=== PATIENT | female | born 1960 | race Caucasian/White ===

== ENCOUNTER 2023-09-29 17:10 | Inpatient (IN) | payer MEDICARE, MEDICAID, SELFPAY ==
--- NOTE | ~2023-09-29 | CT_ITS ---
EXAMINATION: CT HEAD WITHOUT CONTRAST CLINICAL INFORMATION: Unwitnessed fall COMPARISON: None available. TECHNIQUE: Contiguous axial imaging was performed from the skull base to vertex without intravenous administration of contrast. This CT examination was performed using dose optimization techniques as appropriate, variously including the following: *Automated exposure control *Adjustment of mA and/or kV according to patient size (this includes techniques or standardized protocols for targeted exams where dose is matched to indication/reason for exam; i.e. extremities or head) *Use of iterative reconstruction technique DLP: 615.31 mGy-cm FINDINGS: Sequelae of right frontoparietal craniotomy. Right temporal approach ventriculostomy catheter with tip terminating in the right lateral ventricle body, abutting the septum pellucidum. No hydrocephalus. Sequelae of prior embolization repair in the region of the right ICA MCA junction with associated streak artifact slightly limiting evaluation. Atherosclerotic calcifications of the visualized bilateral carotid siphons. No acute intracranial hemorrhage or infarct. Encephalomalacic changes involving right MCA territory. Ill-defined hypodensity involving the right frontal lobe, likely sequela of prior left frontal approach ventriculostomy catheter. Otherwise, the martinez-white matter differentiation is preserved. No midline shift. No acute extra-axial fluid collections. The osseous structures are unremarkable. No orbital pathology. The paranasal sinuses and mastoid air cells are clear. CT/CT head/brain wo IV con IMPRESSION: 1. No acute intracranial hemorrhage or edematous infarct. 2. 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 3. Right temporal approach ventriculostomy catheter with tip terminating in the right lateral ventricle body. No hydrocephalus.
[2023-09-29 17:58] VITALS: BMI 21.0
[2023-09-29 18:00] VITALS: BP 99/53; PULSE 47; RESP 16; TEMP 35.8; O2SAT 92
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
[2023-09-29] MEDS: Docusate Sodium 100 MG CAPSULE PO (21:44)
[2023-09-29] MEDS: clonazePAM 0.5 MG TABLET PO (21:44)
[2023-09-29] MEDS: Famotidine 20 MG TABLET PO (21:44)
[2023-09-29] MEDS: traZODone HCL 25 MG HALFTAB PO (21:45)
[2023-09-29] MEDS: Gabapentin 600 MG TABLET PO (21:45)
[2023-09-29] MEDS: lamoTRIgine 100 MG TABLET 200 MG PO (21:45)
[2023-09-30 08:00] VITALS: BP 92/53; PULSE 53; RESP 18; TEMP 36.2; O2SAT 97
[2023-09-30 08:09] LABS: Alanine Aminotransferase 18 U/L (0-31); Alkaline Phosphatase 108 U/L (39-117); Anion Gap 12 (12-20); Aspartate Amino Transferase 21 U/L (5-31); Bilirubin Total 0.3 mg/dL (0.0-1.0); Blood Urea Nitrogen 14 mg/dL (9-16); Calcium 9.7 mg/dL (8.4-10.2); Carbon Dioxide 28 mmol/L (22-29); Chloride 106 mmol/L (96-108); Cholesterol 125 mg/dL (<200); Creatinine Clr Calc Pharmacy 83.6; Estimated Glomerular Filt Rate > 60; Glucose Fasting 124 mg/dL (60-99); HDL Cholesterol 42 mg/dL (>40); LDL Cholesterol Calculated 69 mg/dL (<100); Potassium 4.4 mmol/L (3.3-5.1); Sodium 142 mmol/L (135-145); Total Protein 7.1 g/dL (6.5-8.0); Triglycerides 74 mg/dL (<150)
[2023-09-30] MEDS: Escitalopram Oxalate 10 MG TABLET PO (09:12)
[2023-09-30] MEDS: metFORMIN HCl 500 MG TABLET PO (09:12)
[2023-09-30] MEDS: oxyBUTYnin chloride ER 5 MG TAB.ER.24 10 MG PO (09:12)
[2023-09-30] MEDS: traZODone HCL 50 MG TABLET PO (09:12)
[2023-09-30] MEDS: Docusate Sodium 100 MG CAPSULE PO (09:12)
[2023-09-30] MEDS: clonazePAM 0.5 MG TABLET PO ×2 (09:13→20:22)
[2023-09-30] MEDS: Gabapentin 600 MG TABLET PO ×2 (09:13→20:24)
[2023-09-30] MEDS: lamoTRIgine 100 MG TABLET 200 MG PO ×2 (09:13→20:21)
[2023-09-30] MEDS: Atorvastatin Calcium 80 MG TABLET PO (09:13)
[2023-09-30] MEDS: Famotidine 20 MG TABLET PO ×2 (09:14→22:42)
[2023-09-30] MEDS: Aspirin 81 MG TAB.CHEW PO (10:45)
[2023-09-30] MEDS: Nicotine 21 MG PATCH.TD24 TRANSDERMA (10:46)
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
[2023-09-30 18:00] VITALS: BP 110/52; PULSE 60; RESP 16; TEMP 36.6; O2SAT 97
[2023-09-30] MEDS: traZODone HCL 25 MG HALFTAB PO (20:22)
[2023-10-01 08:05] VITALS: BP 134/61; PULSE 67; RESP 18; TEMP 36.5; O2SAT 96
[2023-10-01] MEDS: oxyBUTYnin chloride ER 5 MG TAB.ER.24 10 MG PO (08:53)
[2023-10-01] MEDS: Aspirin 81 MG TAB.CHEW PO (08:54)
[2023-10-01] MEDS: lamoTRIgine 100 MG TABLET 200 MG PO ×2 (08:54→20:47)
[2023-10-01] MEDS: Gabapentin 600 MG TABLET PO ×3 (08:55→20:47)
[2023-10-01] MEDS: Escitalopram Oxalate 10 MG TABLET PO (08:55)
[2023-10-01] MEDS: clonazePAM 0.5 MG TABLET PO ×3 (08:55→20:47)
[2023-10-01] MEDS: traZODone HCL 50 MG TABLET PO (08:56)
[2023-10-01] MEDS: metFORMIN HCl 500 MG TABLET PO (08:56)
[2023-10-01] MEDS: Docusate Sodium 100 MG CAPSULE PO ×2 (08:56→20:47)
[2023-10-01] MEDS: Atorvastatin Calcium 80 MG TABLET PO (08:57)
[2023-10-01] MEDS: Famotidine 20 MG TABLET PO ×2 (08:57→20:47)
--- NOTE | 2023-10-01 12:23 | HO.PSYCHPN ---
Subjective Subjective Date of Service: 10/01/23 Reason For Visit: F03 Subjective Notes: Conditional Voluntary Interim History: The nursing staff reported the patient had been with short-term memory, she wants to go back to her residential a she stated that she had been doing well. She had been confused that able to be redirected. The occupational therapy reported that the patient has PTS her residential and she was requesting her wheelchair. On interview the patient stated that she had been doing fine and she wants to go back to her residential. Today we received some collateral information. Mental Status Exam Mental Status Exam Patient Appearance: Well Grooomed and Appropriate Patient Orientation: Person and Situation Level of Consciousness: Awake and Appropriate Patient Behavior: Guarded and Passive Mood Description: Withdrawn Affect Description: Constricted Patient Cognition Impaired: Yes Ability to Follow Directions: Good Speech Pattern: Clear Hallucinations: None Delusions: Paranoid Ideation Thought Process: Illogical and Distracted Thought Content: positive for [place] and positive for Poverty of Content Judgement: Poor Diagnostics Vital Signs (24Hr): Vital Signs - 24 hr 09/30/23 18:00 10/01/23 08:05 Temperature 97.9 F 97.7 F Pulse Rate 60 67 Respiratory Rate 16 18 Blood Pressure 110/52 L 134/61 Pulse Oximetry 97 96 Oxygen Delivery Method Room Air Room Air BMI result Body Mass Index 21.0 Labs 09/30/23 07:43 Labs: Laboratory Results - last 48 hr 09/30/23 07:43 Hold Purple Top SEE NOTE Sodium 142 Potassium 4.4 Chloride 106 Carbon Dioxide 28 Anion Gap 12 BUN 14 Creatinine 0.65 Estim Creat Clear Calc 83.6 Estimated GFR > 60 Fasting Glucose 124 H Calcium 9.7 Total Bilirubin 0.3 AST 21 ALT 18 Alkaline Phosphatase 108 Total Protein 7.1 Albumin 4.0 Triglycerides 74 Cholesterol 125 LDL Cholesterol, Calc 69 HDL Cholesterol 42 Medications Medications Current Medications Acetaminophen (Acetaminophen 325 Mg Tablet) 650 mg PO Q6H PRN PRN Reason: Headache/Pain Mild Scale (1-3) Al Hydroxide/Mg Hydroxide (Magnesium Hydrox/Alum Hydrox 30 Ml Oral.Susp) 30 ml PO Q6H PRN PRN Reason: Heartburn/Nausea Aspirin (Aspirin 81 Mg Tab.Chew) 81 mg PO DAILY [facility] Last Admin: 10/01/23 08:54 Dose: 81 mg Atorvastatin Calcium (Atorvastatin Calcium 80 Mg Tablet) 80 mg PO DAILY [facility] Last Admin: 10/01/23 08:57 Dose: 80 mg Clonazepam (Clonazepam 0.5 Mg Tablet) 0.5 mg PO TID [facility] Last Admin: 10/01/23 08:55 Dose: 0.5 mg Docusate Sodium (Docusate Sodium 100 Mg Capsule) 100 mg PO BID [facility] Last Admin: 10/01/23 08:56 Dose: 100 mg Escitalopram Oxalate (Escitalopram Oxalate 10 Mg Tablet) 10 mg PO DAILY [facility] Last Admin: 10/01/23 08:55 Dose: 10 mg Famotidine (Famotidine 20 Mg Tablet) 20 mg PO BID [facility] Last Admin: 10/01/23 08:57 Dose: 20 mg Gabapentin (Gabapentin 600 Mg Tablet) 600 mg PO TID [facility] Last Admin: 10/01/23 08:55 Dose: 600 mg Hydroxyzine HCl (Hydroxyzine Hcl 25 Mg Tablet) 25 mg PO Q6H PRN PRN Reason: Anxiety Ibuprofen (Ibuprofen 400 Mg Tablet) 400 mg PO Q6H PRN PRN Reason: Mild Pain (Scale Score 1-4) Lamotrigine (Lamotrigine 100 Mg Tablet) 200 mg PO BID [facility] Last Admin: 10/01/23 08:54 Dose: 200 mg Latanoprost (Latanoprost 0.005 % Ophth Pati 2.5 Ml Drops) 1 drop EYE-BOTH DAILY [facility] Last Admin: 10/01/23 09:47 Dose: Not Given Magnesium Hydroxide (Milk Of Magnesia 30 Ml Oral.Susp) 30 ml PO DAILY PRN PRN Reason: Constipation Metformin HCl (Metformin Hcl 500 Mg Tablet) 500 mg PO DAILY [facility] Last Admin: 10/01/23 08:56 Dose: 500 mg Nicotine (Nicotine 21 Mg Patch.Td24) 21 mg TRANSDERMA DAILY [facility] Last Admin: 09/30/23 10:46 Dose: 21 mg Non-Formulary Medication (Varenicline) 0.5 mg PO BID [facility] Olanzapine (Olanzapine Odt 10 Mg Tab.Rapdis) 10 mg TRANSLINGU BID PRN PRN Reason: Psychosis Oxybutynin Chloride (Oxybutynin Chloride Er 5 Mg Tab.Er.24) 10 mg PO DAILY [facility] Last Admin: 10/01/23 08:53 Dose: 10 mg Trazodone HCl (Trazodone Hcl 50 Mg Tablet) 50 mg PO BEDTIME MRX1 PRN PRN Reason: Insomnia Trazodone HCl (Trazodone Hcl 25 Mg Halftab) 25 mg PO BEDTIME [facility] Last Admin: 09/30/23 20:22 Dose: 25 mg Trazodone HCl (Trazodone Hcl 50 Mg Tablet) 50 mg PO DAILY [facility] Last Admin: 10/01/23 08:56 Dose: 50 mg Allergies Allergies Allergy/AdvReac Type Severity Reaction Status Date / Time amantadine AdvReac Unknown Verified 09/29/23 17:57 Assessment & Plan Assessment & Plan (1) Dementia: Status: Acute Code(s): F03.90 - Unspecified dementia, unspecified severity, without behavioral disturbance, psychotic disturbance, mood disturbance, and anxiety (2) Traumatic brain injury: Status: Acute Code(s): S06.9XAA - Unspecified intracranial injury with loss of consciousness status unknown, initial encounter Plan The patient is adult female who looks older than her stated age with a prior history of dementia and traumatic brain injury who resides in a residential who was brought into the facility due to increased agitation, paranoia and disorganized behavior, confused unable to take care of herself, violent against the staff of his residential. The patient had been a very poor historian able to provide any information regarding her mental state she looks internally preoccupied and paranoid. Plan 1. Gather collateral information. 2. Continue with regular medications. 3. We do not have a role years order a guardianship within not have at this moment any legal paperwork regarding the patient. We cannot start standing 90 psychotic until we have cleared if she has a treatment over objection on court. We will start only as p.r.n. Zyprexa 10 p.o. b.i.d. p.r.n. psychosis. Later on we found out according to the med rec the patient has a guardian and she is taking Zyprexa 5 mg p.o. q.h.s. restarted on October 01. 4. Continue medical workout. 5. Reassessment with results. 6. 15 minute checks. Reason for continued inpatient stay Substantial Risk for: inability to function, rapid decompensation and med/psych decompensation Time Spent With Patient Time: Total time managing care of this patient today __20__ minutes.
[2023-10-01 18:00] VITALS: BP 90/55; PULSE 60; RESP 16; TEMP 36; O2SAT 92
[2023-10-01] MEDS: Latanoprost 0.005 % Ophth Sol 2.5 ML DROPS 1 DROP EYE-BOTH (20:46)
[2023-10-01] MEDS: OLANZapine 5 MG TABLET PO (20:47)
[2023-10-01] MEDS: traZODone HCL 25 MG HALFTAB PO (20:47)
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
[2023-10-02 10:15] VITALS: BP 101/54; PULSE 50; RESP 16; TEMP 36.1; O2SAT 98
[2023-10-02] MEDS: oxyBUTYnin chloride ER 5 MG TAB.ER.24 10 MG PO (10:18)
[2023-10-02] MEDS: metFORMIN HCl 500 MG TABLET PO (10:18)
[2023-10-02] MEDS: lamoTRIgine 100 MG TABLET 200 MG PO ×2 (10:18→20:45)
[2023-10-02] MEDS: traZODone HCL 50 MG TABLET PO (10:18)
[2023-10-02] MEDS: Escitalopram Oxalate 10 MG TABLET PO (10:18)
[2023-10-02] MEDS: Atorvastatin Calcium 80 MG TABLET PO (10:18)
[2023-10-02] MEDS: Gabapentin 600 MG TABLET PO ×3 (10:19→20:45)
[2023-10-02] MEDS: Famotidine 20 MG TABLET PO ×2 (10:19→20:45)
[2023-10-02] MEDS: clonazePAM 0.5 MG TABLET PO ×3 (10:19→20:45)
[2023-10-02] MEDS: Docusate Sodium 100 MG CAPSULE PO ×2 (10:19→20:45)
[2023-10-02] MEDS: Aspirin 81 MG TAB.CHEW PO (10:19)
[2023-10-02] MEDS: Nicotine 21 MG PATCH.TD24 TRANSDERMA (10:34)
--- NOTE | 2023-10-02 17:44 | HO.PSYCHPN ---
Subjective Subjective Date of Service: 10/02/23 Reason For Visit: F03 Interim History: Met with patient; discussed with team Patient reports she is feeling tired; denies any other problems. Thanks commercial loan underwriter for checking in on her. Otherwise difficult with which to engage Mental Status Exam Mental Status Exam Patient Appearance: Fatigued Patient Orientation: Person and Situation Level of Consciousness: Awake and Appropriate Patient Behavior: Guarded and Passive Mood Description: Withdrawn Affect Description: Constricted Patient Cognition Impaired: Yes Ability to Follow Directions: Fair Speech Pattern: Clear Hallucinations: None Delusions: Paranoid Ideation Thought Process: Illogical and Distracted Thought Content: positive for [place] and positive for Poverty of Content Judgement: Poor Diagnostics Vital Signs (24Hr): Vital Signs - 24 hr 10/01/23 18:00 10/02/23 10:15 Temperature 96.8 F 96.9 F Pulse Rate 60 50 Respiratory Rate 16 16 Blood Pressure 90/55 L 101/54 L Pulse Oximetry 92 98 Oxygen Delivery Method Room Air Room Air BMI result Body Mass Index 21.0 Labs 09/30/23 07:43 Medications Medications Current Medications Acetaminophen (Acetaminophen 325 Mg Tablet) 650 mg PO Q6H PRN PRN Reason: Headache/Pain Mild Scale (1-3) Al Hydroxide/Mg Hydroxide (Magnesium Hydrox/Alum Hydrox 30 Ml Oral.Susp) 30 ml PO Q6H PRN PRN Reason: Heartburn/Nausea Aspirin (Aspirin 81 Mg Tab.Chew) 81 mg PO DAILY [facility] Last Admin: 10/02/23 10:19 Dose: 81 mg Atorvastatin Calcium (Atorvastatin Calcium 80 Mg Tablet) 80 mg PO DAILY [facility] Last Admin: 10/02/23 10:18 Dose: 80 mg Clonazepam (Clonazepam 0.5 Mg Tablet) 0.5 mg PO TID [facility] Last Admin: 10/02/23 16:51 Dose: 0.5 mg Docusate Sodium (Docusate Sodium 100 Mg Capsule) 100 mg PO BID [facility] Last Admin: 10/02/23 10:19 Dose: 100 mg Escitalopram Oxalate (Escitalopram Oxalate 10 Mg Tablet) 10 mg PO DAILY [facility] Last Admin: 10/02/23 10:18 Dose: 10 mg Famotidine (Famotidine 20 Mg Tablet) 20 mg PO BID [facility] Last Admin: 10/02/23 10:19 Dose: 20 mg Gabapentin (Gabapentin 600 Mg Tablet) 600 mg PO TID [facility] Last Admin: 10/02/23 16:52 Dose: 600 mg Hydroxyzine HCl (Hydroxyzine Hcl 25 Mg Tablet) 25 mg PO Q6H PRN PRN Reason: Anxiety Ibuprofen (Ibuprofen 400 Mg Tablet) 400 mg PO Q6H PRN PRN Reason: Mild Pain (Scale Score 1-4) Lamotrigine (Lamotrigine 100 Mg Tablet) 200 mg PO BID [facility] Last Admin: 10/02/23 10:18 Dose: 200 mg Latanoprost (Latanoprost 0.005 % Ophth Pati 2.5 Ml Drops) 1 drop EYE-BOTH BEDTIME [facility] Last Admin: 10/01/23 20:46 Dose: 1 drop Magnesium Hydroxide (Milk Of Magnesia 30 Ml Oral.Susp) 30 ml PO DAILY PRN PRN Reason: Constipation Metformin HCl (Metformin Hcl 500 Mg Tablet) 500 mg PO DAILY [facility] Last Admin: 10/02/23 10:18 Dose: 500 mg Nicotine (Nicotine 21 Mg Patch.Td24) 21 mg TRANSDERMA DAILY [facility] Last Admin: 10/02/23 10:34 Dose: 21 mg Non-Formulary Medication (Varenicline) 0.5 mg PO BID [facility] Olanzapine (Olanzapine Odt 10 Mg Tab.Rapdis) 10 mg TRANSLINGU BID PRN PRN Reason: Psychosis Olanzapine (Olanzapine 5 Mg Tablet) 5 mg PO BEDTIME [facility] Last Admin: 10/01/23 20:47 Dose: 5 mg Oxybutynin Chloride (Oxybutynin Chloride Er 5 Mg Tab.Er.24) 10 mg PO DAILY [facility] Last Admin: 10/02/23 10:18 Dose: 10 mg Trazodone HCl (Trazodone Hcl 50 Mg Tablet) 50 mg PO BEDTIME MRX1 PRN PRN Reason: Insomnia Trazodone HCl (Trazodone Hcl 25 Mg Halftab) 25 mg PO BEDTIME [facility] Last Admin: 10/01/23 20:47 Dose: 25 mg Trazodone HCl (Trazodone Hcl 50 Mg Tablet) 50 mg PO DAILY [facility] Last Admin: 10/02/23 10:18 Dose: 50 mg Allergies Allergies Allergy/AdvReac Type Severity Reaction Status Date / Time amantadine AdvReac Unknown Verified 09/29/23 17:57 Assessment & Plan Assessment & Plan (1) Diabetes: Qualifiers: Diabetes mellitus complication status: without complication Status: Acute Code(s): E11.9 - Type 2 diabetes mellitus without complications (2) HLD (hyperlipidemia): Qualifiers: Hyperlipidemia type: unspecified Qualified Code(s): E78.5 - Hyperlipidemia, unspecified Status: Acute Code(s): E78.5 - Hyperlipidemia, unspecified (3) Traumatic brain injury: Qualifiers: Loss of consciousness presence/duration: unknown LOC status Status: Acute Code(s): S06.9XAA - Unspecified intracranial injury with loss of consciousness status unknown, initial encounter Plan 63 year old female with history of TBI, HLD, dmentia, diabetes from senior living admitted to [facility] for managment of increased agitation, paranoia and disorganized behavior, confused unable to take care of herself, violent against the staff of his senior living. Plan: Overall seems to be doing better at this point, there is no obvious acute medical issues. Continue Metformin for diabetes, Lipitor for HLD. Her las recorded BP was on low side nearly 18 hours ago and would suggest rechecking. Labs were reviewed and unremarkable. Given no acute medical issues, will follow on PRN basis Reason for continued inpatient stay Substantial Risk for: inability to function Time Spent With Patient Time: Total time managing care of this patient today ____ minutes.
[2023-10-02 18:00] VITALS: BP 97/53; PULSE 60; RESP 16; TEMP 36.8; O2SAT 94
[2023-10-02] MEDS: traZODone HCL 25 MG HALFTAB PO (20:45)
[2023-10-02] MEDS: OLANZapine 5 MG TABLET PO (20:45)
[2023-10-02] MEDS: Latanoprost 0.005 % Ophth Sol 2.5 ML DROPS 1 DROP EYE-BOTH (20:51)
[2023-10-03 06:00] VITALS: BP 95/54; PULSE 68; RESP 18; TEMP 36.7; O2SAT 96
[2023-10-03 07:00] VITALS: BMI 23.1
[2023-10-03] MEDS: Aspirin 81 MG TAB.CHEW PO (08:57)
[2023-10-03] MEDS: lamoTRIgine 100 MG TABLET 200 MG PO ×2 (08:57→20:28)
[2023-10-03] MEDS: oxyBUTYnin chloride ER 5 MG TAB.ER.24 10 MG PO (08:57)
[2023-10-03] MEDS: Escitalopram Oxalate 10 MG TABLET PO (08:57)
[2023-10-03] MEDS: Famotidine 20 MG TABLET PO ×2 (08:58→20:29)
[2023-10-03] MEDS: traZODone HCL 50 MG TABLET PO (08:58)
[2023-10-03] MEDS: Atorvastatin Calcium 80 MG TABLET PO (08:58)
[2023-10-03] MEDS: metFORMIN HCl 500 MG TABLET PO (08:58)
[2023-10-03] MEDS: Gabapentin 600 MG TABLET PO ×3 (08:58→20:28)
[2023-10-03] MEDS: clonazePAM 0.5 MG TABLET PO ×3 (08:58→20:28)
[2023-10-03] MEDS: Docusate Sodium 100 MG CAPSULE PO ×2 (08:58→20:29)
[2023-10-03] MEDS: Nicotine 21 MG PATCH.TD24 TRANSDERMA (09:01)
--- NOTE | 2023-10-03 15:02 | HO.PSYCHPN ---
Subjective Subjective Date of Service: 10/03/23 Reason For Visit: F03 Subjective Notes: Conditional Voluntary Interim History: The nursing staff reported the patient has been confused and irritable, she had been using her wheelchair. She looks disheveled and she slept well last night. Neck the nurse in charge called the program and gather more collateral information. The social worker clinical reported that she can go back to his fpc once her aggressiveness is resolved. We are going to check the role years order. On interview the patient stated that she wants to go back home and she is okay. We are going to increase Zyprexa to 10 mg p.o. q.h.s.. Mental Status Exam Mental Status Exam Patient Appearance: Unkempt Patient Orientation: Person Level of Consciousness: Awake and Appropriate Patient Behavior: Guarded and Passive Mood Description: Withdrawn Affect Description: Constricted Patient Cognition Impaired: Yes Ability to Follow Directions: Good Speech Pattern: Clear Hallucinations: None Delusions: Not Present Thought Process: Distracted and Slowed Thinking Thought Content: positive for [place], positive for [place] and positive for Poverty of Content Judgement: Poor Diagnostics Vital Signs (24Hr): Vital Signs - 24 hr 10/02/23 18:00 10/03/23 06:00 Temperature 98.2 F 98.1 F Pulse Rate 60 68 Respiratory Rate 16 18 Blood Pressure 97/53 L 95/54 L Pulse Oximetry 94 96 Oxygen Delivery Method Room Air Room Air BMI result Body Mass Index 23.1 Labs 09/30/23 07:43 Medications Medications Current Medications Acetaminophen (Acetaminophen 325 Mg Tablet) 650 mg PO Q6H PRN PRN Reason: Headache/Pain Mild Scale (1-3) Al Hydroxide/Mg Hydroxide (Magnesium Hydrox/Alum Hydrox 30 Ml Oral.Susp) 30 ml PO Q6H PRN PRN Reason: Heartburn/Nausea Aspirin (Aspirin 81 Mg Tab.Chew) 81 mg PO DAILY [facility] Last Admin: 10/03/23 08:57 Dose: 81 mg Atorvastatin Calcium (Atorvastatin Calcium 80 Mg Tablet) 80 mg PO DAILY [facility] Last Admin: 10/03/23 08:58 Dose: 80 mg Clonazepam (Clonazepam 0.5 Mg Tablet) 0.5 mg PO TID [facility] Last Admin: 10/03/23 08:58 Dose: 0.5 mg Docusate Sodium (Docusate Sodium 100 Mg Capsule) 100 mg PO BID [facility] Last Admin: 10/03/23 08:58 Dose: 100 mg Escitalopram Oxalate (Escitalopram Oxalate 10 Mg Tablet) 10 mg PO DAILY [facility] Last Admin: 10/03/23 08:57 Dose: 10 mg Famotidine (Famotidine 20 Mg Tablet) 20 mg PO BID [facility] Last Admin: 10/03/23 08:58 Dose: 20 mg Gabapentin (Gabapentin 600 Mg Tablet) 600 mg PO TID [facility] Last Admin: 10/03/23 08:58 Dose: 600 mg Hydroxyzine HCl (Hydroxyzine Hcl 25 Mg Tablet) 25 mg PO Q6H PRN PRN Reason: Anxiety Ibuprofen (Ibuprofen 400 Mg Tablet) 400 mg PO Q6H PRN PRN Reason: Mild Pain (Scale Score 1-4) Lamotrigine (Lamotrigine 100 Mg Tablet) 200 mg PO BID [facility] Last Admin: 10/03/23 08:57 Dose: 200 mg Latanoprost (Latanoprost 0.005 % Ophth Pati 2.5 Ml Drops) 1 drop EYE-BOTH BEDTIME [facility] Last Admin: 10/02/23 20:51 Dose: 1 drop Magnesium Hydroxide (Milk Of Magnesia 30 Ml Oral.Susp) 30 ml PO DAILY PRN PRN Reason: Constipation Metformin HCl (Metformin Hcl 500 Mg Tablet) 500 mg PO DAILY [facility] Last Admin: 10/03/23 08:58 Dose: 500 mg Nicotine (Nicotine 21 Mg Patch.Td24) 21 mg TRANSDERMA DAILY [facility] Last Admin: 10/03/23 09:01 Dose: 21 mg Olanzapine (Olanzapine Odt 10 Mg Tab.Rapdis) 10 mg TRANSLINGU BID PRN PRN Reason: Psychosis Olanzapine (Olanzapine 10 Mg Tablet) 10 mg PO BEDTIME [facility] Oxybutynin Chloride (Oxybutynin Chloride Er 5 Mg Tab.Er.24) 10 mg PO DAILY [facility] Last Admin: 10/03/23 08:57 Dose: 10 mg Trazodone HCl (Trazodone Hcl 50 Mg Tablet) 50 mg PO BEDTIME MRX1 PRN PRN Reason: Insomnia Trazodone HCl (Trazodone Hcl 25 Mg Halftab) 25 mg PO BEDTIME [facility] Last Admin: 10/02/23 20:45 Dose: 25 mg Trazodone HCl (Trazodone Hcl 50 Mg Tablet) 50 mg PO DAILY [facility] Last Admin: 10/03/23 08:58 Dose: 50 mg Allergies Allergies Allergy/AdvReac Type Severity Reaction Status Date / Time amantadine AdvReac Unknown Verified 09/29/23 17:57 Assessment & Plan Assessment & Plan (1) Diabetes: Qualifiers: Diabetes mellitus complication status: without complication Status: Acute Code(s): E11.9 - Type 2 diabetes mellitus without complications (2) HLD (hyperlipidemia): Qualifiers: Hyperlipidemia type: unspecified Qualified Code(s): E78.5 - Hyperlipidemia, unspecified Status: Acute Code(s): E78.5 - Hyperlipidemia, unspecified (3) Traumatic brain injury: Qualifiers: Loss of consciousness presence/duration: unknown LOC status Status: Acute Code(s): S06.9XAA - Unspecified intracranial injury with loss of consciousness status unknown, initial encounter Plan 63 year old female with history of TBI, HLD, dmentia, diabetes from fpc admitted to [facility] for managment of increased agitation, paranoia and disorganized behavior, confused unable to take care of herself, violent against the staff of his fpc. Plan: Overall seems to be doing better at this point, there is no obvious acute medical issues. Continue Metformin for diabetes, Lipitor for HLD. Her las recorded BP was on low side nearly 18 hours ago and would suggest rechecking. Labs were reviewed and unremarkable. Given no acute medical issues, will follow on PRN basis 1. Gather collateral information. 2. Increase Zyprexa from 5-10 mg on October 03. 3. Continue with medical workout. Reason for continued inpatient stay Substantial Risk for: inability to function, rapid decompensation and med/psych decompensation Time Spent With Patient Time: Total time managing care of this patient today ____ minutes.
[2023-10-03 20:05] VITALS: BP 105/58; PULSE 59; RESP 18; TEMP 36.9; O2SAT 94
[2023-10-03] MEDS: traZODone HCL 25 MG HALFTAB PO (20:28)
[2023-10-03] MEDS: OLANZapine 10 MG TABLET PO (20:29)
[2023-10-03] MEDS: Latanoprost 0.005 % Ophth Sol 2.5 ML DROPS 1 DROP EYE-BOTH (20:39)
[2023-10-04] MEDS: OLANZapine ODT 10 MG TAB.RAPDIS TRANSLINGU ×3 (04:55→16:40)
[2023-10-04 06:00] VITALS: BP 99/58; PULSE 69; RESP 16; TEMP 36.6; O2SAT 96
[2023-10-04] MEDS: metFORMIN HCl 500 MG TABLET PO (08:14)
[2023-10-04] MEDS: lamoTRIgine 100 MG TABLET 200 MG PO ×2 (08:14→21:20)
[2023-10-04] MEDS: Atorvastatin Calcium 80 MG TABLET PO (08:14)
[2023-10-04] MEDS: Aspirin 81 MG TAB.CHEW PO (08:15)
[2023-10-04] MEDS: Gabapentin 600 MG TABLET PO ×3 (08:15→21:20)
[2023-10-04] MEDS: Escitalopram Oxalate 10 MG TABLET PO (08:15)
[2023-10-04] MEDS: Famotidine 20 MG TABLET PO ×2 (08:15→21:20)
[2023-10-04] MEDS: oxyBUTYnin chloride ER 5 MG TAB.ER.24 10 MG PO (08:15)
[2023-10-04] MEDS: Docusate Sodium 100 MG CAPSULE PO ×2 (08:15→21:19)
[2023-10-04] MEDS: traZODone HCL 50 MG TABLET PO (08:15)
[2023-10-04] MEDS: clonazePAM 0.5 MG TABLET PO ×4 (08:15→21:19)
[2023-10-04] MEDS: Nicotine 21 MG PATCH.TD24 TRANSDERMA (08:36)
--- NOTE | 2023-10-04 15:04 | HO.PSYCHPN ---
Subjective Subjective Date of Service: 10/04/23 Reason For Visit: F03 Subjective Notes: Conditional Voluntary Interim History: The nursing staff reported the patient had been confused, disoriented stating that she wants to go back home. She slept poorly last night we recently increased her Zyprexa. She took side is at 04:00 o'clock in the morning. Today in the morning she was sleepy and stated that she was doing fine. No changes in mental status Mental Status Exam Mental Status Exam Patient Appearance: Well Grooomed and Appropriate Patient Orientation: Person and Situation Level of Consciousness: Awake and Appropriate Patient Behavior: Guarded and Passive Mood Description: Calm Affect Description: Withdrawn and Cheerful Patient Cognition Impaired: Yes Ability to Follow Directions: Good Speech Pattern: Clear Hallucinations: None Delusions: Not Present Thought Process: Distracted and Slowed Thinking Thought Content: positive for [place], positive for [place] and positive for Poverty of Content Judgement: Poor Diagnostics Vital Signs (24Hr): Vital Signs - 24 hr 10/03/23 20:05 10/04/23 06:00 Temperature 98.4 F 97.8 F Pulse Rate 59 69 Respiratory Rate 18 16 Blood Pressure 105/58 L 99/58 L Pulse Oximetry 94 96 Oxygen Delivery Method Room Air Room Air BMI result Body Mass Index 23.1 Labs 09/30/23 07:43 Medications Medications Current Medications Acetaminophen (Acetaminophen 325 Mg Tablet) 650 mg PO Q6H PRN PRN Reason: Headache/Pain Mild Scale (1-3) Al Hydroxide/Mg Hydroxide (Magnesium Hydrox/Alum Hydrox 30 Ml Oral.Susp) 30 ml PO Q6H PRN PRN Reason: Heartburn/Nausea Aspirin (Aspirin 81 Mg Tab.Chew) 81 mg PO DAILY COUNT [facility]CLUD[facility] Last Admin: 10/04/23 08:15 Dose: 81 mg Atorvastatin Calcium (Atorvastatin Calcium 80 Mg Tablet) 80 mg PO DAILY COUNT [facility]CLUD[facility] Last Admin: 10/04/23 08:14 Dose: 80 mg Clonazepam (Clonazepam 0.5 Mg Tablet) 0.5 mg PO TID COUNT [facility]CLUDES [facility] Last Admin: 10/04/23 08:15 Dose: 0.5 mg Docusate Sodium (Docusate Sodium 100 Mg Capsule) 100 mg PO BID COUNT [facility]CLUD[facility] Last Admin: 10/04/23 08:15 Dose: 100 mg Escitalopram Oxalate (Escitalopram Oxalate 10 Mg Tablet) 10 mg PO DAILY COUNT [facility] Last Admin: 10/04/23 08:15 Dose: 10 mg Famotidine (Famotidine 20 Mg Tablet) 20 mg PO BID COUNT [facility]CLUD[facility] Last Admin: 10/04/23 08:15 Dose: 20 mg Gabapentin (Gabapentin 600 Mg Tablet) 600 mg PO TID COUNT [facility] Last Admin: 10/04/23 08:15 Dose: 600 mg Hydroxyzine HCl (Hydroxyzine Hcl 25 Mg Tablet) 25 mg PO Q6H PRN PRN Reason: Anxiety Ibuprofen (Ibuprofen 400 Mg Tablet) 400 mg PO Q6H PRN PRN Reason: Mild Pain (Scale Score 1-4) Lamotrigine (Lamotrigine 100 Mg Tablet) 200 mg PO BID COUNT [facility]CLUD[facility] Last Admin: 10/04/23 08:14 Dose: 200 mg Latanoprost (Latanoprost 0.005 % Ophth Pati 2.5 Ml Drops) 1 drop EYE-BOTH BEDTIME COUNT INCLUDES [facility] Last Admin: 10/03/23 20:39 Dose: 1 drop Magnesium Hydroxide (Milk Of Magnesia 30 Ml Oral.Susp) 30 ml PO DAILY PRN PRN Reason: Constipation Metformin HCl (Metformin Hcl 500 Mg Tablet) 500 mg PO DAILY COUNT [facility] Last Admin: 10/04/23 08:14 Dose: 500 mg Nicotine (Nicotine 21 Mg Patch.Td24) 21 mg TRANSDERMA DAILY COUNT [facility]CLUDES [facility] Last Admin: 10/04/23 08:36 Dose: 21 mg Olanzapine (Olanzapine Odt 10 Mg Tab.Rapdis) 10 mg TRANSLINGU BID PRN PRN Reason: Psychosis Last Admin: 10/04/23 04:55 Dose: 10 mg Olanzapine (Olanzapine 10 Mg Tablet) 10 mg PO BEDTIME COUNT [facility]CLUD[facility] Last Admin: 10/03/23 20:29 Dose: 10 mg Oxybutynin Chloride (Oxybutynin Chloride Er 5 Mg Tab.Er.24) 10 mg PO DAILY COUNT [facility]CLUD[facility] Last Admin: 10/04/23 08:15 Dose: 10 mg Trazodone HCl (Trazodone Hcl 50 Mg Tablet) 50 mg PO BEDTIME MRX1 PRN PRN Reason: Insomnia Trazodone HCl (Trazodone Hcl 25 Mg Halftab) 25 mg PO BEDTIME COUNT [facility]CLUD[facility] Last Admin: 10/03/23 20:28 Dose: 25 mg Trazodone HCl (Trazodone Hcl 50 Mg Tablet) 50 mg PO DAILY COUNT [facility]CLUD[facility] Last Admin: 10/04/23 08:15 Dose: 50 mg Allergies Allergies Allergy/AdvReac Type Severity Reaction Status Date / Time amantadine AdvReac Unknown Verified 09/29/23 17:57 Assessment & Plan Assessment & Plan (1) Diabetes: Qualifiers: Diabetes mellitus complication status: without complication Status: Acute Code(s): E11.9 - Type 2 diabetes mellitus without complications (2) HLD (hyperlipidemia): Qualifiers: Hyperlipidemia type: unspecified Qualified Code(s): E78.5 - Hyperlipidemia, unspecified Status: Acute Code(s): E78.5 - Hyperlipidemia, unspecified (3) Traumatic brain injury: Qualifiers: Loss of consciousness presence/duration: unknown LOC status Status: Acute Code(s): S06.9XAA - Unspecified intracranial injury with loss of consciousness status unknown, initial encounter Plan 63 year old female with history of TBI, HLD, dmentia, diabetes from [facility] admitted to [facility] for managment of increased agitation, paranoia and disorganized behavior, confused unable to take care of herself, violent against the staff of his [facility]. Plan: Overall seems to be doing better at this point, there is no obvious acute medical issues. Continue Metformin for diabetes, Lipitor for HLD. Her las recorded BP was on low side nearly 18 hours ago and would suggest rechecking. Labs were reviewed and unremarkable. Given no acute medical issues, will follow on PRN basis 1. Gather collateral information. 2. Increase Zyprexa from 5-10 mg on October 03. 3. Continue with medical workout. Reason for continued inpatient stay Substantial Risk for: inability to function, rapid decompensation and med/psych decompensation Time Spent With Patient Time: Total time managing care of this patient today __20__ minutes.
--- NOTE | 2023-10-04 17:38 | PC.NURSE ---
Patient became extremely agitated at approximately 1530 insisting her ipad was under the bed and that she was at her detention not at [facility]. Patient also was angry that she couldn't have her cigarettes. Olanzapine 10 mg AND Clonazepam 0.5 x2. Patient is calmer however still believes she is at the detention. notified.
[2023-10-04 18:00] VITALS: BP 117/64; PULSE 67; RESP 16; TEMP 36.1; O2SAT 95
[2023-10-04] MEDS: traZODone HCL 25 MG HALFTAB PO (21:20)
[2023-10-04] MEDS: OLANZapine 10 MG TABLET PO (21:20)
[2023-10-05 08:15] VITALS: BP 114/69; PULSE 64; RESP 18; TEMP 35.9; O2SAT 100
[2023-10-05] MEDS: Nicotine 21 MG PATCH.TD24 TRANSDERMA (08:53)
[2023-10-05] MEDS: oxyBUTYnin chloride ER 5 MG TAB.ER.24 10 MG PO (08:54)
[2023-10-05] MEDS: traZODone HCL 50 MG TABLET PO (08:55)
[2023-10-05] MEDS: lamoTRIgine 100 MG TABLET 200 MG PO (08:55)
[2023-10-05] MEDS: Aspirin 81 MG TAB.CHEW PO (08:55)
[2023-10-05] MEDS: Docusate Sodium 100 MG CAPSULE PO (08:56)
[2023-10-05] MEDS: Escitalopram Oxalate 10 MG TABLET PO (08:56)
[2023-10-05] MEDS: Atorvastatin Calcium 80 MG TABLET PO (08:56)
[2023-10-05] MEDS: Gabapentin 600 MG TABLET PO ×2 (08:56→14:46)
[2023-10-05] MEDS: clonazePAM 0.5 MG TABLET PO ×2 (08:57→14:46)
[2023-10-05] MEDS: metFORMIN HCl 500 MG TABLET PO (08:57)
[2023-10-05] MEDS: Famotidine 20 MG TABLET PO (08:57)
[2023-10-05] MEDS: OLANZapine ODT 10 MG TAB.RAPDIS TRANSLINGU (12:06)
--- NOTE | 2023-10-05 12:08 | HO.PSYCHPN ---
Subjective Subjective Date of Service: 10/05/23 Reason For Visit: F03 Interim History: calm, cooperative, lying in bed. no requests or complaints. pleasant. per staff, got zydis at 1609 and 1640 yesterday. talkative, intrusive. Mental Status Exam Mental Status Exam Patient Appearance: Well Grooomed and Appropriate Patient Orientation: Person and Situation Level of Consciousness: Awake and Appropriate Patient Behavior: Guarded and Passive Mood Description: Calm Affect Description: Withdrawn and Cheerful Patient Cognition Impaired: Yes Ability to Follow Directions: Good Speech Pattern: Clear Hallucinations: None Delusions: Not Present Thought Process: Distracted and Slowed Thinking Thought Content: positive for [place], positive for [place] and positive for Poverty of Content Judgement: Poor Diagnostics Vital Signs (24Hr): Vital Signs - 24 hr 10/04/23 18:00 10/05/23 08:15 Temperature 97 F 96.7 F L Pulse Rate 67 64 Respiratory Rate 16 18 Blood Pressure 117/64 114/69 Pulse Oximetry 95 100 Oxygen Delivery Method Room Air Room Air BMI result Body Mass Index 23.1 Labs 09/30/23 07:43 Medications Medications Current Medications Acetaminophen (Acetaminophen 325 Mg Tablet) 650 mg PO Q6H PRN PRN Reason: Headache/Pain Mild Scale (1-3) Al Hydroxide/Mg Hydroxide (Magnesium Hydrox/Alum Hydrox 30 Ml Oral.Susp) 30 ml PO Q6H PRN PRN Reason: Heartburn/Nausea Aspirin (Aspirin 81 Mg Tab.Chew) 81 mg PO DAILY [facility] Last Admin: 10/05/23 08:55 Dose: 81 mg Atorvastatin Calcium (Atorvastatin Calcium 80 Mg Tablet) 80 mg PO DAILY [facility] Last Admin: 10/05/23 08:56 Dose: 80 mg Clonazepam (Clonazepam 0.5 Mg Tablet) 0.5 mg PO TID [facility] Last Admin: 10/05/23 08:57 Dose: 0.5 mg Docusate Sodium (Docusate Sodium 100 Mg Capsule) 100 mg PO BID [facility] Last Admin: 10/05/23 08:56 Dose: 100 mg Escitalopram Oxalate (Escitalopram Oxalate 10 Mg Tablet) 10 mg PO DAILY [facility] Last Admin: 10/05/23 08:56 Dose: 10 mg Famotidine (Famotidine 20 Mg Tablet) 20 mg PO BID [facility] Last Admin: 10/05/23 08:57 Dose: 20 mg Gabapentin (Gabapentin 600 Mg Tablet) 600 mg PO TID [facility] Last Admin: 10/05/23 08:56 Dose: 600 mg Hydroxyzine HCl (Hydroxyzine Hcl 25 Mg Tablet) 25 mg PO Q6H PRN PRN Reason: Anxiety Ibuprofen (Ibuprofen 400 Mg Tablet) 400 mg PO Q6H PRN PRN Reason: Mild Pain (Scale Score 1-4) Lamotrigine (Lamotrigine 100 Mg Tablet) 200 mg PO BID [facility] Last Admin: 10/05/23 08:55 Dose: 200 mg Latanoprost (Latanoprost 0.005 % Ophth Pati 2.5 Ml Drops) 1 drop EYE-BOTH BEDTIME [facility] Last Admin: 10/04/23 21:26 Dose: Not Given Magnesium Hydroxide (Milk Of Magnesia 30 Ml Oral.Susp) 30 ml PO DAILY PRN PRN Reason: Constipation Metformin HCl (Metformin Hcl 500 Mg Tablet) 500 mg PO DAILY [facility] Last Admin: 10/05/23 08:57 Dose: 500 mg Nicotine (Nicotine 21 Mg Patch.Td24) 21 mg TRANSDERMA DAILY [facility] Last Admin: 10/05/23 08:53 Dose: 21 mg Olanzapine (Olanzapine Odt 10 Mg Tab.Rapdis) 10 mg TRANSLINGU BID PRN PRN Reason: Psychosis Last Admin: 10/05/23 12:06 Dose: 10 mg Olanzapine (Olanzapine 10 Mg Tablet) 10 mg PO BEDTIME [facility] Last Admin: 10/04/23 21:20 Dose: 10 mg Oxybutynin Chloride (Oxybutynin Chloride Er 5 Mg Tab.Er.24) 10 mg PO DAILY [facility] Last Admin: 10/05/23 08:54 Dose: 10 mg Trazodone HCl (Trazodone Hcl 50 Mg Tablet) 50 mg PO BEDTIME MRX1 PRN PRN Reason: Insomnia Trazodone HCl (Trazodone Hcl 25 Mg Halftab) 25 mg PO BEDTIME [facility] Last Admin: 10/04/23 21:20 Dose: 25 mg Trazodone HCl (Trazodone Hcl 50 Mg Tablet) 50 mg PO DAILY [facility] Last Admin: 10/05/23 08:55 Dose: 50 mg Allergies Allergies Allergy/AdvReac Type Severity Reaction Status Date / Time amantadine AdvReac Unknown Verified 09/29/23 17:57 Assessment & Plan Assessment & Plan (1) Diabetes: Qualifiers: Diabetes mellitus complication status: without complication Status: Acute Code(s): E11.9 - Type 2 diabetes mellitus without complications (2) HLD (hyperlipidemia): Qualifiers: Hyperlipidemia type: unspecified Qualified Code(s): E78.5 - Hyperlipidemia, unspecified Status: Acute Code(s): E78.5 - Hyperlipidemia, unspecified (3) Traumatic brain injury: Qualifiers: Loss of consciousness presence/duration: unknown LOC status Status: Acute Code(s): S06.9XAA - Unspecified intracranial injury with loss of consciousness status unknown, initial encounter Plan 63 year old female with history of TBI, HLD, dmentia, diabetes from retirement admitted to [facility] for managment of increased agitation, paranoia and disorganized behavior, confused unable to take care of herself, violent against the staff of his retirement. Plan: Overall seems to be doing better at this point, there is no obvious acute medical issues. Continue Metformin for diabetes, Lipitor for HLD. Her las recorded BP was on low side nearly 18 hours ago and would suggest rechecking. Labs were reviewed and unremarkable. Given no acute medical issues, will follow on PRN basis 10/05: calm, cooperative. continue current mgmt. Reason for continued inpatient stay Substantial Risk for: inability to function Time Spent With Patient Time: Total time managing care of this patient today ____ minutes.
[2023-10-05] MEDS: hydrOXYzine HCL 25 MG TABLET PO (15:08)
--- NOTE | 2023-10-05 15:32 | PC.NURSE ---
Patient woke up demanding cigarettes from this advertising copywriter. This advertising copywriter offered her another Nicotine patch as she pulled hers off but she refused. She took her 1500 medications and was swearing and agitated. She then threw her cup of water at her wheelchair. After she calmed down she wheeled herself into the common room where she became belligerent, demanding cigarettes and recklessly moving her wheelchair. She was given prn Atarax at 1508. She was asked to quiet down but became louder and more aggressive so she was redirected with the help of 2 staff to her room. She was asked to remain quiet while out in the common area because she is scaring people and agreed to stay calm and quiet. She went out to the common area soon after.
[2023-10-05 18:00] VITALS: BP 97/59; PULSE 66; RESP 17; TEMP 36.4; O2SAT 97
[2023-10-06] MEDS: OLANZapine ODT 10 MG TAB.RAPDIS TRANSLINGU (04:59)
[2023-10-06 07:55] VITALS: BP 117/56; PULSE 64; RESP 18; TEMP 36.4; O2SAT 97
[2023-10-06] MEDS: Nicotine 21 MG PATCH.TD24 TRANSDERMA (08:56)
[2023-10-06] MEDS: oxyBUTYnin chloride ER 5 MG TAB.ER.24 10 MG PO (08:57)
[2023-10-06] MEDS: Gabapentin 600 MG TABLET PO ×3 (08:58→20:39)
[2023-10-06] MEDS: clonazePAM 0.5 MG TABLET PO ×3 (08:58→20:39)
[2023-10-06] MEDS: Aspirin 81 MG TAB.CHEW PO (08:58)
[2023-10-06] MEDS: Escitalopram Oxalate 10 MG TABLET PO (08:58)
[2023-10-06] MEDS: metFORMIN HCl 500 MG TABLET PO (08:59)
[2023-10-06] MEDS: Atorvastatin Calcium 80 MG TABLET PO (08:59)
[2023-10-06] MEDS: Docusate Sodium 100 MG CAPSULE PO ×2 (09:00→20:39)
[2023-10-06] MEDS: traZODone HCL 50 MG TABLET PO (09:00)
[2023-10-06] MEDS: Famotidine 20 MG TABLET PO ×2 (09:00→20:39)
[2023-10-06] MEDS: lamoTRIgine 100 MG TABLET 200 MG PO ×2 (09:03→20:38)
--- NOTE | 2023-10-06 12:14 | HO.PSYCHPN ---
Subjective Subjective Date of Service: 10/06/23 Reason For Visit: F03 Interim History: sleepy, doesn't really rouse herself for interview. mumbling about someone bending and bending something until it broke, does not elaborate upon inquiry. per staff, difficult day yesterday. labile, agitated. got zyprexa PRN. Mental Status Exam Mental Status Exam Patient Appearance: Well Grooomed and Appropriate Level of Consciousness: Drowsy Patient Behavior: Guarded and Passive Mood Description: Calm Affect Description: Withdrawn Patient Cognition Impaired: Yes Speech Pattern: Mumbled Hallucinations: None Delusions: Not Present Thought Process: Distracted and Slowed Thinking Thought Content: positive for [place] and positive for Poverty of Content Judgement: Poor Diagnostics Vital Signs (24Hr): Vital Signs - 24 hr 10/05/23 18:00 10/06/23 07:55 Temperature 97.5 F 97.5 F Pulse Rate 66 64 Respiratory Rate 17 18 Blood Pressure 97/59 L 117/56 L Pulse Oximetry 97 97 Oxygen Delivery Method Room Air Room Air BMI result Body Mass Index 23.1 Labs 09/30/23 07:43 Medications Medications Current Medications Acetaminophen (Acetaminophen 325 Mg Tablet) 650 mg PO Q6H PRN PRN Reason: Headache/Pain Mild Scale (1-3) Al Hydroxide/Mg Hydroxide (Magnesium Hydrox/Alum Hydrox 30 Ml Oral.Susp) 30 ml PO Q6H PRN PRN Reason: Heartburn/Nausea Aspirin (Aspirin 81 Mg Tab.Chew) 81 mg PO DAILY [facility] Last Admin: 10/06/23 08:58 Dose: 81 mg Atorvastatin Calcium (Atorvastatin Calcium 80 Mg Tablet) 80 mg PO DAILY [facility] Last Admin: 10/06/23 08:59 Dose: 80 mg Clonazepam (Clonazepam 0.5 Mg Tablet) 0.5 mg PO TID [facility] Last Admin: 10/06/23 08:58 Dose: 0.5 mg Docusate Sodium (Docusate Sodium 100 Mg Capsule) 100 mg PO BID [facility] Last Admin: 10/06/23 09:00 Dose: 100 mg Escitalopram Oxalate (Escitalopram Oxalate 10 Mg Tablet) 10 mg PO DAILY [facility] Last Admin: 10/06/23 08:58 Dose: 10 mg Famotidine (Famotidine 20 Mg Tablet) 20 mg PO BID [facility] Last Admin: 10/06/23 09:00 Dose: 20 mg Gabapentin (Gabapentin 600 Mg Tablet) 600 mg PO TID [facility] Last Admin: 10/06/23 08:58 Dose: 600 mg Hydroxyzine HCl (Hydroxyzine Hcl 25 Mg Tablet) 25 mg PO Q6H PRN PRN Reason: Anxiety Last Admin: 10/05/23 15:08 Dose: 25 mg Ibuprofen (Ibuprofen 400 Mg Tablet) 400 mg PO Q6H PRN PRN Reason: Mild Pain (Scale Score 1-4) Lamotrigine (Lamotrigine 100 Mg Tablet) 200 mg PO BID [facility] Last Admin: 10/06/23 09:03 Dose: 200 mg Latanoprost (Latanoprost 0.005 % Ophth Pati 2.5 Ml Drops) 1 drop EYE-BOTH BEDTIME [facility] Last Admin: 10/05/23 21:32 Dose: Not Given Magnesium Hydroxide (Milk Of Magnesia 30 Ml Oral.Susp) 30 ml PO DAILY PRN PRN Reason: Constipation Metformin HCl (Metformin Hcl 500 Mg Tablet) 500 mg PO DAILY [facility] Last Admin: 10/06/23 08:59 Dose: 500 mg Nicotine (Nicotine 21 Mg Patch.Td24) 21 mg TRANSDERMA DAILY [facility] Last Admin: 10/06/23 08:56 Dose: 21 mg Olanzapine (Olanzapine Odt 10 Mg Tab.Rapdis) 10 mg TRANSLINGU BID PRN PRN Reason: Psychosis Last Admin: 10/06/23 04:59 Dose: 10 mg Olanzapine (Olanzapine 10 Mg Tablet) 10 mg PO BEDTIME [facility] Last Admin: 10/05/23 21:32 Dose: Not Given Oxybutynin Chloride (Oxybutynin Chloride Er 5 Mg Tab.Er.24) 10 mg PO DAILY [facility] Last Admin: 10/06/23 08:57 Dose: 10 mg Trazodone HCl (Trazodone Hcl 50 Mg Tablet) 50 mg PO BEDTIME MRX1 PRN PRN Reason: Insomnia Trazodone HCl (Trazodone Hcl 25 Mg Halftab) 25 mg PO BEDTIME [facility] Last Admin: 10/05/23 21:32 Dose: Not Given Trazodone HCl (Trazodone Hcl 50 Mg Tablet) 50 mg PO DAILY [facility] Last Admin: 10/06/23 09:00 Dose: 50 mg Allergies Allergies Allergy/AdvReac Type Severity Reaction Status Date / Time amantadine AdvReac Unknown Verified 09/29/23 17:57 Assessment & Plan Assessment & Plan (1) Diabetes: Qualifiers: Diabetes mellitus complication status: without complication Status: Acute Code(s): E11.9 - Type 2 diabetes mellitus without complications (2) HLD (hyperlipidemia): Qualifiers: Hyperlipidemia type: unspecified Qualified Code(s): E78.5 - Hyperlipidemia, unspecified Status: Acute Code(s): E78.5 - Hyperlipidemia, unspecified (3) Traumatic brain injury: Qualifiers: Loss of consciousness presence/duration: unknown LOC status Status: Acute Code(s): S06.9XAA - Unspecified intracranial injury with loss of consciousness status unknown, initial encounter Plan 63 year old female with history of TBI, HLD, dmentia, diabetes from [facility] admitted to [facility] for managment of increased agitation, paranoia and disorganized behavior, confused unable to take care of herself, violent against the staff of his [facility]. Plan: Overall seems to be doing better at this point, there is no obvious acute medical issues. Continue Metformin for diabetes, Lipitor for HLD. Her las recorded BP was on low side nearly 18 hours ago and would suggest rechecking. Labs were reviewed and unremarkable. Given no acute medical issues, will follow on PRN basis 10/05: calm, cooperative. continue current mgmt. 10/06: calm, sleepy. per staff difficult afternoon yesterday, very agitated and labile, required zyprexa PRN. continue current mgmt. Reason for continued inpatient stay Substantial Risk for: harm to others, inability to function and rapid decompensation Time Spent With Patient Time: Total time managing care of this patient today ____ minutes.
[2023-10-06 18:00] VITALS: BP 108/61; PULSE 55; RESP 16; TEMP 36.1; O2SAT 98
[2023-10-06] MEDS: OLANZapine 10 MG TABLET PO (20:38)
[2023-10-06] MEDS: Latanoprost 0.005 % Ophth Sol 2.5 ML DROPS 1 DROP EYE-BOTH (20:38)
[2023-10-06] MEDS: traZODone HCL 25 MG HALFTAB PO (20:40)
[2023-10-07] MEDS: OLANZapine ODT 10 MG TAB.RAPDIS TRANSLINGU ×2 (01:00→08:23)
[2023-10-07] MEDS: traZODone HCL 50 MG TABLET PO ×2 (01:37→08:22)
[2023-10-07] MEDS: hydrOXYzine HCL 25 MG TABLET PO ×2 (01:37→08:22)
[2023-10-07 08:01] VITALS: BP 116/85; PULSE 70; RESP 18; TEMP 36.3; O2SAT 98
[2023-10-07] MEDS: Aspirin 81 MG TAB.CHEW PO (08:21)
[2023-10-07] MEDS: Docusate Sodium 100 MG CAPSULE PO ×2 (08:22→21:39)
[2023-10-07] MEDS: metFORMIN HCl 500 MG TABLET PO (08:22)
[2023-10-07] MEDS: Gabapentin 600 MG TABLET PO ×3 (08:22→21:37)
[2023-10-07] MEDS: Famotidine 20 MG TABLET PO ×2 (08:22→21:38)
[2023-10-07] MEDS: lamoTRIgine 100 MG TABLET 200 MG PO ×2 (08:22→21:38)
[2023-10-07] MEDS: oxyBUTYnin chloride ER 5 MG TAB.ER.24 10 MG PO (08:22)
[2023-10-07] MEDS: Atorvastatin Calcium 80 MG TABLET PO (08:22)
[2023-10-07] MEDS: Escitalopram Oxalate 10 MG TABLET PO (08:22)
[2023-10-07] MEDS: clonazePAM 0.5 MG TABLET PO ×3 (08:22→21:38)
[2023-10-07] MEDS: Nicotine 21 MG PATCH.TD24 TRANSDERMA (08:23)
[2023-10-07 08:51] LABS: Creatinine Clr Calc Pharmacy 82.7; Estimated Glomerular Filt Rate > 60
--- NOTE | 2023-10-07 13:43 | P.PNPSI_ITS ---
Subjective Subjective Date of Service: 10/07/23 Reason For Visit: F03 Subjective Notes: Conditional Voluntary Interim History: The nursing staff reported that the patient refused to believe that she is at [facility] and she wanted to go to a day program. She is alert and only oriented to self. She needed p.r.n. Zydis yesterday. She was confused disorganized and today on me pinning we decided to decrease her Zyprexa. The healthcare social worker reported that she has a TBI program she is not into [facility] but they have [facility]. On interview the patient remains confused at times. She needed to be medicated PO with Zydis 20 and Ativan 2 after exhausting all her PRNs. Mental Status Exam Mental Status Exam Patient Appearance: Well Grooomed and Appropriate Patient Orientation: Person and Situation Level of Consciousness: Awake and Appropriate Patient Behavior: Guarded and Passive Mood Description: Withdrawn and Constricted Affect Description: Calm and Constricted Patient Cognition Impaired: Yes Ability to Follow Directions: Good Speech Pattern: Clear Hallucinations: None Delusions: Paranoid Ideation and Ideas of Reference Thought Process: Distracted and Slowed Thinking Thought Content: positive for [facility] and positive for Circumstantial Judgement: Poor Diagnostics Vital Signs (24Hr): Vital Signs - 24 hr 10/06/23 18:00 10/07/23 08:01 Temperature 97 F 97.3 F Pulse Rate 55 70 Respiratory Rate 16 18 Blood Pressure 108/61 116/85 Pulse Oximetry 98 98 Oxygen Delivery Method Room Air Room Air BMI result Body Mass Index 23.1 Labs 10/07/23 08:34 Labs: Laboratory Results - last 48 hr 10/07/23 08:34 Creatinine 0.66 Estim Creat Clear Calc 82.7 Estimated GFR > 60 Medications Medications Current Medications Acetaminophen (Acetaminophen 325 Mg Tablet) 650 mg PO Q6H PRN PRN Reason: Headache/Pain Mild Scale (1-3) Al Hydroxide/Mg Hydroxide (Magnesium Hydrox/Alum Hydrox 30 Ml Oral.Susp) 30 ml PO Q6H PRN PRN Reason: Heartburn/Nausea Aspirin (Aspirin 81 Mg Tab.Chew) 81 mg PO DAILY [facility] Last Admin: 10/07/23 08:21 Dose: 81 mg Atorvastatin Calcium (Atorvastatin Calcium 80 Mg Tablet) 80 mg PO DAILY [facility] Last Admin: 10/07/23 08:22 Dose: 80 mg Clonazepam (Clonazepam 0.5 Mg Tablet) 0.5 mg PO TID [facility] Last Admin: 10/07/23 08:22 Dose: 0.5 mg Docusate Sodium (Docusate Sodium 100 Mg Capsule) 100 mg PO BID [facility] Last Admin: 10/07/23 08:22 Dose: 100 mg Escitalopram Oxalate (Escitalopram Oxalate 10 Mg Tablet) 10 mg PO DAILY [facility] Last Admin: 10/07/23 08:22 Dose: 10 mg Famotidine (Famotidine 20 Mg Tablet) 20 mg PO BID [facility] Last Admin: 10/07/23 08:22 Dose: 20 mg Gabapentin (Gabapentin 600 Mg Tablet) 600 mg PO TID [facility] Last Admin: 10/07/23 08:22 Dose: 600 mg Hydroxyzine HCl (Hydroxyzine Hcl 25 Mg Tablet) 25 mg PO Q6H PRN PRN Reason: Anxiety Last Admin: 10/07/23 08:22 Dose: 25 mg Ibuprofen (Ibuprofen 400 Mg Tablet) 400 mg PO Q6H PRN PRN Reason: Mild Pain (Scale Score 1-4) Lamotrigine (Lamotrigine 100 Mg Tablet) 200 mg PO BID [facility] Last Admin: 10/07/23 08:22 Dose: 200 mg Latanoprost (Latanoprost 0.005 % Ophth Pati 2.5 Ml Drops) 1 drop EYE-BOTH BEDTIME [facility] Last Admin: 10/06/23 20:38 Dose: 1 drop Magnesium Hydroxide (Milk Of Magnesia 30 Ml Oral.Susp) 30 ml PO DAILY PRN PRN Reason: Constipation Metformin HCl (Metformin Hcl 500 Mg Tablet) 500 mg PO DAILY [facility] Last Admin: 10/07/23 08:22 Dose: 500 mg Nicotine (Nicotine 21 Mg Patch.Td24) 21 mg TRANSDERMA DAILY [facility] Last Admin: 10/07/23 08:23 Dose: 21 mg Olanzapine (Olanzapine Odt 10 Mg Tab.Rapdis) 10 mg TRANSLINGU BID PRN PRN Reason: Psychosis Last Admin: 10/07/23 08:23 Dose: 10 mg Olanzapine (Olanzapine 7.5 Mg Tablet) 15 mg PO BEDTIME [facility] Oxybutynin Chloride (Oxybutynin Chloride Er 5 Mg Tab.Er.24) 10 mg PO DAILY [facility] Last Admin: 10/07/23 08:22 Dose: 10 mg Trazodone HCl (Trazodone Hcl 50 Mg Tablet) 50 mg PO BEDTIME MRX1 PRN PRN Reason: Insomnia Last Admin: 10/07/23 01:37 Dose: 50 mg Trazodone HCl (Trazodone Hcl 25 Mg Halftab) 25 mg PO BEDTIME [facility] Last Admin: 10/06/23 20:40 Dose: 25 mg Trazodone HCl (Trazodone Hcl 50 Mg Tablet) 50 mg PO DAILY [facility] Last Admin: 10/07/23 08:22 Dose: 50 mg Allergies Allergies Allergy/AdvReac Type Severity Reaction Status Date / Time amantadine AdvReac Unknown Verified 09/29/23 17:57 Assessment & Plan Assessment & Plan (1) Diabetes: Qualifiers: Diabetes mellitus complication status: without complication Status: Acute Code(s): E11.9 - Type 2 diabetes mellitus without complications (2) HLD (hyperlipidemia): Qualifiers: Hyperlipidemia type: unspecified Qualified Code(s): E78.5 - Hyperlipidemia, unspecified Status: Acute Code(s): E78.5 - Hyperlipidemia, unspecified (3) Traumatic brain injury: Qualifiers: Loss of consciousness presence/duration: unknown LOC status Status: Acute Code(s): S06.9XAA - Unspecified intracranial injury with loss of consciousness status unknown, initial encounter Plan 63 year old female with history of TBI, HLD, [facility]ia, [facility] for managment of increased agitation, paranoia and disorganized behavior, confused unable to take care of herself, violent against the staff [facility]. Plan: Overall seems to be doing better at this point, there is no obvious acute medical issues. Continue Metformin for diabetes, Lipitor for HLD. Her las recorded BP was on low side nearly 18 hours ago and would suggest rechecking. Labs were reviewed and unremarkable. Given no acute medical issues, will follow on PRN basis Plan 1. Continue with same treatment. 2. October 07 increase Zyprexa to 15 mg p.o. q.h.s. Reason for continued inpatient stay Substantial Risk for: inability to function, rapid decompensation and med/psych decompensation Time Spent With Patient Time: Total time managing care of this patient today __20__ minutes.
[2023-10-07] MEDS: OLANZapine ODT 10 MG TAB.RAPDIS 20 MG TRANSLINGU (15:30)
[2023-10-07] MEDS: LORazepam 1 MG TABLET 2 MG PO (15:30)
[2023-10-07 18:00] VITALS: BP 98/63; PULSE 65; RESP 16; TEMP 36.3; O2SAT 98
[2023-10-07] MEDS: Latanoprost 0.005 % Ophth Sol 2.5 ML DROPS 1 DROP EYE-BOTH (21:37)
[2023-10-07] MEDS: OLANZapine 7.5 MG TABLET 15 MG PO (21:39)
[2023-10-07] MEDS: traZODone HCL 25 MG HALFTAB PO (21:40)
[2023-10-08 08:02] VITALS: BP 113/66; PULSE 62; RESP 18; TEMP 36.3; O2SAT 96
[2023-10-08] MEDS: Aspirin 81 MG TAB.CHEW PO (08:16)
[2023-10-08] MEDS: clonazePAM 0.5 MG TABLET PO ×3 (08:16→20:50)
[2023-10-08] MEDS: traZODone HCL 50 MG TABLET PO (08:16)
[2023-10-08] MEDS: Gabapentin 600 MG TABLET PO ×3 (08:16→20:51)
[2023-10-08] MEDS: Docusate Sodium 100 MG CAPSULE PO ×2 (08:16→20:50)
[2023-10-08] MEDS: lamoTRIgine 100 MG TABLET 200 MG PO ×2 (08:16→20:51)
[2023-10-08] MEDS: metFORMIN HCl 500 MG TABLET PO (08:17)
[2023-10-08] MEDS: Nicotine 21 MG PATCH.TD24 TRANSDERMA (08:17)
[2023-10-08] MEDS: oxyBUTYnin chloride ER 5 MG TAB.ER.24 10 MG PO (08:17)
[2023-10-08] MEDS: OLANZapine ODT 10 MG TAB.RAPDIS TRANSLINGU ×2 (08:17→13:23)
[2023-10-08] MEDS: Atorvastatin Calcium 80 MG TABLET PO (08:17)
[2023-10-08] MEDS: Escitalopram Oxalate 10 MG TABLET PO (08:17)
[2023-10-08] MEDS: Famotidine 20 MG TABLET PO ×2 (08:17→20:51)
[2023-10-08] MEDS: hydrOXYzine HCL 25 MG TABLET PO (08:17)
[2023-10-08] MEDS: cloNIDine HCL 0.1 MG TABLET PO ×3 (09:29→20:50)
[2023-10-08 13:15] VITALS: BP 111/69
--- NOTE | 2023-10-08 13:54 | P.PNPSI_ITS ---
Subjective Subjective Date of Service: 10/08/23 Reason For Visit: F03 Subjective Notes: Conditional Voluntary Interim History: The nursing staff reported the patient had been more agitated in the evening. Today in the morning she had being loud, stating that she [facility] her [facility]. Disoriented unable be redirected we needed p.o. PRNs. On interview the patient is confused but redirectable. Mental Status Exam Mental Status Exam Patient Appearance: Appropriate Patient Orientation: Person Level of Consciousness: Awake and Appropriate Patient Behavior: Guarded and Passive Mood Description: Withdrawn Affect Description: Labile Patient Cognition Impaired: Yes Ability to Follow Directions: Good Speech Pattern: Clear Hallucinations: None Delusions: Paranoid Ideation Thought Process: Illogical and Distracted Judgement: Poor Diagnostics Vital Signs (24Hr): Vital Signs - 24 hr 10/07/23 18:00 10/08/23 08:02 10/08/23 13:15 Temperature 97.3 F 97.3 F Pulse Rate 65 62 Respiratory Rate 16 18 Blood Pressure 98/63 113/66 111/69 Pulse Oximetry 98 96 Oxygen Delivery Method Room Air Room Air BMI result Body Mass Index 23.1 Labs 10/07/23 08:34 Labs: Laboratory Results - last 48 hr 10/07/23 08:34 Creatinine 0.66 Estim Creat Clear Calc 82.7 Estimated GFR > 60 Medications Medications Current Medications Acetaminophen (Acetaminophen 325 Mg Tablet) 650 mg PO Q6H PRN PRN Reason: Headache/Pain Mild Scale (1-3) Al Hydroxide/Mg Hydroxide (Magnesium Hydrox/Alum Hydrox 30 Ml Oral.Susp) 30 ml PO Q6H PRN PRN Reason: Heartburn/Nausea Aspirin (Aspirin 81 Mg Tab.Chew) 81 mg PO DAILY [facility] Last Admin: 10/08/23 08:16 Dose: 81 mg Atorvastatin Calcium (Atorvastatin Calcium 80 Mg Tablet) 80 mg PO DAILY [facility] Last Admin: 10/08/23 08:17 Dose: 80 mg Clonazepam (Clonazepam 0.5 Mg Tablet) 0.5 mg PO TID [facility] Last Admin: 10/08/23 13:23 Dose: 0.5 mg Clonidine HCl (Clonidine Hcl 0.1 Mg Tablet) 0.1 mg PO TID [facility]; Protocol Last Admin: 10/08/23 13:23 Dose: 0.1 mg Docusate Sodium (Docusate Sodium 100 Mg Capsule) 100 mg PO BID [facility] Last Admin: 10/08/23 08:16 Dose: 100 mg Escitalopram Oxalate (Escitalopram Oxalate 10 Mg Tablet) 10 mg PO DAILY [facility] Last Admin: 10/08/23 08:17 Dose: 10 mg Famotidine (Famotidine 20 Mg Tablet) 20 mg PO BID [facility] Last Admin: 10/08/23 08:17 Dose: 20 mg Gabapentin (Gabapentin 600 Mg Tablet) 600 mg PO TID [facility] Last Admin: 10/08/23 13:23 Dose: 600 mg Hydroxyzine HCl (Hydroxyzine Hcl 25 Mg Tablet) 25 mg PO Q6H PRN PRN Reason: Anxiety Last Admin: 10/08/23 08:17 Dose: 25 mg Ibuprofen (Ibuprofen 400 Mg Tablet) 400 mg PO Q6H PRN PRN Reason: Mild Pain (Scale Score 1-4) Lamotrigine (Lamotrigine 100 Mg Tablet) 200 mg PO BID [facility] Last Admin: 10/08/23 08:16 Dose: 200 mg Latanoprost (Latanoprost 0.005 % Ophth Pati 2.5 Ml Drops) 1 drop EYE-BOTH BEDTIME [facility] Last Admin: 10/07/23 21:37 Dose: 1 drop Magnesium Hydroxide (Milk Of Magnesia 30 Ml Oral.Susp) 30 ml PO DAILY PRN PRN Reason: Constipation Metformin HCl (Metformin Hcl 500 Mg Tablet) 500 mg PO DAILY [facility] Last Admin: 10/08/23 08:17 Dose: 500 mg Nicotine (Nicotine 21 Mg Patch.Td24) 21 mg TRANSDERMA DAILY [facility] Last Admin: 10/08/23 08:17 Dose: 21 mg Olanzapine (Olanzapine 7.5 Mg Tablet) 15 mg PO BEDTIME [facility] Last Admin: 10/07/23 21:39 Dose: 15 mg Olanzapine (Olanzapine Odt 10 Mg Tab.Rapdis) 10 mg TRANSLINGU Q4H PRN PRN Reason: Psychosis Last Admin: 10/08/23 13:23 Dose: 10 mg Oxybutynin Chloride (Oxybutynin Chloride Er 5 Mg Tab.Er.24) 10 mg PO DAILY [facility] Last Admin: 10/08/23 08:17 Dose: 10 mg Trazodone HCl (Trazodone Hcl 50 Mg Tablet) 50 mg PO BEDTIME MRX1 PRN PRN Reason: Insomnia Last Admin: 10/07/23 01:37 Dose: 50 mg Trazodone HCl (Trazodone Hcl 25 Mg Halftab) 25 mg PO BEDTIME [facility] Last Admin: 10/07/23 21:40 Dose: 25 mg Trazodone HCl (Trazodone Hcl 50 Mg Tablet) 50 mg PO DAILY [facility] Last Admin: 10/08/23 08:16 Dose: 50 mg Allergies Allergies Allergy/AdvReac Type Severity Reaction Status Date / Time amantadine AdvReac Unknown Verified 09/29/23 17:57 Assessment & Plan Assessment & Plan (1) Diabetes: Qualifiers: Diabetes mellitus complication status: without complication Status: Acute Code(s): E11.9 - Type 2 diabetes mellitus without complications (2) HLD (hyperlipidemia): Qualifiers: Hyperlipidemia type: unspecified Qualified Code(s): E78.5 - Hyperlipidemia, unspecified Status: Acute Code(s): E78.5 - Hyperlipidemia, unspecified (3) Traumatic brain injury: Qualifiers: Loss of consciousness presence/duration: unknown LOC status Status: Acute Code(s): S06.9XAA - Unspecified intracranial injury with loss of consciousness status unknown, initial encounter Plan 63 year old female with history of TBI, HLD, dmentia, diabetes from [facility] admitted to [facility] for managment of increased agitation, paranoia and disorganized behavior, confused unable to take care of herself, violent against the staff of his [facility]. Plan: Overall seems to be doing better at this point, there is no obvious acute medical issues. Continue Metformin for diabetes, Lipitor for HLD. Her las recorded BP was on low side nearly 18 hours ago and would suggest rechecking. Labs were reviewed and unremarkable. Given no acute medical issues, will follow on PRN basis Plan 1. Continue with same treatment. 2. October 07 increase Zyprexa to 15 mg p.o. q.h.s. 3. On October 08 we started clonidine 0.1 p.o. t.i.d. and also we increased the p.r.n. it to q.6 hours Reason for continued inpatient stay Substantial Risk for: inability to function, rapid decompensation and med/psych decompensation Time Spent With Patient Time: Total time managing care of this patient today __20__ minutes.
[2023-10-08 18:00] VITALS: BP 115/56; PULSE 60; RESP 18; TEMP 36.3; O2SAT 99
[2023-10-08] MEDS: Latanoprost 0.005 % Ophth Sol 2.5 ML DROPS 1 DROP EYE-BOTH (20:51)
[2023-10-08] MEDS: OLANZapine 7.5 MG TABLET 15 MG PO (20:51)
[2023-10-08] MEDS: traZODone HCL 25 MG HALFTAB PO (20:51)
[2023-10-09] MEDS: hydrOXYzine HCL 25 MG TABLET PO ×2 (04:03→11:40)
[2023-10-09] MEDS: OLANZapine ODT 10 MG TAB.RAPDIS TRANSLINGU ×2 (04:09→11:40)
[2023-10-09 08:00] VITALS: BP 126/54; PULSE 52; RESP 18; TEMP 35.8; O2SAT 98
[2023-10-09] MEDS: Nicotine 21 MG PATCH.TD24 TRANSDERMA (09:24)
[2023-10-09] MEDS: Aspirin 81 MG TAB.CHEW PO (09:25)
[2023-10-09] MEDS: oxyBUTYnin chloride ER 5 MG TAB.ER.24 10 MG PO (09:25)
[2023-10-09] MEDS: cloNIDine HCL 0.1 MG TABLET PO ×2 (09:26→21:04)
[2023-10-09] MEDS: Docusate Sodium 100 MG CAPSULE PO ×2 (09:26→21:04)
[2023-10-09] MEDS: traZODone HCL 50 MG TABLET PO (09:27)
[2023-10-09] MEDS: lamoTRIgine 100 MG TABLET 200 MG PO ×2 (09:27→21:04)
[2023-10-09] MEDS: Gabapentin 600 MG TABLET PO ×2 (09:27→21:04)
[2023-10-09] MEDS: Atorvastatin Calcium 80 MG TABLET PO (09:28)
[2023-10-09] MEDS: clonazePAM 0.5 MG TABLET PO (09:28)
[2023-10-09] MEDS: Escitalopram Oxalate 10 MG TABLET PO (09:29)
[2023-10-09] MEDS: metFORMIN HCl 500 MG TABLET PO (09:29)
[2023-10-09] MEDS: Famotidine 20 MG TABLET PO ×2 (09:29→21:04)
--- NOTE | 2023-10-09 14:22 | P.PNPSI_ITS ---
Subjective Subjective Date of Service: 10/09/23 Reason For Visit: F03 Interim History: The nursing staff reported the patient had been yelling having verbal outburst, confusing stated that she is not in the hospital suspicious. She has been compliant on medication. On interview the patient is confused but redirectable. Mental Status Exam Mental Status Exam Patient Appearance: Appropriate Patient Orientation: Person Level of Consciousness: Awake Patient Behavior: Guarded Mood Description: Withdrawn Affect Description: Labile Patient Cognition Impaired: Yes Ability to Follow Directions: Good Speech Pattern: Clear Hallucinations: None Delusions: Paranoid Ideation and Ideas of Reference Thought Process: Distracted and Slowed Thinking Thought Content: positive for [place] and positive for Poverty of Content Judgement: Poor Diagnostics Vital Signs (24Hr): Vital Signs - 24 hr 10/08/23 18:00 10/09/23 08:00 Temperature 97.4 F 96.5 F L Pulse Rate 60 52 Respiratory Rate 18 18 Blood Pressure 115/56 L 126/54 L Pulse Oximetry 99 98 Oxygen Delivery Method Room Air Room Air BMI result Body Mass Index 23.1 Labs 10/07/23 08:34 Medications Medications Current Medications Acetaminophen (Acetaminophen 325 Mg Tablet) 650 mg PO Q6H PRN PRN Reason: Headache/Pain Mild Scale (1-3) Al Hydroxide/Mg Hydroxide (Magnesium Hydrox/Alum Hydrox 30 Ml Oral.Susp) 30 ml PO Q6H PRN PRN Reason: Heartburn/Nausea Aspirin (Aspirin 81 Mg Tab.Chew) 81 mg PO DAILY [facility] Last Admin: 10/09/23 09:25 Dose: 81 mg Atorvastatin Calcium (Atorvastatin Calcium 80 Mg Tablet) 80 mg PO DAILY [facility] Last Admin: 10/09/23 09:28 Dose: 80 mg Clonidine HCl (Clonidine Hcl 0.1 Mg Tablet) 0.1 mg PO TID [facility]; Protocol Last Admin: 10/09/23 09:26 Dose: 0.1 mg Docusate Sodium (Docusate Sodium 100 Mg Capsule) 100 mg PO BID [facility] Last Admin: 10/09/23 09:26 Dose: 100 mg Escitalopram Oxalate (Escitalopram Oxalate 10 Mg Tablet) 10 mg PO DAILY [facility] Last Admin: 10/09/23 09:29 Dose: 10 mg Famotidine (Famotidine 20 Mg Tablet) 20 mg PO BID [facility] Last Admin: 10/09/23 09:29 Dose: 20 mg Gabapentin (Gabapentin 600 Mg Tablet) 600 mg PO TID [facility] Last Admin: 10/09/23 09:27 Dose: 600 mg Hydroxyzine HCl (Hydroxyzine Hcl 25 Mg Tablet) 25 mg PO Q6H PRN PRN Reason: Anxiety Last Admin: 10/09/23 11:40 Dose: 25 mg Ibuprofen (Ibuprofen 400 Mg Tablet) 400 mg PO Q6H PRN PRN Reason: Mild Pain (Scale Score 1-4) Lamotrigine (Lamotrigine 100 Mg Tablet) 200 mg PO BID [facility] Last Admin: 10/09/23 09:27 Dose: 200 mg Latanoprost (Latanoprost 0.005 % Ophth Pati 2.5 Ml Drops) 1 drop EYE-BOTH BEDTIME [facility] Last Admin: 10/08/23 20:51 Dose: 1 drop Magnesium Hydroxide (Milk Of Magnesia 30 Ml Oral.Susp) 30 ml PO DAILY PRN PRN Reason: Constipation Metformin HCl (Metformin Hcl 500 Mg Tablet) 500 mg PO DAILY [facility] Last Admin: 10/09/23 09:29 Dose: 500 mg Nicotine (Nicotine 21 Mg Patch.Td24) 21 mg TRANSDERMA DAILY [facility] Last Admin: 10/09/23 09:24 Dose: 21 mg Olanzapine (Olanzapine 7.5 Mg Tablet) 15 mg PO BEDTIME [facility] Last Admin: 10/08/23 20:51 Dose: 15 mg Olanzapine (Olanzapine Odt 10 Mg Tab.Rapdis) 10 mg TRANSLINGU Q4H PRN PRN Reason: Psychosis Last Admin: 10/09/23 11:40 Dose: 10 mg Oxybutynin Chloride (Oxybutynin Chloride Er 5 Mg Tab.Er.24) 10 mg PO DAILY [facility] Last Admin: 10/09/23 09:25 Dose: 10 mg Trazodone HCl (Trazodone Hcl 50 Mg Tablet) 50 mg PO BEDTIME MRX1 PRN PRN Reason: Insomnia Last Admin: 10/07/23 01:37 Dose: 50 mg Trazodone HCl (Trazodone Hcl 25 Mg Halftab) 25 mg PO BEDTIME [facility] Last Admin: 10/08/23 20:51 Dose: 25 mg Trazodone HCl (Trazodone Hcl 50 Mg Tablet) 50 mg PO DAILY [facility] Last Admin: 10/09/23 09:27 Dose: 50 mg Allergies Allergies Allergy/AdvReac Type Severity Reaction Status Date / Time amantadine AdvReac Unknown Verified 09/29/23 17:57 Assessment & Plan Assessment & Plan (1) Diabetes: Qualifiers: Diabetes mellitus complication status: without complication Status: Acute Code(s): E11.9 - Type 2 diabetes mellitus without complications (2) HLD (hyperlipidemia): Qualifiers: Hyperlipidemia type: unspecified Qualified Code(s): E78.5 - Hyperlipidemia, unspecified Status: Acute Code(s): E78.5 - Hyperlipidemia, unspecified (3) Traumatic brain injury: Qualifiers: Loss of consciousness presence/duration: unknown LOC status Status: Acute Code(s): S06.9XAA - Unspecified intracranial injury with loss of consciousness status unknown, initial encounter Plan 63 year old female with history of TBI, HLD, dmentia, diabetes from nursing home admitted to [facility] for managment of increased agitation, paranoia and disorganized behavior, confused unable to take care of herself, violent against the staff of his nursing home. Plan: Overall seems to be doing better at this point, there is no obvious acute medical issues. Continue Metformin for diabetes, Lipitor for HLD. Her las recorded BP was on low side nearly 18 hours ago and would suggest rechecking. Labs were reviewed and unremarkable. Given no acute medical issues, will follow on PRN basis Plan 1. Continue with same treatment. 2. October 07 increase Zyprexa to 15 mg p.o. q.h.s. on October 09 we are increasing up to 20 mg p.o. q.h.s. 3. On October 08 we started clonidine 0.1 p.o. t.i.d. and also we increased the p.r.n. it to q.6 hours Reason for continued inpatient stay Substantial Risk for: inability to function, rapid decompensation and med/psych decompensation Time Spent With Patient Time: Total time managing care of this patient today __20__ minutes.
[2023-10-09 15:46] VITALS: BP 129/61; PULSE 54
--- NOTE | 2023-10-09 15:57 | PC.NURSE ---
Patient in bed, refused 1500 medications, saying, I don't want anymore pills! Dr. Camille Aguilera updated. Bed time Zyprexa increased to 20mg today.
[2023-10-09 18:00] VITALS: BP 90/52; PULSE 51; TEMP 36.1; O2SAT 95
[2023-10-09] MEDS: OLANZapine 10 MG TABLET 20 MG PO (21:04)
[2023-10-09] MEDS: traZODone HCL 25 MG HALFTAB PO (21:04)
[2023-10-09] MEDS: Latanoprost 0.005 % Ophth Sol 2.5 ML DROPS 1 DROP EYE-BOTH (21:09)
[2023-10-10 08:00] VITALS: BP 91/51; PULSE 60; RESP 18; TEMP 36.1; O2SAT 96
[2023-10-10] MEDS: Nicotine 21 MG PATCH.TD24 TRANSDERMA (08:40)
[2023-10-10] MEDS: clonazePAM 0.5 MG TABLET PO ×3 (08:41→21:09)
[2023-10-10] MEDS: oxyBUTYnin chloride ER 5 MG TAB.ER.24 10 MG PO (08:41)
[2023-10-10] MEDS: Docusate Sodium 100 MG CAPSULE PO ×2 (08:41→21:08)
[2023-10-10] MEDS: Aspirin 81 MG TAB.CHEW PO (08:41)
[2023-10-10] MEDS: lamoTRIgine 100 MG TABLET 200 MG PO ×2 (08:41→21:08)
[2023-10-10] MEDS: traZODone HCL 50 MG TABLET PO (08:43)
[2023-10-10] MEDS: Atorvastatin Calcium 80 MG TABLET PO (08:43)
[2023-10-10] MEDS: Gabapentin 600 MG TABLET PO ×3 (08:43→21:08)
[2023-10-10] MEDS: Famotidine 20 MG TABLET PO ×2 (08:44→21:08)
[2023-10-10] MEDS: Escitalopram Oxalate 10 MG TABLET PO (08:44)
[2023-10-10] MEDS: metFORMIN HCl 500 MG TABLET PO (08:44)
[2023-10-10 14:02] VITALS: BP 102/50; PULSE 60
[2023-10-10] MEDS: cloNIDine HCL 0.1 MG TABLET PO ×2 (14:05→21:08)
--- NOTE | 2023-10-10 16:44 | HO.PSYCHPN ---
Subjective Subjective Date of Service: 10/10/23 Reason For Visit: F03 Subjective Notes: Conditional Voluntary Interim History: The nursing staff reported the patient has been more agitated in the afternoon and confused. She received p.r.n. medication. On interview the patient is pleasantly confused easily redirectable. Mental Status Exam Mental Status Exam Patient Appearance: Appropriate Patient Orientation: Person Level of Consciousness: Awake Patient Behavior: Guarded and Passive Mood Description: Withdrawn Affect Description: Constricted Patient Cognition Impaired: Yes Ability to Follow Directions: Good Speech Pattern: Appropriate Hallucinations: None Delusions: Paranoid Ideation Thought Process: Illogical and Slowed Thinking Thought Content: positive for [place] and positive for Poverty of Content Judgement: Poor Diagnostics Vital Signs (24Hr): Vital Signs - 24 hr 10/09/23 18:00 10/10/23 08:00 10/10/23 14:02 Temperature 96.9 F 96.9 F Pulse Rate 51 60 60 Respiratory Rate 18 Blood Pressure 90/52 L 91/51 L 102/50 L Pulse Oximetry 95 96 Oxygen Delivery Method Room Air Room Air BMI result Body Mass Index 23.1 Labs 10/07/23 08:34 Medications Medications Current Medications Acetaminophen (Acetaminophen 325 Mg Tablet) 650 mg PO Q6H PRN PRN Reason: Headache/Pain Mild Scale (1-3) Al Hydroxide/Mg Hydroxide (Magnesium Hydrox/Alum Hydrox 30 Ml Oral.Susp) 30 ml PO Q6H PRN PRN Reason: Heartburn/Nausea Aspirin (Aspirin 81 Mg Tab.Chew) 81 mg PO DAILY [facility] Last Admin: 10/10/23 08:41 Dose: 81 mg Atorvastatin Calcium (Atorvastatin Calcium 80 Mg Tablet) 80 mg PO DAILY [facility] Last Admin: 10/10/23 08:43 Dose: 80 mg Clonazepam (Clonazepam 0.5 Mg Tablet) 0.5 mg PO TID [facility] Last Admin: 10/10/23 14:06 Dose: 0.5 mg Clonidine HCl (Clonidine Hcl 0.1 Mg Tablet) 0.1 mg PO TID [facility]; Protocol Last Admin: 10/10/23 14:05 Dose: 0.1 mg Docusate Sodium (Docusate Sodium 100 Mg Capsule) 100 mg PO BID [facility] Last Admin: 10/10/23 08:41 Dose: 100 mg Escitalopram Oxalate (Escitalopram Oxalate 10 Mg Tablet) 10 mg PO DAILY [facility] Last Admin: 10/10/23 08:44 Dose: 10 mg Famotidine (Famotidine 20 Mg Tablet) 20 mg PO BID [facility] Last Admin: 10/10/23 08:44 Dose: 20 mg Gabapentin (Gabapentin 600 Mg Tablet) 600 mg PO TID [facility] Last Admin: 10/10/23 14:06 Dose: 600 mg Hydroxyzine HCl (Hydroxyzine Hcl 25 Mg Tablet) 25 mg PO Q6H PRN PRN Reason: Anxiety Last Admin: 10/09/23 11:40 Dose: 25 mg Ibuprofen (Ibuprofen 400 Mg Tablet) 400 mg PO Q6H PRN PRN Reason: Mild Pain (Scale Score 1-4) Lamotrigine (Lamotrigine 100 Mg Tablet) 200 mg PO BID [facility] Last Admin: 10/10/23 08:41 Dose: 200 mg Latanoprost (Latanoprost 0.005 % Ophth Pati 2.5 Ml Drops) 1 drop EYE-BOTH BEDTIME [facility] Last Admin: 10/09/23 21:09 Dose: 1 drop Magnesium Hydroxide (Milk Of Magnesia 30 Ml Oral.Susp) 30 ml PO DAILY PRN PRN Reason: Constipation Metformin HCl (Metformin Hcl 500 Mg Tablet) 500 mg PO DAILY [facility] Last Admin: 10/10/23 08:44 Dose: 500 mg Nicotine (Nicotine 21 Mg Patch.Td24) 21 mg TRANSDERMA DAILY [facility] Last Admin: 10/10/23 08:40 Dose: 21 mg Olanzapine (Olanzapine Odt 10 Mg Tab.Rapdis) 10 mg TRANSLINGU Q4H PRN PRN Reason: Psychosis Last Admin: 10/09/23 11:40 Dose: 10 mg Olanzapine (Olanzapine 10 Mg Tablet) 20 mg PO BEDTIME [facility] Last Admin: 10/09/23 21:04 Dose: 20 mg Oxybutynin Chloride (Oxybutynin Chloride Er 5 Mg Tab.Er.24) 10 mg PO DAILY [facility] Last Admin: 10/10/23 08:41 Dose: 10 mg Trazodone HCl (Trazodone Hcl 50 Mg Tablet) 50 mg PO BEDTIME MRX1 PRN PRN Reason: Insomnia Last Admin: 10/07/23 01:37 Dose: 50 mg Trazodone HCl (Trazodone Hcl 25 Mg Halftab) 25 mg PO BEDTIME [facility] Last Admin: 10/09/23 21:04 Dose: 25 mg Trazodone HCl (Trazodone Hcl 50 Mg Tablet) 50 mg PO DAILY [facility] Last Admin: 10/10/23 08:43 Dose: 50 mg Allergies Allergies Allergy/AdvReac Type Severity Reaction Status Date / Time amantadine AdvReac Unknown Verified 09/29/23 17:57 Assessment & Plan Assessment & Plan (1) Diabetes: Qualifiers: Diabetes mellitus complication status: without complication Status: Acute Code(s): E11.9 - Type 2 diabetes mellitus without complications (2) HLD (hyperlipidemia): Qualifiers: Hyperlipidemia type: unspecified Qualified Code(s): E78.5 - Hyperlipidemia, unspecified Status: Acute Code(s): E78.5 - Hyperlipidemia, unspecified (3) Traumatic brain injury: Qualifiers: Loss of consciousness presence/duration: unknown LOC status Status: Acute Code(s): S06.9XAA - Unspecified intracranial injury with loss of consciousness status unknown, initial encounter Plan 63 year old female with history of TBI, HLD, dmentia, diabetes from [facility] admitted [facility] for managment of increased agitation, paranoia and disorganized behavior, confused unable to take care of herself, violent against the staff of his halfway. Plan: Overall seems to be doing better at this point, there is no obvious acute medical issues. Continue Metformin for diabetes, Lipitor for HLD. Her las recorded BP was on low side nearly 18 hours ago and would suggest rechecking. Labs were reviewed and unremarkable. Given no acute medical issues, will follow on PRN basis Plan 1. Continue with same treatment. 2. October 07 increase Zyprexa to 15 mg p.o. q.h.s. on October 09 we are increasing up to 20 mg p.o. q.h.s. 3. On October 08 we started clonidine 0.1 p.o. t.i.d. and also we increased the p.r.n. it to q.6 hours Reason for continued inpatient stay Substantial Risk for: inability to function, rapid decompensation and med/psych decompensation Time Spent With Patient Time: Total time managing care of this patient today __20__ minutes.
[2023-10-10] MEDS: OLANZapine ODT 10 MG TAB.RAPDIS TRANSLINGU (17:26)
--- NOTE | 2023-10-10 17:28 | PC.NURSE ---
Patient in the common area insisting that it's her bedroom and everything has been moved around. She is in her wheel chair searching for her belongings under the tables and chairs. Trying to redirect patient leads to patient yelling and cursing at staff. Patient is calling the staff, Liars! [place] Sandsydis 10mg given PO at 1728.
[2023-10-10 18:00] VITALS: BP 105/52; PULSE 60; RESP 18; TEMP 36.5; O2SAT 96
[2023-10-10] MEDS: hydrOXYzine HCL 25 MG TABLET PO (18:20)
--- NOTE | 2023-10-10 18:43 | PC.NURSE ---
Patient continues to wander in the milieu screaming for her cigarettes and pocket book. 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 Ativan PO ordered.
[2023-10-10] MEDS: LORazepam 1 MG TABLET PO (19:01)
[2023-10-10] MEDS: traZODone HCL 25 MG HALFTAB PO (21:08)
[2023-10-10] MEDS: OLANZapine 10 MG TABLET 20 MG PO (21:08)
[2023-10-11 09:30] VITALS: BP 112/56; PULSE 51; RESP 18; TEMP 36; O2SAT 96
[2023-10-11] MEDS: Gabapentin 600 MG TABLET PO ×3 (10:12→20:46)
[2023-10-11] MEDS: Aspirin 81 MG TAB.CHEW PO (10:12)
[2023-10-11] MEDS: clonazePAM 0.5 MG TABLET PO ×3 (10:12→20:46)
[2023-10-11] MEDS: oxyBUTYnin chloride ER 5 MG TAB.ER.24 10 MG PO (10:12)
[2023-10-11] MEDS: lamoTRIgine 100 MG TABLET 200 MG PO ×2 (10:13→20:46)
[2023-10-11] MEDS: Escitalopram Oxalate 10 MG TABLET PO (10:13)
[2023-10-11] MEDS: Docusate Sodium 100 MG CAPSULE PO ×2 (10:13→20:46)
[2023-10-11] MEDS: Atorvastatin Calcium 80 MG TABLET PO (10:13)
[2023-10-11] MEDS: metFORMIN HCl 500 MG TABLET PO (10:13)
[2023-10-11] MEDS: traZODone HCL 50 MG TABLET PO (10:13)
[2023-10-11] MEDS: Famotidine 20 MG TABLET PO ×2 (10:13→20:46)
[2023-10-11] MEDS: OLANZapine ODT 10 MG TAB.RAPDIS TRANSLINGU (12:20)
--- NOTE | 2023-10-11 13:56 | P.PNPSI_ITS ---
Subjective Subjective Date of Service: 10/11/23 Reason For Visit: F03 Subjective Notes: Conditional Voluntary Interim History: The nursing staff reported the patient has an outburst of anger and needed p.r.n.. The social work msw reported that we will have a provider meeting at 11:00 o'clock next Saturday. On interview the patient denies new symptoms, redirectable. Mental Status Exam Mental Status Exam Patient Appearance: Appropriate Patient Orientation: Person and Situation Level of Consciousness: Awake Patient Behavior: Guarded and Passive Mood Description: Withdrawn Affect Description: Calm Patient Cognition Impaired: Yes Ability to Follow Directions: Good Speech Pattern: Clear Hallucinations: None Delusions: Paranoid Ideation and Ideas of Reference Thought Process: Distracted Thought Content: positive for [place] and positive for Poverty of Content Judgement: Fair Diagnostics Vital Signs (24Hr): Vital Signs - 24 hr 10/10/23 14:02 10/10/23 18:00 10/11/23 09:30 Temperature 97.7 F 96.8 F Pulse Rate 60 60 51 Respiratory Rate 18 18 Blood Pressure 102/50 L 105/52 L 112/56 L Pulse Oximetry 96 96 Oxygen Delivery Method Room Air Room Air BMI result Body Mass Index 23.1 Labs 10/07/23 08:34 Medications Medications Current Medications Acetaminophen (Acetaminophen 325 Mg Tablet) 650 mg PO Q6H PRN PRN Reason: Headache/Pain Mild Scale (1-3) Al Hydroxide/Mg Hydroxide (Magnesium Hydrox/Alum Hydrox 30 Ml Oral.Susp) 30 ml PO Q6H PRN PRN Reason: Heartburn/Nausea Aspirin (Aspirin 81 Mg Tab.Chew) 81 mg PO DAILY [facility] Last Admin: 10/11/23 10:12 Dose: 81 mg Atorvastatin Calcium (Atorvastatin Calcium 80 Mg Tablet) 80 mg PO DAILY [facility] Last Admin: 10/11/23 10:13 Dose: 80 mg Clonazepam (Clonazepam 0.5 Mg Tablet) 0.5 mg PO TID [facility] Last Admin: 10/11/23 10:12 Dose: 0.5 mg Clonidine HCl (Clonidine Hcl 0.1 Mg Tablet) 0.1 mg PO TID [facility]; Protocol Last Admin: 10/11/23 10:23 Dose: Not Given Docusate Sodium (Docusate Sodium 100 Mg Capsule) 100 mg PO BID [facility] Last Admin: 10/11/23 10:13 Dose: 100 mg Escitalopram Oxalate (Escitalopram Oxalate 10 Mg Tablet) 10 mg PO DAILY [facility] Last Admin: 10/11/23 10:13 Dose: 10 mg Famotidine (Famotidine 20 Mg Tablet) 20 mg PO BID [facility] Last Admin: 10/11/23 10:13 Dose: 20 mg Gabapentin (Gabapentin 600 Mg Tablet) 600 mg PO TID [facility] Last Admin: 10/11/23 10:12 Dose: 600 mg Hydroxyzine HCl (Hydroxyzine Hcl 25 Mg Tablet) 25 mg PO Q6H PRN PRN Reason: Anxiety Last Admin: 10/10/23 18:20 Dose: 25 mg Ibuprofen (Ibuprofen 400 Mg Tablet) 400 mg PO Q6H PRN PRN Reason: Mild Pain (Scale Score 1-4) Lamotrigine (Lamotrigine 100 Mg Tablet) 200 mg PO BID [facility] Last Admin: 10/11/23 10:13 Dose: 200 mg Latanoprost (Latanoprost 0.005 % Ophth Pati 2.5 Ml Drops) 1 drop EYE-BOTH BEDTIME [facility] Last Admin: 10/10/23 21:16 Dose: Not Given Magnesium Hydroxide (Milk Of Magnesia 30 Ml Oral.Susp) 30 ml PO DAILY PRN PRN Reason: Constipation Metformin HCl (Metformin Hcl 500 Mg Tablet) 500 mg PO DAILY [facility] Last Admin: 10/11/23 10:13 Dose: 500 mg Nicotine (Nicotine 21 Mg Patch.Td24) 21 mg TRANSDERMA DAILY [facility] Last Admin: 10/11/23 10:25 Dose: Not Given Olanzapine (Olanzapine Odt 10 Mg Tab.Rapdis) 10 mg TRANSLINGU Q4H PRN PRN Reason: Psychosis Last Admin: 10/11/23 12:20 Dose: 10 mg Olanzapine (Olanzapine 10 Mg Tablet) 20 mg PO BEDTIME [facility] Last Admin: 10/10/23 21:08 Dose: 20 mg Oxybutynin Chloride (Oxybutynin Chloride Er 5 Mg Tab.Er.24) 10 mg PO DAILY [facility] Last Admin: 10/11/23 10:12 Dose: 10 mg Trazodone HCl (Trazodone Hcl 50 Mg Tablet) 50 mg PO BEDTIME MRX1 PRN PRN Reason: Insomnia Last Admin: 10/07/23 01:37 Dose: 50 mg Trazodone HCl (Trazodone Hcl 25 Mg Halftab) 25 mg PO BEDTIME [facility] Last Admin: 10/10/23 21:08 Dose: 25 mg Trazodone HCl (Trazodone Hcl 50 Mg Tablet) 50 mg PO DAILY [facility] Last Admin: 10/11/23 10:13 Dose: 50 mg Allergies Allergies Allergy/AdvReac Type Severity Reaction Status Date / Time amantadine AdvReac Unknown Verified 09/29/23 17:57 Assessment & Plan Assessment & Plan (1) Diabetes: Qualifiers: Diabetes mellitus complication status: without complication Status: Acute Code(s): E11.9 - Type 2 diabetes mellitus without complications (2) HLD (hyperlipidemia): Qualifiers: Hyperlipidemia type: unspecified Qualified Code(s): E78.5 - Hyperlipidemia, unspecified Status: Acute Code(s): E78.5 - Hyperlipidemia, unspecified (3) Traumatic brain injury: Qualifiers: Loss of consciousness presence/duration: unknown LOC status Status: Acute Code(s): S06.9XAA - Unspecified intracranial injury with loss of consciousness status unknown, initial encounter Plan 63 year old female with history of TBI, HLD, dmentia, diabetes from [facility] admitted to [facility] for managment of increased agitation, paranoia and disorganized behavior, confused unable to take care of herself, violent against the staff of his [facility]. Plan: Overall seems to be doing better at this point, there is no obvious acute medical issues. Continue Metformin for diabetes, Lipitor for HLD. Her las recorded BP was on low side nearly 18 hours ago and would suggest rechecking. Labs were reviewed and unremarkable. Given no acute medical issues, will follow on PRN basis Plan 1. Continue with same treatment. 2. October 07 increase Zyprexa to 15 mg p.o. q.h.s. on October 09 we are increasing up to 20 mg p.o. q.h.s. 3. On October 08 we started clonidine 0.1 p.o. t.i.d. and also we increased the p.r.n. it to q.6 hours Reason for continued inpatient stay Substantial Risk for: inability to function, rapid decompensation and med/psych decompensation Time Spent With Patient Time: Total time managing care of this patient today __20__ minutes.
[2023-10-11 15:00] VITALS: BP 93/55; PULSE 55
[2023-10-11 18:00] VITALS: BP 110/56; PULSE 55; RESP 18; TEMP 36.4; O2SAT 97
[2023-10-11] MEDS: OLANZapine 10 MG TABLET 20 MG PO (20:45)
[2023-10-11] MEDS: traZODone HCL 25 MG HALFTAB PO (20:46)
[2023-10-11] MEDS: cloNIDine HCL 0.1 MG TABLET PO (20:46)
[2023-10-11] MEDS: hydrOXYzine HCL 25 MG TABLET PO (20:46)
[2023-10-11] MEDS: Latanoprost 0.005 % Ophth Sol 2.5 ML DROPS 1 DROP EYE-BOTH (21:43)
[2023-10-12 08:00] VITALS: BP 135/96; PULSE 48; RESP 18; TEMP 36.2; O2SAT 98
[2023-10-12 08:30] VITALS: PULSE 55
[2023-10-12] MEDS: metFORMIN HCl 500 MG TABLET PO (08:58)
[2023-10-12] MEDS: Atorvastatin Calcium 80 MG TABLET PO (08:58)
[2023-10-12] MEDS: traZODone HCL 50 MG TABLET PO (08:58)
[2023-10-12] MEDS: clonazePAM 0.5 MG TABLET PO ×3 (08:59→20:37)
[2023-10-12] MEDS: lamoTRIgine 100 MG TABLET 200 MG PO ×2 (08:59→20:36)
[2023-10-12] MEDS: oxyBUTYnin chloride ER 5 MG TAB.ER.24 10 MG PO (08:59)
[2023-10-12] MEDS: Famotidine 20 MG TABLET PO ×2 (08:59→20:37)
[2023-10-12] MEDS: Gabapentin 600 MG TABLET PO ×3 (08:59→20:37)
[2023-10-12] MEDS: Docusate Sodium 100 MG CAPSULE PO ×2 (08:59→20:36)
[2023-10-12] MEDS: Escitalopram Oxalate 10 MG TABLET PO (09:00)
[2023-10-12] MEDS: Aspirin 81 MG TAB.CHEW PO (09:00)
[2023-10-12] MEDS: Acetaminophen 325 MG TABLET 650 MG PO (11:59)
[2023-10-12] MEDS: OLANZapine ODT 10 MG TAB.RAPDIS TRANSLINGU ×2 (12:01→16:45)
[2023-10-12] MEDS: cloNIDine HCL 0.1 MG TABLET PO ×2 (14:57→20:36)
[2023-10-12] MEDS: hydrOXYzine HCL 25 MG TABLET PO (15:37)
--- NOTE | 2023-10-12 17:05 | HO.PSYCHPN ---
Subjective Subjective Date of Service: 10/12/23 Reason For Visit: F03 Interim History: The nursing staff reported the patient has an outburst of anger and needed p.r.n.. The social sciences department chair reported that we will have a provider meeting at 11:00 o'clock next Saturday. On interview the patient denies new symptoms, redirectable. Review of Systems Review of Systems Gen: no fever Resp: no sob, no cough CV: no chest, no LORENZ, no leg edema GI: No n/v, no abd pain Neuro: No confusion Mental Status Exam Mental Status Exam Patient Appearance: Appropriate Patient Orientation: Person and Situation Level of Consciousness: Awake Patient Behavior: Guarded and Passive Mood Description: Withdrawn Affect Description: Calm Patient Cognition Impaired: Yes Ability to Follow Directions: Good Speech Pattern: Clear Diagnostics Vital Signs (24Hr): Vital Signs - 24 hr 10/11/23 18:00 10/12/23 08:00 10/12/23 08:30 Temperature 97.5 F 97.1 F Pulse Rate 55 48 L 55 Respiratory Rate 18 18 Blood Pressure 110/56 L 135/96 H Pulse Oximetry 97 98 Oxygen Delivery Method Room Air Room Air BMI result Body Mass Index 23.1 Labs 10/07/23 08:34 Medications Medications Current Medications Acetaminophen (Acetaminophen 325 Mg Tablet) 650 mg PO Q6H PRN PRN Reason: Headache/Pain Mild Scale (1-3) Last Admin: 10/12/23 11:59 Dose: 650 mg Al Hydroxide/Mg Hydroxide (Magnesium Hydrox/Alum Hydrox 30 Ml Oral.Susp) 30 ml PO Q6H PRN PRN Reason: Heartburn/Nausea Aspirin (Aspirin 81 Mg Tab.Chew) 81 mg PO DAILY [facility] Last Admin: 10/12/23 09:00 Dose: 81 mg Atorvastatin Calcium (Atorvastatin Calcium 80 Mg Tablet) 80 mg PO DAILY [facility] Last Admin: 10/12/23 08:58 Dose: 80 mg Clonazepam (Clonazepam 0.5 Mg Tablet) 0.5 mg PO TID [facility] Last Admin: 10/12/23 15:00 Dose: 0.5 mg Clonidine HCl (Clonidine Hcl 0.1 Mg Tablet) 0.1 mg PO TID [facility]; Protocol Last Admin: 10/12/23 14:57 Dose: 0.1 mg Docusate Sodium (Docusate Sodium 100 Mg Capsule) 100 mg PO BID [facility] Last Admin: 10/12/23 08:59 Dose: 100 mg Escitalopram Oxalate (Escitalopram Oxalate 10 Mg Tablet) 10 mg PO DAILY [facility] Last Admin: 10/12/23 09:00 Dose: 10 mg Famotidine (Famotidine 20 Mg Tablet) 20 mg PO BID [facility] Last Admin: 10/12/23 08:59 Dose: 20 mg Gabapentin (Gabapentin 600 Mg Tablet) 600 mg PO TID [facility] Last Admin: 10/12/23 14:57 Dose: 600 mg Hydroxyzine HCl (Hydroxyzine Hcl 25 Mg Tablet) 25 mg PO Q6H PRN PRN Reason: Anxiety Last Admin: 10/12/23 15:37 Dose: 25 mg Ibuprofen (Ibuprofen 400 Mg Tablet) 400 mg PO Q6H PRN PRN Reason: Mild Pain (Scale Score 1-4) Lamotrigine (Lamotrigine 100 Mg Tablet) 200 mg PO BID [facility] Last Admin: 10/12/23 08:59 Dose: 200 mg Latanoprost (Latanoprost 0.005 % Ophth Pati 2.5 Ml Drops) 1 drop EYE-BOTH BEDTIME [facility] Last Admin: 10/11/23 21:43 Dose: 1 drop Magnesium Hydroxide (Milk Of Magnesia 30 Ml Oral.Susp) 30 ml PO DAILY PRN PRN Reason: Constipation Metformin HCl (Metformin Hcl 500 Mg Tablet) 500 mg PO DAILY [facility] Last Admin: 10/12/23 08:58 Dose: 500 mg Nicotine (Nicotine 21 Mg Patch.Td24) 21 mg TRANSDERMA DAILY [facility] Last Admin: 10/12/23 09:18 Dose: Not Given Olanzapine (Olanzapine Odt 10 Mg Tab.Rapdis) 10 mg TRANSLINGU Q4H PRN PRN Reason: Psychosis Last Admin: 10/12/23 16:45 Dose: 10 mg Olanzapine (Olanzapine 10 Mg Tablet) 20 mg PO BEDTIME [facility] Last Admin: 10/11/23 20:45 Dose: 20 mg Oxybutynin Chloride (Oxybutynin Chloride Er 5 Mg Tab.Er.24) 10 mg PO DAILY [facility] Last Admin: 10/12/23 08:59 Dose: 10 mg Trazodone HCl (Trazodone Hcl 50 Mg Tablet) 50 mg PO BEDTIME MRX1 PRN PRN Reason: Insomnia Last Admin: 10/07/23 01:37 Dose: 50 mg Trazodone HCl (Trazodone Hcl 25 Mg Halftab) 25 mg PO BEDTIME [facility] Last Admin: 10/11/23 20:46 Dose: 25 mg Trazodone HCl (Trazodone Hcl 50 Mg Tablet) 50 mg PO DAILY [facility] Last Admin: 10/12/23 08:58 Dose: 50 mg Allergies Allergies Allergy/AdvReac Type Severity Reaction Status Date / Time amantadine AdvReac Unknown Verified 09/29/23 17:57 Assessment & Plan Assessment & Plan (1) Diabetes: Qualifiers: Diabetes mellitus complication status: without complication Status: Acute Code(s): E11.9 - Type 2 diabetes mellitus without complications (2) HLD (hyperlipidemia): Qualifiers: Hyperlipidemia type: unspecified Qualified Code(s): E78.5 - Hyperlipidemia, unspecified Status: Acute Code(s): E78.5 - Hyperlipidemia, unspecified (3) Traumatic brain injury: Qualifiers: Loss of consciousness presence/duration: unknown LOC status Status: Acute Code(s): S06.9XAA - Unspecified intracranial injury with loss of consciousness status unknown, initial encounter Plan 63 year old female with history of TBI, HLD, dmentia, diabetes from [facility] admitted to [facility] for managment of increased agitation, paranoia and disorganized behavior, confused unable to take care of herself, violent against the staff of his [facility]. Plan: Overall seems to be doing better at this point, there is no obvious acute medical issues. Continue Metformin for diabetes, Lipitor for HLD. Her las recorded BP was on low side nearly 18 hours ago and would suggest rechecking. Labs were reviewed and unremarkable. Given no acute medical issues, will follow on PRN basis Plan 1. Continue with same treatment. 2. October 07 increase Zyprexa to 15 mg p.o. q.h.s. on October 09 we are increasing up to 20 mg p.o. q.h.s. 3. On October 08 we started clonidine 0.1 p.o. t.i.d. and also we increased the p.r.n. it to q.6 hours Time Spent With Patient Time: Total time managing care of this patient today ____ minutes.
[2023-10-12] MEDS: LORazepam 1 MG TABLET PO (17:50)
--- NOTE | 2023-10-12 17:54 | PC.NURSE ---
Patient continues requesting cigarettes and her pocketbook. Agitated, anxious, suspicious, confused. She thinks she is home and wants to smoke. Yelling at staff, not able to be redirected. Medicated with PRN Zyprexa at 12:00, good effect. Increased behaviors after 15:00. Medicated with Atarax, Zyprexa without effect. José Miguel Peñaloza notified, new order for Ativan 1mg obtained. Medication administered, awaiting effectiveness. Will continue to monitor.
[2023-10-12 18:00] VITALS: BP 127/57; PULSE 57; RESP 18; TEMP 36.1; O2SAT 99
[2023-10-12] MEDS: traZODone HCL 25 MG HALFTAB PO (20:36)
[2023-10-12] MEDS: OLANZapine 10 MG TABLET 20 MG PO (20:37)
[2023-10-12] MEDS: Latanoprost 0.005 % Ophth Sol 2.5 ML DROPS 1 DROP EYE-BOTH (21:04)
[2023-10-13 08:00] VITALS: BP 102/55; PULSE 53; RESP 18; TEMP 36.7; O2SAT 96
[2023-10-13] MEDS: Atorvastatin Calcium 80 MG TABLET PO (09:27)
[2023-10-13] MEDS: metFORMIN HCl 500 MG TABLET PO (09:27)
[2023-10-13] MEDS: Escitalopram Oxalate 10 MG TABLET PO (09:27)
[2023-10-13] MEDS: Famotidine 20 MG TABLET PO ×2 (09:27→20:16)
[2023-10-13] MEDS: lamoTRIgine 100 MG TABLET 200 MG PO ×2 (09:27→20:16)
[2023-10-13] MEDS: traZODone HCL 50 MG TABLET PO (09:27)
[2023-10-13] MEDS: oxyBUTYnin chloride ER 5 MG TAB.ER.24 10 MG PO (09:28)
[2023-10-13] MEDS: clonazePAM 0.5 MG TABLET PO ×3 (09:28→20:17)
[2023-10-13] MEDS: Docusate Sodium 100 MG CAPSULE PO ×2 (09:28→20:17)
[2023-10-13] MEDS: Aspirin 81 MG TAB.CHEW PO (09:28)
[2023-10-13] MEDS: Gabapentin 600 MG TABLET PO ×3 (09:29→20:17)
[2023-10-13] MEDS: OLANZapine ODT 10 MG TAB.RAPDIS TRANSLINGU (09:51)
--- NOTE | 2023-10-13 10:34 | P.PNPSI_ITS ---
Subjective Subjective Date of Service: 10/12/23 Reason For Visit: F03 Interim History: Late entry for patient seen 10/12 Patient disruptive last night, again today, disorganized and thinks she is back at her assisted, asking for her cigarettes over and over, talking to herself. Patient yelling in the [place], ran into staff with wheelchair though maybe not on purpose; patient lowered herself to the floor. Zyprexa p.r.n. not that helpful. Straight Line Edger ordered Ativan 1 mg which did calm her down. On approach she remained disorganized, wanting her cigarettes but was overall calm. Staff reports patient eating and sleeping well. Mental Status Exam Mental Status Exam Patient Appearance: Appropriate Patient Orientation: Person and Situation Level of Consciousness: Awake Patient Behavior: Guarded and Passive Mood Description: Withdrawn Affect Description: Calm Patient Cognition Impaired: Yes Ability to Follow Directions: Good Speech Pattern: Clear Hallucinations: None Delusions: Paranoid Ideation and Ideas of Reference Thought Process: Distracted Thought Content: positive for [place] and positive for Poverty of Content Judgement: Fair Diagnostics Vital Signs (24Hr): Vital Signs - 24 hr 10/12/23 18:00 10/13/23 08:00 Temperature 96.9 F 98.0 F Pulse Rate 57 53 Respiratory Rate 18 18 Blood Pressure 127/57 L 102/55 L Pulse Oximetry 99 96 Oxygen Delivery Method Room Air Room Air BMI result Body Mass Index 23.1 Labs 10/07/23 08:34 Medications Medications Current Medications Acetaminophen (Acetaminophen 325 Mg Tablet) 650 mg PO Q6H PRN PRN Reason: Headache/Pain Mild Scale (1-3) Last Admin: 10/12/23 11:59 Dose: 650 mg Al Hydroxide/Mg Hydroxide (Magnesium Hydrox/Alum Hydrox 30 Ml Oral.Susp) 30 ml PO Q6H PRN PRN Reason: Heartburn/Nausea Aspirin (Aspirin 81 Mg Tab.Chew) 81 mg PO DAILY [facility] Last Admin: 10/13/23 09:28 Dose: 81 mg Atorvastatin Calcium (Atorvastatin Calcium 80 Mg Tablet) 80 mg PO DAILY [facility] Last Admin: 10/13/23 09:27 Dose: 80 mg Clonazepam (Clonazepam 0.5 Mg Tablet) 0.5 mg PO TID [facility] Last Admin: 10/13/23 09:28 Dose: 0.5 mg Clonidine HCl (Clonidine Hcl 0.1 Mg Tablet) 0.1 mg PO TID [facility]; Protocol Last Admin: 10/13/23 09:32 Dose: Not Given Docusate Sodium (Docusate Sodium 100 Mg Capsule) 100 mg PO BID [facility] Last Admin: 10/13/23 09:28 Dose: 100 mg Escitalopram Oxalate (Escitalopram Oxalate 10 Mg Tablet) 10 mg PO DAILY [facility] Last Admin: 10/13/23 09:27 Dose: 10 mg Famotidine (Famotidine 20 Mg Tablet) 20 mg PO BID [facility] Last Admin: 10/13/23 09:27 Dose: 20 mg Gabapentin (Gabapentin 600 Mg Tablet) 600 mg PO TID [facility] Last Admin: 10/13/23 09:29 Dose: 600 mg Hydroxyzine HCl (Hydroxyzine Hcl 25 Mg Tablet) 25 mg PO Q6H PRN PRN Reason: Anxiety Last Admin: 10/12/23 15:37 Dose: 25 mg Ibuprofen (Ibuprofen 400 Mg Tablet) 400 mg PO Q6H PRN PRN Reason: Mild Pain (Scale Score 1-4) Lamotrigine (Lamotrigine 100 Mg Tablet) 200 mg PO BID [facility] Last Admin: 10/13/23 09:27 Dose: 200 mg Latanoprost (Latanoprost 0.005 % Ophth Pati 2.5 Ml Drops) 1 drop EYE-BOTH BEDTIME [facility] Last Admin: 10/12/23 21:04 Dose: 1 drop Magnesium Hydroxide (Milk Of Magnesia 30 Ml Oral.Susp) 30 ml PO DAILY PRN PRN Reason: Constipation Metformin HCl (Metformin Hcl 500 Mg Tablet) 500 mg PO DAILY [facility] Last Admin: 10/13/23 09:27 Dose: 500 mg Nicotine (Nicotine 21 Mg Patch.Td24) 21 mg TRANSDERMA DAILY [facility] Last Admin: 10/13/23 09:32 Dose: Not Given Olanzapine (Olanzapine Odt 10 Mg Tab.Rapdis) 10 mg TRANSLINGU Q4H PRN PRN Reason: Psychosis Last Admin: 10/13/23 09:51 Dose: 10 mg Olanzapine (Olanzapine 10 Mg Tablet) 20 mg PO BEDTIME [facility] Last Admin: 10/12/23 20:37 Dose: 20 mg Oxybutynin Chloride (Oxybutynin Chloride Er 5 Mg Tab.Er.24) 10 mg PO DAILY [facility] Last Admin: 10/13/23 09:28 Dose: 10 mg Trazodone HCl (Trazodone Hcl 50 Mg Tablet) 50 mg PO BEDTIME MRX1 PRN PRN Reason: Insomnia Last Admin: 10/07/23 01:37 Dose: 50 mg Trazodone HCl (Trazodone Hcl 25 Mg Halftab) 25 mg PO BEDTIME [facility] Last Admin: 10/12/23 20:36 Dose: 25 mg Trazodone HCl (Trazodone Hcl 50 Mg Tablet) 50 mg PO DAILY [facility] Last Admin: 10/13/23 09:27 Dose: 50 mg Allergies Allergies Allergy/AdvReac Type Severity Reaction Status Date / Time amantadine AdvReac Unknown Verified 09/29/23 17:57 Assessment & Plan Assessment & Plan (1) Diabetes: Qualifiers: Diabetes mellitus complication status: without complication Status: Acute Code(s): E11.9 - Type 2 diabetes mellitus without complications (2) HLD (hyperlipidemia): Qualifiers: Hyperlipidemia type: unspecified Qualified Code(s): E78.5 - Hyperlipidemia, unspecified Status: Acute Code(s): E78.5 - Hyperlipidemia, unspecified (3) Traumatic brain injury: Qualifiers: Loss of consciousness presence/duration: unknown LOC status Status: Acute Code(s): S06.9XAA - Unspecified intracranial injury with loss of consciousness status unknown, initial encounter Plan 63-year-old female with TBI, dementia, disorganized who presents for aggressive behavior. Hospital course: 10/12 Patient disruptive last night, again today, disorganized and thinks she is back at her assisted, asking for her cigarettes over and over, talking to herself. Patient yelling in the [place], ran into staff with wheelchair though maybe not on purpose; patient lowered herself to the floor. Zyprexa p.r.n. not that helpful. Straight Line Edger ordered Ativan 1 mg which did calm her down. On approach she remained disorganized, wanting her cigarettes but was overall calm. Staff reports patient eating and sleeping well. -continue current regimen for now Patient educated on: diagnosis Informed Consent: does not understand Reason for continued inpatient stay Substantial Risk for: inability to function Time Spent With Patient Time: Total time managing care of this patient today ____ minutes.
[2023-10-13] MEDS: LORazepam 1 MG TABLET PO ×2 (10:50→16:14)
--- NOTE | 2023-10-13 12:15 | P.PNPSI_ITS ---
Subjective Subjective Date of Service: 10/13/23 Reason For Visit: F03 Interim History: Met with patient; discussed with team Patient remains disorganized, disruptive, sometimes yelling; p.r.n. Zyprexa still not helpful. Scheduled Clonazepam not helpful. Give another dose of Ativan which again was calming. Discussed with nursing staff who does not think this is necessarily agitation but more just general disruptiveness from confusion perhaps. On approach patient currently napping in wheelchair following getting Ativan; promotion writer considered it of no benefit to patient to disrupt her sleep. Mental Status Exam Mental Status Exam Narrative: Pt is alert and oriented; behavior is disorganized, disruptive; patient is not in distress; dressed in casual attire, unkempt; mood and affect is described as constricted; eye contact appropriate; Speech is loud, normal rate and prosody and not pressured; intermittent psychomotor agitation present; thought process is disorganized but can be goal directed; Thought content is on wanting her cigarettes, various things; denies any SI/HI. Seems perhaps internally preoccupied Patients insight and judgment impaired Diagnostics Vital Signs (24Hr): Vital Signs - 24 hr 10/12/23 18:00 10/13/23 08:00 Temperature 96.9 F 98.0 F Pulse Rate 57 53 Respiratory Rate 18 18 Blood Pressure 127/57 L 102/55 L Pulse Oximetry 99 96 Oxygen Delivery Method Room Air Room Air BMI result Body Mass Index 23.1 Labs 10/07/23 08:34 Medications Medications Current Medications Acetaminophen (Acetaminophen 325 Mg Tablet) 650 mg PO Q6H PRN PRN Reason: Headache/Pain Mild Scale (1-3) Last Admin: 10/12/23 11:59 Dose: 650 mg Al Hydroxide/Mg Hydroxide (Magnesium Hydrox/Alum Hydrox 30 Ml Oral.Susp) 30 ml PO Q6H PRN PRN Reason: Heartburn/Nausea Aspirin (Aspirin 81 Mg Tab.Chew) 81 mg PO DAILY [facility] Last Admin: 10/13/23 09:28 Dose: 81 mg Atorvastatin Calcium (Atorvastatin Calcium 80 Mg Tablet) 80 mg PO DAILY [facility] Last Admin: 10/13/23 09:27 Dose: 80 mg Clonazepam (Clonazepam 0.5 Mg Tablet) 0.5 mg PO TID [facility] Last Admin: 10/13/23 09:28 Dose: 0.5 mg Clonidine HCl (Clonidine Hcl 0.1 Mg Tablet) 0.1 mg PO TID [facility]; Protocol Last Admin: 10/13/23 09:32 Dose: Not Given Docusate Sodium (Docusate Sodium 100 Mg Capsule) 100 mg PO BID [facility] Last Admin: 10/13/23 09:28 Dose: 100 mg Escitalopram Oxalate (Escitalopram Oxalate 10 Mg Tablet) 10 mg PO DAILY [facility] Last Admin: 10/13/23 09:27 Dose: 10 mg Famotidine (Famotidine 20 Mg Tablet) 20 mg PO BID [facility] Last Admin: 10/13/23 09:27 Dose: 20 mg Gabapentin (Gabapentin 600 Mg Tablet) 600 mg PO TID [facility] Last Admin: 10/13/23 09:29 Dose: 600 mg Hydroxyzine HCl (Hydroxyzine Hcl 25 Mg Tablet) 25 mg PO Q6H PRN PRN Reason: Anxiety Last Admin: 10/12/23 15:37 Dose: 25 mg Ibuprofen (Ibuprofen 400 Mg Tablet) 400 mg PO Q6H PRN PRN Reason: Mild Pain (Scale Score 1-4) Lamotrigine (Lamotrigine 100 Mg Tablet) 200 mg PO BID [facility] Last Admin: 10/13/23 09:27 Dose: 200 mg Latanoprost (Latanoprost 0.005 % Ophth Pati 2.5 Ml Drops) 1 drop EYE-BOTH BEDTIME [facility] Last Admin: 10/12/23 21:04 Dose: 1 drop Lorazepam (Lorazepam 1 Mg Tablet) 1 mg PO TID PRN PRN Reason: agitation Magnesium Hydroxide (Milk Of Magnesia 30 Ml Oral.Susp) 30 ml PO DAILY PRN PRN Reason: Constipation Metformin HCl (Metformin Hcl 500 Mg Tablet) 500 mg PO DAILY [facility] Last Admin: 10/13/23 09:27 Dose: 500 mg Nicotine (Nicotine 21 Mg Patch.Td24) 21 mg TRANSDERMA DAILY [facility] Last Admin: 10/13/23 09:32 Dose: Not Given Olanzapine (Olanzapine Odt 10 Mg Tab.Rapdis) 10 mg TRANSLINGU Q4H PRN PRN Reason: Psychosis Last Admin: 10/13/23 09:51 Dose: 10 mg Olanzapine (Olanzapine 10 Mg Tablet) 20 mg PO BEDTIME [facility] Last Admin: 10/12/23 20:37 Dose: 20 mg Oxybutynin Chloride (Oxybutynin Chloride Er 5 Mg Tab.Er.24) 10 mg PO DAILY [facility] Last Admin: 10/13/23 09:28 Dose: 10 mg Trazodone HCl (Trazodone Hcl 50 Mg Tablet) 50 mg PO BEDTIME MRX1 PRN PRN Reason: Insomnia Last Admin: 10/07/23 01:37 Dose: 50 mg Trazodone HCl (Trazodone Hcl 25 Mg Halftab) 25 mg PO BEDTIME [facility] Last Admin: 10/12/23 20:36 Dose: 25 mg Trazodone HCl (Trazodone Hcl 50 Mg Tablet) 50 mg PO DAILY [facility] Last Admin: 10/13/23 09:27 Dose: 50 mg Allergies Allergies Allergy/AdvReac Type Severity Reaction Status Date / Time amantadine AdvReac Unknown Verified 09/29/23 17:57 Assessment & Plan Assessment & Plan (1) Diabetes: Qualifiers: Diabetes mellitus complication status: without complication Status: Acute Code(s): E11.9 - Type 2 diabetes mellitus without complications (2) HLD (hyperlipidemia): Qualifiers: Hyperlipidemia type: unspecified Qualified Code(s): E78.5 - Hyperlipidemia, unspecified Status: Acute Code(s): E78.5 - Hyperlipidemia, unspecified (3) Traumatic brain injury: Qualifiers: Loss of consciousness presence/duration: unknown LOC status Status: Acute Code(s): S06.9XAA - Unspecified intracranial injury with loss of consciousness status unknown, initial encounter Plan 63-year-old female with TBI, dementia, disorganized who presents for aggressive behavior. Hospital course: 10/12 Patient disruptive last night, again today, disorganized and thinks she is back at her care home, asking for her cigarettes over and over, talking to herself. Patient yelling in the [place], ran into staff with wheelchair though maybe not on purpose; patient lowered herself to the floor. Zyprexa p.r.n. not that helpful. Transcribing Operator Head ordered Ativan 1 mg which did calm her down. On approach she remained disorganized, wanting her cigarettes but was overall calm. Staff reports patient eating and sleeping well. -continue current regimen for now 10/13 Patient remains disorganized, disruptive, sometimes yelling; p.r.n. Zyprexa still not helpful. Scheduled Clonazepam not helpful. Give another dose of Ativan which again was calming. Discussed with nursing staff who does not think this is necessarily agitation but more just general disruptiveness from confusion perhaps. -medication management a little difficult at this time since it is not clear exactly what behaviors being addressed. Patient disoriented, thinking she is in a care home and is yelling; when asked why, she said if you are given I cigarettes I would stop yelling for them. PLAN: -Will hold Zyprexa p.r.n. since has not proved helpful for calming agitation, despite getting up to 40 mg yesterday. -Will instead make Ativan 1 mg t.i.d. p.r.n. available for agitation -If Ativan proves helpful, will consider doing away with Zyprexa p.r.n. (and may be scheduled bedtime dose) and see if Tegretol or Depakote would work for aggression. Will likely defer this to primary team however Reason for continued inpatient stay Substantial Risk for: inability to function Time Spent With Patient Time: Total time managing care of this patient today ____ minutes.
[2023-10-13 15:00] VITALS: BP 115/56; PULSE 104
[2023-10-13] MEDS: cloNIDine HCL 0.1 MG TABLET PO (15:20)
[2023-10-13] MEDS: Acetaminophen 325 MG TABLET 650 MG PO (16:11)
[2023-10-13 17:30] VITALS: BP 109/53; PULSE 48; RESP 18; TEMP 36.1; O2SAT 98
[2023-10-13 18:00] VITALS: BP 102/53; PULSE 53; RESP 16; TEMP 36; O2SAT 98
--- NOTE | 2023-10-13 19:53 | PC.NURSE ---
At 17:30 patient was noted on the floor in front of the nursing station. No injury noted. Moving all extremities without pain. Nurse guest service supervisor Gris Barrera notified. José Miguel Peñaloza here to visit and notified. Voice mail for call back to patient's guardian Shital Hines. Incident report completed.
[2023-10-13] MEDS: traZODone HCL 25 MG HALFTAB PO (20:16)
[2023-10-13] MEDS: OLANZapine 10 MG TABLET 20 MG PO (20:16)
[2023-10-13] MEDS: Latanoprost 0.005 % Ophth Sol 2.5 ML DROPS 1 DROP EYE-BOTH (20:23)
[2023-10-14 06:00] VITALS: BP 100/56; PULSE 58; RESP 18; TEMP 36.6; O2SAT 98
--- NOTE | 2023-10-14 06:59 | PC.NURSE ---
Patient s/p fall 10/13, was found sitting on the floor by nurses' station. Vitals stable, no c/o pain, neuro status at baseline. Will continue to monitor for safety.
[2023-10-14] MEDS: Aspirin 81 MG TAB.CHEW PO (08:16)
[2023-10-14] MEDS: Escitalopram Oxalate 10 MG TABLET PO (08:16)
[2023-10-14] MEDS: LORazepam 1 MG TABLET PO ×3 (08:16→20:01)
[2023-10-14] MEDS: Gabapentin 600 MG TABLET PO ×3 (08:16→20:00)
[2023-10-14] MEDS: metFORMIN HCl 500 MG TABLET PO (08:16)
[2023-10-14] MEDS: Docusate Sodium 100 MG CAPSULE PO ×2 (08:16→20:00)
[2023-10-14] MEDS: lamoTRIgine 100 MG TABLET 200 MG PO ×2 (08:16→20:00)
[2023-10-14] MEDS: oxyBUTYnin chloride ER 5 MG TAB.ER.24 10 MG PO (08:16)
[2023-10-14] MEDS: Atorvastatin Calcium 80 MG TABLET PO (08:16)
[2023-10-14] MEDS: traZODone HCL 50 MG TABLET PO (08:17)
[2023-10-14] MEDS: Famotidine 20 MG TABLET PO ×2 (08:17→20:00)
[2023-10-14] MEDS: clonazePAM 0.5 MG TABLET PO ×3 (08:17→20:00)
--- NOTE | 2023-10-14 10:34 | HO.PSYCHPN ---
Subjective Subjective Date of Service: 10/14/23 Reason For Visit: F03 Subjective Notes: Conditional Voluntary Interim History: Nursing staff reported the patient showed some behaviors in the morning yesterday. She was putting herself of on the floor very attention seeking. She slept 7 hours. Today we will have a family meeting with the other providers at 11:00 o'clock. Mental Status Exam Mental Status Exam Patient Appearance: Appropriate Patient Orientation: Person and Situation Level of Consciousness: Awake and Appropriate Patient Behavior: Guarded and Passive Mood Description: Withdrawn Affect Description: Constricted Patient Cognition Impaired: Yes Ability to Follow Directions: Good Speech Pattern: Clear Hallucinations: None Delusions: Ideas of Reference Thought Process: Distracted Thought Content: positive for [place] and positive for [place] Judgement: Poor Diagnostics Vital Signs (24Hr): Vital Signs - 24 hr 10/13/23 15:00 10/13/23 17:30 10/13/23 18:00 Temperature 97.0 F 96.8 F Pulse Rate 104 H 48 L 53 Respiratory Rate 18 16 Blood Pressure 115/56 L 109/53 L 102/53 L Pulse Oximetry 98 98 Oxygen Delivery Method Room Air Room Air 10/14/23 06:00 Temperature 97.8 F Pulse Rate 58 Respiratory Rate 18 Blood Pressure 100/56 L Pulse Oximetry 98 Oxygen Delivery Method Room Air BMI result Body Mass Index 23.1 Labs 10/07/23 08:34 Medications Medications Current Medications Acetaminophen (Acetaminophen 325 Mg Tablet) 650 mg PO Q6H PRN PRN Reason: Headache/Pain Mild Scale (1-3) Last Admin: 10/13/23 16:11 Dose: 650 mg Al Hydroxide/Mg Hydroxide (Magnesium Hydrox/Alum Hydrox 30 Ml Oral.Susp) 30 ml PO Q6H PRN PRN Reason: Heartburn/Nausea Aspirin (Aspirin 81 Mg Tab.Chew) 81 mg PO DAILY [facility] Last Admin: 10/14/23 08:16 Dose: 81 mg Atorvastatin Calcium (Atorvastatin Calcium 80 Mg Tablet) 80 mg PO DAILY [facility] Last Admin: 10/14/23 08:16 Dose: 80 mg Clonazepam (Clonazepam 0.5 Mg Tablet) 0.5 mg PO TID [facility] Last Admin: 10/14/23 08:17 Dose: 0.5 mg Docusate Sodium (Docusate Sodium 100 Mg Capsule) 100 mg PO BID [facility] Last Admin: 10/14/23 08:16 Dose: 100 mg Escitalopram Oxalate (Escitalopram Oxalate 10 Mg Tablet) 10 mg PO DAILY [facility] Last Admin: 10/14/23 08:16 Dose: 10 mg Famotidine (Famotidine 20 Mg Tablet) 20 mg PO BID [facility] Last Admin: 10/14/23 08:17 Dose: 20 mg Gabapentin (Gabapentin 600 Mg Tablet) 600 mg PO TID [facility] Last Admin: 10/14/23 08:16 Dose: 600 mg Hydroxyzine HCl (Hydroxyzine Hcl 25 Mg Tablet) 25 mg PO Q6H PRN PRN Reason: Anxiety Last Admin: 10/12/23 15:37 Dose: 25 mg Ibuprofen (Ibuprofen 400 Mg Tablet) 400 mg PO Q6H PRN PRN Reason: Mild Pain (Scale Score 1-4) Lamotrigine (Lamotrigine 100 Mg Tablet) 200 mg PO BID [facility] Last Admin: 10/14/23 08:16 Dose: 200 mg Latanoprost (Latanoprost 0.005 % Ophth Pati 2.5 Ml Drops) 1 drop EYE-BOTH BEDTIME [facility] Last Admin: 10/13/23 20:23 Dose: 1 drop Lorazepam (Lorazepam 1 Mg Tablet) 1 mg PO TID PRN PRN Reason: agitation Last Admin: 10/14/23 08:16 Dose: 1 mg Magnesium Hydroxide (Milk Of Magnesia 30 Ml Oral.Susp) 30 ml PO DAILY PRN PRN Reason: Constipation Metformin HCl (Metformin Hcl 500 Mg Tablet) 500 mg PO DAILY [facility] Last Admin: 10/14/23 08:16 Dose: 500 mg Nicotine (Nicotine 21 Mg Patch.Td24) 21 mg TRANSDERMA DAILY [facility] Last Admin: 10/14/23 08:21 Dose: Not Given Olanzapine (Olanzapine Odt 10 Mg Tab.Rapdis) 10 mg TRANSLINGU Q4H PRN PRN Reason: Psychosis Last Admin: 10/13/23 09:51 Dose: 10 mg Olanzapine (Olanzapine 10 Mg Tablet) 20 mg PO BEDTIME [facility] Last Admin: 10/13/23 20:16 Dose: 20 mg Oxybutynin Chloride (Oxybutynin Chloride Er 5 Mg Tab.Er.24) 10 mg PO DAILY [facility] Last Admin: 10/14/23 08:16 Dose: 10 mg Trazodone HCl (Trazodone Hcl 50 Mg Tablet) 50 mg PO BEDTIME MRX1 PRN PRN Reason: Insomnia Last Admin: 10/07/23 01:37 Dose: 50 mg Trazodone HCl (Trazodone Hcl 25 Mg Halftab) 25 mg PO BEDTIME [facility] Last Admin: 10/13/23 20:16 Dose: 25 mg Trazodone HCl (Trazodone Hcl 50 Mg Tablet) 50 mg PO DAILY [facility] Last Admin: 10/14/23 08:17 Dose: 50 mg Allergies Allergies Allergy/AdvReac Type Severity Reaction Status Date / Time amantadine AdvReac Unknown Verified 09/29/23 17:57 Assessment & Plan Assessment & Plan (1) Diabetes: Qualifiers: Diabetes mellitus complication status: without complication Status: Acute Code(s): E11.9 - Type 2 diabetes mellitus without complications (2) HLD (hyperlipidemia): Qualifiers: Hyperlipidemia type: unspecified Qualified Code(s): E78.5 - Hyperlipidemia, unspecified Status: Acute Code(s): E78.5 - Hyperlipidemia, unspecified (3) Traumatic brain injury: Qualifiers: Loss of consciousness presence/duration: unknown LOC status Status: Acute Code(s): S06.9XAA - Unspecified intracranial injury with loss of consciousness status unknown, initial encounter Plan 63-year-old female with TBI, dementia, disorganized who presents for aggressive behavior. Hospital course: 10/12 Patient disruptive last night, again today, disorganized and thinks she is back at her nursing home, asking for her cigarettes over and over, talking to herself. Patient yelling [place] the [place], ran into staff with wheelchair though maybe not on purpose; patient lowered herself to the floor. Zyprexa p.r.n. not that helpful. Renal Technician ordered Ativan 1 mg which did calm her down. On approach she remained disorganized, wanting her cigarettes but was overall calm. Staff reports patient eating and sleeping well. -continue current regimen for now 10/13 Patient remains disorganized, aggressive, yelling; p.r.n. Zyprexa still not helpful. Scheduled Clonazepam not helpful. Give another dose of Ativan which again was calming. PLAN: Will hold Zyprexa p.r.n. since has not proved helpful for calming agitation, despite getting up to 40 mg yesterday. Will instead make Ativan 1 mg t.i.d. p.r.n. available for agitation If Ativan proves helpful, will consider doing away with Zyprexa p.r.n. (and may be scheduled bedtime dose) and see if Tegretol or Depakote would work for aggression. Will likely defer this to primary team however Reason for continued inpatient stay Substantial Risk for: inability to function, rapid decompensation and med/psych decompensation Time Spent With Patient Time: Total time managing care of this patient today __20__ minutes.
[2023-10-14] MEDS: hydrOXYzine HCL 25 MG TABLET PO (12:29)
[2023-10-14] MEDS: OLANZapine ODT 10 MG TAB.RAPDIS TRANSLINGU ×2 (12:29→16:22)
[2023-10-14 18:00] VITALS: BP 141/63; PULSE 60; RESP 18; TEMP 36.3; O2SAT 97
[2023-10-14] MEDS: OLANZapine 10 MG TABLET 20 MG PO (20:00)
[2023-10-14] MEDS: traZODone HCL 25 MG HALFTAB PO (20:00)
[2023-10-14] MEDS: Latanoprost 0.005 % Ophth Sol 2.5 ML DROPS 1 DROP EYE-BOTH (20:55)
[2023-10-15] MEDS: Acetaminophen 325 MG TABLET 650 MG PO (06:14)
[2023-10-15] MEDS: hydrOXYzine HCL 25 MG TABLET PO ×2 (06:15→13:45)
[2023-10-15] MEDS: OLANZapine ODT 10 MG TAB.RAPDIS TRANSLINGU ×3 (06:17→21:30)
[2023-10-15 07:55] VITALS: BP 106/68; PULSE 63; RESP 18; TEMP 36.8; O2SAT 98
[2023-10-15] MEDS: traZODone HCL 50 MG TABLET PO ×2 (08:04→21:31)
[2023-10-15] MEDS: Gabapentin 600 MG TABLET PO ×3 (08:04→19:50)
[2023-10-15] MEDS: Aspirin 81 MG TAB.CHEW PO (08:04)
[2023-10-15] MEDS: Famotidine 20 MG TABLET PO (08:04)
[2023-10-15] MEDS: Escitalopram Oxalate 10 MG TABLET PO (08:04)
[2023-10-15] MEDS: oxyBUTYnin chloride ER 5 MG TAB.ER.24 10 MG PO (08:04)
[2023-10-15] MEDS: metFORMIN HCl 500 MG TABLET PO (08:04)
[2023-10-15] MEDS: lamoTRIgine 100 MG TABLET 200 MG PO ×2 (08:04→19:49)
[2023-10-15] MEDS: Atorvastatin Calcium 80 MG TABLET PO (08:04)
[2023-10-15] MEDS: Docusate Sodium 100 MG CAPSULE PO ×2 (08:04→19:49)
[2023-10-15] MEDS: clonazePAM 0.5 MG TABLET PO ×3 (08:05→19:50)
--- NOTE | 2023-10-15 09:58 | P.PNPSI_ITS ---
Subjective Subjective Date of Service: 10/15/23 Reason For Visit: F03 Subjective Notes: Conditional Voluntary Interim History: The nursing staff reported the patient had been agitated at times, she was seen responding to internal stimuli. She slept 8 hours. Apparently the patient needs a community role years to get antipsychotics in the community. We will work with the legal team. On interview the patient was responding to internal stimuli, very attention seeking. Mental Status Exam Mental Status Exam Patient Appearance: Appropriate Patient Orientation: Person Level of Consciousness: Awake Patient Behavior: Guarded and Passive Mood Description: Withdrawn Affect Description: Constricted Patient Cognition Impaired: Yes Ability to Follow Directions: Good Speech Pattern: Clear Hallucinations: Auditory and Visual Delusions: Paranoid Ideation Perceptual Disturbances: Hallucinations Thought Process: Illogical, Distracted and Slowed Thinking Thought Content: positive for [place] and positive for Poverty of Content Judgement: Poor Diagnostics Vital Signs (24Hr): Vital Signs - 24 hr 10/14/23 18:00 10/15/23 07:55 Temperature 97.4 F 98.2 F Pulse Rate 60 63 Respiratory Rate 18 18 Blood Pressure 141/63 H 106/68 Pulse Oximetry 97 98 Oxygen Delivery Method Room Air Room Air BMI result Body Mass Index 23.1 Labs 10/15/23 09:42 Medications Medications Current Medications Acetaminophen (Acetaminophen 325 Mg Tablet) 650 mg PO Q6H PRN PRN Reason: Headache/Pain Mild Scale (1-3) Last Admin: 10/15/23 06:14 Dose: 650 mg Al Hydroxide/Mg Hydroxide (Magnesium Hydrox/Alum Hydrox 30 Ml Oral.Susp) 30 ml PO Q6H PRN PRN Reason: Heartburn/Nausea Aspirin (Aspirin 81 Mg Tab.Chew) 81 mg PO DAILY [facility] Last Admin: 10/15/23 08:04 Dose: 81 mg Atorvastatin Calcium (Atorvastatin Calcium 80 Mg Tablet) 80 mg PO DAILY [facility] Last Admin: 10/15/23 08:04 Dose: 80 mg Clonazepam (Clonazepam 0.5 Mg Tablet) 0.5 mg PO TID [facility] Last Admin: 10/15/23 08:05 Dose: 0.5 mg Docusate Sodium (Docusate Sodium 100 Mg Capsule) 100 mg PO BID [facility] Last Admin: 10/15/23 08:04 Dose: 100 mg Escitalopram Oxalate (Escitalopram Oxalate 10 Mg Tablet) 10 mg PO DAILY [facility] Last Admin: 10/15/23 08:04 Dose: 10 mg Famotidine (Famotidine 20 Mg Tablet) 20 mg PO BID [facility] Last Admin: 10/15/23 08:04 Dose: 20 mg Gabapentin (Gabapentin 600 Mg Tablet) 600 mg PO TID [facility] Last Admin: 10/15/23 08:04 Dose: 600 mg Hydroxyzine HCl (Hydroxyzine Hcl 25 Mg Tablet) 25 mg PO Q6H PRN PRN Reason: Anxiety Last Admin: 10/15/23 06:15 Dose: 25 mg Ibuprofen (Ibuprofen 400 Mg Tablet) 400 mg PO Q6H PRN PRN Reason: Mild Pain (Scale Score 1-4) Lamotrigine (Lamotrigine 100 Mg Tablet) 200 mg PO BID [facility] Last Admin: 10/15/23 08:04 Dose: 200 mg Latanoprost (Latanoprost 0.005 % Ophth Pati 2.5 Ml Drops) 1 drop EYE-BOTH BEDTIME [facility] Last Admin: 10/14/23 20:55 Dose: 1 drop Lorazepam (Lorazepam 1 Mg Tablet) 1 mg PO TID PRN PRN Reason: agitation Last Admin: 10/14/23 20:01 Dose: 1 mg Magnesium Hydroxide (Milk Of Magnesia 30 Ml Oral.Susp) 30 ml PO DAILY PRN PRN Reason: Constipation Metformin HCl (Metformin Hcl 500 Mg Tablet) 500 mg PO DAILY [facility] Last Admin: 10/15/23 08:04 Dose: 500 mg Nicotine (Nicotine 21 Mg Patch.Td24) 21 mg TRANSDERMA DAILY [facility] Last Admin: 10/15/23 08:13 Dose: Not Given Olanzapine (Olanzapine Odt 10 Mg Tab.Rapdis) 10 mg TRANSLINGU Q4H PRN PRN Reason: Psychosis Last Admin: 10/15/23 06:17 Dose: 10 mg Olanzapine (Olanzapine 10 Mg Tablet) 20 mg PO BEDTIME [facility] Last Admin: 10/14/23 20:00 Dose: 20 mg Oxybutynin Chloride (Oxybutynin Chloride Er 5 Mg Tab.Er.24) 10 mg PO DAILY [facility] Last Admin: 10/15/23 08:04 Dose: 10 mg Trazodone HCl (Trazodone Hcl 50 Mg Tablet) 50 mg PO BEDTIME MRX1 PRN PRN Reason: Insomnia Last Admin: 10/07/23 01:37 Dose: 50 mg Trazodone HCl (Trazodone Hcl 25 Mg Halftab) 25 mg PO BEDTIME [facility] Last Admin: 10/14/23 20:00 Dose: 25 mg Trazodone HCl (Trazodone Hcl 50 Mg Tablet) 50 mg PO DAILY [facility] Last Admin: 10/15/23 08:04 Dose: 50 mg Allergies Allergies Allergy/AdvReac Type Severity Reaction Status Date / Time amantadine AdvReac Unknown Verified 09/29/23 17:57 Assessment & Plan Assessment & Plan (1) Diabetes: Qualifiers: Diabetes mellitus complication status: without complication Status: Acute Code(s): E11.9 - Type 2 diabetes mellitus without complications (2) HLD (hyperlipidemia): Qualifiers: Hyperlipidemia type: unspecified Qualified Code(s): E78.5 - Hyperlipidemia, unspecified Status: Acute Code(s): E78.5 - Hyperlipidemia, unspecified (3) Traumatic brain injury: Qualifiers: Loss of consciousness presence/duration: unknown LOC status Status: Acute Code(s): S06.9XAA - Unspecified intracranial injury with loss of consciousness status unknown, initial encounter Plan 63-year-old female with TBI, dementia, disorganized who presents for aggressive behavior. Hospital course: 10/12 Patient disruptive last night, again today, disorganized and thinks she is back at her [facility], asking for her cigarettes over and over, talking to herself. Patient yelling in the [place], ran into staff with wheelchair though maybe not on purpose; patient lowered herself to the floor. Zyprexa p.r.n. not that helpful. Director Of Dementia Operations ordered Ativan 1 mg which did calm her down. On approach she remained disorganized, wanting her cigarettes but was overall calm. Staff reports patient eating and sleeping well. -continue current regimen for now 10/13 Patient remains disorganized, aggressive, yelling; p.r.n. Zyprexa still not helpful. Scheduled Clonazepam not helpful. Give another dose of Ativan which again was calming. PLAN: Will hold Zyprexa p.r.n. since has not proved helpful for calming agitation, despite getting up to 40 mg yesterday. Will instead make Ativan 1 mg t.i.d. p.r.n. available for agitation If Ativan proves helpful, will consider doing away with Zyprexa p.r.n. (and may be scheduled bedtime dose) and see if Tegretol or Depakote would work for aggression. Will likely defer this to primary team however Plan 1. Will keep Zyprexa to 10 mg p.o. q.h.s. at night to target psychosis. 2. Keep Klonopin scheduled and Ativan p.r.n. anxiety. 3. We will work on amendment or starting the Sherif order. Reason for continued inpatient stay Substantial Risk for: inability to function, rapid decompensation and med/psych decompensation Time Spent With Patient Time: Total time managing care of this patient today __20__ minutes.
[2023-10-15 09:59] LABS: Creatinine Clr Calc Pharmacy 88.1; Estimated Glomerular Filt Rate > 60
--- NOTE | 2023-10-15 11:36 | PC.NURSE ---
Pt reaching in front of her for items on floor that do not exist. she slid down to floor. VSS, provider, construction supervisor and notified Sandra Munroe,
--- NOTE | 2023-10-15 11:58 | P.EN_ITS ---
Event Note Date of Service: 10/15/23 Event Note: While on unit, patient observed to slide forward from wheelchair reaching for something. Lowered self to ground on hands and knees. No true fall. No head injury or LOC. This was witnessed with staff in close proximity. Per nursing staff, the patient does this somewhat regularly. At least twice yesterday and once so far today. Patient denies any pain or lightheadness. Vitals stable though blood pressure soft at 96/60 which is near baseline. Not on any antihype rtensives. [facility] jail, patient used seat belt on wheelchair. I am in agreement with nursing that this is likely behavioral. I do think she would benefit from reducing doses of medications that can cause orthostatic hypotesion/dizziness (gabapentin, antipsychotics etc) though again this does not seem contributory currenlty but could prevent falls in future. On exam, there is no focal tenderness on her joints and she moves extremities freely. Head is atraumatic, normocephalic, neck supple. Right pupil noted to be dilated compared to left, but per nursing this is baseline 2/2 history of TBI. She is oriented to self only which is her baseline. She follows commands overall. Unable to assess EOMI 2/2 patient mental status, but no face symmetric without slurred speech or droop, gag reflex in tact. At this time, no acute injury suspected. No indication for head CT or further imaging. Will discuss possible seat belt with Dr. Zarco and Dr. Walker to prevent falls/injury in the future. Time Spent With Patient Time: Total time managing care of this patient today ____ minutes.
--- NOTE | 2023-10-15 12:51 | PC.NURSE ---
Pt wears a seat belt at her residential. This keeps her safely in her w/c, and she requests this item at this time. She is able to control the usage of this DME and agrees to it's use as it keeps her safe. It will be a Velcro release and patient can apply on and off as needed/wanted.
[2023-10-15] MEDS: LORazepam 1 MG TABLET PO ×2 (13:14→21:30)
[2023-10-15 19:30] VITALS: BP 125/66; PULSE 53; TEMP 36.2; O2SAT 95
[2023-10-15] MEDS: Latanoprost 0.005 % Ophth Sol 2.5 ML DROPS 1 DROP EYE-BOTH (19:49)
[2023-10-15] MEDS: OLANZapine 10 MG TABLET 20 MG PO (19:50)
[2023-10-15] MEDS: traZODone HCL 25 MG HALFTAB PO (19:50)
[2023-10-16 06:00] VITALS: BP 95/52; PULSE 61; RESP 18; TEMP 36.4; O2SAT 99
[2023-10-16] MEDS: Gabapentin 600 MG TABLET PO ×3 (09:40→20:16)
[2023-10-16] MEDS: clonazePAM 1 MG TABLET PO ×3 (09:40→20:16)
[2023-10-16] MEDS: lamoTRIgine 100 MG TABLET 200 MG PO ×2 (09:41→20:16)
[2023-10-16] MEDS: Escitalopram Oxalate 10 MG TABLET PO (09:41)
[2023-10-16] MEDS: traZODone HCL 50 MG TABLET PO ×2 (09:41→20:16)
[2023-10-16] MEDS: metFORMIN HCl 500 MG TABLET PO (09:41)
[2023-10-16] MEDS: Aspirin 81 MG TAB.CHEW PO (09:41)
[2023-10-16] MEDS: LORazepam 1 MG TABLET PO ×2 (09:41→14:19)
[2023-10-16] MEDS: Docusate Sodium 100 MG CAPSULE PO ×2 (09:41→20:16)
[2023-10-16] MEDS: oxyBUTYnin chloride ER 5 MG TAB.ER.24 10 MG PO (09:41)
[2023-10-16] MEDS: Atorvastatin Calcium 80 MG TABLET PO (09:41)
[2023-10-16] MEDS: Famotidine 20 MG TABLET PO ×2 (09:42→20:16)
[2023-10-16] MEDS: OLANZapine ODT 10 MG TAB.RAPDIS TRANSLINGU ×3 (09:42→18:43)
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
[2023-10-16 19:42] VITALS: BP 141/63; PULSE 69; RESP 16; TEMP 37; O2SAT 96
[2023-10-16] MEDS: OLANZapine 10 MG TABLET 20 MG PO (20:16)
[2023-10-16] MEDS: hydrOXYzine HCL 25 MG TABLET PO (20:17)
[2023-10-16] MEDS: traZODone HCL 25 MG HALFTAB PO (20:17)
[2023-10-16] MEDS: Latanoprost 0.005 % Ophth Sol 2.5 ML DROPS 1 DROP EYE-BOTH (20:22)
[2023-10-17 07:55] VITALS: BP 132/68; PULSE 66; RESP 18; TEMP 36.9; O2SAT 96
[2023-10-17] MEDS: metFORMIN HCl 500 MG TABLET PO (08:06)
[2023-10-17] MEDS: Famotidine 20 MG TABLET PO ×2 (08:06→21:02)
[2023-10-17] MEDS: lamoTRIgine 100 MG TABLET 200 MG PO ×2 (08:06→21:02)
[2023-10-17] MEDS: Escitalopram Oxalate 10 MG TABLET PO (08:07)
[2023-10-17] MEDS: Docusate Sodium 100 MG CAPSULE PO ×2 (08:07→21:03)
[2023-10-17] MEDS: oxyBUTYnin chloride ER 5 MG TAB.ER.24 10 MG PO (08:07)
[2023-10-17] MEDS: traZODone HCL 50 MG TABLET PO ×2 (08:07→23:36)
[2023-10-17] MEDS: clonazePAM 1 MG TABLET PO ×3 (08:07→21:03)
[2023-10-17] MEDS: Gabapentin 600 MG TABLET PO ×3 (08:07→21:03)
[2023-10-17] MEDS: Atorvastatin Calcium 80 MG TABLET PO (08:07)
[2023-10-17] MEDS: Aspirin 81 MG TAB.CHEW PO (08:07)
--- NOTE | 2023-10-17 08:46 | P.PNPSI_ITS ---
Subjective Subjective Date of Service: 10/17/23 Reason For Visit: F03 Subjective Notes: Conditional Voluntary Interim History: The nursing staff reported the patient had to be redirected several times, she gels at times. She slept well last night still on one-to-one for safety. On interview the patient looks pleasantly confused no active behavioral disturbances at this moment. Mental Status Exam Mental Status Exam Patient Appearance: Appropriate Patient Orientation: Person Level of Consciousness: Awake Patient Behavior: Passive Mood Description: Withdrawn Affect Description: Labile Patient Cognition Impaired: Yes Ability to Follow Directions: Good Speech Pattern: Clear Hallucinations: Visual Delusions: Paranoid Ideation Thought Process: Illogical and Slowed Thinking Thought Content: positive for [place] and positive for Poverty of Content Judgement: Poor Diagnostics Vital Signs (24Hr): Vital Signs - 24 hr 10/16/23 19:42 Temperature 98.6 F Pulse Rate 69 Respiratory Rate 16 Blood Pressure 141/63 H Pulse Oximetry 96 Oxygen Delivery Method Room Air BMI result Body Mass Index 23.1 Labs 10/15/23 09:42 Labs: Laboratory Results - last 48 hr 10/15/23 09:42 Creatinine 0.62 Estim Creat Clear Calc 88.1 Estimated GFR > 60 Medications Medications Current Medications Acetaminophen (Acetaminophen 325 Mg Tablet) 650 mg PO Q6H PRN PRN Reason: Headache/Pain Mild Scale (1-3) Last Admin: 10/15/23 06:14 Dose: 650 mg Al Hydroxide/Mg Hydroxide (Magnesium Hydrox/Alum Hydrox 30 Ml Oral.Susp) 30 ml PO Q6H PRN PRN Reason: Heartburn/Nausea Aspirin (Aspirin 81 Mg Tab.Chew) 81 mg PO DAILY [facility] Last Admin: 10/17/23 08:07 Dose: 81 mg Atorvastatin Calcium (Atorvastatin Calcium 80 Mg Tablet) 80 mg PO DAILY [facility] Last Admin: 10/17/23 08:07 Dose: 80 mg Clonazepam (Clonazepam 1 Mg Tablet) 1 mg PO TID [facility] Last Admin: 10/17/23 08:07 Dose: 1 mg Docusate Sodium (Docusate Sodium 100 Mg Capsule) 100 mg PO BID [facility] Last Admin: 10/17/23 08:07 Dose: 100 mg Escitalopram Oxalate (Escitalopram Oxalate 10 Mg Tablet) 10 mg PO DAILY [facility] Last Admin: 10/17/23 08:07 Dose: 10 mg Famotidine (Famotidine 20 Mg Tablet) 20 mg PO BID [facility] Last Admin: 10/17/23 08:06 Dose: 20 mg Gabapentin (Gabapentin 600 Mg Tablet) 600 mg PO TID [facility] Last Admin: 10/17/23 08:07 Dose: 600 mg Hydroxyzine HCl (Hydroxyzine Hcl 25 Mg Tablet) 25 mg PO Q6H PRN PRN Reason: Anxiety Last Admin: 10/16/23 20:17 Dose: 25 mg Ibuprofen (Ibuprofen 400 Mg Tablet) 400 mg PO Q6H PRN PRN Reason: Mild Pain (Scale Score 1-4) Lamotrigine (Lamotrigine 100 Mg Tablet) 200 mg PO BID [facility] Last Admin: 10/17/23 08:06 Dose: 200 mg Latanoprost (Latanoprost 0.005 % Ophth Pati 2.5 Ml Drops) 1 drop EYE-BOTH BEDTIME [facility] Last Admin: 10/16/23 20:22 Dose: 1 drop Lorazepam (Lorazepam 1 Mg Tablet) 1 mg PO TID PRN PRN Reason: agitation Last Admin: 10/16/23 14:19 Dose: 1 mg Magnesium Hydroxide (Milk Of Magnesia 30 Ml Oral.Susp) 30 ml PO DAILY PRN PRN Reason: Constipation Metformin HCl (Metformin Hcl 500 Mg Tablet) 500 mg PO DAILY [facility] Last Admin: 10/17/23 08:06 Dose: 500 mg Nicotine (Nicotine 21 Mg Patch.Td24) 21 mg TRANSDERMA DAILY [facility] Last Admin: 10/17/23 08:13 Dose: Not Given Olanzapine (Olanzapine Odt 10 Mg Tab.Rapdis) 10 mg TRANSLINGU Q4H PRN PRN Reason: Psychosis Last Admin: 10/16/23 18:43 Dose: 10 mg Olanzapine (Olanzapine 10 Mg Tablet) 20 mg PO BEDTIME [facility] Last Admin: 10/16/23 20:16 Dose: 20 mg Oxybutynin Chloride (Oxybutynin Chloride Er 5 Mg Tab.Er.24) 10 mg PO DAILY [facility] Last Admin: 10/17/23 08:07 Dose: 10 mg Trazodone HCl (Trazodone Hcl 50 Mg Tablet) 50 mg PO BEDTIME MRX1 PRN PRN Reason: Insomnia Last Admin: 10/15/23 21:31 Dose: 50 mg Trazodone HCl (Trazodone Hcl 25 Mg Halftab) 25 mg PO BEDTIME [facility] Last Admin: 10/16/23 20:17 Dose: 25 mg Trazodone HCl (Trazodone Hcl 50 Mg Tablet) 50 mg PO DAILY [facility] Last Admin: 10/17/23 08:07 Dose: 50 mg Allergies Allergies Allergy/AdvReac Type Severity Reaction Status Date / Time amantadine AdvReac Unknown Verified 09/29/23 17:57 Assessment & Plan Assessment & Plan (1) Diabetes: Qualifiers: Diabetes mellitus complication status: without complication Status: Acute Code(s): E11.9 - Type 2 diabetes mellitus without complications (2) HLD (hyperlipidemia): Qualifiers: Hyperlipidemia type: unspecified Qualified Code(s): E78.5 - Hyperlipidemia, unspecified Status: Acute Code(s): E78.5 - Hyperlipidemia, unspecified (3) Traumatic brain injury: Qualifiers: Loss of consciousness presence/duration: unknown LOC status Status: Acute Code(s): S06.9XAA - Unspecified intracranial injury with loss of consciousness status unknown, initial encounter Plan 63-year-old female with TBI, dementia, disorganized who presents for aggressive behavior. Hospital course: 10/12 Patient disruptive last night, again today, disorganized and thinks she is back at her [facility], asking for her cigarettes over and over, talking to herself. Patient yelling [place] the [place], ran into staff with wheelchair though maybe not on purpose; patient lowered herself to the floor. Zyprexa p.r.n. not that helpful. Logistics Engineering Manager ordered Ativan 1 mg which did calm her down. On approach she remained disorganized, wanting her cigarettes but was overall calm. Staff reports patient eating and sleeping well. -continue current regimen for now 10/13 Patient remains disorganized, aggressive, yelling; p.r.n. Zyprexa still not helpful. Scheduled Clonazepam not helpful. Give another dose of Ativan which again was calming. PLAN: Will hold Zyprexa p.r.n. since has not proved helpful for calming agitation, despite getting up to 40 mg yesterday. Will instead make Ativan 1 mg t.i.d. p.r.n. available for agitation If Ativan proves helpful, will consider doing away with Zyprexa p.r.n. (and may be scheduled bedtime dose) and see if Tegretol or Depakote would work for aggression. Will likely defer this to primary team however Plan 1. Will keep Zyprexa to 10 mg p.o. q.h.s. at night to target psychosis. 2. Keep Klonopin scheduled and Ativan p.r.n. anxiety. On October 16 we are increasing Klonopin up to 1 mg p.o. t.i.d. 3. We will work on amendment or starting the Sherif order. Reason for continued inpatient stay Substantial Risk for: inability to function, rapid decompensation and med/psych decompensation Time Spent With Patient Time: Total time managing care of this patient today __20__ minutes.
[2023-10-17] MEDS: LORazepam 1 MG TABLET PO ×3 (14:09→21:03)
[2023-10-17] MEDS: hydrOXYzine HCL 25 MG TABLET PO ×2 (17:18→21:02)
[2023-10-17] MEDS: traZODone HCL 100 MG TABLET PO (17:18)
[2023-10-17] MEDS: OLANZapine ODT 10 MG TAB.RAPDIS TRANSLINGU ×2 (17:18→23:36)
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
[2023-10-17 18:00] VITALS: BP 143/82; PULSE 62; RESP 17; TEMP 36.6; O2SAT 97
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
[2023-10-17] MEDS: traZODone HCL 25 MG HALFTAB PO (21:02)
[2023-10-17] MEDS: OLANZapine 10 MG TABLET 20 MG PO (21:02)
[2023-10-17] MEDS: Latanoprost 0.005 % Ophth Sol 2.5 ML DROPS 1 DROP EYE-BOTH (21:03)
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
[2023-10-18 10:00] VITALS: BP 96/65; PULSE 98; RESP 20; TEMP 36.8; O2SAT 93
[2023-10-18] MEDS: metFORMIN HCl 500 MG TABLET PO (11:36)
[2023-10-18] MEDS: oxyBUTYnin chloride ER 5 MG TAB.ER.24 10 MG PO (11:36)
[2023-10-18] MEDS: Gabapentin 400 MG CAPSULE 800 MG PO ×3 (11:36→20:56)
[2023-10-18] MEDS: clonazePAM 1 MG TABLET PO ×3 (11:36→20:57)
[2023-10-18] MEDS: Famotidine 20 MG TABLET PO ×2 (11:37→20:56)
[2023-10-18] MEDS: lamoTRIgine 100 MG TABLET 200 MG PO ×2 (11:37→20:56)
[2023-10-18] MEDS: LORazepam 1 MG TABLET PO (11:38)
[2023-10-18] MEDS: Atorvastatin Calcium 80 MG TABLET PO (11:38)
[2023-10-18] MEDS: Aspirin 81 MG TAB.CHEW PO (11:38)
[2023-10-18] MEDS: OLANZapine ODT 10 MG TAB.RAPDIS TRANSLINGU (11:38)
[2023-10-18] MEDS: Escitalopram Oxalate 10 MG TABLET PO (11:38)
[2023-10-18] MEDS: Docusate Sodium 100 MG CAPSULE PO ×2 (11:39→20:56)
--- NOTE | 2023-10-18 15:58 | PM.EVENT ---
Event Note Date of Service: 10/18/23 Event Note: Patient with recurrent falls from wheelchair with unwitnessed fall about 1 hour ago. Patient denies any pain or lightheadness. Vitals stable though blood pressure soft at 96/65 which is near baseline. Not on any antihypertensives. At intermediate, patient used seat belt on wheelchair. I am in agreement with nursing that this is likely behavioral. Seatbelt has been recommended. in future. On exam, there is no focal tenderness on her joints and she moves extremities freely. Head is atraumatic, normocephalic, neck supple. Right pupil noted to be dilated compared to left, but per nursing this is baseline 2/2 history of TBI. She is oriented to self only which is her baseline. She follows commands overall. Unable to assess EOMI 2/2 patient mental status, but no face symmetric without slurred speech or droop, gag reflex in tact. At this time, no acute injury suspected. However, given unwitnessed fall, will evaluate head CT for any acute intracranial abnormality. Neuro checks q2h x12 hours, then q4h x 12 hours. As mentioned, I do think she would benefit from reducing doses of medications that can cause orthostatic hypotesion/dizziness (gabapentin, antipsychotics etc) though again this does not seem contributory currenlty but could prevent falls Given intermittent near hypotension, and lack of antihypertensives, will add midodrine 5mg TID with parameters. Time Spent With Patient Time: Total time managing care of this patient today ____ minutes.
[2023-10-18 16:01] VITALS: BP 89/54; PULSE 67; RESP 18; TEMP 36.7; O2SAT 96
[2023-10-18] MEDS: Midodrine HCl 5 MG TABLET PO (17:01)
--- NOTE | 2023-10-18 17:16 | PC.NURSE ---
Addendum entered by Kathryn Tucker LPN 10/18/23 17:22: Guardian for patient made aware of fall. Original Note: Patient had an unwitnessed fall. Provider, hospitalist, and air conditioning supervisor made aware. Unsure if patient hit head, CT of head was ordered pending results.
[2023-10-18 18:00] VITALS: BP 138/61; PULSE 57; RESP 17; TEMP 36.2; O2SAT 95
[2023-10-18] MEDS: OLANZapine 10 MG TABLET 20 MG PO (20:56)
[2023-10-18] MEDS: traZODone HCL 25 MG HALFTAB PO (20:56)
[2023-10-18] MEDS: Latanoprost 0.005 % Ophth Sol 2.5 ML DROPS 1 DROP EYE-BOTH (21:03)
[2023-10-19 07:55] VITALS: BP 133/62; PULSE 95; RESP 16; TEMP 36.6; O2SAT 97
[2023-10-19] MEDS: Famotidine 20 MG TABLET PO ×2 (09:09→20:01)
[2023-10-19] MEDS: lamoTRIgine 100 MG TABLET 200 MG PO ×2 (09:09→20:01)
[2023-10-19] MEDS: Gabapentin 400 MG CAPSULE 800 MG PO ×3 (09:09→20:00)
[2023-10-19] MEDS: traZODone HCL 50 MG TABLET PO (09:10)
[2023-10-19] MEDS: Atorvastatin Calcium 80 MG TABLET PO (09:10)
[2023-10-19] MEDS: clonazePAM 1 MG TABLET PO ×3 (09:10→20:01)
[2023-10-19] MEDS: Docusate Sodium 100 MG CAPSULE PO ×2 (09:10→20:01)
[2023-10-19] MEDS: oxyBUTYnin chloride ER 5 MG TAB.ER.24 10 MG PO (09:10)
[2023-10-19] MEDS: metFORMIN HCl 500 MG TABLET PO (09:10)
[2023-10-19] MEDS: Midodrine HCl 5 MG TABLET PO ×3 (09:10→16:42)
[2023-10-19] MEDS: Aspirin 81 MG TAB.CHEW PO (09:10)
[2023-10-19] MEDS: Escitalopram Oxalate 10 MG TABLET PO (09:10)
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
[2023-10-19] MEDS: QUEtiapine Fumarate 50 MG TABLET PO ×2 (10:10→17:40)
[2023-10-19] MEDS: LORazepam 1 MG TABLET PO ×2 (10:10→17:45)
[2023-10-19] MEDS: OLANZapine ODT 10 MG TAB.RAPDIS TRANSLINGU (15:27)
[2023-10-19 18:00] VITALS: BP 111/57; PULSE 71; RESP 16; TEMP 36.3; O2SAT 97
[2023-10-19] MEDS: OLANZapine 10 MG TABLET 20 MG PO (20:01)
[2023-10-19] MEDS: traZODone HCL 25 MG HALFTAB PO (20:01)
[2023-10-19] MEDS: Latanoprost 0.005 % Ophth Sol 2.5 ML DROPS 1 DROP EYE-BOTH (21:22)
[2023-10-20] MEDS: Ibuprofen 400 MG TABLET PO (00:02)
[2023-10-20] MEDS: LORazepam 1 MG TABLET PO ×3 (00:03→18:18)
[2023-10-20] MEDS: traZODone HCL 50 MG TABLET PO ×3 (00:03→21:31)
[2023-10-20 08:00] VITALS: BP 122/62; PULSE 68; RESP 18; TEMP 36.8; O2SAT 96
[2023-10-20] MEDS: metFORMIN HCl 500 MG TABLET PO (09:05)
[2023-10-20] MEDS: Gabapentin 400 MG CAPSULE 800 MG PO ×2 (09:05→19:40)
[2023-10-20] MEDS: Docusate Sodium 100 MG CAPSULE PO ×2 (09:05→19:40)
[2023-10-20] MEDS: oxyBUTYnin chloride ER 5 MG TAB.ER.24 10 MG PO (09:05)
[2023-10-20] MEDS: Famotidine 20 MG TABLET PO ×2 (09:05→19:40)
[2023-10-20] MEDS: clonazePAM 1 MG TABLET PO ×3 (09:06→19:39)
[2023-10-20] MEDS: Midodrine HCl 5 MG TABLET PO ×3 (09:06→17:29)
[2023-10-20] MEDS: Aspirin 81 MG TAB.CHEW PO (09:06)
[2023-10-20] MEDS: Escitalopram Oxalate 10 MG TABLET PO (09:06)
[2023-10-20] MEDS: OLANZapine ODT 10 MG TAB.RAPDIS TRANSLINGU (09:06)
[2023-10-20] MEDS: lamoTRIgine 100 MG TABLET 200 MG PO ×2 (09:06→19:39)
[2023-10-20] MEDS: Atorvastatin Calcium 80 MG TABLET PO (09:06)
[2023-10-20] MEDS: QUEtiapine Fumarate 50 MG TABLET PO ×2 (10:41→18:18)
--- NOTE | 2023-10-20 14:20 | HO.PSYCHPN ---
Subjective Subjective Date of Service: 10/20/23 Reason For Visit: agitation Interim History: Met with patient. Discussed with Nursing. Slept well last night. Ongoing verbal behavioral outbursts that are loud and disruptive. Does appear slightly more calm today in day area, eating breakfast and less verbally hostile. Medication Compliance: Yes Side effects from medications: No Attending Groups: No Review of Systems Acute medical concerns: No Review of Systems Review of Systems nothing acute Mental Status Exam Mental Status Exam Narrative: In day area eating breakfast. Calmer. Less verbally hostile. Alert. Unable to formally test orientation etc. . No evidence of SI or HI. Is paranoid and frustrated. Insight and judgment Diagnostics Vital Signs (24Hr): Vital Signs - 24 hr 10/19/23 18:00 10/20/23 08:00 Temperature 97.3 F 98.2 F Pulse Rate 71 68 Respiratory Rate 16 18 Blood Pressure 111/57 L 122/62 Pulse Oximetry 97 96 Oxygen Delivery Method Room Air Room Air BMI result Body Mass Index 23.1 Labs 10/15/23 09:42 Imaging Radiology Impressions: ITS Impressions Head CT 10/18/23 16:48 IMPRESSION: 1. No acute intracranial hemorrhage or edematous infarct. 2. 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 3. Right temporal approach ventriculostomy catheter with tip terminating in the right lateral ventricle body. No hydrocephalus. Medications Medications Current Medications Acetaminophen (Acetaminophen 325 Mg Tablet) 650 mg PO Q6H PRN PRN Reason: Headache/Pain Mild Scale (1-3) Last Admin: 10/15/23 06:14 Dose: 650 mg Al Hydroxide/Mg Hydroxide (Magnesium Hydrox/Alum Hydrox 30 Ml Oral.Susp) 30 ml PO Q6H PRN PRN Reason: Heartburn/Nausea Aspirin (Aspirin 81 Mg Tab.Chew) 81 mg PO DAILY [facility] Last Admin: 10/20/23 09:06 Dose: 81 mg Atorvastatin Calcium (Atorvastatin Calcium 80 Mg Tablet) 80 mg PO DAILY [facility] Last Admin: 10/20/23 09:06 Dose: 80 mg Clonazepam (Clonazepam 1 Mg Tablet) 1 mg PO TID [facility] Last Admin: 10/20/23 09:06 Dose: 1 mg Docusate Sodium (Docusate Sodium 100 Mg Capsule) 100 mg PO BID [facility] Last Admin: 10/20/23 09:05 Dose: 100 mg Escitalopram Oxalate (Escitalopram Oxalate 10 Mg Tablet) 10 mg PO DAILY [facility] Last Admin: 10/20/23 09:06 Dose: 10 mg Famotidine (Famotidine 20 Mg Tablet) 20 mg PO BID [facility] Last Admin: 10/20/23 09:05 Dose: 20 mg Gabapentin (Gabapentin 400 Mg Capsule) 800 mg PO TID [facility] Last Admin: 10/20/23 09:05 Dose: 800 mg Hydroxyzine HCl (Hydroxyzine Hcl 25 Mg Tablet) 25 mg PO Q6H PRN PRN Reason: Anxiety Last Admin: 10/17/23 21:02 Dose: 25 mg Ibuprofen (Ibuprofen 400 Mg Tablet) 400 mg PO Q6H PRN PRN Reason: Mild Pain (Scale Score 1-4) Last Admin: 10/20/23 00:02 Dose: 400 mg Lamotrigine (Lamotrigine 100 Mg Tablet) 200 mg PO BID [facility] Last Admin: 10/20/23 09:06 Dose: 200 mg Latanoprost (Latanoprost 0.005 % Ophth Pati 2.5 Ml Drops) 1 drop EYE-BOTH BEDTIME [facility] Last Admin: 10/19/23 21:22 Dose: 1 drop Lorazepam (Lorazepam 1 Mg Tablet) 1 mg PO TID PRN PRN Reason: agitation Last Admin: 10/20/23 10:41 Dose: 1 mg Magnesium Hydroxide (Milk Of Magnesia 30 Ml Oral.Susp) 30 ml PO DAILY PRN PRN Reason: Constipation Metformin HCl (Metformin Hcl 500 Mg Tablet) 500 mg PO DAILY [facility] Last Admin: 10/20/23 09:05 Dose: 500 mg Midodrine (Midodrine Hcl 5 Mg Tablet) 5 mg PO TIDWM [facility] Last Admin: 10/20/23 11:49 Dose: 5 mg Nicotine (Nicotine 21 Mg Patch.Td24) 21 mg TRANSDERMA DAILY [facility] Last Admin: 10/20/23 09:17 Dose: Not Given Olanzapine (Olanzapine 10 Mg Tablet) 20 mg PO BEDTIME [facility] Last Admin: 10/19/23 20:01 Dose: 20 mg Olanzapine (Olanzapine Odt 10 Mg Tab.Rapdis) 10 mg TRANSLINGU BID@0900,1400 [facility] Last Admin: 10/20/23 09:06 Dose: 10 mg Oxybutynin Chloride (Oxybutynin Chloride Er 5 Mg Tab.Er.24) 10 mg PO DAILY [facility] Last Admin: 10/20/23 09:05 Dose: 10 mg Quetiapine Fumarate (Quetiapine Fumarate 50 Mg Tablet) 50 mg PO Q4H PRN PRN Reason: agitation Last Admin: 10/20/23 10:41 Dose: 50 mg Trazodone HCl (Trazodone Hcl 50 Mg Tablet) 50 mg PO BEDTIME MRX1 PRN PRN Reason: Insomnia Last Admin: 10/20/23 00:03 Dose: 50 mg Trazodone HCl (Trazodone Hcl 25 Mg Halftab) 25 mg PO BEDTIME [facility] Last Admin: 10/19/23 20:01 Dose: 25 mg Trazodone HCl (Trazodone Hcl 50 Mg Tablet) 50 mg PO DAILY [facility] Last Admin: 10/20/23 09:06 Dose: 50 mg Allergies Allergies Allergy/AdvReac Type Severity Reaction Status Date / Time amantadine AdvReac Unknown Verified 09/29/23 17:57 Assessment & Plan Assessment & Plan (1) Diabetes: Qualifiers: Diabetes mellitus complication status: without complication Status: Acute Code(s): E11.9 - Type 2 diabetes mellitus without complications (2) HLD (hyperlipidemia): Qualifiers: Hyperlipidemia type: unspecified Qualified Code(s): E78.5 - Hyperlipidemia, unspecified Status: Acute Code(s): E78.5 - Hyperlipidemia, unspecified (3) Traumatic brain injury: Qualifiers: Loss of consciousness presence/duration: unknown LOC status Status: Acute Code(s): S06.9XAA - Unspecified intracranial injury with loss of consciousness status unknown, initial encounter Plan 63-year-old female with TBI, dementia, disorganized who presents for aggressive behavior. Hospital course: 10/12 Patient disruptive last night, again today, disorganized and thinks she is back at her custodial, asking for her cigarettes over and over, talking to herself. Patient yelling in the [place], ran into staff with wheelchair though maybe not on purpose; patient lowered herself to the floor. Zyprexa p.r.n. not that helpful. Quality Rn ordered Ativan 1 mg which did calm her down. On approach she remained disorganized, wanting her cigarettes but was overall calm. Staff reports patient eating and sleeping well. -continue current regimen for now 10/13 Patient remains disorganized, aggressive, yelling; p.r.n. Zyprexa still not helpful. Scheduled Clonazepam not helpful. Give another dose of Ativan which again was calming. PLAN: Will hold Zyprexa p.r.n. since has not proved helpful for calming agitation, despite getting up to 40 mg yesterday. Will instead make Ativan 1 mg t.i.d. p.r.n. available for agitation If Ativan proves helpful, will consider doing away with Zyprexa p.r.n. (and may be scheduled bedtime dose) and see if Tegretol or Depakote would work for aggression. Will likely defer this to primary team however 10/19/23: regarding medications, we will schedule olanzapine in the daytime rather than p.r.n.. Maintain nighttime olanzapine. Will utilize Seroquel as needed. Noted schedule Klonopin and as needed Ativan 10/20: no changes Plan 1. Will keep Zyprexa to 10 mg p.o. q.h.s. at night to target psychosis. 2. Keep Klonopin scheduled and Ativan p.r.n. anxiety. On October 16 we are increasing Klonopin up to 1 mg p.o. t.i.d. 3. We will work on amendment or starting the Sherif order. Reason for continued inpatient stay Substantial Risk for: harm to others and inability to function Time Spent With Patient Time: Total time managing care of this patient today ____ minutes.
[2023-10-20 18:00] VITALS: PULSE 58; RESP 16; TEMP 36.3; O2SAT 95
[2023-10-20] MEDS: hydrOXYzine HCL 25 MG TABLET PO (18:18)
[2023-10-20] MEDS: Acetaminophen 325 MG TABLET 650 MG PO (19:39)
[2023-10-20] MEDS: Latanoprost 0.005 % Ophth Sol 2.5 ML DROPS 1 DROP EYE-BOTH (19:40)
[2023-10-20] MEDS: OLANZapine 10 MG TABLET 20 MG PO (19:40)
[2023-10-20] MEDS: traZODone HCL 25 MG HALFTAB PO (19:41)
[2023-10-21 08:00] VITALS: BP 128/60; PULSE 58; RESP 18; TEMP 36.2; O2SAT 96
[2023-10-21 08:52] LABS: Creatinine Clr Calc Pharmacy 94.1; Estimated Glomerular Filt Rate > 60
[2023-10-21] MEDS: lamoTRIgine 100 MG TABLET 200 MG PO ×2 (09:06→21:03)
[2023-10-21] MEDS: oxyBUTYnin chloride ER 5 MG TAB.ER.24 10 MG PO (09:06)
[2023-10-21] MEDS: Famotidine 20 MG TABLET PO ×2 (09:06→21:02)
[2023-10-21] MEDS: OLANZapine ODT 10 MG TAB.RAPDIS TRANSLINGU ×2 (09:07→13:20)
[2023-10-21] MEDS: Aspirin 81 MG TAB.CHEW PO (09:07)
[2023-10-21] MEDS: clonazePAM 1 MG TABLET PO ×3 (09:07→21:03)
[2023-10-21] MEDS: metFORMIN HCl 500 MG TABLET PO (09:07)
[2023-10-21] MEDS: Escitalopram Oxalate 10 MG TABLET PO (09:07)
[2023-10-21] MEDS: Gabapentin 400 MG CAPSULE 800 MG PO ×3 (09:07→21:03)
[2023-10-21] MEDS: Docusate Sodium 100 MG CAPSULE PO ×2 (09:07→21:03)
[2023-10-21] MEDS: Atorvastatin Calcium 80 MG TABLET PO (09:08)
[2023-10-21] MEDS: traZODone HCL 50 MG TABLET PO (09:08)
[2023-10-21 12:00] VITALS: BP 102/57; PULSE 77
[2023-10-21] MEDS: Midodrine HCl 5 MG TABLET PO ×2 (12:14→17:47)
--- NOTE | 2023-10-21 13:21 | P.PNPSI_ITS ---
Subjective Subjective Date of Service: 10/21/23 Reason For Visit: agitation Subjective Notes: Conditional Voluntary ( by healthcare Proxy) Healthcare Proxy: Yes Interim History: the nursing staff reported the patient had more behaviors over the weekend she had been labile agitated yelling mostly in the evening. She slept 6 hours. On interview the patient remains confused at times. We change her level observation from one-to-one to close observation. Loud at times. Mental Status Exam Mental Status Exam Patient Appearance: Well Grooomed and Appropriate Patient Orientation: Person and Situation Level of Consciousness: Awake Patient Behavior: Guarded and Passive Mood Description: Withdrawn Affect Description: Constricted Patient Cognition Impaired: Yes Ability to Follow Directions: Fair Speech Pattern: Clear Hallucinations: None Delusions: Paranoid Ideation Thought Process: Distracted and Slowed Thinking Thought Content: positive for [place] and positive for Poverty of Content Judgement: Poor Diagnostics Vital Signs (24Hr): Vital Signs - 24 hr 10/20/23 18:00 10/21/23 08:00 10/21/23 12:00 Temperature 97.4 F 97.2 F Pulse Rate 58 58 77 Respiratory Rate 16 18 Blood Pressure 128/60 102/57 L Pulse Oximetry 95 96 Oxygen Delivery Method Room Air Room Air BMI result Body Mass Index 23.1 Labs 10/21/23 08:26 Labs: Laboratory Results - last 48 hr 10/21/23 08:26 Creatinine 0.58 Estim Creat Clear Calc 94.1 Estimated GFR > 60 Imaging Radiology Impressions: ITS Impressions Head CT 10/18/23 16:48 IMPRESSION: 1. No acute intracranial hemorrhage or edematous infarct. 2. 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 3. Right temporal approach ventriculostomy catheter with tip terminating in the right lateral ventricle body. No hydrocephalus. Medications Medications Current Medications Acetaminophen (Acetaminophen 325 Mg Tablet) 650 mg PO Q6H PRN PRN Reason: Headache/Pain Mild Scale (1-3) Last Admin: 10/20/23 19:39 Dose: 650 mg Al Hydroxide/Mg Hydroxide (Magnesium Hydrox/Alum Hydrox 30 Ml Oral.Susp) 30 ml PO Q6H PRN PRN Reason: Heartburn/Nausea Aspirin (Aspirin 81 Mg Tab.Chew) 81 mg PO DAILY [facility] Last Admin: 10/21/23 09:07 Dose: 81 mg Atorvastatin Calcium (Atorvastatin Calcium 80 Mg Tablet) 80 mg PO DAILY [facility] Last Admin: 10/21/23 09:08 Dose: 80 mg Clonazepam (Clonazepam 1 Mg Tablet) 1 mg PO TID [facility] Last Admin: 10/21/23 09:07 Dose: 1 mg Docusate Sodium (Docusate Sodium 100 Mg Capsule) 100 mg PO BID [facility] Last Admin: 10/21/23 09:07 Dose: 100 mg Escitalopram Oxalate (Escitalopram Oxalate 10 Mg Tablet) 10 mg PO DAILY [facility] Last Admin: 10/21/23 09:07 Dose: 10 mg Famotidine (Famotidine 20 Mg Tablet) 20 mg PO BID [facility] Last Admin: 10/21/23 09:06 Dose: 20 mg Gabapentin (Gabapentin 400 Mg Capsule) 800 mg PO TID [facility] Last Admin: 10/21/23 09:07 Dose: 800 mg Hydroxyzine HCl (Hydroxyzine Hcl 25 Mg Tablet) 25 mg PO Q6H PRN PRN Reason: Anxiety Last Admin: 10/20/23 18:18 Dose: 25 mg Ibuprofen (Ibuprofen 400 Mg Tablet) 400 mg PO Q6H PRN PRN Reason: Mild Pain (Scale Score 1-4) Last Admin: 10/20/23 00:02 Dose: 400 mg Lamotrigine (Lamotrigine 100 Mg Tablet) 200 mg PO BID [facility] Last Admin: 10/21/23 09:06 Dose: 200 mg Latanoprost (Latanoprost 0.005 % Ophth Pati 2.5 Ml Drops) 1 drop EYE-BOTH BEDTIME [facility] Last Admin: 10/20/23 19:40 Dose: 1 drop Lorazepam (Lorazepam 1 Mg Tablet) 1 mg PO TID PRN PRN Reason: agitation Last Admin: 10/20/23 18:18 Dose: 1 mg Magnesium Hydroxide (Milk Of Magnesia 30 Ml Oral.Susp) 30 ml PO DAILY PRN PRN Reason: Constipation Metformin HCl (Metformin Hcl 500 Mg Tablet) 500 mg PO DAILY [facility] Last Admin: 10/21/23 09:07 Dose: 500 mg Midodrine (Midodrine Hcl 5 Mg Tablet) 5 mg PO TIDWM REPL[facility] BY [facility] Last Admin: 10/21/23 12:14 Dose: 5 mg Nicotine (Nicotine 21 Mg Patch.Td24) 21 mg TRANSDERMA DAILY [facility] Last Admin: 10/21/23 09:13 Dose: Not Given Olanzapine (Olanzapine 10 Mg Tablet) 20 mg PO BEDTIME [facility]PLAC[facility] BY [facility] Last Admin: 10/20/23 19:40 Dose: 20 mg Olanzapine (Olanzapine Odt 10 Mg Tab.Rapdis) 10 mg TRANSLINGU BID@0900,1400 [facility] Last Admin: 10/21/23 09:07 Dose: 10 mg Oxybutynin Chloride (Oxybutynin Chloride Er 5 Mg Tab.Er.24) 10 mg PO DAILY [facility] Last Admin: 10/21/23 09:06 Dose: 10 mg Quetiapine Fumarate (Quetiapine Fumarate 50 Mg Tablet) 50 mg PO Q4H PRN PRN Reason: agitation Last Admin: 10/20/23 18:18 Dose: 50 mg Trazodone HCl (Trazodone Hcl 50 Mg Tablet) 50 mg PO BEDTIME MRX1 PRN PRN Reason: Insomnia Last Admin: 10/20/23 21:31 Dose: 50 mg Trazodone HCl (Trazodone Hcl 25 Mg Halftab) 25 mg PO BEDTIME [facility] Last Admin: 10/20/23 19:41 Dose: 25 mg Trazodone HCl (Trazodone Hcl 50 Mg Tablet) 50 mg PO DAILY [facility] Last Admin: 10/21/23 09:08 Dose: 50 mg Allergies Allergies Allergy/AdvReac Type Severity Reaction Status Date / Time amantadine AdvReac Unknown Verified 09/29/23 17:57 Assessment & Plan Assessment & Plan (1) Diabetes: Qualifiers: Diabetes mellitus complication status: without complication Status: Acute Code(s): E11.9 - Type 2 diabetes mellitus without complications (2) HLD (hyperlipidemia): Qualifiers: Hyperlipidemia type: unspecified Qualified Code(s): E78.5 - Hyperlipidemia, unspecified Status: Acute Code(s): E78.5 - Hyperlipidemia, unspecified (3) Traumatic brain injury: Qualifiers: Loss of consciousness presence/duration: unknown LOC status Status: Acute Code(s): S06.9XAA - Unspecified intracranial injury with loss of consciousness status unknown, initial encounter Plan 63-year-old female with TBI, dementia, disorganized who presents for aggressive behavior. Hospital course: 10/12 Patient disruptive last night, again today, disorganized and thinks she is back at her custodial, asking for her cigarettes over and over, talking to herself. Patient yelling in the [place], ran into staff with wheelchair though maybe not on purpose; patient lowered herself to the floor. Zyprexa p.r.n. not that helpful. Armature Winder Repairer ordered Ativan 1 mg which did calm her down. On approach she remained disorganized, wanting her cigarettes but was overall calm. Staff reports patient eating and sleeping well. -continue current regimen for now 10/13 Patient remains disorganized, aggressive, yelling; p.r.n. Zyprexa still not helpful. Scheduled Clonazepam not helpful. Give another dose of Ativan which again was calming. PLAN: Will hold Zyprexa p.r.n. since has not proved helpful for calming agitation, despite getting up to 40 mg yesterday. Will instead make Ativan 1 mg t.i.d. p.r.n. available for agitation If Ativan proves helpful, will consider doing away with Zyprexa p.r.n. (and may be scheduled bedtime dose) and see if Tegretol or Depakote would work for aggression. Will likely defer this to primary team however 10/19/23: regarding medications, we will schedule olanzapine in the daytime rather than p.r.n.. Maintain nighttime olanzapine. Will utilize Seroquel as needed. Noted schedule Klonopin and as needed Ativan 10/20: no changes Plan 1. Will keep Zyprexa to 10 mg p.o. q.h.s. at night to target psychosis. 2. Keep Klonopin scheduled and Ativan p.r.n. anxiety. On October 16 we are increasing Klonopin up to 1 mg p.o. t.i.d. 3. We will work on amendment or starting the Sherif order. Reason for continued inpatient stay Substantial Risk for: inability to function, rapid decompensation and med/psych decompensation Time Spent With Patient Time: Total time managing care of this patient today __20__ minutes.
[2023-10-21] MEDS: QUEtiapine Fumarate 50 MG TABLET PO (15:54)
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
[2023-10-21 20:07] VITALS: BP 112/63; PULSE 66; RESP 16; TEMP 36.4; O2SAT 95
[2023-10-21] MEDS: traZODone HCL 25 MG HALFTAB PO (21:02)
[2023-10-21] MEDS: OLANZapine 10 MG TABLET 20 MG PO (21:03)
[2023-10-21] MEDS: Latanoprost 0.005 % Ophth Sol 2.5 ML DROPS 1 DROP EYE-BOTH (21:14)
[2023-10-22 08:00] VITALS: BP 144/67; PULSE 67; RESP 18; TEMP 37; O2SAT 95
[2023-10-22] MEDS: Midodrine HCl 5 MG TABLET PO ×3 (08:07→16:14)
[2023-10-22] MEDS: Escitalopram Oxalate 10 MG TABLET PO (08:07)
[2023-10-22] MEDS: oxyBUTYnin chloride ER 5 MG TAB.ER.24 10 MG PO (08:07)
[2023-10-22] MEDS: Famotidine 20 MG TABLET PO ×2 (08:07→20:51)
[2023-10-22] MEDS: lamoTRIgine 100 MG TABLET 200 MG PO ×2 (08:07→20:51)
[2023-10-22] MEDS: metFORMIN HCl 500 MG TABLET PO (08:07)
[2023-10-22] MEDS: clonazePAM 1 MG TABLET PO ×3 (08:08→20:52)
[2023-10-22] MEDS: Atorvastatin Calcium 80 MG TABLET PO (08:08)
[2023-10-22] MEDS: traZODone HCL 50 MG TABLET PO (08:08)
[2023-10-22] MEDS: Docusate Sodium 100 MG CAPSULE PO ×2 (08:08→20:51)
[2023-10-22] MEDS: Gabapentin 400 MG CAPSULE 800 MG PO ×3 (08:08→20:51)
[2023-10-22] MEDS: Aspirin 81 MG TAB.CHEW PO (08:08)
[2023-10-22] MEDS: OLANZapine ODT 10 MG TAB.RAPDIS TRANSLINGU ×2 (08:08→14:01)
--- NOTE | 2023-10-22 11:37 | P.PNPSI_ITS ---
Subjective Subjective Date of Service: 10/22/23 Reason For Visit: agitation Subjective Notes: Conditional Voluntary Interim History: The nursing staff reported the patient has been labile guarded but less irritable than before. She slept 8 hours. On interview the patient is confused, redirectable she wants to go out for a smoke. No changes on her mental status. Mental Status Exam Mental Status Exam Patient Appearance: Appropriate Patient Orientation: Person Level of Consciousness: Awake Patient Behavior: Guarded and Passive Mood Description: Withdrawn Affect Description: Constricted Patient Cognition Impaired: Yes Ability to Follow Directions: Fair Speech Pattern: Clear Hallucinations: None Delusions: Ideas of Reference Thought Process: Illogical and Distracted Thought Content: positive for [place] and positive for Poverty of Content Judgement: Fair Diagnostics Vital Signs (24Hr): Vital Signs - 24 hr 10/21/23 12:00 10/21/23 20:07 10/22/23 08:00 Temperature 97.5 F 98.6 F Pulse Rate 77 66 67 Respiratory Rate 16 18 Blood Pressure 102/57 L 112/63 144/67 H Pulse Oximetry 95 95 Oxygen Delivery Method Room Air Room Air BMI result Body Mass Index 23.1 Labs 10/21/23 08:26 Labs: Laboratory Results - last 48 hr 10/21/23 08:26 Creatinine 0.58 Estim Creat Clear Calc 94.1 Estimated GFR > 60 Imaging Radiology Impressions: ITS Impressions Head CT 10/18/23 16:48 IMPRESSION: 1. No acute intracranial hemorrhage or edematous infarct. 2. 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 3. Right temporal approach ventriculostomy catheter with tip terminating in the right lateral ventricle body. No hydrocephalus. Medications Medications Current Medications Acetaminophen (Acetaminophen 325 Mg Tablet) 650 mg PO Q6H PRN PRN Reason: Headache/Pain Mild Scale (1-3) Last Admin: 10/20/23 19:39 Dose: 650 mg Al Hydroxide/Mg Hydroxide (Magnesium Hydrox/Alum Hydrox 30 Ml Oral.Susp) 30 ml PO Q6H PRN PRN Reason: Heartburn/Nausea Aspirin (Aspirin 81 Mg Tab.Chew) 81 mg PO DAILY [facility] Last Admin: 10/22/23 08:08 Dose: 81 mg Atorvastatin Calcium (Atorvastatin Calcium 80 Mg Tablet) 80 mg PO DAILY [facility] Last Admin: 10/22/23 08:08 Dose: 80 mg Clonazepam (Clonazepam 1 Mg Tablet) 1 mg PO TID [facility] Last Admin: 10/22/23 08:08 Dose: 1 mg Docusate Sodium (Docusate Sodium 100 Mg Capsule) 100 mg PO BID [facility] Last Admin: 10/22/23 08:08 Dose: 100 mg Escitalopram Oxalate (Escitalopram Oxalate 10 Mg Tablet) 10 mg PO DAILY [facility] Last Admin: 10/22/23 08:07 Dose: 10 mg Famotidine (Famotidine 20 Mg Tablet) 20 mg PO BID [facility] Last Admin: 10/22/23 08:07 Dose: 20 mg Gabapentin (Gabapentin 400 Mg Capsule) 800 mg PO TID [facility] Last Admin: 10/22/23 08:08 Dose: 800 mg Hydroxyzine HCl (Hydroxyzine Hcl 25 Mg Tablet) 25 mg PO Q6H PRN PRN Reason: Anxiety Last Admin: 10/20/23 18:18 Dose: 25 mg Ibuprofen (Ibuprofen 400 Mg Tablet) 400 mg PO Q6H PRN PRN Reason: Mild Pain (Scale Score 1-4) Last Admin: 10/20/23 00:02 Dose: 400 mg Lamotrigine (Lamotrigine 100 Mg Tablet) 200 mg PO BID [facility] Last Admin: 10/22/23 08:07 Dose: 200 mg Latanoprost (Latanoprost 0.005 % Ophth Pati 2.5 Ml Drops) 1 drop EYE-BOTH BEDTIME [facility] Last Admin: 10/21/23 21:14 Dose: 1 drop Lorazepam (Lorazepam 1 Mg Tablet) 1 mg PO TID PRN PRN Reason: agitation Last Admin: 10/20/23 18:18 Dose: 1 mg Magnesium Hydroxide (Milk Of Magnesia 30 Ml Oral.Susp) 30 ml PO DAILY PRN PRN Reason: Constipation Metformin HCl (Metformin Hcl 500 Mg Tablet) 500 mg PO DAILY [facility] Last Admin: 10/22/23 08:07 Dose: 500 mg Midodrine (Midodrine Hcl 5 Mg Tablet) 5 mg PO TIDWM [facility] Last Admin: 10/22/23 08:07 Dose: 5 mg Nicotine (Nicotine 21 Mg Patch.Td24) 21 mg TRANSDERMA DAILY [facility] Last Admin: 10/22/23 08:13 Dose: Not Given Olanzapine (Olanzapine 10 Mg Tablet) 20 mg PO BEDTIME [facility] Last Admin: 10/21/23 21:03 Dose: 20 mg Olanzapine (Olanzapine Odt 10 Mg Tab.Rapdis) 10 mg TRANSLINGU BID@0900,1400 [facility] Last Admin: 10/22/23 08:08 Dose: 10 mg Oxybutynin Chloride (Oxybutynin Chloride Er 5 Mg Tab.Er.24) 10 mg PO DAILY [facility] Last Admin: 10/22/23 08:07 Dose: 10 mg Quetiapine Fumarate (Quetiapine Fumarate 50 Mg Tablet) 50 mg PO Q4H PRN PRN Reason: agitation Last Admin: 10/21/23 15:54 Dose: 50 mg Trazodone HCl (Trazodone Hcl 50 Mg Tablet) 50 mg PO BEDTIME MRX1 PRN PRN Reason: Insomnia Last Admin: 10/20/23 21:31 Dose: 50 mg Trazodone HCl (Trazodone Hcl 25 Mg Halftab) 25 mg PO BEDTIME [facility] Last Admin: 10/21/23 21:02 Dose: 25 mg Trazodone HCl (Trazodone Hcl 50 Mg Tablet) 50 mg PO DAILY [facility] Last Admin: 10/22/23 08:08 Dose: 50 mg Allergies Allergies Allergy/AdvReac Type Severity Reaction Status Date / Time amantadine AdvReac Unknown Verified 09/29/23 17:57 Assessment & Plan Assessment & Plan (1) Diabetes: Qualifiers: Diabetes mellitus complication status: without complication Status: Acute Code(s): E11.9 - Type 2 diabetes mellitus without complications (2) HLD (hyperlipidemia): Qualifiers: Hyperlipidemia type: unspecified Qualified Code(s): E78.5 - Hyperlipidemia, unspecified Status: Acute Code(s): E78.5 - Hyperlipidemia, unspecified (3) Traumatic brain injury: Qualifiers: Loss of consciousness presence/duration: unknown LOC status Status: Acute Code(s): S06.9XAA - Unspecified intracranial injury with loss of consciousness status unknown, initial encounter Plan 63-year-old female with TBI, dementia, disorganized who presents for aggressive behavior. Hospital course: 10/12 Patient disruptive last night, again today, disorganized and thinks she is back at her half-way, asking for her cigarettes over and over, talking to herself. Patient yelling [place] the [place], ran into staff with wheelchair though maybe not on purpose; patient lowered herself to the floor. Zyprexa p.r.n. not that helpful. Cable Hooker ordered Ativan 1 mg which did calm her down. On approach she remained disorganized, wanting her cigarettes but was overall calm. Staff reports patient eating and sleeping well. -continue current regimen for now 10/13 Patient remains disorganized, aggressive, yelling; p.r.n. Zyprexa still not helpful. Scheduled Clonazepam not helpful. Give another dose of Ativan which again was calming. PLAN: Will hold Zyprexa p.r.n. since has not proved helpful for calming agitation, despite getting up to 40 mg yesterday. Will instead make Ativan 1 mg t.i.d. p.r.n. available for agitation If Ativan proves helpful, will consider doing away with Zyprexa p.r.n. (and may be scheduled bedtime dose) and see if Tegretol or Depakote would work for aggression. Will likely defer this to primary team however 10/19/23: regarding medications, we will schedule olanzapine in the daytime rather than p.r.n.. Maintain nighttime olanzapine. Will utilize Seroquel as needed. Noted schedule Klonopin and as needed Ativan 10/20: no changes Plan 1. Will keep Zyprexa to 10 mg p.o. q.h.s. at night to target psychosis. 2. Keep Klonopin scheduled and Ativan p.r.n. anxiety. On October 16 we are increasing Klonopin up to 1 mg p.o. t.i.d. 3. We will work on amendment or starting the Sherif order. Reason for continued inpatient stay Substantial Risk for: inability to function, rapid decompensation and med/psych decompensation Time Spent With Patient Time: Total time managing care of this patient today __20__ minutes.
[2023-10-22] MEDS: QUEtiapine Fumarate 50 MG TABLET PO (11:41)
[2023-10-22] MEDS: LORazepam 1 MG TABLET PO (11:41)
[2023-10-22] MEDS: hydrOXYzine HCL 25 MG TABLET PO (11:41)
[2023-10-22 18:00] VITALS: BP 154/70; PULSE 62; RESP 16; TEMP 35.9; O2SAT 97
[2023-10-22] MEDS: traZODone HCL 25 MG HALFTAB PO (20:51)
[2023-10-22] MEDS: OLANZapine 10 MG TABLET 20 MG PO (20:51)
[2023-10-22] MEDS: Latanoprost 0.005 % Ophth Sol 2.5 ML DROPS 1 DROP EYE-BOTH (20:53)
[2023-10-23 08:00] VITALS: BP 111/53; PULSE 60; RESP 18; TEMP 36.6; O2SAT 95
[2023-10-23] MEDS: Gabapentin 400 MG CAPSULE 800 MG PO ×3 (09:15→19:54)
[2023-10-23] MEDS: oxyBUTYnin chloride ER 5 MG TAB.ER.24 10 MG PO (09:15)
[2023-10-23] MEDS: Aspirin 81 MG TAB.CHEW PO (09:15)
[2023-10-23] MEDS: Atorvastatin Calcium 80 MG TABLET PO (09:15)
[2023-10-23] MEDS: OLANZapine ODT 10 MG TAB.RAPDIS TRANSLINGU ×2 (09:16→15:41)
[2023-10-23] MEDS: lamoTRIgine 100 MG TABLET 200 MG PO ×2 (09:16→19:54)
[2023-10-23] MEDS: metFORMIN HCl 500 MG TABLET PO (09:16)
[2023-10-23] MEDS: clonazePAM 1 MG TABLET PO ×3 (09:16→19:55)
[2023-10-23] MEDS: Escitalopram Oxalate 10 MG TABLET PO (09:16)
[2023-10-23] MEDS: Famotidine 20 MG TABLET PO ×2 (09:16→19:55)
[2023-10-23] MEDS: Midodrine HCl 5 MG TABLET PO ×3 (09:16→16:30)
[2023-10-23] MEDS: traZODone HCL 50 MG TABLET PO (09:16)
[2023-10-23] MEDS: Docusate Sodium 100 MG CAPSULE PO ×2 (09:16→19:55)
--- NOTE | 2023-10-23 09:54 | HO.PSYCHPN ---
Subjective Subjective Date of Service: 10/23/23 Reason For Visit: agitation Subjective Notes: Conditional Voluntary (by healthcare proxy) Interim History: the nursing staff reported that yesterday the patient behave much better, the combination of Seroquel Ativan has helped her. She slept well all last night and she was redirectable. On interview the patient is confused but redirectable. Mental Status Exam Mental Status Exam Patient Appearance: Appropriate Patient Orientation: Person Level of Consciousness: Awake Patient Behavior: Guarded and Belligerent Mood Description: Withdrawn Affect Description: Constricted Patient Cognition Impaired: Yes Ability to Follow Directions: Good Speech Pattern: Clear Hallucinations: None Delusions: Paranoid Ideation Thought Process: Distracted and Evasive Thought Content: positive for [place] and positive for Poverty of Content Judgement: Fair Diagnostics Vital Signs (24Hr): Vital Signs - 24 hr 10/22/23 18:00 10/23/23 08:00 Temperature 96.7 F L 97.9 F Pulse Rate 62 60 Respiratory Rate 16 18 Blood Pressure 154/70 H 111/53 L Pulse Oximetry 97 95 Oxygen Delivery Method Room Air Room Air BMI result Body Mass Index 23.1 Labs 10/21/23 08:26 Imaging Radiology Impressions: ITS Impressions Head CT 10/18/23 16:48 IMPRESSION: 1. No acute intracranial hemorrhage or edematous infarct. 2. 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 3. Right temporal approach ventriculostomy catheter with tip terminating in the right lateral ventricle body. No hydrocephalus. Medications Medications Current Medications Acetaminophen (Acetaminophen 325 Mg Tablet) 650 mg PO Q6H PRN PRN Reason: Headache/Pain Mild Scale (1-3) Last Admin: 10/20/23 19:39 Dose: 650 mg Al Hydroxide/Mg Hydroxide (Magnesium Hydrox/Alum Hydrox 30 Ml Oral.Susp) 30 ml PO Q6H PRN PRN Reason: Heartburn/Nausea Aspirin (Aspirin 81 Mg Tab.Chew) 81 mg PO DAILY [facility] Last Admin: 10/23/23 09:15 Dose: 81 mg Atorvastatin Calcium (Atorvastatin Calcium 80 Mg Tablet) 80 mg PO DAILY [facility] Last Admin: 10/23/23 09:15 Dose: 80 mg Clonazepam (Clonazepam 1 Mg Tablet) 1 mg PO TID [facility] Last Admin: 10/23/23 09:16 Dose: 1 mg Docusate Sodium (Docusate Sodium 100 Mg Capsule) 100 mg PO BID [facility] Last Admin: 10/23/23 09:16 Dose: 100 mg Escitalopram Oxalate (Escitalopram Oxalate 10 Mg Tablet) 10 mg PO DAILY [facility] Last Admin: 10/23/23 09:16 Dose: 10 mg Famotidine (Famotidine 20 Mg Tablet) 20 mg PO BID [facility] Last Admin: 10/23/23 09:16 Dose: 20 mg Gabapentin (Gabapentin 400 Mg Capsule) 800 mg PO TID [facility] Last Admin: 10/23/23 09:15 Dose: 800 mg Hydroxyzine HCl (Hydroxyzine Hcl 25 Mg Tablet) 25 mg PO Q6H PRN PRN Reason: Anxiety Last Admin: 10/22/23 11:41 Dose: 25 mg Ibuprofen (Ibuprofen 400 Mg Tablet) 400 mg PO Q6H PRN PRN Reason: Mild Pain (Scale Score 1-4) Last Admin: 10/20/23 00:02 Dose: 400 mg Lamotrigine (Lamotrigine 100 Mg Tablet) 200 mg PO BID [facility] Last Admin: 10/23/23 09:16 Dose: 200 mg Latanoprost (Latanoprost 0.005 % Ophth Pati 2.5 Ml Drops) 1 drop EYE-BOTH BEDTIME [facility] Last Admin: 10/22/23 20:53 Dose: 1 drop Lorazepam (Lorazepam 1 Mg Tablet) 1 mg PO TID PRN PRN Reason: agitation Last Admin: 10/22/23 11:41 Dose: 1 mg Magnesium Hydroxide (Milk Of Magnesia 30 Ml Oral.Susp) 30 ml PO DAILY PRN PRN Reason: Constipation Metformin HCl (Metformin Hcl 500 Mg Tablet) 500 mg PO DAILY [facility] Last Admin: 10/23/23 09:16 Dose: 500 mg Midodrine (Midodrine Hcl 5 Mg Tablet) 5 mg PO TIDWM [facility] Last Admin: 10/23/23 09:16 Dose: 5 mg Nicotine (Nicotine 21 Mg Patch.Td24) 21 mg TRANSDERMA DAILY [facility] Last Admin: 10/23/23 09:31 Dose: Not Given Olanzapine (Olanzapine 10 Mg Tablet) 20 mg PO BEDTIME [facility] Last Admin: 10/22/23 20:51 Dose: 20 mg Olanzapine (Olanzapine Odt 10 Mg Tab.Rapdis) 10 mg TRANSLINGU BID@0900,1400 [facility] Last Admin: 10/23/23 09:16 Dose: 10 mg Oxybutynin Chloride (Oxybutynin Chloride Er 5 Mg Tab.Er.24) 10 mg PO DAILY [facility] Last Admin: 10/23/23 09:15 Dose: 10 mg Quetiapine Fumarate (Quetiapine Fumarate 50 Mg Tablet) 50 mg PO Q4H PRN PRN Reason: agitation Last Admin: 10/22/23 11:41 Dose: 50 mg Trazodone HCl (Trazodone Hcl 50 Mg Tablet) 50 mg PO BEDTIME MRX1 PRN PRN Reason: Insomnia Last Admin: 10/20/23 21:31 Dose: 50 mg Trazodone HCl (Trazodone Hcl 25 Mg Halftab) 25 mg PO BEDTIME [facility] Last Admin: 10/22/23 20:51 Dose: 25 mg Trazodone HCl (Trazodone Hcl 50 Mg Tablet) 50 mg PO DAILY [facility] Last Admin: 10/23/23 09:16 Dose: 50 mg Allergies Allergies Allergy/AdvReac Type Severity Reaction Status Date / Time amantadine AdvReac Unknown Verified 09/29/23 17:57 Assessment & Plan Assessment & Plan (1) Diabetes: Qualifiers: Diabetes mellitus complication status: without complication Status: Acute Code(s): E11.9 - Type 2 diabetes mellitus without complications (2) HLD (hyperlipidemia): Qualifiers: Hyperlipidemia type: unspecified Qualified Code(s): E78.5 - Hyperlipidemia, unspecified Status: Acute Code(s): E78.5 - Hyperlipidemia, unspecified (3) Traumatic brain injury: Qualifiers: Loss of consciousness presence/duration: unknown LOC status Status: Acute Code(s): S06.9XAA - Unspecified intracranial injury with loss of consciousness status unknown, initial encounter Plan 63-year-old female with TBI, dementia, disorganized who presents for aggressive behavior. Hospital course: 10/12 Patient disruptive last night, again today, disorganized and thinks she is back at her [facility], asking for her cigarettes over and over, talking to herself. Patient yelling in the [place], ran into staff with wheelchair though maybe not on purpose; patient lowered herself to the floor. Zyprexa p.r.n. not that helpful. [employer] Curtain Machine Tender ordered Ativan 1 mg which did calm her down. On approach she remained disorganized, wanting her cigarettes but was overall calm. Staff reports patient eating and sleeping well. -continue current regimen for now 10/13 Patient remains disorganized, aggressive, yelling; p.r.n. Zyprexa still not helpful. Scheduled Clonazepam not helpful. Give another dose of Ativan which again was calming. PLAN: Will hold Zyprexa p.r.n. since has not proved helpful for calming agitation, despite getting up to 40 mg yesterday. Will instead make Ativan 1 mg t.i.d. p.r.n. available for agitation If Ativan proves helpful, will consider doing away with Zyprexa p.r.n. (and may be scheduled bedtime dose) and see if Tegretol or Depakote would work for aggression. Will likely defer this to primary team however 10/19/23: regarding medications, we will schedule olanzapine in the daytime rather than p.r.n.. Maintain nighttime olanzapine. Will utilize Seroquel as needed. Noted schedule Klonopin and as needed Ativan 10/20: no changes Plan 1. Will keep Zyprexa to 10 mg p.o. q.h.s. at night to target psychosis. 2. Keep Klonopin scheduled and Ativan p.r.n. anxiety. On October 16 we are increasing Klonopin up to 1 mg p.o. t.i.d. 3. We will work on amendment or starting the Sherif order. Reason for continued inpatient stay Substantial Risk for: inability to function, rapid decompensation and med/psych decompensation Time Spent With Patient Time: Total time managing care of this patient today __20__ minutes.
--- NOTE | 2023-10-23 15:45 | PC.NURSE ---
Zyprexa 10 mg PO administered late, at 15:45 due to Pt. sleeping at 14:00
[2023-10-23 18:00] VITALS: BP 109/59; PULSE 60; RESP 16; TEMP 36.1; O2SAT 99
[2023-10-23] MEDS: OLANZapine 10 MG TABLET 20 MG PO (19:54)
[2023-10-23] MEDS: traZODone HCL 25 MG HALFTAB PO (19:55)
[2023-10-24 07:00] VITALS: BMI 23.0
--- NOTE | 2023-10-24 09:38 | P.PNPSI_ITS ---
Subjective Subjective Date of Service: 10/24/23 Reason For Visit: agitation Subjective Notes: Conditional Voluntary ( by health care proxy) Healthcare Proxy: Yes Interim History: the nursing staff reported the patient has been agitated at times, redirectable and she needed p.r.n. medication. She slept 8 hours. On interview the patient denies new symptoms looks disengaged. Mental Status Exam Mental Status Exam Patient Appearance: Appropriate Patient Orientation: Person Level of Consciousness: Awake Patient Behavior: Guarded and Passive Mood Description: Withdrawn Affect Description: Constricted Patient Cognition Impaired: Yes Ability to Follow Directions: Good Speech Pattern: Impoverished Hallucinations: None Delusions: Paranoid Ideation Thought Process: Linear Thought Content: positive for [place] and positive for Thought Blocking Judgement: Poor Diagnostics Vital Signs (24Hr): Vital Signs - 24 hr 10/23/23 18:00 Temperature 96.9 F Pulse Rate 60 Respiratory Rate 16 Blood Pressure 109/59 L Pulse Oximetry 99 Oxygen Delivery Method Room Air BMI result Body Mass Index 23.1 Labs 10/21/23 08:26 Imaging Radiology Impressions: ITS Impressions Head CT 10/18/23 16:48 IMPRESSION: 1. No acute intracranial hemorrhage or edematous infarct. 2. 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 3. Right temporal approach ventriculostomy catheter with tip terminating in the right lateral ventricle body. No hydrocephalus. Medications Medications Current Medications Acetaminophen (Acetaminophen 325 Mg Tablet) 650 mg PO Q6H PRN PRN Reason: Headache/Pain Mild Scale (1-3) Last Admin: 10/20/23 19:39 Dose: 650 mg Al Hydroxide/Mg Hydroxide (Magnesium Hydrox/Alum Hydrox 30 Ml Oral.Susp) 30 ml PO Q6H PRN PRN Reason: Heartburn/Nausea Aspirin (Aspirin 81 Mg Tab.Chew) 81 mg PO DAILY [facility] Last Admin: 10/23/23 09:15 Dose: 81 mg Atorvastatin Calcium (Atorvastatin Calcium 80 Mg Tablet) 80 mg PO DAILY [facility] Last Admin: 10/23/23 09:15 Dose: 80 mg Clonazepam (Clonazepam 1 Mg Tablet) 1 mg PO TID [facility] Last Admin: 10/23/23 19:55 Dose: 1 mg Docusate Sodium (Docusate Sodium 100 Mg Capsule) 100 mg PO BID [facility] Last Admin: 10/23/23 19:55 Dose: 100 mg Escitalopram Oxalate (Escitalopram Oxalate 10 Mg Tablet) 10 mg PO DAILY [facility] Last Admin: 10/23/23 09:16 Dose: 10 mg Famotidine (Famotidine 20 Mg Tablet) 20 mg PO BID [facility] Last Admin: 10/23/23 19:55 Dose: 20 mg Gabapentin (Gabapentin 400 Mg Capsule) 800 mg PO TID [facility] Last Admin: 10/23/23 19:54 Dose: 800 mg Hydroxyzine HCl (Hydroxyzine Hcl 25 Mg Tablet) 25 mg PO Q6H PRN PRN Reason: Anxiety Last Admin: 10/22/23 11:41 Dose: 25 mg Ibuprofen (Ibuprofen 400 Mg Tablet) 400 mg PO Q6H PRN PRN Reason: Mild Pain (Scale Score 1-4) Last Admin: 10/20/23 00:02 Dose: 400 mg Lamotrigine (Lamotrigine 100 Mg Tablet) 200 mg PO BID [facility] Last Admin: 10/23/23 19:54 Dose: 200 mg Latanoprost (Latanoprost 0.005 % Ophth Pati 2.5 Ml Drops) 1 drop EYE-BOTH BEDTIME [facility] Last Admin: 10/23/23 22:25 Dose: Not Given Magnesium Hydroxide (Milk Of Magnesia 30 Ml Oral.Susp) 30 ml PO DAILY PRN PRN Reason: Constipation Metformin HCl (Metformin Hcl 500 Mg Tablet) 500 mg PO DAILY [facility] Last Admin: 10/23/23 09:16 Dose: 500 mg Midodrine (Midodrine Hcl 5 Mg Tablet) 5 mg PO TIDWM [facility] Last Admin: 10/23/23 16:30 Dose: 5 mg Nicotine (Nicotine 21 Mg Patch.Td24) 21 mg TRANSDERMA DAILY [facility] Last Admin: 10/23/23 09:31 Dose: Not Given Olanzapine (Olanzapine 10 Mg Tablet) 20 mg PO BEDTIME [facility] Last Admin: 10/23/23 19:54 Dose: 20 mg Olanzapine (Olanzapine Odt 10 Mg Tab.Rapdis) 10 mg TRANSLINGU BID@0900,1400 [facility] Last Admin: 10/23/23 15:43 Dose: Not Given Oxybutynin Chloride (Oxybutynin Chloride Er 5 Mg Tab.Er.24) 10 mg PO DAILY [facility] Last Admin: 10/23/23 09:15 Dose: 10 mg Quetiapine Fumarate (Quetiapine Fumarate 50 Mg Tablet) 50 mg PO Q4H PRN PRN Reason: agitation Last Admin: 10/22/23 11:41 Dose: 50 mg Trazodone HCl (Trazodone Hcl 50 Mg Tablet) 50 mg PO BEDTIME MRX1 PRN PRN Reason: Insomnia Last Admin: 10/20/23 21:31 Dose: 50 mg Trazodone HCl (Trazodone Hcl 25 Mg Halftab) 25 mg PO BEDTIME [facility] Last Admin: 10/23/23 19:55 Dose: 25 mg Trazodone HCl (Trazodone Hcl 50 Mg Tablet) 50 mg PO DAILY [facility] Last Admin: 10/23/23 09:16 Dose: 50 mg Allergies Allergies Allergy/AdvReac Type Severity Reaction Status Date / Time amantadine AdvReac Unknown Verified 09/29/23 17:57 Assessment & Plan Assessment & Plan (1) Diabetes: Qualifiers: Diabetes mellitus complication status: without complication Status: Acute Code(s): E11.9 - Type 2 diabetes mellitus without complications (2) HLD (hyperlipidemia): Qualifiers: Hyperlipidemia type: unspecified Qualified Code(s): E78.5 - Hyperlipidemia, unspecified Status: Acute Code(s): E78.5 - Hyperlipidemia, unspecified (3) Traumatic brain injury: Qualifiers: Loss of consciousness presence/duration: unknown LOC status Status: Acute Code(s): S06.9XAA - Unspecified intracranial injury with loss of consciousness status unknown, initial encounter Plan 63-year-old female with TBI, dementia, disorganized who presents for aggressive behavior. Hospital course: 10/12 Patient disruptive last night, again today, disorganized and thinks she is back at her alf, asking for her cigarettes over and over, talking to herself. Patient yelling in the [place], ran into staff with wheelchair though maybe not on purpose; patient lowered herself to the floor. Zyprexa p.r.n. not that helpful. Harvest Manager ordered Ativan 1 mg which did calm her down. On approach she remained disorganized, wanting her cigarettes but was overall calm. Staff reports patient eating and sleeping well. -continue current regimen for now 10/13 Patient remains disorganized, aggressive, yelling; p.r.n. Zyprexa still not helpful. Scheduled Clonazepam not helpful. Give another dose of Ativan which again was calming. PLAN: Will hold Zyprexa p.r.n. since has not proved helpful for calming agitation, despite getting up to 40 mg yesterday. Will instead make Ativan 1 mg t.i.d. p.r.n. available for agitation If Ativan proves helpful, will consider doing away with Zyprexa p.r.n. (and may be scheduled bedtime dose) and see if Tegretol or Depakote would work for aggression. Will likely defer this to primary team however 10/19/23: regarding medications, we will schedule olanzapine in the daytime rather than p.r.n.. Maintain nighttime olanzapine. Will utilize Seroquel as needed. Noted schedule Klonopin and as needed Ativan 10/20: no changes Plan 1. Will keep Zyprexa to 10 mg p.o. q.h.s. at night to target psychosis. 2. Keep Klonopin scheduled and Ativan p.r.n. anxiety. On October 16 we are increasing Klonopin up to 1 mg p.o. t.i.d. 3. We will work on amendment or starting the Sherif order. We are waiting for the legal team to provide me the exact form and contact the legal guardians. Reason for continued inpatient stay Substantial Risk for: inability to function, rapid decompensation and med/psych decompensation Time Spent With Patient Time: Total time managing care of this patient today __20__ minutes.
[2023-10-24 10:41] VITALS: BP 94/53; PULSE 63; RESP 18; TEMP 36.6; O2SAT 95
[2023-10-24] MEDS: Midodrine HCl 5 MG TABLET PO ×2 (10:46→14:05)
[2023-10-24] MEDS: Famotidine 20 MG TABLET PO ×2 (10:46→20:53)
[2023-10-24] MEDS: Atorvastatin Calcium 80 MG TABLET PO (10:46)
[2023-10-24] MEDS: lamoTRIgine 100 MG TABLET 200 MG PO ×2 (10:46→20:52)
[2023-10-24] MEDS: Aspirin 81 MG TAB.CHEW PO (10:46)
[2023-10-24] MEDS: Docusate Sodium 100 MG CAPSULE PO ×2 (10:47→20:52)
[2023-10-24] MEDS: oxyBUTYnin chloride ER 5 MG TAB.ER.24 10 MG PO (10:47)
[2023-10-24] MEDS: metFORMIN HCl 500 MG TABLET PO (10:47)
[2023-10-24] MEDS: QUEtiapine Fumarate 50 MG TABLET PO (10:47)
[2023-10-24] MEDS: OLANZapine ODT 10 MG TAB.RAPDIS TRANSLINGU ×2 (10:48→14:05)
[2023-10-24] MEDS: clonazePAM 1 MG TABLET PO ×3 (10:48→20:52)
[2023-10-24] MEDS: traZODone HCL 50 MG TABLET PO (10:48)
[2023-10-24] MEDS: Escitalopram Oxalate 10 MG TABLET PO (10:48)
[2023-10-24] MEDS: Gabapentin 400 MG CAPSULE 800 MG PO ×3 (10:49→20:53)
[2023-10-24 14:04] VITALS: BP 118/58
[2023-10-24 17:50] VITALS: BP 122/57
[2023-10-24 19:45] VITALS: BP 129/60; PULSE 72; RESP 18; TEMP 36.4; O2SAT 95
[2023-10-24] MEDS: OLANZapine 10 MG TABLET 20 MG PO (20:52)
[2023-10-24] MEDS: Latanoprost 0.005 % Ophth Sol 2.5 ML DROPS 1 DROP EYE-BOTH (20:52)
[2023-10-24] MEDS: traZODone HCL 25 MG HALFTAB PO (20:53)
[2023-10-25 08:00] VITALS: BP 110/68; PULSE 70; RESP 18; TEMP 36.4; O2SAT 95
[2023-10-25] MEDS: oxyBUTYnin chloride ER 5 MG TAB.ER.24 10 MG PO (09:19)
[2023-10-25] MEDS: Atorvastatin Calcium 80 MG TABLET PO (09:20)
[2023-10-25] MEDS: Gabapentin 400 MG CAPSULE 800 MG PO ×3 (09:20→20:33)
[2023-10-25] MEDS: Aspirin 81 MG TAB.CHEW PO (09:20)
[2023-10-25] MEDS: Midodrine HCl 5 MG TABLET PO ×3 (09:20→17:06)
[2023-10-25] MEDS: Famotidine 20 MG TABLET PO ×2 (09:20→20:33)
[2023-10-25] MEDS: Docusate Sodium 100 MG CAPSULE PO ×2 (09:20→20:33)
[2023-10-25] MEDS: lamoTRIgine 100 MG TABLET 200 MG PO ×2 (09:20→20:33)
[2023-10-25] MEDS: Escitalopram Oxalate 10 MG TABLET PO (09:21)
[2023-10-25] MEDS: metFORMIN HCl 500 MG TABLET PO (09:21)
[2023-10-25] MEDS: OLANZapine ODT 10 MG TAB.RAPDIS TRANSLINGU ×2 (09:21→14:27)
[2023-10-25] MEDS: traZODone HCL 50 MG TABLET PO (09:21)
[2023-10-25] MEDS: clonazePAM 1 MG TABLET PO (09:21)
[2023-10-25] MEDS: LORazepam 1 MG TABLET PO (10:42)
[2023-10-25] MEDS: QUEtiapine Fumarate 50 MG TABLET PO (10:42)
--- NOTE | 2023-10-25 12:04 | P.PNPSI_ITS ---
Subjective Subjective Date of Service: 10/25/23 Reason For Visit: agitation Subjective Notes: Conditional Voluntary Interim History: The nursing staff reported the patient had been agitated the times, she has not attended to groups and she needed Seroquel p.r.n. with good effect. She slept most of the night. On interview the patient looks fused but redirectable. She needed p.r.n. Ativan during the morning. Mental Status Exam Mental Status Exam Patient Appearance: Appropriate Patient Orientation: Person Level of Consciousness: Awake Patient Behavior: Guarded and Suspicious Mood Description: Withdrawn Affect Description: Labile Patient Cognition Impaired: Yes Ability to Follow Directions: Good Speech Pattern: Clear Hallucinations: None Delusions: Paranoid Ideation Thought Process: Distracted and Slowed Thinking Thought Content: positive for [place] and positive for Poverty of Content Judgement: Poor Diagnostics Vital Signs (24Hr): Vital Signs - 24 hr 10/24/23 14:04 10/24/23 17:50 10/24/23 19:45 Temperature 97.6 F Pulse Rate 72 Respiratory Rate 18 Blood Pressure 118/58 L 122/57 L 129/60 Pulse Oximetry 95 Oxygen Delivery Method Room Air 10/25/23 08:00 Temperature 97.6 F Pulse Rate 70 Respiratory Rate 18 Blood Pressure 110/68 Pulse Oximetry 95 Oxygen Delivery Method Room Air BMI result Body Mass Index 23.0 Labs 10/21/23 08:26 Imaging Radiology Impressions: [facility] Impressions Head CT 10/18/23 16:48 IMPRESSION: 1. No acute intracranial hemorrhage or edematous infarct. 2. 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 3. Right temporal approach ventriculostomy catheter with tip terminating in the right lateral ventricle body. No hydrocephalus. Medications Medications Current Medications Acetaminophen (Acetaminophen 325 Mg Tablet) 650 mg PO Q6H PRN PRN Reason: Headache/Pain Mild Scale (1-3) Last Admin: 10/20/23 19:39 Dose: 650 mg Al Hydroxide/Mg Hydroxide (Magnesium Hydrox/Alum Hydrox 30 Ml Oral.Susp) 30 ml PO Q6H PRN PRN Reason: Heartburn/Nausea Aspirin (Aspirin 81 Mg Tab.Chew) 81 mg PO DAILY [facility] Last Admin: 10/25/23 09:20 Dose: 81 mg Atorvastatin Calcium (Atorvastatin Calcium 80 Mg Tablet) 80 mg PO DAILY [facility] Last Admin: 10/25/23 09:20 Dose: 80 mg Docusate Sodium (Docusate Sodium 100 Mg Capsule) 100 mg PO BID [facility] Last Admin: 10/25/23 09:20 Dose: 100 mg Escitalopram Oxalate (Escitalopram Oxalate 10 Mg Tablet) 10 mg PO DAILY [facility] Last Admin: 10/25/23 09:21 Dose: 10 mg Famotidine (Famotidine 20 Mg Tablet) 20 mg PO BID [facility] Last Admin: 10/25/23 09:20 Dose: 20 mg Gabapentin (Gabapentin 400 Mg Capsule) 800 mg PO TID [facility] Last Admin: 10/25/23 09:20 Dose: 800 mg Hydroxyzine HCl (Hydroxyzine Hcl 25 Mg Tablet) 25 mg PO Q6H PRN PRN Reason: Anxiety Last Admin: 10/22/23 11:41 Dose: 25 mg Ibuprofen (Ibuprofen 400 Mg Tablet) 400 mg PO Q6H PRN PRN Reason: Mild Pain (Scale Score 1-4) Last Admin: 10/20/23 00:02 Dose: 400 mg Lamotrigine (Lamotrigine 100 Mg Tablet) 200 mg PO BID [facility] Last Admin: 10/25/23 09:20 Dose: 200 mg Latanoprost (Latanoprost 0.005 % Ophth Pati 2.5 Ml Drops) 1 drop EYE-BOTH BEDTIME [facility] Last Admin: 10/24/23 20:52 Dose: 1 drop Lorazepam (Lorazepam 1 Mg Tablet) 1 mg PO Q4H PRN PRN Reason: anxiety/restlessness Last Admin: 10/25/23 10:42 Dose: 1 mg Magnesium Hydroxide (Milk Of Magnesia 30 Ml Oral.Susp) 30 ml PO DAILY PRN PRN Reason: Constipation Metformin HCl (Metformin Hcl 500 Mg Tablet) 500 mg PO DAILY [facility] Last Admin: 10/25/23 09:21 Dose: 500 mg Midodrine (Midodrine Hcl 5 Mg Tablet) 5 mg PO TIDWM [facility] Last Admin: 10/25/23 11:29 Dose: 5 mg Nicotine (Nicotine 21 Mg Patch.Td24) 21 mg TRANSDERMA DAILY [facility] Last Admin: 10/25/23 09:30 Dose: Not Given Olanzapine (Olanzapine 10 Mg Tablet) 20 mg PO BEDTIME [facility] Last Admin: 10/24/23 20:52 Dose: 20 mg Olanzapine (Olanzapine Odt 10 Mg Tab.Rapdis) 10 mg TRANSLINGU BID@0900,1400 [facility] Last Admin: 10/25/23 09:21 Dose: 10 mg Oxybutynin Chloride (Oxybutynin Chloride Er 5 Mg Tab.Er.24) 10 mg PO DAILY [facility] Last Admin: 10/25/23 09:19 Dose: 10 mg Quetiapine Fumarate (Quetiapine Fumarate 50 Mg Tablet) 50 mg PO Q4H PRN PRN Reason: agitation Last Admin: 10/25/23 10:42 Dose: 50 mg Trazodone HCl (Trazodone Hcl 50 Mg Tablet) 50 mg PO BEDTIME MRX1 PRN PRN Reason: Insomnia Last Admin: 10/20/23 21:31 Dose: 50 mg Trazodone HCl (Trazodone Hcl 25 Mg Halftab) 25 mg PO BEDTIME [facility] Last Admin: 10/24/23 20:53 Dose: 25 mg Trazodone HCl (Trazodone Hcl 50 Mg Tablet) 50 mg PO DAILY [facility] Last Admin: 10/25/23 09:21 Dose: 50 mg Allergies Allergies Allergy/AdvReac Type Severity Reaction Status Date / Time amantadine AdvReac Unknown Verified 09/29/23 17:57 Assessment & Plan Assessment & Plan (1) Diabetes: Qualifiers: Diabetes mellitus complication status: without complication Status: Acute Code(s): E11.9 - Type 2 diabetes mellitus without complications (2) HLD (hyperlipidemia): Qualifiers: Hyperlipidemia type: unspecified Qualified Code(s): E78.5 - Hyperlipidemia, unspecified Status: Acute Code(s): E78.5 - Hyperlipidemia, unspecified (3) Traumatic brain injury: Qualifiers: Loss of consciousness presence/duration: unknown LOC status Status: Acute Code(s): S06.9XAA - Unspecified intracranial injury with loss of consciousness status unknown, initial encounter Plan 63-year-old female with TBI, dementia, disorganized who presents for aggressive behavior. Hospital course: 10/12 Patient disruptive last night, again today, disorganized and thinks she is back at her correction, asking for her cigarettes over and over, talking to herself. Patient [place], ran into staff with wheelchair though maybe not on purpose; patient lowered herself to the floor. Zyprexa p.r.n. not that helpful. Handbag Parts Cutter ordered Ativan 1 mg which did calm her down. On approach she remained disorganized, wanting her cigarettes but was overall calm. Staff reports patient eating and sleeping well. -continue current regimen for now 10/13 Patient remains disorganized, aggressive, yelling; p.r.n. Zyprexa still not helpful. Scheduled Clonazepam not helpful. Give another dose of Ativan which again was calming. PLAN: Will hold Zyprexa p.r.n. since has not proved helpful for calming agitation, despite getting up to 40 mg yesterday. Will instead make Ativan 1 mg t.i.d. p.r.n. available for agitation If Ativan proves helpful, will consider doing away with Zyprexa p.r.n. (and may be scheduled bedtime dose) and see if Tegretol or Depakote would work for aggression. Will likely defer this to primary team however 10/19/23: regarding medications, we will schedule olanzapine in the daytime rather than p.r.n.. Maintain nighttime olanzapine. Will utilize Seroquel as needed. Noted schedule Klonopin and as needed Ativan 10/20: no changes Plan 1. Will keep Zyprexa to 10 mg p.o. q.h.s. at night to target psychosis. 2. Keep Klonopin scheduled and Ativan p.r.n. anxiety. On October 16 we are increasing Klonopin up to 1 mg p.o. t.i.d. 3. We will work on amendment or starting the Sherif order. We are waiting for the legal team to provide me the exact form and contact the legal guardians. Reason for continued inpatient stay Substantial Risk for: inability to function, rapid decompensation and med/psych decompensation Time Spent With Patient Time: Total time managing care of this patient today __20__ minutes.
[2023-10-25 17:00] VITALS: BP 115/58; PULSE 69
[2023-10-25 18:00] VITALS: BP 122/65; PULSE 73; RESP 18; TEMP 36.6; O2SAT 96
[2023-10-25] MEDS: traZODone HCL 25 MG HALFTAB PO (20:33)
[2023-10-25] MEDS: OLANZapine 10 MG TABLET 20 MG PO (20:33)
[2023-10-25] MEDS: Latanoprost 0.005 % Ophth Sol 2.5 ML DROPS 1 DROP EYE-BOTH (20:41)
[2023-10-26 08:00] VITALS: BP 125/60; PULSE 73; RESP 18; TEMP 36.3; O2SAT 95
[2023-10-26] MEDS: Famotidine 20 MG TABLET PO ×2 (08:47→20:45)
[2023-10-26] MEDS: oxyBUTYnin chloride ER 5 MG TAB.ER.24 10 MG PO (08:47)
[2023-10-26] MEDS: Atorvastatin Calcium 80 MG TABLET PO (08:47)
[2023-10-26] MEDS: Docusate Sodium 100 MG CAPSULE PO ×2 (08:47→20:45)
[2023-10-26] MEDS: Escitalopram Oxalate 10 MG TABLET PO (08:47)
[2023-10-26] MEDS: Aspirin 81 MG TAB.CHEW PO (08:47)
[2023-10-26] MEDS: Gabapentin 400 MG CAPSULE 800 MG PO ×3 (08:47→20:45)
[2023-10-26] MEDS: metFORMIN HCl 500 MG TABLET PO (08:48)
[2023-10-26] MEDS: lamoTRIgine 100 MG TABLET 200 MG PO ×2 (08:48→20:44)
[2023-10-26] MEDS: traZODone HCL 50 MG TABLET PO (08:48)
[2023-10-26] MEDS: OLANZapine ODT 10 MG TAB.RAPDIS TRANSLINGU ×2 (08:56→14:29)
[2023-10-26] MEDS: Ibuprofen 400 MG TABLET PO (10:12)
[2023-10-26] MEDS: LORazepam 1 MG TABLET PO (10:12)
[2023-10-26] MEDS: QUEtiapine Fumarate 50 MG TABLET PO (11:53)
[2023-10-26] MEDS: Midodrine HCl 5 MG TABLET PO ×2 (12:35→17:18)
--- NOTE | 2023-10-26 13:12 | HO.PSYCHPN ---
Subjective Subjective Date of Service: 10/26/23 Reason For Visit: agitation Interim History: Met with patient. Discussed with Nursing. Slept well last night. Ongoing verbal behavioral outbursts that are loud and disruptive. Does appear slightly more calm today in day area, eating breakfast, but later loud when she spilled something onto her pants and needed help changing, yelling and banging on room door. a Medication Compliance: Yes Side effects from medications: No Attending Groups: No Review of Systems Acute medical concerns: No Review of Systems Review of Systems Yes Unobtainable due to mental status Mental Status Exam Mental Status Exam Narrative: In day area eating breakfast. Verbally hostile. Alert. Unable to formally test orientation etc. . No evidence of SI or HI. Is paranoid and frustrated. Insight and judgment Diagnostics Vital Signs (24Hr): Vital Signs - 24 hr 10/25/23 17:00 10/25/23 18:00 10/26/23 08:00 Temperature 97.9 F 97.4 F Pulse Rate 69 73 73 Respiratory Rate 18 18 Blood Pressure 115/58 L 122/65 125/60 Pulse Oximetry 96 95 Oxygen Delivery Method Room Air Room Air BMI result Body Mass Index 23.0 Labs 10/21/23 08:26 Imaging Radiology Impressions: ITS Impressions Head CT 10/18/23 16:48 IMPRESSION: 1. No acute intracranial hemorrhage or edematous infarct. 2. 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 3. Right temporal approach ventriculostomy catheter with tip terminating in the right lateral ventricle body. No hydrocephalus. Medications Medications Current Medications Acetaminophen (Acetaminophen 325 Mg Tablet) 650 mg PO Q6H PRN PRN Reason: Headache/Pain Mild Scale (1-3) Last Admin: 10/20/23 19:39 Dose: 650 mg Al Hydroxide/Mg Hydroxide (Magnesium Hydrox/Alum Hydrox 30 Ml Oral.Susp) 30 ml PO Q6H PRN PRN Reason: Heartburn/Nausea Aspirin (Aspirin 81 Mg Tab.Chew) 81 mg PO DAILY [facility] Last Admin: 10/26/23 08:47 Dose: 81 mg Atorvastatin Calcium (Atorvastatin Calcium 80 Mg Tablet) 80 mg PO DAILY [facility] Last Admin: 10/26/23 08:47 Dose: 80 mg Docusate Sodium (Docusate Sodium 100 Mg Capsule) 100 mg PO BID [facility] Last Admin: 10/26/23 08:47 Dose: 100 mg Escitalopram Oxalate (Escitalopram Oxalate 10 Mg Tablet) 10 mg PO DAILY [facility] Last Admin: 10/26/23 08:47 Dose: 10 mg Famotidine (Famotidine 20 Mg Tablet) 20 mg PO BID [facility] Last Admin: 10/26/23 08:47 Dose: 20 mg Gabapentin (Gabapentin 400 Mg Capsule) 800 mg PO TID [facility] Last Admin: 10/26/23 08:47 Dose: 800 mg Hydroxyzine HCl (Hydroxyzine Hcl 25 Mg Tablet) 25 mg PO Q6H PRN PRN Reason: Anxiety Last Admin: 10/22/23 11:41 Dose: 25 mg Ibuprofen (Ibuprofen 400 Mg Tablet) 400 mg PO Q6H PRN PRN Reason: Mild Pain (Scale Score 1-4) Last Admin: 10/26/23 10:12 Dose: 400 mg Lamotrigine (Lamotrigine 100 Mg Tablet) 200 mg PO BID [facility] Last Admin: 10/26/23 08:48 Dose: 200 mg Latanoprost (Latanoprost 0.005 % Ophth Pati 2.5 Ml Drops) 1 drop EYE-BOTH BEDTIME [facility] Last Admin: 10/25/23 20:41 Dose: 1 drop Lorazepam (Lorazepam 1 Mg Tablet) 1 mg PO Q4H PRN PRN Reason: anxiety/restlessness Last Admin: 10/26/23 10:12 Dose: 1 mg Magnesium Hydroxide (Milk Of Magnesia 30 Ml Oral.Susp) 30 ml PO DAILY PRN PRN Reason: Constipation Metformin HCl (Metformin Hcl 500 Mg Tablet) 500 mg PO DAILY [facility] Last Admin: 10/26/23 08:48 Dose: 500 mg Midodrine (Midodrine Hcl 5 Mg Tablet) 5 mg PO TIDWM [facility] Last Admin: 10/26/23 12:35 Dose: 5 mg Nicotine (Nicotine 21 Mg Patch.Td24) 21 mg TRANSDERMA DAILY [facility] Last Admin: 10/26/23 08:55 Dose: Not Given Olanzapine (Olanzapine 10 Mg Tablet) 20 mg PO BEDTIME [facility] Last Admin: 10/25/23 20:33 Dose: 20 mg Olanzapine (Olanzapine Odt 10 Mg Tab.Rapdis) 10 mg TRANSLINGU BID@0900,1400 [facility] Last Admin: 10/26/23 08:56 Dose: 10 mg Oxybutynin Chloride (Oxybutynin Chloride Er 5 Mg Tab.Er.24) 10 mg PO DAILY [facility] Last Admin: 10/26/23 08:47 Dose: 10 mg Quetiapine Fumarate (Quetiapine Fumarate 50 Mg Tablet) 50 mg PO Q4H PRN PRN Reason: agitation Last Admin: 10/26/23 11:53 Dose: 50 mg Trazodone HCl (Trazodone Hcl 50 Mg Tablet) 50 mg PO BEDTIME MRX1 PRN PRN Reason: Insomnia Last Admin: 10/20/23 21:31 Dose: 50 mg Trazodone HCl (Trazodone Hcl 25 Mg Halftab) 25 mg PO BEDTIME [facility] Last Admin: 10/25/23 20:33 Dose: 25 mg Trazodone HCl (Trazodone Hcl 50 Mg Tablet) 50 mg PO DAILY [facility] Last Admin: 10/26/23 08:48 Dose: 50 mg Allergies Allergies Allergy/AdvReac Type Severity Reaction Status Date / Time amantadine AdvReac Unknown Verified 09/29/23 17:57 Assessment & Plan Assessment & Plan (1) Diabetes: Qualifiers: Diabetes mellitus complication status: without complication Status: Acute Code(s): E11.9 - Type 2 diabetes mellitus without complications (2) HLD (hyperlipidemia): Qualifiers: Hyperlipidemia type: unspecified Qualified Code(s): E78.5 - Hyperlipidemia, unspecified Status: Acute Code(s): E78.5 - Hyperlipidemia, unspecified (3) Traumatic brain injury: Qualifiers: Loss of consciousness presence/duration: unknown LOC status Status: Acute Code(s): S06.9XAA - Unspecified intracranial injury with loss of consciousness status unknown, initial encounter Plan 63-year-old female with TBI, dementia, disorganized who presents for aggressive behavior. Hospital course: 10/12 Patient disruptive last night, again today, disorganized and thinks she is back at her snf, asking for her cigarettes over and over, talking to herself. Patient yelling in the [place], ran into staff with wheelchair though maybe not on purpose; patient lowered herself to the floor. Zyprexa p.r.n. not that helpful. Copyist ordered Ativan 1 mg which did calm her down. On approach she remained disorganized, wanting her cigarettes but was overall calm. Staff reports patient eating and sleeping well. -continue current regimen for now 10/13 Patient remains disorganized, aggressive, yelling; p.r.n. Zyprexa still not helpful. Scheduled Clonazepam not helpful. Give another dose of Ativan which again was calming. PLAN: Will hold Zyprexa p.r.n. since has not proved helpful for calming agitation, despite getting up to 40 mg yesterday. Will instead make Ativan 1 mg t.i.d. p.r.n. available for agitation If Ativan proves helpful, will consider doing away with Zyprexa p.r.n. (and may be scheduled bedtime dose) and see if Tegretol or Depakote would work for aggression. Will likely defer this to primary team however 10/19/23: regarding medications, we will schedule olanzapine in the daytime rather than p.r.n.. Maintain nighttime olanzapine. Will utilize Seroquel as needed. Noted schedule Klonopin and as needed Ativan 10/20: no changes\ 10/26/23: no changes Plan 1. Will keep Zyprexa to 10 mg p.o. q.h.s. at night to target psychosis. 2. Keep Klonopin scheduled and Ativan p.r.n. anxiety. On October 16 we are increasing Klonopin up to 1 mg p.o. t.i.d. 3. We will work on amendment or starting the Sherif order. We are waiting for the legal team to provide me the exact form and contact the legal guardians. Reason for continued inpatient stay Substantial Risk for: harm to others, inability to function and rapid decompensation Time Spent With Patient Time: Total time managing care of this patient today ____ minutes.
[2023-10-26] MEDS: hydrOXYzine HCL 25 MG TABLET PO (17:18)
[2023-10-26 18:00] VITALS: BP 137/74; PULSE 68; RESP 18; TEMP 36.6; O2SAT 96
[2023-10-26] MEDS: OLANZapine 10 MG TABLET 20 MG PO (20:44)
[2023-10-26] MEDS: traZODone HCL 25 MG HALFTAB PO (20:45)
[2023-10-26] MEDS: Latanoprost 0.005 % Ophth Sol 2.5 ML DROPS 1 DROP EYE-BOTH (20:45)
[2023-10-27 09:00] VITALS: BP 144/58; PULSE 72; RESP 18; TEMP 36.4; O2SAT 95
--- NOTE | 2023-10-27 09:38 | P.PNPSI_ITS ---
Subjective Subjective Date of Service: 10/27/23 Reason For Visit: agitation Subjective Notes: Conditional Voluntary Medical Problems Affecting Mental Status: No Interim History: Banging hard yesterday, received PO meds. Has been getting seroqule, ativan prn. Seroquel does appear to have some benefit. Today patient is more pleasant this morning, was singing and able to name artists and concert she had gone to which included Enderalen Griffiths and [place]. Was also able to name songs that were consistent with the artists: two deshpande coladas and raspberry beret. Medication Compliance: Yes Side effects from medications: No Attending Groups: Intermittent Review of Systems Acute medical concerns: No Review of Systems Review of Systems nothing acute Mental Status Exam Mental Status Exam Narrative: In day area eating breakfast. Singing and pleasant today. Alert. Unable to formally test orientation etc. . No evidence of SI or HI. Is paranoid and frustrated. Insight and judgment Diagnostics Vital Signs (24Hr): Vital Signs - 24 hr 10/26/23 18:00 Temperature 98 F Pulse Rate 68 Respiratory Rate 18 Blood Pressure 137/74 Pulse Oximetry 96 Oxygen Delivery Method Room Air BMI result Body Mass Index 23.0 Labs 10/21/23 08:26 Imaging Radiology Impressions: ITS Impressions Head CT 10/18/23 16:48 IMPRESSION: 1. No acute intracranial hemorrhage or edematous infarct. 2. 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 3. Right temporal approach ventriculostomy catheter with tip terminating in the right lateral ventricle body. No hydrocephalus. Medications Medications Current Medications Acetaminophen (Acetaminophen 325 Mg Tablet) 650 mg PO Q6H PRN PRN Reason: Headache/Pain Mild Scale (1-3) Last Admin: 10/20/23 19:39 Dose: 650 mg Al Hydroxide/Mg Hydroxide (Magnesium Hydrox/Alum Hydrox 30 Ml Oral.Susp) 30 ml PO Q6H PRN PRN Reason: Heartburn/Nausea Aspirin (Aspirin 81 Mg Tab.Chew) 81 mg PO DAILY [facility] Last Admin: 10/26/23 08:47 Dose: 81 mg Atorvastatin Calcium (Atorvastatin Calcium 80 Mg Tablet) 80 mg PO DAILY [facility] Last Admin: 10/26/23 08:47 Dose: 80 mg Docusate Sodium (Docusate Sodium 100 Mg Capsule) 100 mg PO BID [facility] Last Admin: 10/26/23 20:45 Dose: 100 mg Escitalopram Oxalate (Escitalopram Oxalate 10 Mg Tablet) 10 mg PO DAILY [facility] Last Admin: 10/26/23 08:47 Dose: 10 mg Famotidine (Famotidine 20 Mg Tablet) 20 mg PO BID [facility] Last Admin: 10/26/23 20:45 Dose: 20 mg Gabapentin (Gabapentin 400 Mg Capsule) 800 mg PO TID [facility] Last Admin: 10/26/23 20:45 Dose: 800 mg Hydroxyzine HCl (Hydroxyzine Hcl 25 Mg Tablet) 25 mg PO Q6H PRN PRN Reason: Anxiety Last Admin: 10/26/23 17:18 Dose: 25 mg Ibuprofen (Ibuprofen 400 Mg Tablet) 400 mg PO Q6H PRN PRN Reason: Mild Pain (Scale Score 1-4) Last Admin: 10/26/23 10:12 Dose: 400 mg Lamotrigine (Lamotrigine 100 Mg Tablet) 200 mg PO BID [facility] Last Admin: 10/26/23 20:44 Dose: 200 mg Latanoprost (Latanoprost 0.005 % Ophth Pati 2.5 Ml Drops) 1 drop EYE-BOTH BEDTIME [facility] Last Admin: 10/26/23 20:45 Dose: 1 drop Lorazepam (Lorazepam 1 Mg Tablet) 1 mg PO Q4H PRN PRN Reason: anxiety/restlessness Last Admin: 10/26/23 10:12 Dose: 1 mg Magnesium Hydroxide (Milk Of Magnesia 30 Ml Oral.Susp) 30 ml PO DAILY PRN PRN Reason: Constipation Metformin HCl (Metformin Hcl 500 Mg Tablet) 500 mg PO DAILY [facility] Last Admin: 10/26/23 08:48 Dose: 500 mg Midodrine (Midodrine Hcl 5 Mg Tablet) 5 mg PO TIDWM [facility] Last Admin: 10/26/23 17:18 Dose: 5 mg Nicotine (Nicotine 21 Mg Patch.Td24) 21 mg TRANSDERMA DAILY [facility] Last Admin: 10/26/23 08:55 Dose: Not Given Olanzapine (Olanzapine 10 Mg Tablet) 20 mg PO BEDTIME [facility] Last Admin: 10/26/23 20:44 Dose: 20 mg Olanzapine (Olanzapine Odt 10 Mg Tab.Rapdis) 10 mg TRANSLINGU BID@0900,1400 [facility] Last Admin: 10/26/23 14:29 Dose: 10 mg Oxybutynin Chloride (Oxybutynin Chloride Er 5 Mg Tab.Er.24) 10 mg PO DAILY [facility] Last Admin: 10/26/23 08:47 Dose: 10 mg Quetiapine Fumarate (Quetiapine Fumarate 50 Mg Tablet) 50 mg PO Q4H PRN PRN Reason: agitation Last Admin: 10/26/23 11:53 Dose: 50 mg Trazodone HCl (Trazodone Hcl 50 Mg Tablet) 50 mg PO BEDTIME MRX1 PRN PRN Reason: Insomnia Last Admin: 10/20/23 21:31 Dose: 50 mg Trazodone HCl (Trazodone Hcl 25 Mg Halftab) 25 mg PO BEDTIME [facility] Last Admin: 10/26/23 20:45 Dose: 25 mg Trazodone HCl (Trazodone Hcl 50 Mg Tablet) 50 mg PO DAILY [facility] Last Admin: 10/26/23 08:48 Dose: 50 mg Allergies Allergies Allergy/AdvReac Type Severity Reaction Status Date / Time amantadine AdvReac Unknown Verified 09/29/23 17:57 Assessment & Plan Assessment & Plan (1) Diabetes: Qualifiers: Diabetes mellitus complication status: without complication Status: Acute Code(s): E11.9 - Type 2 diabetes mellitus without complications (2) HLD (hyperlipidemia): Qualifiers: Hyperlipidemia type: unspecified Qualified Code(s): E78.5 - Hyperlipidemia, unspecified Status: Acute Code(s): E78.5 - Hyperlipidemia, unspecified (3) Traumatic brain injury: Qualifiers: Loss of consciousness presence/duration: unknown LOC status Status: Acute Code(s): S06.9XAA - Unspecified intracranial injury with loss of consciousness status unknown, initial encounter Plan 63-year-old female with TBI, dementia, disorganized who presents for aggressive behavior. Hospital course: 10/12 Patient disruptive last night, again today, disorganized and thinks she is back at her senior care, asking for her cigarettes over and over, talking to herself. Patient yelling in the [place], ran into staff with wheelchair though maybe not on purpose; patient lowered herself to the floor. Zyprexa p.r.n. not that helpful. Crossing Tender ordered Ativan 1 mg which did calm her down. On approach she remained disorganized, wanting her cigarettes but was overall calm. Staff reports patient eating and sleeping well. -continue current regimen for now 10/13 Patient remains disorganized, aggressive, yelling; p.r.n. Zyprexa still not helpful. Scheduled Clonazepam not helpful. Give another dose of Ativan which again was calming. PLAN: Will hold Zyprexa p.r.n. since has not proved helpful for calming agitation, despite getting up to 40 mg yesterday. Will instead make Ativan 1 mg t.i.d. p.r.n. available for agitation If Ativan proves helpful, will consider doing away with Zyprexa p.r.n. (and may be scheduled bedtime dose) and see if Tegretol or Depakote would work for aggression. Will likely defer this to primary team however 10/19/23: regarding medications, we will schedule olanzapine in the daytime rather than p.r.n.. Maintain nighttime olanzapine. Will utilize Seroquel as needed. Noted schedule Klonopin and as needed Ativan 10/20: no changes\ 10/26/23: no changes 10/27: Schedule seroqule morning and lunchtime Plan 1. Will keep Zyprexa to 10 mg p.o. q.h.s. at night to target psychosis. 2. Keep Klonopin scheduled and Ativan p.r.n. anxiety. On October 16 we are increasing Klonopin up to 1 mg p.o. t.i.d. 3. We will work on amendment or starting the Sherif order. We are waiting for the legal team to provide me the exact form and contact the legal guardians. Reason for continued inpatient stay Substantial Risk for: inability to function Time Spent With Patient Time: Total time managing care of this patient today ____ minutes.
[2023-10-27] MEDS: Famotidine 20 MG TABLET PO ×2 (09:44→20:03)
[2023-10-27] MEDS: metFORMIN HCl 500 MG TABLET PO (09:44)
[2023-10-27] MEDS: Atorvastatin Calcium 80 MG TABLET PO (09:44)
[2023-10-27] MEDS: oxyBUTYnin chloride ER 5 MG TAB.ER.24 10 MG PO (09:44)
[2023-10-27] MEDS: traZODone HCL 50 MG TABLET PO (09:44)
[2023-10-27] MEDS: lamoTRIgine 100 MG TABLET 200 MG PO ×2 (09:44→20:04)
[2023-10-27] MEDS: OLANZapine ODT 10 MG TAB.RAPDIS TRANSLINGU ×2 (09:45→14:29)
[2023-10-27] MEDS: Docusate Sodium 100 MG CAPSULE PO ×2 (09:45→20:03)
[2023-10-27] MEDS: Aspirin 81 MG TAB.CHEW PO (09:45)
[2023-10-27] MEDS: Escitalopram Oxalate 10 MG TABLET PO (09:45)
[2023-10-27] MEDS: Gabapentin 400 MG CAPSULE 800 MG PO ×3 (09:45→20:03)
[2023-10-27] MEDS: QUEtiapine Fumarate 50 MG TABLET PO ×2 (10:19→14:29)
[2023-10-27] MEDS: Acetaminophen 325 MG TABLET 650 MG PO ×2 (12:16→20:04)
[2023-10-27] MEDS: LORazepam 1 MG TABLET PO ×2 (12:16→20:05)
[2023-10-27] MEDS: hydrOXYzine HCL 25 MG TABLET PO (17:12)
[2023-10-27] MEDS: Midodrine HCl 5 MG TABLET PO (17:12)
[2023-10-27 18:00] VITALS: BP 114/59; PULSE 73; RESP 18; TEMP 36.5; O2SAT 92
[2023-10-27] MEDS: OLANZapine 10 MG TABLET 20 MG PO (20:04)
[2023-10-27] MEDS: Latanoprost 0.005 % Ophth Sol 2.5 ML DROPS 1 DROP EYE-BOTH (20:04)
[2023-10-27] MEDS: traZODone HCL 25 MG HALFTAB PO (20:04)
[2023-10-28 07:50] VITALS: BP 124/60; PULSE 63; RESP 16; TEMP 37; O2SAT 95
[2023-10-28] MEDS: Famotidine 20 MG TABLET PO (08:23)
[2023-10-28] MEDS: lamoTRIgine 100 MG TABLET 200 MG PO (08:23)
[2023-10-28] MEDS: Gabapentin 400 MG CAPSULE 800 MG PO ×2 (08:24→14:21)
[2023-10-28] MEDS: Midodrine HCl 5 MG TABLET PO ×3 (08:24→16:15)
[2023-10-28] MEDS: Escitalopram Oxalate 10 MG TABLET PO (08:24)
[2023-10-28] MEDS: metFORMIN HCl 500 MG TABLET PO (08:24)
[2023-10-28] MEDS: QUEtiapine Fumarate 50 MG TABLET PO ×2 (08:24→13:04)
[2023-10-28] MEDS: Docusate Sodium 100 MG CAPSULE PO (08:24)
[2023-10-28] MEDS: oxyBUTYnin chloride ER 5 MG TAB.ER.24 10 MG PO (08:24)
[2023-10-28] MEDS: Aspirin 81 MG TAB.CHEW PO (08:24)
[2023-10-28] MEDS: OLANZapine ODT 10 MG TAB.RAPDIS TRANSLINGU ×2 (08:25→13:04)
[2023-10-28] MEDS: Atorvastatin Calcium 80 MG TABLET PO (08:25)
[2023-10-28] MEDS: traZODone HCL 50 MG TABLET PO (08:25)
[2023-10-28 08:38] LABS: Creatinine Clr Calc Pharmacy 97.5; Estimated Glomerular Filt Rate > 60
--- NOTE | 2023-10-28 10:03 | P.PNPSI_ITS ---
Subjective Subjective Date of Service: 10/28/23 Reason For Visit: agitation Subjective Notes: Conditional Voluntary Interim History: The nursing staff reported no changes in her mental status, she is agitated as times demanding cigarettes. She needed p.r.n. Ativan yesterday. She had good p.o. intake and she also have Tylenol p.r.n. pain. Over the weekend, Seroquel was added 50 p.o. b.i.d. [place] p.r.n.. On interview the patient denies new symptoms pleasantly confused, easily redirectable. Mental Status Exam Mental Status Exam Patient Appearance: Appropriate Patient Orientation: Person and Situation Level of Consciousness: Awake and Appropriate Patient Behavior: Guarded and Passive Mood Description: Withdrawn Affect Description: Constricted Patient Cognition Impaired: Yes Ability to Follow Directions: Good Speech Pattern: Clear Hallucinations: None Delusions: Not Present Thought Process: Distracted and Slowed Thinking Thought Content: positive for [place] and positive for Poverty of Content Judgement: Poor Diagnostics Vital Signs (24Hr): Vital Signs - 24 hr 10/27/23 18:00 10/28/23 07:50 Temperature 97.7 F 98.6 F Pulse Rate 73 63 Respiratory Rate 18 16 Blood Pressure 114/59 L 124/60 Pulse Oximetry 92 95 Oxygen Delivery Method Room Air Room Air BMI result Body Mass Index 23.0 Labs 10/28/23 08:07 Labs: Laboratory Results - last 48 hr 10/28/23 08:07 Hold Purple Top SEE NOTE Creatinine 0.56 Estim Creat Clear Calc 97.5 Estimated GFR > 60 Imaging Radiology Impressions: ITS Impressions Head CT 10/18/23 16:48 IMPRESSION: 1. No acute intracranial hemorrhage or edematous infarct. 2. 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 3. Right temporal approach ventriculostomy catheter with tip terminating in the right lateral ventricle body. No hydrocephalus. Medications Medications Current Medications Acetaminophen (Acetaminophen 325 Mg Tablet) 650 mg PO Q6H PRN PRN Reason: Headache/Pain Mild Scale (1-3) Last Admin: 10/27/23 20:04 Dose: 650 mg Al Hydroxide/Mg Hydroxide (Magnesium Hydrox/Alum Hydrox 30 Ml Oral.Susp) 30 ml PO Q6H PRN PRN Reason: Heartburn/Nausea Aspirin (Aspirin 81 Mg Tab.Chew) 81 mg PO DAILY [facility] Last Admin: 10/28/23 08:24 Dose: 81 mg Atorvastatin Calcium (Atorvastatin Calcium 80 Mg Tablet) 80 mg PO DAILY [facility] Last Admin: 10/28/23 08:25 Dose: 80 mg Docusate Sodium (Docusate Sodium 100 Mg Capsule) 100 mg PO BID [facility] Last Admin: 10/28/23 08:24 Dose: 100 mg Escitalopram Oxalate (Escitalopram Oxalate 10 Mg Tablet) 10 mg PO DAILY [facility] Last Admin: 10/28/23 08:24 Dose: 10 mg Famotidine (Famotidine 20 Mg Tablet) 20 mg PO BID [facility] Last Admin: 10/28/23 08:23 Dose: 20 mg Gabapentin (Gabapentin 400 Mg Capsule) 800 mg PO TID [facility] Last Admin: 10/28/23 08:24 Dose: 800 mg Hydroxyzine HCl (Hydroxyzine Hcl 25 Mg Tablet) 25 mg PO Q6H PRN PRN Reason: Anxiety Last Admin: 10/27/23 17:12 Dose: 25 mg Ibuprofen (Ibuprofen 400 Mg Tablet) 400 mg PO Q6H PRN PRN Reason: Mild Pain (Scale Score 1-4) Last Admin: 10/26/23 10:12 Dose: 400 mg Lamotrigine (Lamotrigine 100 Mg Tablet) 200 mg PO BID [facility] Last Admin: 10/28/23 08:23 Dose: 200 mg Latanoprost (Latanoprost 0.005 % Ophth Pati 2.5 Ml Drops) 1 drop EYE-BOTH BEDTIME [facility] Last Admin: 10/27/23 20:04 Dose: 1 drop Lorazepam (Lorazepam 1 Mg Tablet) 1 mg PO Q4H PRN PRN Reason: anxiety/restlessness Last Admin: 10/27/23 20:05 Dose: 1 mg Magnesium Hydroxide (Milk Of Magnesia 30 Ml Oral.Susp) 30 ml PO DAILY PRN PRN Reason: Constipation Metformin HCl (Metformin Hcl 500 Mg Tablet) 500 mg PO DAILY [facility] Last Admin: 10/28/23 08:24 Dose: 500 mg Midodrine (Midodrine Hcl 5 Mg Tablet) 5 mg PO TIDWM [facility] Last Admin: 10/28/23 08:24 Dose: 5 mg Nicotine (Nicotine 21 Mg Patch.Td24) 21 mg TRANSDERMA DAILY [facility] Last Admin: 10/28/23 08:30 Dose: Not Given Olanzapine (Olanzapine 10 Mg Tablet) 20 mg PO BEDTIME [facility] Last Admin: 10/27/23 20:04 Dose: 20 mg Olanzapine (Olanzapine Odt 10 Mg Tab.Rapdis) 10 mg TRANSLINGU BID@0900,1400 [facility] Last Admin: 10/28/23 08:25 Dose: 10 mg Oxybutynin Chloride (Oxybutynin Chloride Er 5 Mg Tab.Er.24) 10 mg PO DAILY [facility] Last Admin: 10/28/23 08:24 Dose: 10 mg Quetiapine Fumarate (Quetiapine Fumarate 50 Mg Tablet) 50 mg PO Q4H PRN PRN Reason: agitation Last Admin: 10/26/23 11:53 Dose: 50 mg Quetiapine Fumarate (Quetiapine Fumarate 50 Mg Tablet) 50 mg PO BID@0900,1400 [facility] Last Admin: 10/28/23 08:24 Dose: 50 mg Trazodone HCl (Trazodone Hcl 50 Mg Tablet) 50 mg PO BEDTIME MRX1 PRN PRN Reason: Insomnia Last Admin: 10/20/23 21:31 Dose: 50 mg Trazodone HCl (Trazodone Hcl 25 Mg Halftab) 25 mg PO BEDTIME [facility] Last Admin: 10/27/23 20:04 Dose: 25 mg Trazodone HCl (Trazodone Hcl 50 Mg Tablet) 50 mg PO DAILY [facility] Last Admin: 10/28/23 08:25 Dose: 50 mg Allergies Allergies Allergy/AdvReac Type Severity Reaction Status Date / Time amantadine AdvReac Unknown Verified 09/29/23 17:57 Assessment & Plan Assessment & Plan (1) Diabetes: Qualifiers: Diabetes mellitus complication status: without complication Status: Acute Code(s): E11.9 - Type 2 diabetes mellitus without complications (2) HLD (hyperlipidemia): Qualifiers: Hyperlipidemia type: unspecified Qualified Code(s): E78.5 - Hyperlipidemia, unspecified Status: Acute Code(s): E78.5 - Hyperlipidemia, unspecified (3) Traumatic brain injury: Qualifiers: Loss of consciousness presence/duration: unknown LOC status Status: Acute Code(s): S06.9XAA - Unspecified intracranial injury with loss of consciousness status unknown, initial encounter Plan 63-year-old female with TBI, dementia, disorganized who presents for aggressive behavior. Hospital course: 10/12 Patient disruptive last night, again today, disorganized and thinks she is back at her detention, asking for her cigarettes over and over, talking to herself. Patient yelling [place] the [place], ran into staff with wheelchair though maybe not on purpose; patient lowered herself to the floor. Zyprexa p.r.n. not that helpful. Surveyor Helper ordered Ativan 1 mg which did calm her down. On approach she remained disorganized, wanting her cigarettes but was overall calm. Staff reports patient eating and sleeping well. -continue current regimen for now 10/13 Patient remains disorganized, aggressive, yelling; p.r.n. Zyprexa still not helpful. Scheduled Clonazepam not helpful. Give another dose of Ativan which again was calming. PLAN: Will hold Zyprexa p.r.n. since has not proved helpful for calming agitation, despite getting up to 40 mg yesterday. Will instead make Ativan 1 mg t.i.d. p.r.n. available for agitation If Ativan proves helpful, will consider doing away with Zyprexa p.r.n. (and may be scheduled bedtime dose) and see if Tegretol or Depakote would work for aggression. Will likely defer this to primary team however 10/19/23: regarding medications, we will schedule olanzapine in the daytime rather than p.r.n.. Maintain nighttime olanzapine. Will utilize Seroquel as needed. Noted schedule Klonopin and as needed Ativan 10/20: no changes\ 10/26/23: no changes 10/27: Schedule seroqule morning and lunchtime Plan 1. Will keep Zyprexa to 10 mg p.o. q.h.s. at night to target psychosis. We will start the taper of Zyprexa slowly since it has worked very limited. 2. Keep Klonopin scheduled and Ativan p.r.n. anxiety. On October 16 we are increasing Klonopin up to 1 mg p.o. t.i.d. 3. We will work on amendment or starting the Sherif order. We are waiting for the legal team to provide me the exact form and contact the legal guardians. 4. Keep Seroquel 50 mg p.o. b.i.d. started on October 27. Reason for continued inpatient stay Substantial Risk for: inability to function, rapid decompensation and med/psych decompensation Time Spent With Patient Time: Total time managing care of this patient today __20__ minutes.
[2023-10-28] MEDS: LORazepam 1 MG TABLET PO (14:21)
[2023-10-28 22:35] VITALS: BP 90/48; PULSE 60; RESP 16; TEMP 36.1; O2SAT 94
[2023-10-28] MEDS: Latanoprost 0.005 % Ophth Sol 2.5 ML DROPS 1 DROP EYE-BOTH (23:35)
[2023-10-29 08:16] VITALS: BP 149/65; PULSE 66; RESP 15; TEMP 36.3; O2SAT 93
[2023-10-29] MEDS: Nicotine 21 MG PATCH.TD24 TRANSDERMA (08:19)
[2023-10-29] MEDS: Aspirin 81 MG TAB.CHEW PO (08:19)
[2023-10-29] MEDS: Atorvastatin Calcium 80 MG TABLET PO (08:20)
[2023-10-29] MEDS: traZODone HCL 50 MG TABLET PO (08:20)
[2023-10-29] MEDS: OLANZapine ODT 10 MG TAB.RAPDIS TRANSLINGU ×2 (08:20→16:06)
[2023-10-29] MEDS: lamoTRIgine 100 MG TABLET 200 MG PO ×2 (08:20→20:01)
[2023-10-29] MEDS: metFORMIN HCl 500 MG TABLET PO (08:20)
[2023-10-29] MEDS: Famotidine 20 MG TABLET PO ×2 (08:20→20:01)
[2023-10-29] MEDS: QUEtiapine Fumarate 50 MG TABLET PO ×3 (08:20→16:03)
[2023-10-29] MEDS: Docusate Sodium 100 MG CAPSULE PO ×2 (08:20→20:01)
[2023-10-29] MEDS: oxyBUTYnin chloride ER 5 MG TAB.ER.24 10 MG PO (08:20)
[2023-10-29] MEDS: Gabapentin 400 MG CAPSULE 800 MG PO (08:21)
[2023-10-29] MEDS: Escitalopram Oxalate 10 MG TABLET PO (08:21)
[2023-10-29] MEDS: LORazepam 1 MG TABLET PO (09:19)
[2023-10-29] MEDS: Milk of Magnesia 30 ML ORAL.SUSP PO (10:19)
[2023-10-29] MEDS: hydrOXYzine HCL 25 MG TABLET PO (11:36)
[2023-10-29 12:39] VITALS: BP 129/69
--- NOTE | 2023-10-29 12:42 | PC.NURSE ---
THIS NURSE HELD PT'S MITODRINE THIS MORNING AND 1200 DOSE WELL, D/T INCREASED BP. THIS NURSE ASKED DR. REESE FOR PARAMETERS FOR MITODRINE. RESPONSE PENDING.
--- NOTE | 2023-10-29 13:23 | HO.PSYCHPN ---
Subjective Subjective Date of Service: 10/29/23 Reason For Visit: agitation Subjective Notes: Conditional Voluntary Interim History: The nursing staff reported patient has been labile and agitated, needs constant redirection. The social media job titles reported that we are going to contact the fpc staff. On interview the patient was loud and easily redirectable at times. We decided to increase gabapentin up to 900 mg p.o. t.i.d. and lowered the Lexapro 5 since it could be too activating for her. Mental Status Exam Mental Status Exam Patient Appearance: Unkempt Patient Orientation: Person Level of Consciousness: Awake Patient Behavior: Guarded and Passive Mood Description: Withdrawn Affect Description: Constricted Patient Cognition Impaired: Yes Ability to Follow Directions: Fair Speech Pattern: Clear Hallucinations: None Delusions: Paranoid Ideation Thought Process: Distracted and Evasive Thought Content: positive for [place], positive for Poverty of Content and positive for Thought Blocking Judgement: Poor Diagnostics Vital Signs (24Hr): Vital Signs - 24 hr 10/28/23 22:35 10/29/23 08:16 10/29/23 12:39 Temperature 97.0 F 97.3 F Pulse Rate 60 66 Respiratory Rate 16 15 Blood Pressure 90/48 L 149/65 H 129/69 Pulse Oximetry 94 93 Oxygen Delivery Method Room Air Room Air BMI result Body Mass Index 23.0 Labs 10/28/23 08:07 Labs: Laboratory Results - last 48 hr 10/28/23 08:07 Hold Purple Top SEE NOTE Creatinine 0.56 Estim Creat Clear Calc 97.5 Estimated GFR > 60 Imaging Radiology Impressions: ITS Impressions Head CT 10/18/23 16:48 IMPRESSION: 1. No acute intracranial hemorrhage or edematous infarct. 2. 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 3. Right temporal approach ventriculostomy catheter with tip terminating in the right lateral ventricle body. No hydrocephalus. Medications Medications Current Medications Acetaminophen (Acetaminophen 325 Mg Tablet) 650 mg PO Q6H PRN PRN Reason: Headache/Pain Mild Scale (1-3) Last Admin: 10/27/23 20:04 Dose: 650 mg Al Hydroxide/Mg Hydroxide (Magnesium Hydrox/Alum Hydrox 30 Ml Oral.Susp) 30 ml PO Q6H PRN PRN Reason: Heartburn/Nausea Aspirin (Aspirin 81 Mg Tab.Chew) 81 mg PO DAILY [facility] Last Admin: 10/29/23 08:19 Dose: 81 mg Atorvastatin Calcium (Atorvastatin Calcium 80 Mg Tablet) 80 mg PO DAILY [facility] Last Admin: 10/29/23 08:20 Dose: 80 mg Docusate Sodium (Docusate Sodium 100 Mg Capsule) 100 mg PO BID [facility] Last Admin: 10/29/23 08:20 Dose: 100 mg Escitalopram Oxalate (Escitalopram Oxalate 5 Mg Tablet) 5 mg PO DAILY [facility] Famotidine (Famotidine 20 Mg Tablet) 20 mg PO BID [facility] Last Admin: 10/29/23 08:20 Dose: 20 mg Gabapentin (Gabapentin 300 Mg Capsule) 900 mg PO TID [facility] Hydroxyzine HCl (Hydroxyzine Hcl 25 Mg Tablet) 25 mg PO Q6H PRN PRN Reason: Anxiety Last Admin: 10/29/23 11:36 Dose: 25 mg Ibuprofen (Ibuprofen 400 Mg Tablet) 400 mg PO Q6H PRN PRN Reason: Mild Pain (Scale Score 1-4) Last Admin: 10/26/23 10:12 Dose: 400 mg Lamotrigine (Lamotrigine 100 Mg Tablet) 200 mg PO BID [facility] Last Admin: 10/29/23 08:20 Dose: 200 mg Latanoprost (Latanoprost 0.005 % Ophth Pati 2.5 Ml Drops) 1 drop EYE-BOTH BEDTIME [facility] Last Admin: 10/28/23 23:35 Dose: 1 drop Lorazepam (Lorazepam 1 Mg Tablet) 1 mg PO Q4H PRN PRN Reason: anxiety/restlessness Last Admin: 10/29/23 09:19 Dose: 1 mg Magnesium Hydroxide (Milk Of Magnesia 30 Ml Oral.Susp) 30 ml PO DAILY PRN PRN Reason: Constipation Last Admin: 10/29/23 10:19 Dose: 30 ml Metformin HCl (Metformin Hcl 500 Mg Tablet) 500 mg PO DAILY [facility] Last Admin: 10/29/23 08:20 Dose: 500 mg Midodrine (Midodrine Hcl 5 Mg Tablet) 5 mg PO TIDWM [facility] Last Admin: 10/29/23 12:40 Dose: Not Given Nicotine (Nicotine 21 Mg Patch.Td24) 21 mg TRANSDERMA DAILY [facility] Last Admin: 10/29/23 08:19 Dose: 21 mg Olanzapine (Olanzapine 10 Mg Tablet) 20 mg PO BEDTIME [facility] Last Admin: 10/28/23 23:36 Dose: Not Given Olanzapine (Olanzapine Odt 10 Mg Tab.Rapdis) 10 mg TRANSLINGU BID@0900,1400 [facility] Last Admin: 10/29/23 08:20 Dose: 10 mg Oxybutynin Chloride (Oxybutynin Chloride Er 5 Mg Tab.Er.24) 10 mg PO DAILY [facility] Last Admin: 10/29/23 08:20 Dose: 10 mg Quetiapine Fumarate (Quetiapine Fumarate 50 Mg Tablet) 50 mg PO Q4H PRN PRN Reason: agitation Last Admin: 10/29/23 09:19 Dose: 50 mg Quetiapine Fumarate (Quetiapine Fumarate 50 Mg Tablet) 50 mg PO BID@0900,1400 [facility] Last Admin: 10/29/23 08:20 Dose: 50 mg Trazodone HCl (Trazodone Hcl 50 Mg Tablet) 50 mg PO BEDTIME MRX1 PRN PRN Reason: Insomnia Last Admin: 10/20/23 21:31 Dose: 50 mg Trazodone HCl (Trazodone Hcl 25 Mg Halftab) 25 mg PO BEDTIME [facility] Last Admin: 10/28/23 23:36 Dose: Not Given Trazodone HCl (Trazodone Hcl 50 Mg Tablet) 50 mg PO DAILY [facility] Last Admin: 10/29/23 08:20 Dose: 50 mg Allergies Allergies Allergy/AdvReac Type Severity Reaction Status Date / Time amantadine AdvReac Unknown Verified 09/29/23 17:57 Assessment & Plan Assessment & Plan (1) Diabetes: Qualifiers: Diabetes mellitus complication status: without complication Status: Acute Code(s): E11.9 - Type 2 diabetes mellitus without complications (2) HLD (hyperlipidemia): Qualifiers: Hyperlipidemia type: unspecified Qualified Code(s): E78.5 - Hyperlipidemia, unspecified Status: Acute Code(s): E78.5 - Hyperlipidemia, unspecified (3) Traumatic brain injury: Qualifiers: Loss of consciousness presence/duration: unknown LOC status Status: Acute Code(s): S06.9XAA - Unspecified intracranial injury with loss of consciousness status unknown, initial encounter Plan 63-year-old female with TBI, dementia, disorganized who presents for aggressive behavior. Hospital course: 10/12 Patient disruptive last night, again today, disorganized and thinks she is back at her fpc, asking for her cigarettes over and over, talking to herself. Patient yelling in the [place], ran into staff with wheelchair though maybe not on purpose; patient lowered herself to the floor. Zyprexa p.r.n. not that helpful. Manager Rail ordered Ativan 1 mg which did calm her down. On approach she remained disorganized, wanting her cigarettes but was overall calm. Staff reports patient eating and sleeping well. -continue current regimen for now 10/13 Patient remains disorganized, aggressive, yelling; p.r.n. Zyprexa still not helpful. Scheduled Clonazepam not helpful. Give another dose of Ativan which again was calming. PLAN: Will hold Zyprexa p.r.n. since has not proved helpful for calming agitation, despite getting up to 40 mg yesterday. Will instead make Ativan 1 mg t.i.d. p.r.n. available for agitation If Ativan proves helpful, will consider doing away with Zyprexa p.r.n. (and may be scheduled bedtime dose) and see if Tegretol or Depakote would work for aggression. Will likely defer this to primary team however 10/19/23: regarding medications, we will schedule olanzapine in the daytime rather than p.r.n.. Maintain nighttime olanzapine. Will utilize Seroquel as needed. Noted schedule Klonopin and as needed Ativan 10/20: no changes\ 10/26/23: no changes 10/27: Schedule seroqule morning and lunchtime Plan 1. Will keep Zyprexa to 10 mg p.o. q.h.s. at night to target psychosis. We will start the taper of Zyprexa slowly since it has worked very limited. 2. Keep Klonopin scheduled and Ativan p.r.n. anxiety. On October 16 we are increasing Klonopin up to 1 mg p.o. t.i.d. 3. We will work on amendment or starting the Sherif order. We are waiting for the legal team to provide me the exact form and contact the legal guardians. 4. Keep Seroquel 50 mg p.o. b.i.d. started on October 27. Reason for continued inpatient stay Substantial Risk for: inability to function, rapid decompensation and med/psych decompensation Time Spent With Patient Time: Total time managing care of this patient today __20__ minutes.
[2023-10-29] MEDS: Gabapentin 300 MG CAPSULE 900 MG PO ×2 (16:03→20:01)
[2023-10-29 18:12] VITALS: BP 111/58
[2023-10-29] MEDS: Midodrine HCl 5 MG TABLET PO (18:16)
[2023-10-29 19:30] VITALS: BP 126/58; PULSE 84; RESP 18; TEMP 36.7; O2SAT 96
[2023-10-29] MEDS: OLANZapine 10 MG TABLET 20 MG PO (20:01)
[2023-10-29] MEDS: traZODone HCL 25 MG HALFTAB PO (20:01)
[2023-10-29] MEDS: Latanoprost 0.005 % Ophth Sol 2.5 ML DROPS 1 DROP EYE-BOTH (20:05)
[2023-10-30 08:06] VITALS: BP 114/63; PULSE 75; RESP 15; TEMP 36.3; O2SAT 96
[2023-10-30] MEDS: QUEtiapine Fumarate 50 MG TABLET PO ×3 (08:08→14:55)
[2023-10-30] MEDS: Atorvastatin Calcium 80 MG TABLET PO (08:08)
[2023-10-30] MEDS: Docusate Sodium 100 MG CAPSULE PO ×2 (08:08→20:43)
[2023-10-30] MEDS: Gabapentin 300 MG CAPSULE 900 MG PO ×3 (08:08→20:45)
[2023-10-30] MEDS: Escitalopram Oxalate 5 MG TABLET PO (08:08)
[2023-10-30] MEDS: traZODone HCL 50 MG TABLET PO (08:08)
[2023-10-30] MEDS: Aspirin 81 MG TAB.CHEW PO (08:08)
[2023-10-30] MEDS: metFORMIN HCl 500 MG TABLET PO (08:08)
[2023-10-30] MEDS: Midodrine HCl 5 MG TABLET PO ×3 (08:08→20:38)
[2023-10-30] MEDS: lamoTRIgine 100 MG TABLET 200 MG PO ×2 (08:08→20:43)
[2023-10-30] MEDS: Famotidine 20 MG TABLET PO ×2 (08:08→20:44)
[2023-10-30] MEDS: oxyBUTYnin chloride ER 5 MG TAB.ER.24 10 MG PO (08:09)
[2023-10-30] MEDS: OLANZapine ODT 10 MG TAB.RAPDIS TRANSLINGU ×2 (08:09→14:55)
[2023-10-30] MEDS: LORazepam 1 MG TABLET PO (08:40)
[2023-10-30] MEDS: hydrOXYzine HCL 25 MG TABLET PO (10:02)
[2023-10-30] MEDS: QUEtiapine Fumarate 100 MG TABLET PO (10:05)
--- NOTE | 2023-10-30 11:34 | P.PNPSI_ITS ---
Subjective Subjective Date of Service: 10/30/23 Reason For Visit: agitation Subjective Notes: Conditional Voluntary Interim History: The nursing staff reported no changes in her mental status, she is aggressive and disruptive at times, labile but easily redirectable. The staff has noticed a sometimes she has visual hallucinations and she is delusional. Even though that there was the initial reported Ativan could disinhibited her, she responds fairly well on combination of Seroquel. The social science professor reported that the clinical project coordinator is going to talk with the correction for disposition. On interview the patient denies new symptoms, we are increasing the Seroquel p.r.n. up to 100 mg p.o. b.i.d.. Mental Status Exam Mental Status Exam Patient Appearance: Appropriate Patient Orientation: Person Level of Consciousness: Awake Patient Behavior: Guarded and Restless Mood Description: Withdrawn Affect Description: Labile Patient Cognition Impaired: Yes Ability to Follow Directions: Good Hallucinations: Visual Delusions: Ideas of Reference Thought Process: Illogical and Distracted Thought Content: positive for [place] and positive for Poverty of Content Judgement: Poor Diagnostics Vital Signs (24Hr): Vital Signs - 24 hr 10/29/23 12:39 10/29/23 18:12 10/29/23 19:30 Temperature 98.0 F Pulse Rate 84 Respiratory Rate 18 Blood Pressure 129/69 111/58 L 126/58 L Pulse Oximetry 96 Oxygen Delivery Method Room Air 10/30/23 08:06 Temperature 97.3 F Pulse Rate 75 Respiratory Rate 15 Blood Pressure 114/63 Pulse Oximetry 96 Oxygen Delivery Method Room Air BMI result Body Mass Index 23.0 Labs 10/28/23 08:07 Imaging Radiology Impressions: ITS Impressions Head CT 10/18/23 16:48 IMPRESSION: 1. No acute intracranial hemorrhage or edematous infarct. 2. 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 3. Right temporal approach ventriculostomy catheter with tip terminating in the right lateral ventricle body. No hydrocephalus. Medications Medications Current Medications Acetaminophen (Acetaminophen 325 Mg Tablet) 650 mg PO Q6H PRN PRN Reason: Headache/Pain Mild Scale (1-3) Last Admin: 10/27/23 20:04 Dose: 650 mg Al Hydroxide/Mg Hydroxide (Magnesium Hydrox/Alum Hydrox 30 Ml Oral.Susp) 30 ml PO Q6H PRN PRN Reason: Heartburn/Nausea Aspirin (Aspirin 81 Mg Tab.Chew) 81 mg PO DAILY [facility] Last Admin: 10/30/23 08:08 Dose: 81 mg Atorvastatin Calcium (Atorvastatin Calcium 80 Mg Tablet) 80 mg PO DAILY [facility] Last Admin: 10/30/23 08:08 Dose: 80 mg Docusate Sodium (Docusate Sodium 100 Mg Capsule) 100 mg PO BID [facility] Last Admin: 10/30/23 08:08 Dose: 100 mg Escitalopram Oxalate (Escitalopram Oxalate 5 Mg Tablet) 5 mg PO DAILY [facility] Last Admin: 10/30/23 08:08 Dose: 5 mg Famotidine (Famotidine 20 Mg Tablet) 20 mg PO BID [facility] Last Admin: 10/30/23 08:08 Dose: 20 mg Gabapentin (Gabapentin 300 Mg Capsule) 900 mg PO TID [facility] Last Admin: 10/30/23 08:08 Dose: 900 mg Hydroxyzine HCl (Hydroxyzine Hcl 25 Mg Tablet) 25 mg PO Q6H PRN PRN Reason: Anxiety Last Admin: 10/30/23 10:02 Dose: 25 mg Ibuprofen (Ibuprofen 400 Mg Tablet) 400 mg PO Q6H PRN PRN Reason: Mild Pain (Scale Score 1-4) Last Admin: 10/26/23 10:12 Dose: 400 mg Lamotrigine (Lamotrigine 100 Mg Tablet) 200 mg PO BID [facility] Last Admin: 10/30/23 08:08 Dose: 200 mg Latanoprost (Latanoprost 0.005 % Ophth Pati 2.5 Ml Drops) 1 drop EYE-BOTH BEDTIME [facility] Last Admin: 10/29/23 20:05 Dose: 1 drop Lorazepam (Lorazepam 1 Mg Tablet) 1 mg PO Q4H PRN PRN Reason: anxiety/restlessness Magnesium Hydroxide (Milk Of Magnesia 30 Ml Oral.Susp) 30 ml PO DAILY PRN PRN Reason: Constipation Last Admin: 10/29/23 10:19 Dose: 30 ml Metformin HCl (Metformin Hcl 500 Mg Tablet) 500 mg PO DAILY [facility] Last Admin: 10/30/23 08:08 Dose: 500 mg Midodrine (Midodrine Hcl 5 Mg Tablet) 5 mg PO TIDWM [facility] Last Admin: 10/30/23 08:08 Dose: 5 mg Nicotine (Nicotine 21 Mg Patch.Td24) 21 mg TRANSDERMA DAILY [facility] Last Admin: 10/30/23 09:32 Dose: Not Given Olanzapine (Olanzapine 10 Mg Tablet) 20 mg PO BEDTIME [facility] Last Admin: 10/29/23 20:01 Dose: 20 mg Olanzapine (Olanzapine Odt 10 Mg Tab.Rapdis) 10 mg TRANSLINGU BID@0900,1400 [facility] Last Admin: 10/30/23 08:09 Dose: 10 mg Oxybutynin Chloride (Oxybutynin Chloride Er 5 Mg Tab.Er.24) 10 mg PO DAILY [facility] Last Admin: 10/30/23 08:09 Dose: 10 mg Quetiapine Fumarate (Quetiapine Fumarate 50 Mg Tablet) 50 mg PO BID@0900,1400 [facility] Last Admin: 10/30/23 08:08 Dose: 50 mg Quetiapine Fumarate (Quetiapine Fumarate 100 Mg Tablet) 100 mg PO Q4H PRN PRN Reason: agitation Last Admin: 10/30/23 10:05 Dose: 100 mg Trazodone HCl (Trazodone Hcl 50 Mg Tablet) 50 mg PO BEDTIME MRX1 PRN PRN Reason: Insomnia Last Admin: 10/20/23 21:31 Dose: 50 mg Trazodone HCl (Trazodone Hcl 25 Mg Halftab) 25 mg PO BEDTIME [facility] Last Admin: 10/29/23 20:01 Dose: 25 mg Trazodone HCl (Trazodone Hcl 50 Mg Tablet) 50 mg PO DAILY [facility] Last Admin: 10/30/23 08:08 Dose: 50 mg Allergies Allergies Allergy/AdvReac Type Severity Reaction Status Date / Time amantadine AdvReac Unknown Verified 09/29/23 17:57 Assessment & Plan Assessment & Plan (1) Diabetes: Qualifiers: Diabetes mellitus complication status: without complication Status: Acute Code(s): E11.9 - Type 2 diabetes mellitus without complications (2) HLD (hyperlipidemia): Qualifiers: Hyperlipidemia type: unspecified Qualified Code(s): E78.5 - Hyperlipidemia, unspecified Status: Acute Code(s): E78.5 - Hyperlipidemia, unspecified (3) Traumatic brain injury: Qualifiers: Loss of consciousness presence/duration: unknown LOC status Status: Acute Code(s): S06.9XAA - Unspecified intracranial injury with loss of consciousness status unknown, initial encounter Plan 63-year-old female with TBI, dementia, disorganized who presents for aggressive behavior. Hospital course: 10/12 Patient disruptive last night, again today, disorganized and thinks she is back at her correction, asking for her cigarettes over and over, talking to herself. Patient yelling [place] the [place], ran into staff with wheelchair though maybe not on purpose; patient lowered herself to the floor. Zyprexa p.r.n. not that helpful. Gym Teacher ordered Ativan 1 mg which did calm her down. On approach she remained disorganized, wanting her cigarettes but was overall calm. Staff reports patient eating and sleeping well. -continue current regimen for now 10/13 Patient remains disorganized, aggressive, yelling; p.r.n. Zyprexa still not helpful. Scheduled Clonazepam not helpful. Give another dose of Ativan which again was calming. PLAN: Will hold Zyprexa p.r.n. since has not proved helpful for calming agitation, despite getting up to 40 mg yesterday. Will instead make Ativan 1 mg t.i.d. p.r.n. available for agitation If Ativan proves helpful, will consider doing away with Zyprexa p.r.n. (and may be scheduled bedtime dose) and see if Tegretol or Depakote would work for aggression. Will likely defer this to primary team however 10/19/23: regarding medications, we will schedule olanzapine in the daytime rather than p.r.n.. Maintain nighttime olanzapine. Will utilize Seroquel as needed. Noted schedule Klonopin and as needed Ativan 10/20: no changes\ 10/26/23: no changes 10/27: Schedule seroqule morning and lunchtime Plan 1. Will keep Zyprexa to 10 mg p.o. q.h.s. at night to target psychosis. We will start the taper of Zyprexa slowly since it has worked very limited. 2. Keep Klonopin scheduled and Ativan p.r.n. anxiety. On October 16 we are increasing Klonopin up to 1 mg p.o. t.i.d. 3. We will work on amendment or starting the Sherif order. We are waiting for the legal team to provide me the exact form and contact the legal guardians. 4. Keep Seroquel 50 mg p.o. b.i.d. started on October 27. 5. Increased Seroquel up to 100 mg p.o. b.i.d. p.r.n. and keep Ativan 1 mg p.o. p.r.n. Reason for continued inpatient stay Substantial Risk for: inability to function, rapid decompensation and med/psych decompensation Time Spent With Patient Time: Total time managing care of this patient today __20__ minutes.
[2023-10-30 11:35] VITALS: BP 105/60
[2023-10-30 16:00] VITALS: BP 138/60; PULSE 67
[2023-10-30 18:00] VITALS: BP 112/58; PULSE 60; RESP 16; TEMP 36.1; O2SAT 95
[2023-10-30] MEDS: traZODone HCL 25 MG HALFTAB PO (20:43)
[2023-10-30] MEDS: OLANZapine 10 MG TABLET 20 MG PO (20:44)
[2023-10-31 08:13] VITALS: BP 151/58; PULSE 77; RESP 18; TEMP 37; O2SAT 93
[2023-10-31] MEDS: Midodrine HCl 5 MG TABLET PO ×3 (08:15→16:56)
[2023-10-31] MEDS: OLANZapine ODT 10 MG TAB.RAPDIS TRANSLINGU ×2 (08:15→12:45)
[2023-10-31] MEDS: Escitalopram Oxalate 5 MG TABLET PO (08:15)
[2023-10-31] MEDS: Famotidine 20 MG TABLET PO ×2 (08:15→20:51)
[2023-10-31] MEDS: metFORMIN HCl 500 MG TABLET PO (08:15)
[2023-10-31] MEDS: Docusate Sodium 100 MG CAPSULE PO ×2 (08:15→20:50)
[2023-10-31] MEDS: Aspirin 81 MG TAB.CHEW PO (08:15)
[2023-10-31] MEDS: oxyBUTYnin chloride ER 5 MG TAB.ER.24 10 MG PO (08:15)
[2023-10-31] MEDS: lamoTRIgine 100 MG TABLET 200 MG PO ×2 (08:16→20:49)
[2023-10-31] MEDS: hydrOXYzine HCL 25 MG TABLET PO (08:16)
[2023-10-31] MEDS: QUEtiapine Fumarate 50 MG TABLET PO ×2 (08:16→12:45)
[2023-10-31] MEDS: Atorvastatin Calcium 80 MG TABLET PO (08:16)
[2023-10-31] MEDS: LORazepam 1 MG TABLET PO ×3 (08:16→20:49)
[2023-10-31] MEDS: QUEtiapine Fumarate 100 MG TABLET PO ×2 (08:16→14:30)
[2023-10-31] MEDS: traZODone HCL 50 MG TABLET PO (08:16)
[2023-10-31] MEDS: Gabapentin 300 MG CAPSULE 900 MG PO ×3 (08:16→20:50)
[2023-10-31] MEDS: Nicotine 21 MG PATCH.TD24 TRANSDERMA (08:16)
--- NOTE | 2023-10-31 13:26 | P.PNPSI_ITS ---
Subjective Subjective Date of Service: 10/31/23 Reason For Visit: agitation Subjective Notes: Conditional Voluntary Interim History: The nursing staff reported the patient had a good day yesterday, today had been loud and needed p.r.n. medication even though she is not over-sedated. She slept well and the court order for treatment over objection wheezing process. On interview the patient denies new symptoms, mild improvement. Mental Status Exam Mental Status Exam Patient Appearance: Appropriate (Wheelchair bounded) Patient Orientation: Person Level of Consciousness: Awake Patient Behavior: Guarded Mood Description: Withdrawn Affect Description: Constricted Patient Cognition Impaired: Yes Ability to Follow Directions: Good Speech Pattern: Clear Hallucinations: None Delusions: Paranoid Ideation and Ideas of Reference Thought Process: Linear Thought Content: positive for [place], positive for Poverty of Content and positive for Disorganized Judgement: Poor Diagnostics Vital Signs (24Hr): Vital Signs - 24 hr 10/30/23 16:00 10/30/23 18:00 10/31/23 08:13 Temperature 96.9 F 98.6 F Pulse Rate 67 60 77 Respiratory Rate 16 18 Blood Pressure 138/60 112/58 L 151/58 H Pulse Oximetry 95 93 Oxygen Delivery Method Room Air Room Air BMI result Body Mass Index 23.0 Labs 10/28/23 08:07 Imaging Radiology Impressions: ITS Impressions Head CT 10/18/23 16:48 IMPRESSION: 1. No acute intracranial hemorrhage or edematous infarct. 2. 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 3. Right temporal approach ventriculostomy catheter with tip terminating in the right lateral ventricle body. No hydrocephalus. Medications Medications Current Medications Acetaminophen (Acetaminophen 325 Mg Tablet) 650 mg PO Q6H PRN PRN Reason: Headache/Pain Mild Scale (1-3) Last Admin: 10/27/23 20:04 Dose: 650 mg Al Hydroxide/Mg Hydroxide (Magnesium Hydrox/Alum Hydrox 30 Ml Oral.Susp) 30 ml PO Q6H PRN PRN Reason: Heartburn/Nausea Aspirin (Aspirin 81 Mg Tab.Chew) 81 mg PO DAILY [facility] Last Admin: 10/31/23 08:15 Dose: 81 mg Atorvastatin Calcium (Atorvastatin Calcium 80 Mg Tablet) 80 mg PO DAILY [facility] Last Admin: 10/31/23 08:16 Dose: 80 mg Docusate Sodium (Docusate Sodium 100 Mg Capsule) 100 mg PO BID [facility] Last Admin: 10/31/23 08:15 Dose: 100 mg Escitalopram Oxalate (Escitalopram Oxalate 5 Mg Tablet) 5 mg PO DAILY [facility] Last Admin: 10/31/23 08:15 Dose: 5 mg Famotidine (Famotidine 20 Mg Tablet) 20 mg PO BID [facility] Last Admin: 10/31/23 08:15 Dose: 20 mg Gabapentin (Gabapentin 300 Mg Capsule) 900 mg PO TID [facility] Last Admin: 10/31/23 08:16 Dose: 900 mg Hydroxyzine HCl (Hydroxyzine Hcl 25 Mg Tablet) 25 mg PO Q6H PRN PRN Reason: Anxiety Last Admin: 10/31/23 08:16 Dose: 25 mg Ibuprofen (Ibuprofen 400 Mg Tablet) 400 mg PO Q6H PRN PRN Reason: Mild Pain (Scale Score 1-4) Last Admin: 10/26/23 10:12 Dose: 400 mg Lamotrigine (Lamotrigine 100 Mg Tablet) 200 mg PO BID [facility] Last Admin: 10/31/23 08:16 Dose: 200 mg Latanoprost (Latanoprost 0.005 % Ophth Pati 2.5 Ml Drops) 1 drop EYE-BOTH BEDTIME [facility] Last Admin: 10/30/23 20:47 Dose: Not Given Lorazepam (Lorazepam 1 Mg Tablet) 1 mg PO Q4H PRN PRN Reason: anxiety/restlessness Last Admin: 10/31/23 08:16 Dose: 1 mg Magnesium Hydroxide (Milk Of Magnesia 30 Ml Oral.Susp) 30 ml PO DAILY PRN PRN Reason: Constipation Last Admin: 10/29/23 10:19 Dose: 30 ml Metformin HCl (Metformin Hcl 500 Mg Tablet) 500 mg PO DAILY [facility] Last Admin: 10/31/23 08:15 Dose: 500 mg Midodrine (Midodrine Hcl 5 Mg Tablet) 5 mg PO TIDWM [facility] Last Admin: 10/31/23 12:45 Dose: 5 mg Nicotine (Nicotine 21 Mg Patch.Td24) 21 mg TRANSDERMA DAILY [facility] Last Admin: 10/31/23 08:16 Dose: 21 mg Olanzapine (Olanzapine 10 Mg Tablet) 20 mg PO BEDTIME [facility] Last Admin: 10/30/23 20:44 Dose: 20 mg Olanzapine (Olanzapine Odt 10 Mg Tab.Rapdis) 10 mg TRANSLINGU BID@0900,1400 [facility] Last Admin: 10/31/23 12:45 Dose: 10 mg Oxybutynin Chloride (Oxybutynin Chloride Er 5 Mg Tab.Er.24) 10 mg PO DAILY [facility] Last Admin: 10/31/23 08:15 Dose: 10 mg Quetiapine Fumarate (Quetiapine Fumarate 50 Mg Tablet) 50 mg PO BID@0900,1400 [facility] Last Admin: 10/31/23 12:45 Dose: 50 mg Quetiapine Fumarate (Quetiapine Fumarate 100 Mg Tablet) 100 mg PO Q4H PRN PRN Reason: agitation Last Admin: 10/31/23 08:16 Dose: 100 mg Trazodone HCl (Trazodone Hcl 50 Mg Tablet) 50 mg PO BEDTIME MRX1 PRN PRN Reason: Insomnia Last Admin: 10/20/23 21:31 Dose: 50 mg Trazodone HCl (Trazodone Hcl 25 Mg Halftab) 25 mg PO BEDTIME [facility] Last Admin: 10/30/23 20:43 Dose: 25 mg Trazodone HCl (Trazodone Hcl 50 Mg Tablet) 50 mg PO DAILY [facility] Last Admin: 10/31/23 08:16 Dose: 50 mg Allergies Allergies Allergy/AdvReac Type Severity Reaction Status Date / Time amantadine AdvReac Unknown Verified 09/29/23 17:57 Assessment & Plan Assessment & Plan (1) Diabetes: Qualifiers: Diabetes mellitus complication status: without complication Status: Acute Code(s): E11.9 - Type 2 diabetes mellitus without complications (2) HLD (hyperlipidemia): Qualifiers: Hyperlipidemia type: unspecified Qualified Code(s): E78.5 - Hyperlipidemia, unspecified Status: Acute Code(s): E78.5 - Hyperlipidemia, unspecified (3) Traumatic brain injury: Qualifiers: Loss of consciousness presence/duration: unknown LOC status Status: Acute Code(s): S06.9XAA - Unspecified intracranial injury with loss of consciousness status unknown, initial encounter Plan 63-year-old female with TBI, dementia, disorganized who presents for aggressive behavior. Hospital course: 10/12 Patient disruptive last night, again today, disorganized and thinks she is back at her shelter, asking for her cigarettes over and over, talking to herself. [place], ran into staff with wheelchair though maybe not on purpose; patient lowered herself to the floor. Candis abreu.n. not that helpful. Calliope Player ordered Ativan 1 mg which did calm her down. On approach she remained disorganized, wanting her cigarettes but was overall calm. Staff reports patient eating and sleeping well. -continue current regimen for now 10/13 Patient remains disorganized, aggressive, yelling; p.r.n. Zyprexa still not helpful. Scheduled Clonazepam not helpful. Give another dose of Ativan which again was calming. PLAN: Will hold Zyprexa p.r.n. since has not proved helpful for calming agitation, despite getting up to 40 mg yesterday. Will instead make Ativan 1 mg t.i.d. p.r.n. available for agitation If Ativan proves helpful, will consider doing away with Zyprexa p.r.n. (and may be scheduled bedtime dose) and see if Tegretol or Depakote would work for aggression. Will likely defer this to primary team however 10/19/23: regarding medications, we will schedule olanzapine in the daytime rather than p.r.n.. Maintain nighttime olanzapine. Will utilize Seroquel as needed. Noted schedule Klonopin and as needed Ativan 10/20: no changes\ 10/26/23: no changes 10/27: Schedule seroqule morning and lunchtime Plan 1. Will keep Zyprexa to 10 mg p.o. q.h.s. at night to target psychosis. We will start the taper of Zyprexa slowly since it has worked very limited. 2. Keep Klonopin scheduled and Ativan p.r.n. anxiety. On October 16 we are increasing Klonopin up to 1 mg p.o. t.i.d. 3. We will work on amendment or starting the Sherif order. We are waiting for the legal team to provide me the exact form and contact the legal guardians. 4. Keep Seroquel 50 mg p.o. b.i.d. started on October 27. 5. Increased Seroquel up to 100 mg p.o. b.i.d. p.r.n. and keep Ativan 1 mg p.o. p.r.n. Reason for continued inpatient stay Substantial Risk for: inability to function, rapid decompensation and med/psych decompensation Time Spent With Patient Time: Total time managing care of this patient today __20__ minutes.
[2023-10-31 18:00] VITALS: BP 131/58; PULSE 69; RESP 16; TEMP 36.4; O2SAT 96
[2023-10-31] MEDS: traZODone HCL 25 MG HALFTAB PO (20:49)
[2023-10-31] MEDS: OLANZapine 10 MG TABLET 20 MG PO (20:49)
[2023-10-31] MEDS: Latanoprost 0.005 % Ophth Sol 2.5 ML DROPS 1 DROP EYE-BOTH (21:04)
[2023-11-01] MEDS: QUEtiapine Fumarate 100 MG TABLET PO ×4 (05:01→20:01)
[2023-11-01] MEDS: LORazepam 1 MG TABLET PO ×5 (05:01→20:00)
[2023-11-01] MEDS: Nicotine 21 MG PATCH.TD24 TRANSDERMA (05:04)
[2023-11-01 07:42] VITALS: BP 126/62; PULSE 69; RESP 18; TEMP 36; O2SAT 96
--- NOTE | 2023-11-01 08:22 | P.PNPSI_ITS ---
Subjective Subjective Date of Service: 11/01/23 Reason For Visit: agitation Subjective Notes: Conditional Voluntary Interim History: The nursing staff reported the patient slept 6 hours, she was up at 04:30 in the morning demanding for cigarettes. The staff has noticed that the combination of Seroquel and Ativan helps her, she does not get over-sedated that she is calmer. On interview, no changes in her mental status. She was pleasant and cooperative. She asked about her discharge. Mental Status Exam Mental Status Exam Patient Appearance: Well Grooomed and Appropriate Patient Orientation: Person and Situation Level of Consciousness: Awake and Restless Patient Behavior: Guarded, Aggressive and Restless Mood Description: Withdrawn Affect Description: Constricted Patient Cognition Impaired: Yes Ability to Follow Directions: Good Speech Pattern: Clear Hallucinations: None Delusions: Not Present Thought Process: Distracted and Evasive Thought Content: positive for [place], positive for [place], positive for Poverty of Content and positive for Thought Blocking Judgement: Poor Diagnostics Vital Signs (24Hr): Vital Signs - 24 hr 10/31/23 18:00 11/01/23 07:42 Temperature 97.6 F 96.8 F Pulse Rate 69 69 Respiratory Rate 16 18 Blood Pressure 131/58 L 126/62 Pulse Oximetry 96 96 Oxygen Delivery Method Room Air Room Air BMI result Body Mass Index 23.0 Labs 10/28/23 08:07 Imaging Radiology Impressions: ITS Impressions Head CT 10/18/23 16:48 IMPRESSION: 1. No acute intracranial hemorrhage or edematous infarct. 2. 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 3. Right temporal approach ventriculostomy catheter with tip terminating in the right lateral ventricle body. No hydrocephalus. Medications Medications Current Medications Acetaminophen (Acetaminophen 325 Mg Tablet) 650 mg PO Q6H PRN PRN Reason: Headache/Pain Mild Scale (1-3) Last Admin: 10/27/23 20:04 Dose: 650 mg Al Hydroxide/Mg Hydroxide (Magnesium Hydrox/Alum Hydrox 30 Ml Oral.Susp) 30 ml PO Q6H PRN PRN Reason: Heartburn/Nausea Aspirin (Aspirin 81 Mg Tab.Chew) 81 mg PO DAILY [facility] [place] Last Admin: 10/31/23 08:15 Dose: 81 mg Atorvastatin Calcium (Atorvastatin Calcium 80 Mg Tablet) 80 mg PO DAILY [facility] [place] Last Admin: 10/31/23 08:16 Dose: 80 mg Docusate Sodium (Docusate Sodium 100 Mg Capsule) 100 mg PO BID [facility] [place] Last Admin: 10/31/23 20:50 Dose: 100 mg Escitalopram Oxalate (Escitalopram Oxalate 5 Mg Tablet) 5 mg PO DAILY [facility] [place] Last Admin: 10/31/23 08:15 Dose: 5 mg Famotidine (Famotidine 20 Mg Tablet) 20 mg PO BID [facility] [place] Last Admin: 10/31/23 20:51 Dose: 20 mg Gabapentin (Gabapentin 300 Mg Capsule) 900 mg PO TID [facility] [place] Last Admin: 10/31/23 20:50 Dose: 900 mg Hydroxyzine HCl (Hydroxyzine Hcl 25 Mg Tablet) 25 mg PO Q6H PRN PRN Reason: Anxiety Last Admin: 10/31/23 08:16 Dose: 25 mg Ibuprofen (Ibuprofen 400 Mg Tablet) 400 mg PO Q6H PRN PRN Reason: Mild Pain (Scale Score 1-4) Last Admin: 10/26/23 10:12 Dose: 400 mg Lamotrigine (Lamotrigine 100 Mg Tablet) 200 mg PO BID [facility] [place] Last Admin: 10/31/23 20:49 Dose: 200 mg Latanoprost (Latanoprost 0.005 % Ophth Pati 2.5 Ml Drops) 1 drop EYE-BOTH BEDTIME [facility] [place] Last Admin: 10/31/23 21:04 Dose: 1 drop Lorazepam (Lorazepam 1 Mg Tablet) 1 mg PO Q4H PRN PRN Reason: anxiety/restlessness Last Admin: 11/01/23 05:01 Dose: 1 mg Magnesium Hydroxide (Milk Of Magnesia 30 Ml Oral.Susp) 30 ml PO DAILY PRN PRN Reason: Constipation Last Admin: 10/29/23 10:19 Dose: 30 ml Metformin HCl (Metformin Hcl 500 Mg Tablet) 500 mg PO DAILY [facility] [place] Last Admin: 10/31/23 08:15 Dose: 500 mg Midodrine (Midodrine Hcl 5 Mg Tablet) 5 mg PO TIDWM [facility] [place] Last Admin: 10/31/23 16:56 Dose: 5 mg Nicotine (Nicotine 21 Mg Patch.Td24) 21 mg TRANSDERMA DAILY [facility] [place] Last Admin: 11/01/23 05:04 Dose: 21 mg Olanzapine (Olanzapine 10 Mg Tablet) 20 mg PO BEDTIME [facility] [place] Last Admin: 10/31/23 20:49 Dose: 20 mg Olanzapine (Olanzapine Odt 10 Mg Tab.Rapdis) 10 mg TRANSLINGU BID@0900,1400 [facility] [place] Last Admin: 10/31/23 12:45 Dose: 10 mg Oxybutynin Chloride (Oxybutynin Chloride Er 5 Mg Tab.Er.24) 10 mg PO DAILY [facility] [place] Last Admin: 10/31/23 08:15 Dose: 10 mg Quetiapine Fumarate (Quetiapine Fumarate 50 Mg Tablet) 50 mg PO BID@0900,1400 [facility] [place] Last Admin: 10/31/23 12:45 Dose: 50 mg Quetiapine Fumarate (Quetiapine Fumarate 100 Mg Tablet) 100 mg PO Q4H PRN PRN Reason: agitation Last Admin: 11/01/23 05:01 Dose: 100 mg Trazodone HCl (Trazodone Hcl 50 Mg Tablet) 50 mg PO BEDTIME MRX1 PRN PRN Reason: Insomnia Last Admin: 10/20/23 21:31 Dose: 50 mg Trazodone HCl (Trazodone Hcl 25 Mg Halftab) 25 mg PO BEDTIME [facility] [place] Last Admin: 10/31/23 20:49 Dose: 25 mg Trazodone HCl (Trazodone Hcl 50 Mg Tablet) 50 mg PO DAILY [facility] [place] Last Admin: 10/31/23 08:16 Dose: 50 mg Allergies Allergies Allergy/AdvReac Type Severity Reaction Status Date / Time amantadine AdvReac Unknown Verified 09/29/23 17:57 Assessment & Plan Assessment & Plan (1) Diabetes: Qualifiers: Diabetes mellitus complication status: without complication Status: Acute Code(s): E11.9 - Type 2 diabetes mellitus without complications (2) HLD (hyperlipidemia): Qualifiers: Hyperlipidemia type: unspecified Qualified Code(s): E78.5 - Hyperlipidemia, unspecified Status: Acute Code(s): E78.5 - Hyperlipidemia, unspecified (3) Traumatic brain injury: Qualifiers: Loss of consciousness presence/duration: unknown LOC status Status: Acute Code(s): S06.9XAA - Unspecified intracranial injury with loss of consciousness status unknown, initial encounter Plan 63-year-old female with TBI, dementia, disorganized who presents for aggressive behavior. Hospital course: 10/12 Patient disruptive last night, again today, disorganized and thinks she is back at her [place] [facility], asking for her cigarettes over and over, talking to herself. [place], ran into staff with wheelchair though maybe not on purpose; patient lowered herself to the floor. Zyprexa p.r.n. not that helpful. Pipe Smoking Machine Offbearer ordered Ativan 1 mg which did calm her down. On approach she remained disorganized, wanting her cigarettes but was overall calm. Staff reports patient eating and sleeping well. -continue current regimen for now 10/13 Patient remains disorganized, aggressive, yelling; p.r.n. Zyprexa still not helpful. Scheduled Clonazepam not helpful. Give another dose of Ativan which again was calming. PLAN: Will hold Zyprexa p.r.n. since has not proved helpful for calming agitation, despite getting up to 40 mg yesterday. Will instead make Ativan 1 mg t.i.d. p.r.n. available for agitation If Ativan proves helpful, will consider doing away with Zyprexa p.r.n. (and may be scheduled bedtime dose) and see if Tegretol or Depakote would work for aggression. Will likely defer this to primary team however 10/19/23: regarding medications, we will schedule olanzapine in the daytime rather than p.r.n.. Maintain nighttime olanzapine. Will utilize Seroquel as needed. Noted schedule Klonopin and as needed Ativan 10/20: no changes\ 10/26/23: no changes 10/27: Schedule seroqule morning and lunchtime Plan 1. Will keep Zyprexa to 10 mg p.o. q.h.s. at night to target psychosis. We will start the taper of Zyprexa slowly since it has worked very limited. 2. Keep Klonopin scheduled and Ativan p.r.n. anxiety. On October 16 we are increasing Klonopin up to 1 mg p.o. t.i.d. 3. We will work on amendment or starting the Sherif order. We are waiting for the legal team to provide me the exact form and contact the legal guardians. 4. Keep Seroquel 50 mg p.o. b.i.d. started on October 27. 5. Increased Seroquel up to 100 mg p.o. b.i.d. p.r.n. and keep Ativan 1 mg p.o. p.r.n. Reason for continued inpatient stay Substantial Risk for: inability to function, rapid decompensation and med/psych decompensation Time Spent With Patient Time: Total time managing care of this patient today __20__ minutes.
[2023-11-01] MEDS: Gabapentin 300 MG CAPSULE 900 MG PO ×3 (09:08→19:57)
[2023-11-01] MEDS: metFORMIN HCl 500 MG TABLET PO (09:09)
[2023-11-01] MEDS: Docusate Sodium 100 MG CAPSULE PO ×2 (09:09→20:02)
[2023-11-01] MEDS: traZODone HCL 50 MG TABLET PO (09:09)
[2023-11-01] MEDS: QUEtiapine Fumarate 50 MG TABLET PO ×2 (09:09→13:16)
[2023-11-01] MEDS: oxyBUTYnin chloride ER 5 MG TAB.ER.24 10 MG PO (09:09)
[2023-11-01] MEDS: Aspirin 81 MG TAB.CHEW PO (09:09)
[2023-11-01] MEDS: Famotidine 20 MG TABLET PO ×2 (09:09→20:01)
[2023-11-01] MEDS: lamoTRIgine 100 MG TABLET 200 MG PO ×2 (09:09→20:00)
[2023-11-01] MEDS: OLANZapine ODT 10 MG TAB.RAPDIS TRANSLINGU ×2 (09:10→13:16)
[2023-11-01] MEDS: Escitalopram Oxalate 5 MG TABLET PO (09:10)
[2023-11-01] MEDS: Atorvastatin Calcium 80 MG TABLET PO (09:12)
[2023-11-01 10:17] VITALS: BP 121/62
[2023-11-01 17:10] VITALS: BP 117/64
[2023-11-01] MEDS: hydrOXYzine HCL 25 MG TABLET PO (17:20)
[2023-11-01] MEDS: Midodrine HCl 5 MG TABLET PO (17:20)
[2023-11-01 18:00] VITALS: BP 127/57; PULSE 70; RESP 16; TEMP 36.1; O2SAT 96
[2023-11-01] MEDS: OLANZapine 10 MG TABLET 20 MG PO (19:58)
[2023-11-01] MEDS: traZODone HCL 25 MG HALFTAB PO (20:01)
[2023-11-02] MEDS: LORazepam 1 MG TABLET PO ×3 (05:48→19:55)
[2023-11-02] MEDS: QUEtiapine Fumarate 100 MG TABLET PO ×3 (05:48→19:55)
[2023-11-02 09:10] VITALS: BP 126/96; PULSE 72; RESP 15; TEMP 36.8; O2SAT 97
--- NOTE | 2023-11-02 09:11 | PC.NURSE ---
Pt.'s BP is currently 126/96-asymptomatic. This was reported to Dr. Zarco via [employer] right now.
[2023-11-02] MEDS: traZODone HCL 50 MG TABLET PO (09:14)
[2023-11-02] MEDS: Aspirin 81 MG TAB.CHEW PO (09:14)
[2023-11-02] MEDS: Midodrine HCl 5 MG TABLET PO ×2 (09:14→19:54)
[2023-11-02] MEDS: metFORMIN HCl 500 MG TABLET PO (09:14)
[2023-11-02] MEDS: Atorvastatin Calcium 80 MG TABLET PO (09:14)
[2023-11-02] MEDS: Docusate Sodium 100 MG CAPSULE PO ×2 (09:14→19:55)
[2023-11-02] MEDS: QUEtiapine Fumarate 50 MG TABLET PO ×2 (09:14→13:03)
[2023-11-02] MEDS: Escitalopram Oxalate 5 MG TABLET PO (09:14)
[2023-11-02] MEDS: Famotidine 20 MG TABLET PO ×2 (09:14→19:54)
[2023-11-02] MEDS: OLANZapine ODT 10 MG TAB.RAPDIS TRANSLINGU ×2 (09:14→13:02)
[2023-11-02] MEDS: lamoTRIgine 100 MG TABLET 200 MG PO ×2 (09:14→19:54)
[2023-11-02] MEDS: oxyBUTYnin chloride ER 5 MG TAB.ER.24 10 MG PO (09:15)
[2023-11-02] MEDS: Gabapentin 300 MG CAPSULE 900 MG PO ×3 (09:16→19:52)
--- NOTE | 2023-11-02 10:58 | P.PNPSI_ITS ---
Subjective Subjective Date of Service: 11/02/23 Reason For Visit: agitation Subjective Notes: Conditional Voluntary Interim History: The nursing staff reported the patient had been visible in the unit labile, she required Ativan and Seroquel any work very well. It seems that she is confused at times and has poor vision. On interview the patient denies new symptoms decided some pain on her toe. We discussed and she agreed to take Tylenol scheduled 3 times a day. Mental Status Exam Mental Status Exam Patient Appearance: Appropriate Patient Orientation: Person Level of Consciousness: Awake and Appropriate Patient Behavior: Guarded and Passive Mood Description: Withdrawn Affect Description: Constricted Patient Cognition Impaired: Yes Ability to Follow Directions: Good Speech Pattern: Clear Hallucinations: None Delusions: Not Present Thought Process: Distracted and Linear Thought Content: positive for [place] and positive for Poverty of Content Judgement: Poor Diagnostics Vital Signs (24Hr): Vital Signs - 24 hr 11/01/23 17:10 11/01/23 18:00 11/02/23 09:10 Temperature 97 F 98.2 F Pulse Rate 70 72 Respiratory Rate 16 15 Blood Pressure 117/64 127/57 L 126/96 H Pulse Oximetry 96 97 Oxygen Delivery Method Room Air Room Air BMI result Body Mass Index 23.0 Labs 10/28/23 08:07 Imaging Radiology Impressions: ITS Impressions Head CT 10/18/23 16:48 IMPRESSION: 1. No acute intracranial hemorrhage or edematous infarct. 2. 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 3. Right temporal approach ventriculostomy catheter with tip terminating in the right lateral ventricle body. No hydrocephalus. Medications Medications Current Medications Acetaminophen (Acetaminophen 325 Mg Tablet) 650 mg PO Q6H PRN PRN Reason: Headache/Pain Mild Scale (1-3) Last Admin: 10/27/23 20:04 Dose: 650 mg Al Hydroxide/Mg Hydroxide (Magnesium Hydrox/Alum Hydrox 30 Ml Oral.Susp) 30 ml PO Q6H PRN PRN Reason: Heartburn/Nausea Aspirin (Aspirin 81 Mg Tab.Chew) 81 mg PO DAILY [facility] Last Admin: 11/02/23 09:14 Dose: 81 mg Atorvastatin Calcium (Atorvastatin Calcium 80 Mg Tablet) 80 mg PO DAILY [facility] Last Admin: 11/02/23 09:14 Dose: 80 mg Docusate Sodium (Docusate Sodium 100 Mg Capsule) 100 mg PO BID [facility] Last Admin: 11/02/23 09:14 Dose: 100 mg Escitalopram Oxalate (Escitalopram Oxalate 5 Mg Tablet) 5 mg PO DAILY [facility] Last Admin: 11/02/23 09:14 Dose: 5 mg Famotidine (Famotidine 20 Mg Tablet) 20 mg PO BID [facility] Last Admin: 11/02/23 09:14 Dose: 20 mg Gabapentin (Gabapentin 300 Mg Capsule) 900 mg PO TID [facility] Last Admin: 11/02/23 09:16 Dose: 900 mg Hydroxyzine HCl (Hydroxyzine Hcl 25 Mg Tablet) 25 mg PO Q6H PRN PRN Reason: Anxiety Last Admin: 11/01/23 17:20 Dose: 25 mg Ibuprofen (Ibuprofen 400 Mg Tablet) 400 mg PO Q6H PRN PRN Reason: Mild Pain (Scale Score 1-4) Last Admin: 10/26/23 10:12 Dose: 400 mg Lamotrigine (Lamotrigine 100 Mg Tablet) 200 mg PO BID [facility] Last Admin: 11/02/23 09:14 Dose: 200 mg Latanoprost (Latanoprost 0.005 % Ophth Pati 2.5 Ml Drops) 1 drop EYE-BOTH BEDTIME [facility] Last Admin: 11/01/23 20:06 Dose: Not Given Lorazepam (Lorazepam 1 Mg Tablet) 1 mg PO Q4H PRN PRN Reason: anxiety/restlessness Last Admin: 11/02/23 05:48 Dose: 1 mg Magnesium Hydroxide (Milk Of Magnesia 30 Ml Oral.Susp) 30 ml PO DAILY PRN PRN Reason: Constipation Last Admin: 10/29/23 10:19 Dose: 30 ml Metformin HCl (Metformin Hcl 500 Mg Tablet) 500 mg PO DAILY [facility] Last Admin: 11/02/23 09:14 Dose: 500 mg Midodrine (Midodrine Hcl 5 Mg Tablet) 5 mg PO TIDWM [facility] Last Admin: 11/02/23 09:14 Dose: 5 mg Nicotine (Nicotine 21 Mg Patch.Td24) 21 mg TRANSDERMA DAILY [facility] Last Admin: 11/02/23 10:39 Dose: Not Given Olanzapine (Olanzapine 10 Mg Tablet) 20 mg PO BEDTIME [facility] Last Admin: 11/01/23 19:58 Dose: 20 mg Olanzapine (Olanzapine Odt 10 Mg Tab.Rapdis) 10 mg TRANSLINGU BID@0900,1400 [facility] Last Admin: 11/02/23 09:14 Dose: 10 mg Oxybutynin Chloride (Oxybutynin Chloride Er 5 Mg Tab.Er.24) 10 mg PO DAILY [facility] Last Admin: 11/02/23 09:15 Dose: 10 mg Quetiapine Fumarate (Quetiapine Fumarate 50 Mg Tablet) 50 mg PO BID@0900,1400 [facility] Last Admin: 11/02/23 09:14 Dose: 50 mg Quetiapine Fumarate (Quetiapine Fumarate 100 Mg Tablet) 100 mg PO Q4H PRN PRN Reason: agitation Last Admin: 11/02/23 05:48 Dose: 100 mg Trazodone HCl (Trazodone Hcl 50 Mg Tablet) 50 mg PO BEDTIME MRX1 PRN PRN Reason: Insomnia Last Admin: 10/20/23 21:31 Dose: 50 mg Trazodone HCl (Trazodone Hcl 25 Mg Halftab) 25 mg PO BEDTIME [facility] Last Admin: 11/01/23 20:01 Dose: 25 mg Trazodone HCl (Trazodone Hcl 50 Mg Tablet) 50 mg PO DAILY [facility] Last Admin: 11/02/23 09:14 Dose: 50 mg Allergies Allergies Allergy/AdvReac Type Severity Reaction Status Date / Time amantadine AdvReac Unknown Verified 09/29/23 17:57 Assessment & Plan Assessment & Plan (1) Diabetes: Qualifiers: Diabetes mellitus complication status: without complication Status: Acute Code(s): E11.9 - Type 2 diabetes mellitus without complications (2) HLD (hyperlipidemia): Qualifiers: Hyperlipidemia type: unspecified Qualified Code(s): E78.5 - Hyperlipidemia, unspecified Status: Acute Code(s): E78.5 - Hyperlipidemia, unspecified (3) Traumatic brain injury: Qualifiers: Loss of consciousness presence/duration: unknown LOC status Status: Acute Code(s): S06.9XAA - Unspecified intracranial injury with loss of consciousness status unknown, initial encounter Plan 63-year-old female with TBI, dementia, disorganized who presents for aggressive behavior. Hospital course: 10/12 Patient disruptive last night, again today, disorganized and thinks she is back [facility] her [facility], asking for her cigarettes over and over, talking to herself. Patient yelling in the [place], ran into staff with wheelchair though maybe not on purpose; patient lowered herself to the floor. Zyprexa p.r.n. not that helpful. Ophthalmologist ordered Ativan 1 mg which did calm her down. On approach she remained disorganized, wanting her cigarettes but was overall calm. Staff reports patient eating and sleeping well. -continue current regimen for now 10/13 Patient remains disorganized, aggressive, yelling; p.r.n. Zyprexa still not helpful. Scheduled Clonazepam not helpful. Give another dose of Ativan which again was calming. PLAN: Will hold Zyprexa p.r.n. since has not proved helpful for calming agitation, despite getting up to 40 mg yesterday. Will instead make Ativan 1 mg t.i.d. p.r.n. available for agitation If Ativan proves helpful, will consider doing away with Zyprexa p.r.n. (and may be scheduled bedtime dose) and see if Tegretol or Depakote would work for aggression. Will likely defer this to primary team however 10/19/23: regarding medications, we will schedule olanzapine in the daytime rather than p.r.n.. Maintain nighttime olanzapine. Will utilize Seroquel as needed. Noted schedule Klonopin and as needed Ativan 10/20: no changes\ 10/26/23: no changes 10/27: Schedule seroqule morning and lunchtime Plan 1. Will keep Zyprexa to 10 mg p.o. q.h.s. at night to target psychosis. We will start the taper of Zyprexa slowly since it has worked very limited. 2. Keep Klonopin scheduled and Ativan p.r.n. anxiety. On October 16 we are increasing Klonopin up to 1 mg p.o. t.i.d. 3. We will work on amendment or starting the Sher[employer] order. We are waiting for the legal team to provide me the exact form and contact the legal guardians. 4. Keep Seroquel 50 mg p.o. b.i.d. started on October 27. 5. Increased Seroquel up to 100 mg p.o. b.i.d. p.r.n. and keep Ativan 1 mg p.o. p.r.n. 6. Start Tylenol 650 mg p.o. t.i.d. schedule Reason for continued inpatient stay Substantial Risk for: inability to function, rapid decompensation and med/psych decompensation Time Spent With Patient Time: Total time managing care of this patient today _20___ minutes.
[2023-11-02] MEDS: Acetaminophen 325 MG TABLET 650 MG PO ×2 (14:52→19:53)
[2023-11-02 16:11] VITALS: BP 123/55
[2023-11-02 18:00] VITALS: BP 116/57; PULSE 78; RESP 16; TEMP 35.7; O2SAT 99
[2023-11-02] MEDS: OLANZapine 10 MG TABLET 20 MG PO (19:52)
[2023-11-02] MEDS: traZODone HCL 25 MG HALFTAB PO (19:55)
[2023-11-03] MEDS: QUEtiapine Fumarate 100 MG TABLET PO ×3 (06:58→19:44)
[2023-11-03] MEDS: LORazepam 1 MG TABLET PO ×2 (06:58→10:52)
[2023-11-03 08:49] VITALS: BP 111/72; PULSE 78; RESP 15; TEMP 36.4; O2SAT 98
[2023-11-03] MEDS: Famotidine 20 MG TABLET PO ×2 (08:54→19:46)
[2023-11-03] MEDS: Aspirin 81 MG TAB.CHEW PO (08:54)
[2023-11-03] MEDS: lamoTRIgine 100 MG TABLET 200 MG PO ×2 (08:54→19:43)
[2023-11-03] MEDS: Acetaminophen 325 MG TABLET 650 MG PO ×3 (08:54→19:42)
[2023-11-03] MEDS: QUEtiapine Fumarate 50 MG TABLET PO ×2 (08:54→14:56)
[2023-11-03] MEDS: oxyBUTYnin chloride ER 5 MG TAB.ER.24 10 MG PO (08:55)
[2023-11-03] MEDS: Docusate Sodium 100 MG CAPSULE PO ×2 (08:55→19:46)
[2023-11-03] MEDS: Midodrine HCl 5 MG TABLET PO ×3 (08:56→16:39)
[2023-11-03] MEDS: Atorvastatin Calcium 80 MG TABLET PO (08:56)
[2023-11-03] MEDS: OLANZapine ODT 10 MG TAB.RAPDIS TRANSLINGU ×2 (08:56→14:56)
[2023-11-03] MEDS: Escitalopram Oxalate 5 MG TABLET PO (08:57)
[2023-11-03] MEDS: metFORMIN HCl 500 MG TABLET PO (08:57)
[2023-11-03] MEDS: Gabapentin 300 MG CAPSULE 900 MG PO ×3 (08:57→19:42)
--- NOTE | 2023-11-03 10:57 | P.PNPSI_ITS ---
Subjective Subjective Date of Service: 11/03/23 Reason For Visit: agitation Subjective Notes: Conditional Voluntary Interim History: The nursing staff reported the patient had been out in the milieu, she slept well and in the morning she was screaming demanding for cigarettes and needed to be medicated with Seroquel and Ativan with for improvement no over-sedation. On interview the patient remains confused but redirectable. Mental Status Exam Mental Status Exam Patient Appearance: Appropriate (Wheelchair bounded) Patient Orientation: Person Level of Consciousness: Awake Patient Behavior: Passive Mood Description: Withdrawn Affect Description: Constricted Patient Cognition Impaired: Yes Ability to Follow Directions: Good Speech Pattern: Clear Hallucinations: None Delusions: Paranoid Ideation Thought Process: Distracted and Slowed Thinking Thought Content: positive for [place] and positive for Poverty of Content Judgement: Fair Diagnostics Vital Signs (24Hr): Vital Signs - 24 hr 11/02/23 16:11 11/02/23 18:00 11/03/23 08:49 Temperature 96.3 F L 97.5 F Pulse Rate 78 78 Respiratory Rate 16 15 Blood Pressure 123/55 L 116/57 L 111/72 Pulse Oximetry 99 98 Oxygen Delivery Method Room Air Room Air BMI result Body Mass Index 23.0 Labs 10/28/23 08:07 Imaging Radiology Impressions: ITS Impressions Head CT 10/18/23 16:48 IMPRESSION: 1. No acute intracranial hemorrhage or edematous infarct. 2. 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 3. Right temporal approach ventriculostomy catheter with tip terminating in the right lateral ventricle body. No hydrocephalus. Medications Medications Current Medications Acetaminophen (Acetaminophen 325 Mg Tablet) 650 mg PO TID [facility] Last Admin: 11/03/23 08:54 Dose: 650 mg Al Hydroxide/Mg Hydroxide (Magnesium Hydrox/Alum Hydrox 30 Ml Oral.Susp) 30 ml PO Q6H PRN PRN Reason: Heartburn/Nausea Aspirin (Aspirin 81 Mg Tab.Chew) 81 mg PO DAILY [facility] Last Admin: 11/03/23 08:54 Dose: 81 mg Atorvastatin Calcium (Atorvastatin Calcium 80 Mg Tablet) 80 mg PO DAILY [facility] Last Admin: 11/03/23 08:56 Dose: 80 mg Docusate Sodium (Docusate Sodium 100 Mg Capsule) 100 mg PO BID [facility] Last Admin: 11/03/23 08:55 Dose: 100 mg Escitalopram Oxalate (Escitalopram Oxalate 5 Mg Tablet) 5 mg PO DAILY [facility] Last Admin: 11/03/23 08:57 Dose: 5 mg Famotidine (Famotidine 20 Mg Tablet) 20 mg PO BID [facility] Last Admin: 11/03/23 08:54 Dose: 20 mg Gabapentin (Gabapentin 300 Mg Capsule) 900 mg PO TID [facility] Last Admin: 11/03/23 08:57 Dose: 900 mg Hydroxyzine HCl (Hydroxyzine Hcl 25 Mg Tablet) 25 mg PO Q6H PRN PRN Reason: Anxiety Last Admin: 11/01/23 17:20 Dose: 25 mg Ibuprofen (Ibuprofen 400 Mg Tablet) 400 mg PO Q6H PRN PRN Reason: Mild Pain (Scale Score 1-4) Last Admin: 10/26/23 10:12 Dose: 400 mg Lamotrigine (Lamotrigine 100 Mg Tablet) 200 mg PO BID [facility] Last Admin: 11/03/23 08:54 Dose: 200 mg Latanoprost (Latanoprost 0.005 % Ophth Pati 2.5 Ml Drops) 1 drop EYE-BOTH BEDTIME [facility] Last Admin: 11/02/23 22:53 Dose: Not Given Lorazepam (Lorazepam 1 Mg Tablet) 1 mg PO Q4H PRN PRN Reason: anxiety/restlessness Last Admin: 11/03/23 10:52 Dose: 1 mg Magnesium Hydroxide (Milk Of Magnesia 30 Ml Oral.Susp) 30 ml PO DAILY PRN PRN Reason: Constipation Last Admin: 10/29/23 10:19 Dose: 30 ml Metformin HCl (Metformin Hcl 500 Mg Tablet) 500 mg PO DAILY [facility] Last Admin: 11/03/23 08:57 Dose: 500 mg Midodrine (Midodrine Hcl 5 Mg Tablet) 5 mg PO TIDWM [facility] Last Admin: 11/03/23 08:56 Dose: 5 mg Nicotine (Nicotine 21 Mg Patch.Td24) 21 mg TRANSDERMA DAILY [facility] Last Admin: 11/03/23 09:09 Dose: Not Given Olanzapine (Olanzapine 10 Mg Tablet) 20 mg PO BEDTIME [facility] Last Admin: 11/02/23 19:52 Dose: 20 mg Olanzapine (Olanzapine Odt 10 Mg Tab.Rapdis) 10 mg TRANSLINGU BID@0900,1400 [facility] Last Admin: 11/03/23 08:56 Dose: 10 mg Oxybutynin Chloride (Oxybutynin Chloride Er 5 Mg Tab.Er.24) 10 mg PO DAILY [facility] Last Admin: 11/03/23 08:55 Dose: 10 mg Quetiapine Fumarate (Quetiapine Fumarate 50 Mg Tablet) 50 mg PO BID@0900,1400 [facility] Last Admin: 11/03/23 08:54 Dose: 50 mg Quetiapine Fumarate (Quetiapine Fumarate 100 Mg Tablet) 100 mg PO Q4H PRN PRN Reason: agitation Last Admin: 11/03/23 10:52 Dose: 100 mg Trazodone HCl (Trazodone Hcl 50 Mg Tablet) 50 mg PO BEDTIME MRX1 PRN PRN Reason: Insomnia Last Admin: 10/20/23 21:31 Dose: 50 mg Trazodone HCl (Trazodone Hcl 25 Mg Halftab) 25 mg PO BEDTIME [facility] Last Admin: 11/02/23 19:55 Dose: 25 mg Trazodone HCl (Trazodone Hcl 50 Mg Tablet) 50 mg PO DAILY [facility] Last Admin: 11/03/23 08:56 Dose: 50 mg Allergies Allergies Allergy/AdvReac Type Severity Reaction Status Date / Time amantadine AdvReac Unknown Verified 09/29/23 17:57 Assessment & Plan Assessment & Plan (1) Diabetes: Qualifiers: Diabetes mellitus complication status: without complication Status: Acute Code(s): E11.9 - Type 2 diabetes mellitus without complications (2) HLD (hyperlipidemia): Qualifiers: Hyperlipidemia type: unspecified Qualified Code(s): E78.5 - Hyperlipidemia, unspecified Status: Acute Code(s): E78.5 - Hyperlipidemia, unspecified (3) Traumatic brain injury: Qualifiers: Loss of consciousness presence/duration: unknown LOC status Status: Acute Code(s): S06.9XAA - Unspecified intracranial injury with loss of consciousness status unknown, initial encounter Plan 63-year-old female with TBI, dementia, disorganized who presents for aggressive behavior. Hospital course: 10/12 Patient disruptive last night, again today, disorganized and thinks she is back at her [facility], asking for her cigarettes over and over, talking to herself. Patient yelling in the [place], ran into staff with wheelchair though maybe not on purpose; patient lowered herself to the floor. Zyprexa p.r.n. not that helpful. Registered Medical Transcriptionist ordered Ativan 1 mg which did calm her down. On approach she remained disorganized, wanting her cigarettes but was overall calm. Staff reports patient eating and sleeping well. -continue current regimen for now 10/13 Patient remains disorganized, aggressive, yelling; p.r.n. Zyprexa still not helpful. Scheduled Clonazepam not helpful. Give another dose of Ativan which again was calming. PLAN: Will hold Zyprexa p.r.n. since has not proved helpful for calming agitation, despite getting up to 40 mg yesterday. Will instead make Ativan 1 mg t.i.d. p.r.n. available for agitation If Ativan proves helpful, will consider doing away with Zyprexa p.r.n. (and may be scheduled bedtime dose) and see if Tegretol or Depakote would work for aggression. Will likely defer this to primary team however 10/19/23: regarding medications, we will schedule olanzapine in the daytime rather than p.r.n.. Maintain nighttime olanzapine. Will utilize Seroquel as needed. Noted schedule Klonopin and as needed Ativan 10/20: no changes\ 10/26/23: no changes 10/27: Schedule seroqule morning and lunchtime Plan 1. Will keep Zyprexa to 10 mg p.o. q.h.s. at night to target psychosis. We will start the taper of Zyprexa slowly since it has worked very limited. 2. Keep Klonopin scheduled and Ativan p.r.n. anxiety. On October 16 we are increasing Klonopin up to 1 mg p.o. t.i.d. 3. We will work on amendment or starting the [facility] order. We are waiting for the legal team to provide me the exact form and contact the legal guardians. 4. Keep Seroquel 50 mg p.o. b.i.d. started on October 27. 5. Increased Seroquel up to 100 mg p.o. b.i.d. p.r.n. and keep Ativan 1 mg p.o. p.r.n. 6. Start Tylenol 650 mg p.o. t.i.d. schedule Reason for continued inpatient stay Substantial Risk for: inability to function, rapid decompensation and med/psych decompensation Time Spent With Patient Time: Total time managing care of this patient today __20__ minutes.
[2023-11-03 12:30] VITALS: BP 109/59
[2023-11-03 16:38] VITALS: BP 113/95
[2023-11-03 18:00] VITALS: BP 101/57; PULSE 65; RESP 18; TEMP 36.1; O2SAT 97
[2023-11-03] MEDS: OLANZapine 10 MG TABLET 20 MG PO (19:44)
[2023-11-03] MEDS: traZODone HCL 50 MG TABLET PO ×2 (19:44→19:45)
[2023-11-03] MEDS: traZODone HCL 25 MG HALFTAB PO (19:47)
[2023-11-04 08:53] VITALS: BP 130/58; PULSE 85; RESP 15; TEMP 36.8; O2SAT 94
[2023-11-04] MEDS: Acetaminophen 325 MG TABLET 650 MG PO ×3 (08:55→21:40)
[2023-11-04] MEDS: lamoTRIgine 100 MG TABLET 200 MG PO ×2 (08:55→21:38)
[2023-11-04] MEDS: metFORMIN HCl 500 MG TABLET PO (08:56)
[2023-11-04] MEDS: Atorvastatin Calcium 80 MG TABLET PO (08:56)
[2023-11-04] MEDS: Docusate Sodium 100 MG CAPSULE PO ×2 (08:56→21:40)
[2023-11-04] MEDS: oxyBUTYnin chloride ER 5 MG TAB.ER.24 10 MG PO (08:56)
[2023-11-04] MEDS: Gabapentin 300 MG CAPSULE 900 MG PO ×3 (08:56→21:39)
[2023-11-04] MEDS: OLANZapine ODT 10 MG TAB.RAPDIS TRANSLINGU ×2 (08:56→14:46)
[2023-11-04] MEDS: QUEtiapine Fumarate 50 MG TABLET PO ×2 (08:56→14:46)
[2023-11-04] MEDS: Famotidine 20 MG TABLET PO ×2 (08:56→21:38)
[2023-11-04] MEDS: Aspirin 81 MG TAB.CHEW PO (08:57)
[2023-11-04] MEDS: Escitalopram Oxalate 5 MG TABLET PO (08:57)
[2023-11-04] MEDS: traZODone HCL 50 MG TABLET PO (08:57)
[2023-11-04 09:18] LABS: Creatinine Clr Calc Pharmacy 75.8; Estimated Glomerular Filt Rate > 60
[2023-11-04] MEDS: QUEtiapine Fumarate 100 MG TABLET PO ×2 (10:40→21:37)
[2023-11-04] MEDS: LORazepam 1 MG TABLET PO ×2 (10:41→21:37)
[2023-11-04 12:42] VITALS: BP 115/56
[2023-11-04] MEDS: Midodrine HCl 5 MG TABLET PO (12:47)
--- NOTE | 2023-11-04 14:31 | HO.PSYCHPN ---
Subjective Subjective Date of Service: 11/04/23 Reason For Visit: agitation Subjective Notes: Conditional Voluntary Interim History: The nursing staff reported the patient slept 7 hours, she needed some PRNs with for improvement. She was seen singing to rocio Ayala. The mental health social worker reported the pen[facility]entiary had been in contact and they are reluctant to take her back without a Zepeda order already on placement. On interview the patient remains pleasantly confused, easily redirectable. P.r.n. of Seroquel and Ativan works very well for. No evidence of psychosis at this moment. Mental Status Exam Mental Status Exam Patient Appearance: Well Grooomed and Appropriate Patient Orientation: Person and Situation Level of Consciousness: Awake and Appropriate Patient Behavior: Guarded and Passive Mood Description: Withdrawn Affect Description: Constricted Patient Cognition Impaired: Yes Ability to Follow Directions: Good Speech Pattern: Clear Hallucinations: None Delusions: Not Present Thought Process: Linear Thought Content: positive for Circumstantial Judgement: Fair Diagnostics Vital Signs (24Hr): Vital Signs - 24 hr 11/03/23 16:38 11/03/23 18:00 11/04/23 08:53 Temperature 96.9 F 98.2 F Pulse Rate 65 85 Respiratory Rate 18 15 Blood Pressure 113/95 H 101/57 L 130/58 L Pulse Oximetry 97 94 Oxygen Delivery Method Room Air Room Air 11/04/23 12:42 Temperature Pulse Rate Respiratory Rate Blood Pressure 115/56 L Pulse Oximetry Oxygen Delivery Method BMI result Body Mass Index 23.0 Labs 11/04/23 08:44 Labs: Laboratory Results - last 48 hr 11/04/23 08:44 Hold Purple Top SEE NOTE Creatinine 0.72 Estim Creat Clear Calc 75.8 Estimated GFR > 60 Imaging Radiology Impressions: ITS Impressions Head CT 10/18/23 16:48 IMPRESSION: 1. No acute intracranial hemorrhage or edematous infarct. 2. 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 3. Right temporal approach ventriculostomy catheter with tip terminating in the right lateral ventricle body. No hydrocephalus. Medications Medications Current Medications Acetaminophen (Acetaminophen 325 Mg Tablet) 650 mg PO TID [facility] Last Admin: 11/04/23 08:55 Dose: 650 mg Al Hydroxide/Mg Hydroxide (Magnesium Hydrox/Alum Hydrox 30 Ml Oral.Susp) 30 ml PO Q6H PRN PRN Reason: Heartburn/Nausea Aspirin (Aspirin 81 Mg Tab.Chew) 81 mg PO DAILY [facility] Last Admin: 11/04/23 08:57 Dose: 81 mg Atorvastatin Calcium (Atorvastatin Calcium 80 Mg Tablet) 80 mg PO DAILY [facility] Last Admin: 11/04/23 08:56 Dose: 80 mg Docusate Sodium (Docusate Sodium 100 Mg Capsule) 100 mg PO BID [facility] Last Admin: 11/04/23 08:56 Dose: 100 mg Escitalopram Oxalate (Escitalopram Oxalate 5 Mg Tablet) 5 mg PO DAILY [facility] Last Admin: 11/04/23 08:57 Dose: 5 mg Famotidine (Famotidine 20 Mg Tablet) 20 mg PO BID [facility] Last Admin: 11/04/23 08:56 Dose: 20 mg Gabapentin (Gabapentin 300 Mg Capsule) 900 mg PO TID [facility] Last Admin: 11/04/23 08:56 Dose: 900 mg Hydroxyzine HCl (Hydroxyzine Hcl 25 Mg Tablet) 25 mg PO Q6H PRN PRN Reason: Anxiety Last Admin: 11/01/23 17:20 Dose: 25 mg Ibuprofen (Ibuprofen 400 Mg Tablet) 400 mg PO Q6H PRN PRN Reason: Mild Pain (Scale Score 1-4) Last Admin: 10/26/23 10:12 Dose: 400 mg Lamotrigine (Lamotrigine 100 Mg Tablet) 200 mg PO BID [facility] Last Admin: 11/04/23 08:55 Dose: 200 mg Latanoprost (Latanoprost 0.005 % Ophth Pati 2.5 Ml Drops) 1 drop EYE-BOTH BEDTIME [facility] Last Admin: 11/03/23 22:09 Dose: Not Given Lorazepam (Lorazepam 1 Mg Tablet) 1 mg PO Q4H PRN PRN Reason: anxiety/restlessness Last Admin: 11/04/23 10:41 Dose: 1 mg Magnesium Hydroxide (Milk Of Magnesia 30 Ml Oral.Susp) 30 ml PO DAILY PRN PRN Reason: Constipation Last Admin: 10/29/23 10:19 Dose: 30 ml Metformin HCl (Metformin Hcl 500 Mg Tablet) 500 mg PO DAILY [facility] Last Admin: 11/04/23 08:56 Dose: 500 mg Midodrine (Midodrine Hcl 5 Mg Tablet) 5 mg PO TIDWM [facility] Last Admin: 11/04/23 12:47 Dose: 5 mg Nicotine (Nicotine 21 Mg Patch.Td24) 21 mg TRANSDERMA DAILY [facility] Last Admin: 11/04/23 10:33 Dose: Not Given Olanzapine (Olanzapine 10 Mg Tablet) 20 mg PO BEDTIME [facility] Last Admin: 11/03/23 19:44 Dose: 20 mg Olanzapine (Olanzapine Odt 10 Mg Tab.Rapdis) 10 mg TRANSLINGU BID@0900,1400 [facility] Last Admin: 11/04/23 08:56 Dose: 10 mg Oxybutynin Chloride (Oxybutynin Chloride Er 5 Mg Tab.Er.24) 10 mg PO DAILY [facility] Last Admin: 11/04/23 08:56 Dose: 10 mg Quetiapine Fumarate (Quetiapine Fumarate 50 Mg Tablet) 50 mg PO BID@0900,1400 [facility] Last Admin: 11/04/23 08:56 Dose: 50 mg Quetiapine Fumarate (Quetiapine Fumarate 100 Mg Tablet) 100 mg PO Q4H PRN PRN Reason: agitation Last Admin: 11/04/23 10:40 Dose: 100 mg Trazodone HCl (Trazodone Hcl 50 Mg Tablet) 50 mg PO BEDTIME MRX1 PRN PRN Reason: Insomnia Last Admin: 11/03/23 19:45 Dose: 50 mg Trazodone HCl (Trazodone Hcl 25 Mg Halftab) 25 mg PO BEDTIME [facility] Last Admin: 11/03/23 19:47 Dose: 25 mg Trazodone HCl (Trazodone Hcl 50 Mg Tablet) 50 mg PO DAILY [facility] Last Admin: 11/04/23 08:57 Dose: 50 mg Allergies Allergies Allergy/AdvReac Type Severity Reaction Status Date / Time amantadine AdvReac Unknown Verified 09/29/23 17:57 Assessment & Plan Assessment & Plan (1) Diabetes: Qualifiers: Diabetes mellitus complication status: without complication Status: Acute Code(s): E11.9 - Type 2 diabetes mellitus without complications (2) HLD (hyperlipidemia): Qualifiers: Hyperlipidemia type: unspecified Qualified Code(s): E78.5 - Hyperlipidemia, unspecified Status: Acute Code(s): E78.5 - Hyperlipidemia, unspecified (3) Traumatic brain injury: Qualifiers: Loss of consciousness presence/duration: unknown LOC status Status: Acute Code(s): S06.9XAA - Unspecified intracranial injury with loss of consciousness status unknown, initial encounter Plan 63-year-old female with TBI, dementia, disorganized who presents for aggressive behavior. Hospital course: 10/12 Patient disruptive last night, again today, disorganized and thinks she is back at her [facility], asking for her cigarettes over and over, talking to herself. [place], ran into staff with wheelchair though maybe not on purpose; patient lowered herself to the floor. Zyprexa p.r.n. not that helpful. Forepart Laster ordered Ativan 1 mg which did calm her down. On approach she remained disorganized, wanting her cigarettes but was overall calm. Staff reports patient eating and sleeping well. -continue current regimen for now 10/13 Patient remains disorganized, aggressive, yelling; p.r.n. Zyprexa still not helpful. Scheduled Clonazepam not helpful. Give another dose of Ativan which again was calming. PLAN: Will hold Zyprexa p.r.n. since has not proved helpful for calming agitation, despite getting up to 40 mg yesterday. Will instead make Ativan 1 mg t.i.d. p.r.n. available for agitation If Ativan proves helpful, will consider doing away with Zyprexa p.r.n. (and may be scheduled bedtime dose) and see if Tegretol or Depakote would work for aggression. Will likely defer this to primary team however 10/19/23: regarding medications, we will schedule olanzapine in the daytime rather than p.r.n.. Maintain nighttime olanzapine. Will utilize Seroquel as needed. Noted schedule Klonopin and as needed Ativan 10/20: no changes\ 10/26/23: no changes 10/27: Schedule seroqule morning and lunchtime Plan 1. Will keep Zyprexa to 10 mg p.o. q.h.s. at night to target psychosis. We will start the taper of Zyprexa slowly since it has worked very limited. 2. Keep Klonopin scheduled and Ativan p.r.n. anxiety. On October 16 we are increasing Klonopin up to 1 mg p.o. t.i.d. 3. We will work on amendment or starting the Sherif order. We are waiting for the legal team to provide me the exact form and contact the legal guardians. 4. Keep Seroquel 50 mg p.o. b.i.d. started on October 27. 5. Increased Seroquel up to 100 mg p.o. b.i.d. p.r.n. and keep Ativan 1 mg p.o. p.r.n. 6. Start Tylenol 650 mg p.o. t.i.d. schedule Reason for continued inpatient stay Substantial Risk for: inability to function, rapid decompensation and med/psych decompensation Time Spent With Patient Time: Total time managing care of this patient today __20__ minutes.
[2023-11-04 18:00] VITALS: BP 105/55; PULSE 55; RESP 16; TEMP 36.1
[2023-11-04] MEDS: OLANZapine 10 MG TABLET 20 MG PO (21:37)
[2023-11-04] MEDS: traZODone HCL 25 MG HALFTAB PO (21:39)
[2023-11-05 08:41] VITALS: BP 148/76; PULSE 70; RESP 20; TEMP 36.6; O2SAT 97
[2023-11-05] MEDS: oxyBUTYnin chloride ER 5 MG TAB.ER.24 10 MG PO (08:49)
[2023-11-05] MEDS: traZODone HCL 50 MG TABLET PO (08:49)
[2023-11-05] MEDS: QUEtiapine Fumarate 50 MG TABLET PO ×2 (08:50→14:18)
[2023-11-05] MEDS: Acetaminophen 325 MG TABLET 650 MG PO ×3 (08:50→19:55)
[2023-11-05] MEDS: Famotidine 20 MG TABLET PO ×2 (08:50→19:56)
[2023-11-05] MEDS: Aspirin 81 MG TAB.CHEW PO (08:50)
[2023-11-05] MEDS: Gabapentin 300 MG CAPSULE 900 MG PO ×3 (08:50→19:56)
[2023-11-05] MEDS: OLANZapine ODT 10 MG TAB.RAPDIS TRANSLINGU ×2 (08:50→14:19)
[2023-11-05] MEDS: Midodrine HCl 5 MG TABLET PO ×3 (08:51→18:22)
[2023-11-05] MEDS: lamoTRIgine 100 MG TABLET 200 MG PO ×2 (08:51→19:56)
[2023-11-05] MEDS: Docusate Sodium 100 MG CAPSULE PO ×2 (08:51→19:55)
[2023-11-05] MEDS: metFORMIN HCl 500 MG TABLET PO (08:51)
[2023-11-05] MEDS: Atorvastatin Calcium 80 MG TABLET PO (08:51)
[2023-11-05] MEDS: Escitalopram Oxalate 5 MG TABLET PO (08:51)
[2023-11-05] MEDS: Nicotine 21 MG PATCH.TD24 TRANSDERMA (08:51)
[2023-11-05] MEDS: LORazepam 1 MG TABLET PO ×2 (10:52→20:59)
[2023-11-05] MEDS: QUEtiapine Fumarate 100 MG TABLET PO (10:52)
--- NOTE | 2023-11-05 11:55 | HO.PSYCHPN ---
Subjective Subjective Date of Service: 11/05/23 Reason For Visit: agitation Subjective Notes: Conditional Voluntary Interim History: The nursing staff reported the patient had been visible in the unit, irritable at times demanding cigarettes. The social science manager reported the detention requires an occupational therapist assessment. At this moment the patient is not a candidate for subacute rehab. Today her prescriber called we and provide the following information. They are willing to prescribe the antipsychotics but apparently there is the need of file court order for treatment over objection. So far the patient has never refused antipsychotics. On interview the patient is pleasant and cooperative irritable at times but easily redirectable. She is less labile than before. Mental Status Exam Mental Status Exam Patient Appearance: Well Grooomed (Wheelchair bounded) Patient Orientation: Person Level of Consciousness: Awake Patient Behavior: Passive Mood Description: Withdrawn Affect Description: Constricted Patient Cognition Impaired: Yes Ability to Follow Directions: Good Speech Pattern: Clear Hallucinations: None Delusions: Not Present Thought Process: Distracted and Slowed Thinking Thought Content: positive for [place] and positive for Poverty of Content Judgement: Poor Diagnostics Vital Signs (24Hr): Vital Signs - 24 hr 11/04/23 12:42 11/04/23 18:00 11/05/23 08:41 Temperature 97 F 97.8 F Pulse Rate 55 70 Respiratory Rate 16 20 Blood Pressure 115/56 L 105/55 L 148/76 H Pulse Oximetry 97 Oxygen Delivery Method Room Air Room Air BMI result Body Mass Index 23.0 Labs 11/04/23 08:44 Labs: Laboratory Results - last 48 hr 11/04/23 08:44 Hold Purple Top SEE NOTE Creatinine 0.72 Estim Creat Clear Calc 75.8 Estimated GFR > 60 Imaging Radiology Impressions: ITS Impressions Head CT 10/18/23 16:48 IMPRESSION: 1. No acute intracranial hemorrhage or edematous infarct. 2. 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 3. Right temporal approach ventriculostomy catheter with tip terminating in the right lateral ventricle body. No hydrocephalus. Medications Medications Current Medications Acetaminophen (Acetaminophen 325 Mg Tablet) 650 mg PO TID [facility] Last Admin: 11/05/23 08:50 Dose: 650 mg Al Hydroxide/Mg Hydroxide (Magnesium Hydrox/Alum Hydrox 30 Ml Oral.Susp) 30 ml PO Q6H PRN PRN Reason: Heartburn/Nausea Aspirin (Aspirin 81 Mg Tab.Chew) 81 mg PO DAILY [facility] Last Admin: 11/05/23 08:50 Dose: 81 mg Atorvastatin Calcium (Atorvastatin Calcium 80 Mg Tablet) 80 mg PO DAILY [facility] Last Admin: 11/05/23 08:51 Dose: 80 mg Docusate Sodium (Docusate Sodium 100 Mg Capsule) 100 mg PO BID [facility] Last Admin: 11/05/23 08:51 Dose: 100 mg Escitalopram Oxalate (Escitalopram Oxalate 5 Mg Tablet) 5 mg PO DAILY [facility] Last Admin: 11/05/23 08:51 Dose: 5 mg Famotidine (Famotidine 20 Mg Tablet) 20 mg PO BID [facility] Last Admin: 11/05/23 08:50 Dose: 20 mg Gabapentin (Gabapentin 300 Mg Capsule) 900 mg PO TID [facility] Last Admin: 11/05/23 08:50 Dose: 900 mg Hydroxyzine HCl (Hydroxyzine Hcl 25 Mg Tablet) 25 mg PO Q6H PRN PRN Reason: Anxiety Last Admin: 11/01/23 17:20 Dose: 25 mg Ibuprofen (Ibuprofen 400 Mg Tablet) 400 mg PO Q6H PRN PRN Reason: Mild Pain (Scale Score 1-4) Last Admin: 10/26/23 10:12 Dose: 400 mg Lamotrigine (Lamotrigine 100 Mg Tablet) 200 mg PO BID [facility] Last Admin: 11/05/23 08:51 Dose: 200 mg Latanoprost (Latanoprost 0.005 % Ophth Pati 2.5 Ml Drops) 1 drop EYE-BOTH BEDTIME [facility] Last Admin: 11/04/23 22:49 Dose: Not Given Lorazepam (Lorazepam 1 Mg Tablet) 1 mg PO Q4H PRN PRN Reason: anxiety/restlessness Last Admin: 11/05/23 10:52 Dose: 1 mg Magnesium Hydroxide (Milk Of Magnesia 30 Ml Oral.Susp) 30 ml PO DAILY PRN PRN Reason: Constipation Last Admin: 10/29/23 10:19 Dose: 30 ml Metformin HCl (Metformin Hcl 500 Mg Tablet) 500 mg PO DAILY [facility] Last Admin: 11/05/23 08:51 Dose: 500 mg Midodrine (Midodrine Hcl 5 Mg Tablet) 5 mg PO TIDWM [facility] Last Admin: 11/05/23 08:51 Dose: 5 mg Nicotine (Nicotine 21 Mg Patch.Td24) 21 mg TRANSDERMA DAILY [facility] Last Admin: 11/05/23 08:51 Dose: 21 mg Olanzapine (Olanzapine 10 Mg Tablet) 20 mg PO BEDTIME [facility] Last Admin: 11/04/23 21:37 Dose: 20 mg Olanzapine (Olanzapine Odt 10 Mg Tab.Rapdis) 10 mg TRANSLINGU BID@0900,1400 [facility] Last Admin: 11/05/23 08:50 Dose: 10 mg Oxybutynin Chloride (Oxybutynin Chloride Er 5 Mg Tab.Er.24) 10 mg PO DAILY [facility] Last Admin: 11/05/23 08:49 Dose: 10 mg Quetiapine Fumarate (Quetiapine Fumarate 50 Mg Tablet) 50 mg PO BID@0900,1400 [facility] Last Admin: 11/05/23 08:50 Dose: 50 mg Quetiapine Fumarate (Quetiapine Fumarate 100 Mg Tablet) 100 mg PO Q4H PRN PRN Reason: agitation Last Admin: 11/05/23 10:52 Dose: 100 mg Trazodone HCl (Trazodone Hcl 50 Mg Tablet) 50 mg PO BEDTIME MRX1 PRN PRN Reason: Insomnia Last Admin: 11/03/23 19:45 Dose: 50 mg Trazodone HCl (Trazodone Hcl 25 Mg Halftab) 25 mg PO BEDTIME [facility] Last Admin: 11/04/23 21:39 Dose: 25 mg Trazodone HCl (Trazodone Hcl 50 Mg Tablet) 50 mg PO DAILY [facility] Last Admin: 11/05/23 08:49 Dose: 50 mg Allergies Allergies Allergy/AdvReac Type Severity Reaction Status Date / Time amantadine AdvReac Unknown Verified 09/29/23 17:57 Assessment & Plan Assessment & Plan (1) Diabetes: Qualifiers: Diabetes mellitus complication status: without complication Status: Acute Code(s): E11.9 - Type 2 diabetes mellitus without complications (2) HLD (hyperlipidemia): Qualifiers: Hyperlipidemia type: unspecified Qualified Code(s): E78.5 - Hyperlipidemia, unspecified Status: Acute Code(s): E78.5 - Hyperlipidemia, unspecified (3) Traumatic brain injury: Qualifiers: Loss of consciousness presence/duration: unknown LOC status Status: Acute Code(s): S06.9XAA - Unspecified intracranial injury with loss of consciousness status unknown, initial encounter Plan 63-year-old female with TBI, dementia, disorganized who presents for aggressive behavior. Hospital course: 10/12 Patient disruptive last night, again today, disorganized and thinks she is back at her detention, asking for her cigarettes over and over, talking to herself. [place], ran into staff with wheelchair though maybe not on purpose; patient lowered herself to the floor. Zyprexa p.r.n. not that helpful. Stenciler ordered Ativan 1 mg which did calm her down. On approach she remained disorganized, wanting her cigarettes but was overall calm. Staff reports patient eating and sleeping well. -continue current regimen for now 10/13 Patient remains disorganized, aggressive, yelling; p.r.n. Zyprexa still not helpful. Scheduled Clonazepam not helpful. Give another dose of Ativan which again was calming. PLAN: Will hold Zyprexa p.r.n. since has not proved helpful for calming agitation, despite getting up to 40 mg yesterday. Will instead make Ativan 1 mg t.i.d. p.r.n. available for agitation If Ativan proves helpful, will consider doing away with Zyprexa p.r.n. (and may be scheduled bedtime dose) and see if Tegretol or Depakote would work for aggression. Will likely defer this to primary team however 10/19/23: regarding medications, we will schedule olanzapine in the daytime rather than p.r.n.. Maintain nighttime olanzapine. Will utilize Seroquel as needed. Noted schedule Klonopin and as needed Ativan 10/20: no changes\ 10/26/23: no changes 10/27: Schedule seroqule morning and lunchtime Plan 1. Will keep Zyprexa to 10 mg p.o. q.h.s. at night to target psychosis. We will start the taper of Zyprexa slowly since it has worked very limited. 2. Keep Klonopin scheduled and Ativan p.r.n. anxiety. On October 16 we are increasing Klonopin up to 1 mg p.o. t.i.d. 3. We will work on amendment or starting the Sherif order. We are waiting for the legal team to provide me the exact form and contact the legal guardians. 4. Keep Seroquel 50 mg p.o. b.i.d. started on October 27. 5. Increased Seroquel up to 100 mg p.o. b.i.d. p.r.n. and keep Ativan 1 mg p.o. p.r.n. 6. Start Tylenol 650 mg p.o. t.i.d. schedule Reason for continued inpatient stay Substantial Risk for: inability to function, rapid decompensation and med/psych decompensation Time Spent With Patient Time: Total time managing care of this patient today __20__ minutes.
[2023-11-05 14:11] VITALS: BP 121/58
[2023-11-05 18:00] VITALS: BP 123/55; PULSE 62; TEMP 36.6; O2SAT 97
[2023-11-05] MEDS: traZODone HCL 25 MG HALFTAB PO (19:57)
[2023-11-05] MEDS: OLANZapine 10 MG TABLET 20 MG PO (19:57)
[2023-11-05] MEDS: Latanoprost 0.005 % Ophth Sol 2.5 ML DROPS 1 DROP EYE-BOTH (20:04)
[2023-11-06 07:46] VITALS: BP 145/66; PULSE 71; RESP 18; TEMP 36.1; O2SAT 97
[2023-11-06] MEDS: Gabapentin 300 MG CAPSULE 900 MG PO ×3 (08:42→20:25)
[2023-11-06] MEDS: Famotidine 20 MG TABLET PO ×2 (08:42→20:25)
[2023-11-06] MEDS: Escitalopram Oxalate 5 MG TABLET PO (08:42)
[2023-11-06] MEDS: lamoTRIgine 100 MG TABLET 200 MG PO ×2 (08:43→20:25)
[2023-11-06] MEDS: oxyBUTYnin chloride ER 5 MG TAB.ER.24 10 MG PO (08:43)
[2023-11-06] MEDS: metFORMIN HCl 500 MG TABLET PO (08:43)
[2023-11-06] MEDS: Docusate Sodium 100 MG CAPSULE PO ×2 (08:43→20:25)
[2023-11-06] MEDS: Aspirin 81 MG TAB.CHEW PO (08:43)
[2023-11-06] MEDS: traZODone HCL 50 MG TABLET PO (08:44)
[2023-11-06] MEDS: Acetaminophen 325 MG TABLET 650 MG PO ×3 (08:44→20:24)
[2023-11-06] MEDS: Atorvastatin Calcium 80 MG TABLET PO (08:44)
[2023-11-06] MEDS: QUEtiapine Fumarate 50 MG TABLET PO ×2 (08:44→14:09)
[2023-11-06] MEDS: OLANZapine ODT 10 MG TAB.RAPDIS TRANSLINGU ×2 (08:44→14:10)
[2023-11-06] MEDS: LORazepam 1 MG TABLET PO (08:44)
[2023-11-06] MEDS: hydrOXYzine HCL 25 MG TABLET PO (08:45)
[2023-11-06] MEDS: Nicotine 21 MG PATCH.TD24 TRANSDERMA (09:07)
--- NOTE | 2023-11-06 10:12 | HO.PSYCHPN ---
Subjective Subjective Date of Service: 11/06/23 Reason For Visit: agitation Subjective Notes: Conditional Voluntary Interim History: Pt slept through the night. Pt reports doing well. When asked she states life is beautiful She is taking medications as prescribed. She is not oriented to place or situation, does report she is here because of brain injury. She is less agitated. No overt behavioral concerns. PT consult ordered- as requested by . Review of Systems Review of Systems nothing acute Yes Unobtainable due to mental status Mental Status Exam Mental Status Exam Patient Appearance: Well Grooomed and Appropriate Patient Orientation: Person and Situation Level of Consciousness: Awake and Appropriate Patient Behavior: Guarded and Passive Mood Description: Withdrawn Affect Description: Constricted Patient Cognition Impaired: Yes Ability to Follow Directions: Good Speech Pattern: Clear Diagnostics Vital Signs (24Hr): Vital Signs - 24 hr 11/05/23 14:11 11/05/23 18:00 11/06/23 07:46 Temperature 97.9 F 97.0 F Pulse Rate 62 71 Respiratory Rate 18 Blood Pressure 121/58 L 123/55 L 145/66 H Pulse Oximetry 97 97 Oxygen Delivery Method Room Air Room Air BMI result Body Mass Index 23.0 Labs 11/04/23 08:44 Imaging Radiology Impressions: ITS Impressions Head CT 10/18/23 16:48 IMPRESSION: 1. No acute intracranial hemorrhage or edematous infarct. 2. 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 3. Right temporal approach ventriculostomy catheter with tip terminating in the right lateral ventricle body. No hydrocephalus. Medications Medications Current Medications Acetaminophen (Acetaminophen 325 Mg Tablet) 650 mg PO TID [facility] Last Admin: 11/06/23 08:44 Dose: 650 mg Al Hydroxide/Mg Hydroxide (Magnesium Hydrox/Alum Hydrox 30 Ml Oral.Susp) 30 ml PO Q6H PRN PRN Reason: Heartburn/Nausea Aspirin (Aspirin 81 Mg Tab.Chew) 81 mg PO DAILY [facility] Last Admin: 11/06/23 08:43 Dose: 81 mg Atorvastatin Calcium (Atorvastatin Calcium 80 Mg Tablet) 80 mg PO DAILY [facility] Last Admin: 11/06/23 08:44 Dose: 80 mg Docusate Sodium (Docusate Sodium 100 Mg Capsule) 100 mg PO BID [facility] Last Admin: 11/06/23 08:43 Dose: 100 mg Escitalopram Oxalate (Escitalopram Oxalate 5 Mg Tablet) 5 mg PO DAILY [facility] Last Admin: 11/06/23 08:42 Dose: 5 mg Famotidine (Famotidine 20 Mg Tablet) 20 mg PO BID [facility] Last Admin: 11/06/23 08:42 Dose: 20 mg Gabapentin (Gabapentin 300 Mg Capsule) 900 mg PO TID [facility] Last Admin: 11/06/23 08:42 Dose: 900 mg Hydroxyzine HCl (Hydroxyzine Hcl 25 Mg Tablet) 25 mg PO Q6H PRN PRN Reason: Anxiety Last Admin: 11/06/23 08:45 Dose: 25 mg Ibuprofen (Ibuprofen 400 Mg Tablet) 400 mg PO Q6H PRN PRN Reason: Mild Pain (Scale Score 1-4) Last Admin: 10/26/23 10:12 Dose: 400 mg Lamotrigine (Lamotrigine 100 Mg Tablet) 200 mg PO BID [facility] Last Admin: 11/06/23 08:43 Dose: 200 mg Latanoprost (Latanoprost 0.005 % Ophth Pati 2.5 Ml Drops) 1 drop EYE-BOTH BEDTIME [facility] Last Admin: 11/05/23 20:04 Dose: 1 drop Lorazepam (Lorazepam 1 Mg Tablet) 1 mg PO Q4H PRN PRN Reason: anxiety/restlessness Last Admin: 11/06/23 08:44 Dose: 1 mg Magnesium Hydroxide (Milk Of Magnesia 30 Ml Oral.Susp) 30 ml PO DAILY PRN PRN Reason: Constipation Last Admin: 10/29/23 10:19 Dose: 30 ml Metformin HCl (Metformin Hcl 500 Mg Tablet) 500 mg PO DAILY [facility] Last Admin: 11/06/23 08:43 Dose: 500 mg Midodrine (Midodrine Hcl 5 Mg Tablet) 5 mg PO TIDWM [facility] Last Admin: 11/06/23 07:47 Dose: Not Given Nicotine (Nicotine 21 Mg Patch.Td24) 21 mg TRANSDERMA DAILY [facility] Last Admin: 11/06/23 09:07 Dose: 21 mg Olanzapine (Olanzapine 10 Mg Tablet) 20 mg PO BEDTIME [facility] Last Admin: 11/05/23 19:57 Dose: 20 mg Olanzapine (Olanzapine Odt 10 Mg Tab.Rapdis) 10 mg TRANSLINGU BID@0900,1400 [facility] Last Admin: 11/06/23 08:44 Dose: 10 mg Oxybutynin Chloride (Oxybutynin Chloride Er 5 Mg Tab.Er.24) 10 mg PO DAILY [facility] Last Admin: 11/06/23 08:43 Dose: 10 mg Quetiapine Fumarate (Quetiapine Fumarate 50 Mg Tablet) 50 mg PO BID@0900,1400 [facility] Last Admin: 11/06/23 08:44 Dose: 50 mg Quetiapine Fumarate (Quetiapine Fumarate 100 Mg Tablet) 100 mg PO Q4H PRN PRN Reason: agitation Last Admin: 11/05/23 10:52 Dose: 100 mg Trazodone HCl (Trazodone Hcl 50 Mg Tablet) 50 mg PO BEDTIME MRX1 PRN PRN Reason: Insomnia Last Admin: 11/03/23 19:45 Dose: 50 mg Trazodone HCl (Trazodone Hcl 25 Mg Halftab) 25 mg PO BEDTIME [facility] Last Admin: 11/05/23 19:57 Dose: 25 mg Trazodone HCl (Trazodone Hcl 50 Mg Tablet) 50 mg PO DAILY [facility] Last Admin: 11/06/23 08:44 Dose: 50 mg Allergies Allergies Allergy/AdvReac Type Severity Reaction Status Date / Time amantadine AdvReac Unknown Verified 09/29/23 17:57 Assessment & Plan Assessment & Plan (1) Traumatic brain injury: Qualifiers: Loss of consciousness presence/duration: unknown LOC status Status: Acute Code(s): S06.9XAA - Unspecified intracranial injury with loss of consciousness status unknown, initial encounter Plan 63-year-old female with TBI, dementia, disorganized who presents for aggressive behavior. Hospital course: 10/12 Patient disruptive last night, again today, disorganized and thinks she is back at her long term, asking for her cigarettes over and over, talking to herself. Patient yelling in the [place], ran into staff with wheelchair though maybe not on purpose; patient lowered herself to the floor. Zyprexa p.r.n. not that helpful. Switchman ordered Ativan 1 mg which did calm her down. On approach she remained disorganized, wanting her cigarettes but was overall calm. Staff reports patient eating and sleeping well. -continue current regimen for now 10/13 Patient remains disorganized, aggressive, yelling; p.r.n. Zyprexa still not helpful. Scheduled Clonazepam not helpful. Give another dose of Ativan which again was calming. PLAN: Will hold Zyprexa p.r.n. since has not proved helpful for calming agitation, despite getting up to 40 mg yesterday. Will instead make Ativan 1 mg t.i.d. p.r.n. available for agitation If Ativan proves helpful, will consider doing away with Zyprexa p.r.n. (and may be scheduled bedtime dose) and see if Tegretol or Depakote would work for aggression. Will likely defer this to primary team however 10/19/23: regarding medications, we will schedule olanzapine in the daytime rather than p.r.n.. Maintain nighttime olanzapine. Will utilize Seroquel as needed. Noted schedule Klonopin and as needed Ativan 10/20: no changes\ 10/26/23: no changes 10/27: Schedule seroqule morning and lunchtime Plan 11/06- continue tx. PT consult ordered. Less agitated,less psychotic symptoms. No behavioral concerns. Reason for continued inpatient stay Substantial Risk for: inability to function Time Spent With Patient Time: Total time managing care of this patient today ____ minutes.
[2023-11-06 10:51] VITALS: BP 145/66; PULSE 71; O2SAT 97
[2023-11-06 11:25] VITALS: BP 116/58
[2023-11-06] MEDS: QUEtiapine Fumarate 100 MG TABLET PO (12:11)
[2023-11-06] MEDS: Midodrine HCl 5 MG TABLET PO ×2 (12:11→17:28)
[2023-11-06 17:18] VITALS: BP 108/54
[2023-11-06 18:00] VITALS: BP 126/58; PULSE 61; RESP 16; TEMP 36.5; O2SAT 97
[2023-11-06] MEDS: Latanoprost 0.005 % Ophth Sol 2.5 ML DROPS 1 DROP EYE-BOTH (20:25)
[2023-11-06] MEDS: OLANZapine 10 MG TABLET 20 MG PO (20:25)
[2023-11-06] MEDS: traZODone HCL 25 MG HALFTAB PO (20:26)
[2023-11-07 09:20] VITALS: BP 136/58; PULSE 77; RESP 15; TEMP 36.4; O2SAT 94
[2023-11-07] MEDS: lamoTRIgine 100 MG TABLET 200 MG PO ×2 (09:25→23:28)
[2023-11-07] MEDS: QUEtiapine Fumarate 50 MG TABLET PO ×2 (09:25→14:18)
[2023-11-07] MEDS: metFORMIN HCl 500 MG TABLET PO (09:25)
[2023-11-07] MEDS: Acetaminophen 325 MG TABLET 650 MG PO ×3 (09:25→23:28)
[2023-11-07] MEDS: Escitalopram Oxalate 5 MG TABLET PO (09:25)
[2023-11-07] MEDS: Gabapentin 300 MG CAPSULE 900 MG PO ×3 (09:25→23:28)
[2023-11-07] MEDS: Aspirin 81 MG TAB.CHEW PO (09:26)
[2023-11-07] MEDS: OLANZapine ODT 10 MG TAB.RAPDIS TRANSLINGU ×2 (09:26→14:18)
[2023-11-07] MEDS: oxyBUTYnin chloride ER 5 MG TAB.ER.24 10 MG PO (09:26)
[2023-11-07] MEDS: traZODone HCL 50 MG TABLET PO (09:26)
[2023-11-07] MEDS: Docusate Sodium 100 MG CAPSULE PO ×2 (09:26→23:28)
[2023-11-07] MEDS: Famotidine 20 MG TABLET PO ×2 (09:26→23:28)
[2023-11-07] MEDS: Atorvastatin Calcium 80 MG TABLET PO (09:26)
[2023-11-07] MEDS: QUEtiapine Fumarate 100 MG TABLET PO (09:55)
[2023-11-07] MEDS: LORazepam 1 MG TABLET PO ×2 (09:55→23:39)
[2023-11-07 12:40] VITALS: BP 104/55
[2023-11-07] MEDS: Midodrine HCl 5 MG TABLET PO ×2 (12:49→16:55)
--- NOTE | 2023-11-07 15:32 | HO.PSYCHPN ---
Subjective Subjective Date of Service: 11/07/23 Reason For Visit: agitation Subjective Notes: Conditional Voluntary Interim History: The nursing staff reported the patient had been using a straw is a cigarette and she had been more common with that intervention. The occupational therapist reported that they contact the [facility] and they like this approach for smoking. The protective services social worker reported that most likely she could be discharged next week, week talk with the provider in the community and they are willing to continue treatment as far as he had some the role years order. On interview the patient denies new symptoms, pleasantly confused, easily redirectable. Mental Status Exam Mental Status Exam Patient Appearance: Well Grooomed and Appropriate Patient Orientation: Person and Situation Level of Consciousness: Awake and Appropriate Patient Behavior: Guarded and Passive Mood Description: Withdrawn Affect Description: Constricted Patient Cognition Impaired: Yes Ability to Follow Directions: Good Speech Pattern: Clear Hallucinations: None Delusions: Paranoid Ideation Thought Process: Distracted and Slowed Thinking Thought Content: positive for [place] and positive for Poverty of Content Judgement: Poor Diagnostics Vital Signs (24Hr): Vital Signs - 24 hr 11/06/23 17:18 11/06/23 18:00 11/07/23 09:20 Temperature 97.7 F 97.5 F Pulse Rate 61 77 Respiratory Rate 16 15 Blood Pressure 108/54 L 126/58 L 136/58 L Pulse Oximetry 97 94 Oxygen Delivery Method Room Air Room Air 11/07/23 12:40 Temperature Pulse Rate Respiratory Rate Blood Pressure 104/55 L Pulse Oximetry Oxygen Delivery Method BMI result Body Mass Index 23.0 Labs 11/04/23 08:44 Imaging Radiology Impressions: ITS Impressions Head CT 10/18/23 16:48 IMPRESSION: 1. No acute intracranial hemorrhage or edematous infarct. 2. 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 3. Right temporal approach ventriculostomy catheter with tip terminating in the right lateral ventricle body. No hydrocephalus. Medications Medications Current Medications Acetaminophen (Acetaminophen 325 Mg Tablet) 650 mg PO TID [facility] Last Admin: 11/07/23 14:31 Dose: 650 mg Al Hydroxide/Mg Hydroxide (Magnesium Hydrox/Alum Hydrox 30 Ml Oral.Susp) 30 ml PO Q6H PRN PRN Reason: Heartburn/Nausea Aspirin (Aspirin 81 Mg Tab.Chew) 81 mg PO DAILY [facility] Last Admin: 11/07/23 09:26 Dose: 81 mg Atorvastatin Calcium (Atorvastatin Calcium 80 Mg Tablet) 80 mg PO DAILY [facility] Last Admin: 11/07/23 09:26 Dose: 80 mg Docusate Sodium (Docusate Sodium 100 Mg Capsule) 100 mg PO BID [facility] Last Admin: 11/07/23 09:26 Dose: 100 mg Escitalopram Oxalate (Escitalopram Oxalate 5 Mg Tablet) 5 mg PO DAILY [facility] Last Admin: 11/07/23 09:25 Dose: 5 mg Famotidine (Famotidine 20 Mg Tablet) 20 mg PO BID [facility] Last Admin: 11/07/23 09:26 Dose: 20 mg Gabapentin (Gabapentin 300 Mg Capsule) 900 mg PO TID [facility] Last Admin: 11/07/23 14:30 Dose: 900 mg Hydroxyzine HCl (Hydroxyzine Hcl 25 Mg Tablet) 25 mg PO Q6H PRN PRN Reason: Anxiety Last Admin: 11/06/23 08:45 Dose: 25 mg Ibuprofen (Ibuprofen 400 Mg Tablet) 400 mg PO Q6H PRN PRN Reason: Mild Pain (Scale Score 1-4) Last Admin: 10/26/23 10:12 Dose: 400 mg Lamotrigine (Lamotrigine 100 Mg Tablet) 200 mg PO BID [facility] Last Admin: 11/07/23 09:25 Dose: 200 mg Latanoprost (Latanoprost 0.005 % Ophth Pati 2.5 Ml Drops) 1 drop EYE-BOTH BEDTIME [facility] Last Admin: 11/06/23 20:25 Dose: 1 drop Lorazepam (Lorazepam 1 Mg Tablet) 1 mg PO Q4H PRN PRN Reason: anxiety/restlessness Last Admin: 11/07/23 09:55 Dose: 1 mg Magnesium Hydroxide (Milk Of Magnesia 30 Ml Oral.Susp) 30 ml PO DAILY PRN PRN Reason: Constipation Last Admin: 10/29/23 10:19 Dose: 30 ml Metformin HCl (Metformin Hcl 500 Mg Tablet) 500 mg PO DAILY [facility] Last Admin: 11/07/23 09:25 Dose: 500 mg Midodrine (Midodrine Hcl 5 Mg Tablet) 5 mg PO TIDWM [facility] Last Admin: 11/07/23 12:49 Dose: 5 mg Nicotine (Nicotine 21 Mg Patch.Td24) 21 mg TRANSDERMA DAILY [facility] Last Admin: 11/07/23 09:34 Dose: Not Given Olanzapine (Olanzapine 10 Mg Tablet) 20 mg PO BEDTIME [facility] Last Admin: 11/06/23 20:25 Dose: 20 mg Olanzapine (Olanzapine Odt 10 Mg Tab.Rapdis) 10 mg TRANSLINGU BID@0900,1400 [facility] Last Admin: 11/07/23 14:18 Dose: 10 mg Oxybutynin Chloride (Oxybutynin Chloride Er 5 Mg Tab.Er.24) 10 mg PO DAILY [facility] Last Admin: 11/07/23 09:26 Dose: 10 mg Quetiapine Fumarate (Quetiapine Fumarate 50 Mg Tablet) 50 mg PO BID@0900,1400 [facility] Last Admin: 11/07/23 14:18 Dose: 50 mg Quetiapine Fumarate (Quetiapine Fumarate 100 Mg Tablet) 100 mg PO Q4H PRN PRN Reason: agitation Last Admin: 11/07/23 09:55 Dose: 100 mg Trazodone HCl (Trazodone Hcl 50 Mg Tablet) 50 mg PO BEDTIME MRX1 PRN PRN Reason: Insomnia Last Admin: 11/03/23 19:45 Dose: 50 mg Trazodone HCl (Trazodone Hcl 25 Mg Halftab) 25 mg PO BEDTIME [facility] Last Admin: 11/06/23 20:26 Dose: 25 mg Trazodone HCl (Trazodone Hcl 50 Mg Tablet) 50 mg PO DAILY [facility] Last Admin: 11/07/23 09:26 Dose: 50 mg Allergies Allergies Allergy/AdvReac Type Severity Reaction Status Date / Time amantadine AdvReac Unknown Verified 09/29/23 17:57 Assessment & Plan Assessment & Plan (1) Diabetes: Qualifiers: Diabetes mellitus complication status: without complication Status: Acute Code(s): E11.9 - Type 2 diabetes mellitus without complications (2) HLD (hyperlipidemia): Qualifiers: Hyperlipidemia type: unspecified Qualified Code(s): E78.5 - Hyperlipidemia, unspecified Status: Acute Code(s): E78.5 - Hyperlipidemia, unspecified (3) Traumatic brain injury: Qualifiers: Loss of consciousness presence/duration: unknown LOC status Status: Acute Code(s): S06.9XAA - Unspecified intracranial injury with loss of consciousness status unknown, initial encounter Plan 63-year-old female with TBI, dementia, disorganized who presents for aggressive behavior. Hospital course: 10/12 Patient disruptive last night, again today, disorganized and thinks she is [facility] at her [facility], asking for her cigarettes over and over, talking to herself. Patient yelling in the [place], ran into staff with wheelchair though maybe not on purpose; patient lowered herself to the floor. Zyprexa p.r.n. not that helpful. Evaporator Repairer ordered Ativan 1 mg which did calm her down. On approach she remained disorganized, wanting her cigarettes but was overall calm. Staff reports patient eating and sleeping well. -continue current regimen for now 10/13 Patient remains disorganized, aggressive, yelling; p.r.n. Zyprexa still not helpful. Scheduled Clonazepam not helpful. Give another dose of Ativan which again was calming. PLAN: Will hold Zyprexa p.r.n. since has not proved helpful for calming agitation, despite getting up to 40 mg yesterday. Will instead make Ativan 1 mg t.i.d. p.r.n. available for agitation If Ativan proves helpful, will consider doing away with Zyprexa p.r.n. (and may be scheduled bedtime dose) and see if Tegretol or Depakote would work for aggression. Will likely defer this to primary team however 10/19/23: regarding medications, we will schedule olanzapine in the daytime rather than p.r.n.. Maintain nighttime olanzapine. Will utilize Seroquel as needed. Noted schedule Klonopin and as needed Ativan 10/20: no changes\ 10/26/23: no changes 10/27: Schedule seroqule morning and lunchtime Plan 1. Will keep Zyprexa to 10 mg p.o. q.h.s. at night to target psychosis. We will start the taper of Zyprexa slowly since it has worked very limited. 2. Keep Klonopin scheduled and Ativan p.r.n. anxiety. On October 16 we are increasing Klonopin up to 1 mg p.o. t.i.d. 3. We will work on amendment or starting the Sherif order. We are waiting for the legal team to provide me the exact form and contact the legal guardians. 4. Keep Seroquel 50 mg p.o. b.i.d. started on October 27. 5. Increased Seroquel up to 100 mg p.o. b.i.d. p.r.n. and keep Ativan 1 mg p.o. p.r.n. 6. Start Tylenol 650 mg p.o. t.i.d. schedule Reason for continued inpatient stay Substantial Risk for: inability to function, rapid decompensation and med/psych decompensation Time Spent With Patient Time: Total time managing care of this patient today __20__ minutes.
[2023-11-07 20:10] VITALS: BP 118/69; PULSE 62; RESP 18; TEMP 36; O2SAT 96
[2023-11-07] MEDS: OLANZapine 10 MG TABLET 20 MG PO (20:19)
[2023-11-07] MEDS: Latanoprost 0.005 % Ophth Sol 2.5 ML DROPS 1 DROP EYE-BOTH (20:28)
[2023-11-07] MEDS: traZODone HCL 25 MG HALFTAB PO (23:28)
[2023-11-08 08:16] VITALS: BP 119/58; PULSE 83; RESP 15; TEMP 36.8; O2SAT 95
[2023-11-08] MEDS: lamoTRIgine 100 MG TABLET 200 MG PO ×2 (08:17→20:27)
[2023-11-08] MEDS: Gabapentin 300 MG CAPSULE 900 MG PO ×2 (08:17→20:26)
[2023-11-08] MEDS: Acetaminophen 325 MG TABLET 650 MG PO ×2 (08:18→20:27)
[2023-11-08] MEDS: oxyBUTYnin chloride ER 5 MG TAB.ER.24 10 MG PO (08:18)
[2023-11-08] MEDS: traZODone HCL 50 MG TABLET PO (08:18)
[2023-11-08] MEDS: Escitalopram Oxalate 5 MG TABLET PO (08:18)
[2023-11-08] MEDS: QUEtiapine Fumarate 50 MG TABLET PO ×2 (08:18→13:52)
[2023-11-08] MEDS: Docusate Sodium 100 MG CAPSULE PO ×2 (08:18→20:27)
[2023-11-08] MEDS: Famotidine 20 MG TABLET PO ×2 (08:18→20:28)
[2023-11-08] MEDS: metFORMIN HCl 500 MG TABLET PO (08:18)
[2023-11-08] MEDS: Midodrine HCl 5 MG TABLET PO ×2 (08:18→12:02)
[2023-11-08] MEDS: Atorvastatin Calcium 80 MG TABLET PO (08:18)
[2023-11-08] MEDS: Aspirin 81 MG TAB.CHEW PO (08:18)
[2023-11-08] MEDS: OLANZapine ODT 10 MG TAB.RAPDIS TRANSLINGU ×2 (08:19→13:51)
--- NOTE | 2023-11-08 08:22 | P.PNPSI_ITS ---
Subjective Subjective Date of Service: 11/08/23 Reason For Visit: agitation Subjective Notes: Conditional Voluntary Interim History: The nursing staff reported the patient fall asleep fairly and she could take her medications later on she woke up and took his medications with encouragement. No changes in her mental status. She responds fairly well to Ativan and Seroquel p.r.n.. The staff has noticed that the patient demands on ways to smoke and we give him a Stroll and she feels more relieved. At this moment the patient is much better waiting for placement. We are going to talk with the alf for an early discharge as soon as the [place] court order for antipsychotics gets approved. Mental Status Exam Mental Status Exam Patient Appearance: Appropriate Patient Orientation: Person Level of Consciousness: Awake and Appropriate Patient Behavior: Guarded and Passive Mood Description: Withdrawn Affect Description: Constricted Patient Cognition Impaired: Yes Ability to Follow Directions: Fair Speech Pattern: Impoverished Hallucinations: None Delusions: Ideas of Reference Thought Process: Illogical, Distracted and Slowed Thinking Thought Content: positive for [place] and positive for Poverty of Content Judgement: Fair Diagnostics Vital Signs (24Hr): Vital Signs - 24 hr 11/07/23 09:20 11/07/23 12:40 11/07/23 20:10 Temperature 97.5 F 96.8 F Pulse Rate 77 62 Respiratory Rate 15 18 Blood Pressure 136/58 L 104/55 L 118/69 Pulse Oximetry 94 96 Oxygen Delivery Method Room Air Room Air 11/08/23 08:16 Temperature 98.2 F Pulse Rate 83 Respiratory Rate 15 Blood Pressure 119/58 L Pulse Oximetry 95 Oxygen Delivery Method Room Air BMI result Body Mass Index 23.0 Labs 11/04/23 08:44 Imaging Radiology Impressions: ITS Impressions Head CT 10/18/23 16:48 IMPRESSION: 1. No acute intracranial hemorrhage or edematous infarct. 2. 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 3. Right temporal approach ventriculostomy catheter with tip terminating in the right lateral ventricle body. No hydrocephalus. Medications Medications Current Medications Acetaminophen (Acetaminophen 325 Mg Tablet) 650 mg PO TID [facility] Last Admin: 11/07/23 23:28 Dose: 650 mg Al Hydroxide/Mg Hydroxide (Magnesium Hydrox/Alum Hydrox 30 Ml Oral.Susp) 30 ml PO Q6H PRN PRN Reason: Heartburn/Nausea Aspirin (Aspirin 81 Mg Tab.Chew) 81 mg PO DAILY [facility] Last Admin: 11/07/23 09:26 Dose: 81 mg Atorvastatin Calcium (Atorvastatin Calcium 80 Mg Tablet) 80 mg PO DAILY [facility] Last Admin: 11/07/23 09:26 Dose: 80 mg Docusate Sodium (Docusate Sodium 100 Mg Capsule) 100 mg PO BID [facility] Last Admin: 11/07/23 23:28 Dose: 100 mg Escitalopram Oxalate (Escitalopram Oxalate 5 Mg Tablet) 5 mg PO DAILY [facility] Last Admin: 11/07/23 09:25 Dose: 5 mg Famotidine (Famotidine 20 Mg Tablet) 20 mg PO BID [facility] Last Admin: 11/07/23 23:28 Dose: 20 mg Gabapentin (Gabapentin 300 Mg Capsule) 900 mg PO TID [facility] Last Admin: 11/07/23 23:28 Dose: 900 mg Hydroxyzine HCl (Hydroxyzine Hcl 25 Mg Tablet) 25 mg PO Q6H PRN PRN Reason: Anxiety Last Admin: 11/06/23 08:45 Dose: 25 mg Ibuprofen (Ibuprofen 400 Mg Tablet) 400 mg PO Q6H PRN PRN Reason: Mild Pain (Scale Score 1-4) Last Admin: 10/26/23 10:12 Dose: 400 mg Lamotrigine (Lamotrigine 100 Mg Tablet) 200 mg PO BID [facility] Last Admin: 11/07/23 23:28 Dose: 200 mg Latanoprost (Latanoprost 0.005 % Ophth Pati 2.5 Ml Drops) 1 drop EYE-BOTH BEDTIME [facility] Last Admin: 11/07/23 20:28 Dose: 1 drop Lorazepam (Lorazepam 1 Mg Tablet) 1 mg PO Q4H PRN PRN Reason: anxiety/restlessness Last Admin: 11/07/23 23:39 Dose: 1 mg Magnesium Hydroxide (Milk Of Magnesia 30 Ml Oral.Susp) 30 ml PO DAILY PRN PRN Reason: Constipation Last Admin: 10/29/23 10:19 Dose: 30 ml Metformin HCl (Metformin Hcl 500 Mg Tablet) 500 mg PO DAILY [facility] Last Admin: 11/07/23 09:25 Dose: 500 mg Midodrine (Midodrine Hcl 5 Mg Tablet) 5 mg PO TIDWM [facility] Last Admin: 11/07/23 16:55 Dose: 5 mg Nicotine (Nicotine 21 Mg Patch.Td24) 21 mg TRANSDERMA DAILY [facility] Last Admin: 11/07/23 09:34 Dose: Not Given Olanzapine (Olanzapine 10 Mg Tablet) 20 mg PO BEDTIME [facility] Last Admin: 11/07/23 20:19 Dose: 20 mg Olanzapine (Olanzapine Odt 10 Mg Tab.Rapdis) 10 mg TRANSLINGU BID@0900,1400 [facility] Last Admin: 11/07/23 14:18 Dose: 10 mg Oxybutynin Chloride (Oxybutynin Chloride Er 5 Mg Tab.Er.24) 10 mg PO DAILY [facility] Last Admin: 11/07/23 09:26 Dose: 10 mg Quetiapine Fumarate (Quetiapine Fumarate 50 Mg Tablet) 50 mg PO BID@0900,1400 [facility] Last Admin: 11/07/23 14:18 Dose: 50 mg Quetiapine Fumarate (Quetiapine Fumarate 100 Mg Tablet) 100 mg PO Q4H PRN PRN Reason: agitation Last Admin: 11/07/23 09:55 Dose: 100 mg Trazodone HCl (Trazodone Hcl 50 Mg Tablet) 50 mg PO BEDTIME MRX1 PRN PRN Reason: Insomnia Last Admin: 11/03/23 19:45 Dose: 50 mg Trazodone HCl (Trazodone Hcl 25 Mg Halftab) 25 mg PO BEDTIME [facility] Last Admin: 11/07/23 23:28 Dose: 25 mg Trazodone HCl (Trazodone Hcl 50 Mg Tablet) 50 mg PO DAILY [facility] Last Admin: 11/07/23 09:26 Dose: 50 mg Allergies Allergies Allergy/AdvReac Type Severity Reaction Status Date / Time amantadine AdvReac Unknown Verified 09/29/23 17:57 Assessment & Plan Assessment & Plan (1) Traumatic brain injury: Qualifiers: Loss of consciousness presence/duration: unknown LOC status Status: Acute Code(s): S06.9XAA - Unspecified intracranial injury with loss of consciousness status unknown, initial encounter Plan 63-year-old female with TBI, dementia, disorganized who presents for aggressive behavior. Hospital course: 10/12 Patient disruptive last night, again today, disorganized and thinks she is back at her alf, asking for her cigarettes over and over, talking to herself. Patient yelling [place] the [place], ran into staff with wheelchair though maybe not on purpose; patient lowered herself to the floor. Candis p.r.n. not that helpful. Bankruptcy Judge ordered Ativan 1 mg which did calm her down. On approach she remained disorganized, wanting her cigarettes but was overall calm. Staff reports patient eating and sleeping well. -continue current regimen for now 10/13 Patient remains disorganized, aggressive, yelling; p.r.n. Zyprexa still not helpful. Scheduled Clonazepam not helpful. Give another dose of Ativan which again was calming. PLAN: Will hold Zyprexa p.r.n. since has not proved helpful for calming agitation, despite getting up to 40 mg yesterday. Will instead make Ativan 1 mg t.i.d. p.r.n. available for agitation If Ativan proves helpful, will consider doing away with Zyprexa p.r.n. (and may be scheduled bedtime dose) and see if Tegretol or Depakote would work for aggression. Will likely defer this to primary team however 10/19/23: regarding medications, we will schedule olanzapine in the daytime rather than p.r.n.. Maintain nighttime olanzapine. Will utilize Seroquel as needed. Noted schedule Klonopin and as needed Ativan 10/20: no changes\ 10/26/23: no changes 10/27: Schedule seroqule morning and lunchtime Plan 1. Keep weight Zyprexa standing. Continue with Ativan and Seroquel p.r.n. that has worked fairly well as a p.r.n.. 3. Start working on discharge plan. Reason for continued inpatient stay Substantial Risk for: inability to function, rapid decompensation and med/psych decompensation Time Spent With Patient Time: Total time managing care of this patient today __20__ minutes.
[2023-11-08 12:00] VITALS: BP 111/56
[2023-11-08] MEDS: LORazepam 1 MG TABLET PO (13:51)
[2023-11-08] MEDS: QUEtiapine Fumarate 100 MG TABLET PO (13:51)
[2023-11-08 16:07] VITALS: BP 103/54; PULSE 66
[2023-11-08 18:00] VITALS: BP 125/59; PULSE 62; RESP 18; TEMP 36.7; O2SAT 97
[2023-11-08] MEDS: OLANZapine 10 MG TABLET 20 MG PO (20:28)
[2023-11-08] MEDS: Latanoprost 0.005 % Ophth Sol 2.5 ML DROPS 1 DROP EYE-BOTH (20:28)
[2023-11-09 07:46] VITALS: BP 130/60; PULSE 74; RESP 18; TEMP 36.8; O2SAT 96
[2023-11-09] MEDS: Gabapentin 300 MG CAPSULE 900 MG PO ×2 (08:40→20:53)
[2023-11-09] MEDS: Aspirin 81 MG TAB.CHEW PO (08:41)
[2023-11-09] MEDS: Famotidine 20 MG TABLET PO ×2 (08:41→20:55)
[2023-11-09] MEDS: oxyBUTYnin chloride ER 5 MG TAB.ER.24 10 MG PO (08:41)
[2023-11-09] MEDS: lamoTRIgine 100 MG TABLET 200 MG PO ×2 (08:41→20:54)
[2023-11-09] MEDS: Docusate Sodium 100 MG CAPSULE PO ×2 (08:41→20:56)
[2023-11-09] MEDS: Acetaminophen 325 MG TABLET 650 MG PO ×2 (08:41→20:55)
[2023-11-09] MEDS: Escitalopram Oxalate 5 MG TABLET PO (08:41)
[2023-11-09] MEDS: LORazepam 1 MG TABLET PO (08:41)
[2023-11-09] MEDS: hydrOXYzine HCL 25 MG TABLET PO (08:42)
[2023-11-09] MEDS: metFORMIN HCl 500 MG TABLET PO (08:42)
[2023-11-09] MEDS: traZODone HCL 50 MG TABLET PO (08:42)
[2023-11-09] MEDS: OLANZapine ODT 10 MG TAB.RAPDIS TRANSLINGU (08:42)
[2023-11-09] MEDS: QUEtiapine Fumarate 50 MG TABLET PO (08:42)
[2023-11-09] MEDS: Atorvastatin Calcium 80 MG TABLET PO (08:42)
[2023-11-09] MEDS: Nicotine 21 MG PATCH.TD24 TRANSDERMA (08:44)
[2023-11-09] MEDS: QUEtiapine Fumarate 100 MG TABLET PO (10:25)
[2023-11-09 12:18] VITALS: BP 98/52
[2023-11-09] MEDS: Midodrine HCl 5 MG TABLET PO ×2 (12:19→17:37)
[2023-11-09] MEDS: Ibuprofen 400 MG TABLET PO (12:19)
--- NOTE | 2023-11-09 17:05 | P.PNPSI_ITS ---
Subjective Subjective Date of Service: 11/09/23 Reason For Visit: agitation Interim History: The nursing staff reported patient has been doing well. No behavioral outbursts. Mood is subdued. No aguatation. She is happy she is able to use a straw to imitate smoking. At this moment the patient is much better waiting for placement. Review of Systems Review of Systems nothing acute Yes Unobtainable due to mental status Mental Status Exam Mental Status Exam Narrative: In day area eating breakfast. Singing and pleasant today. Alert. Unable to formally test orientation etc. . No evidence of SI or HI. Is paranoid and frustrated. Insight and judgment Patient Appearance: Appropriate Patient Orientation: Person Level of Consciousness: Awake and Appropriate Patient Behavior: Guarded and Passive Mood Description: Withdrawn Affect Description: Constricted Patient Cognition Impaired: Yes Ability to Follow Directions: Fair Speech Pattern: Impoverished Diagnostics Vital Signs (24Hr): Vital Signs - 24 hr 11/08/23 18:00 11/09/23 07:46 11/09/23 12:18 Temperature 98.0 F 98.2 F Pulse Rate 62 74 Respiratory Rate 18 18 Blood Pressure 125/59 L 130/60 98/52 L Pulse Oximetry 97 96 Oxygen Delivery Method Room Air Room Air BMI result Body Mass Index 23.0 Labs 11/04/23 08:44 Imaging Radiology Impressions: ITS Impressions Head CT 10/18/23 16:48 IMPRESSION: 1. No acute intracranial hemorrhage or edematous infarct. 2. 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 3. Right temporal approach ventriculostomy catheter with tip terminating in the right lateral ventricle body. No hydrocephalus. Medications Medications Current Medications Acetaminophen (Acetaminophen 325 Mg Tablet) 650 mg PO TID [facility] Last Admin: 11/09/23 16:09 Dose: Not Given Al Hydroxide/Mg Hydroxide (Magnesium Hydrox/Alum Hydrox 30 Ml Oral.Susp) 30 ml PO Q6H PRN PRN Reason: Heartburn/Nausea Aspirin (Aspirin 81 Mg Tab.Chew) 81 mg PO DAILY [facility] Last Admin: 11/09/23 08:41 Dose: 81 mg Atorvastatin Calcium (Atorvastatin Calcium 80 Mg Tablet) 80 mg PO DAILY [facility] Last Admin: 11/09/23 08:42 Dose: 80 mg Docusate Sodium (Docusate Sodium 100 Mg Capsule) 100 mg PO BID [facility] Last Admin: 12/16/23 08:41 Dose: 100 mg Escitalopram Oxalate (Escitalopram Oxalate 5 Mg Tablet) 5 mg PO DAILY [facility] Last Admin: 11/09/23 08:41 Dose: 5 mg Famotidine (Famotidine 20 Mg Tablet) 20 mg PO BID [facility] Last Admin: 11/09/23 08:41 Dose: 20 mg Gabapentin (Gabapentin 300 Mg Capsule) 900 mg PO TID [facility] Last Admin: 11/09/23 16:09 Dose: Not Given Hydroxyzine HCl (Hydroxyzine Hcl 25 Mg Tablet) 25 mg PO Q6H PRN PRN Reason: Anxiety Last Admin: 11/09/23 08:42 Dose: 25 mg Ibuprofen (Ibuprofen 400 Mg Tablet) 400 mg PO Q6H PRN PRN Reason: Mild Pain (Scale Score 1-4) Last Admin: 11/09/23 12:19 Dose: 400 mg Lamotrigine (Lamotrigine 100 Mg Tablet) 200 mg PO BID [facility] Last Admin: 11/09/23 08:41 Dose: 200 mg Latanoprost (Latanoprost 0.005 % Ophth Pait 2.5 Ml Drops) 1 drop EYE-BOTH BEDTIME [facility] Last Admin: 11/08/23 20:28 Dose: 1 drop Magnesium Hydroxide (Milk Of Magnesia 30 Ml Oral.Susp) 30 ml PO DAILY PRN PRN Reason: Constipation Last Admin: 10/29/23 10:19 Dose: 30 ml Metformin HCl (Metformin Hcl 500 Mg Tablet) 500 mg PO DAILY [facility] Last Admin: 11/09/23 08:42 Dose: 500 mg Midodrine (Midodrine Hcl 5 Mg Tablet) 5 mg PO TIDWM [facility] Last Admin: 11/09/23 12:19 Dose: 5 mg Nicotine (Nicotine 21 Mg Patch.Td24) 21 mg TRANSDERMA DAILY [facility] Last Admin: 11/09/23 08:44 Dose: 21 mg Olanzapine (Olanzapine 10 Mg Tablet) 20 mg PO BEDTIME [facility] Last Admin: 11/08/23 20:28 Dose: 20 mg Olanzapine (Olanzapine Odt 10 Mg Tab.Rapdis) 10 mg TRANSLINGU BID@0900,1400 [facility] Last Admin: 11/09/23 16:08 Dose: Not Given Oxybutynin Chloride (Oxybutynin Chloride Er 5 Mg Tab.Er.24) 10 mg PO DAILY [facility] Last Admin: 11/09/23 08:41 Dose: 10 mg Quetiapine Fumarate (Quetiapine Fumarate 50 Mg Tablet) 50 mg PO BID@0900,1400 [facility] Last Admin: 11/09/23 16:08 Dose: Not Given Quetiapine Fumarate (Quetiapine Fumarate 100 Mg Tablet) 100 mg PO Q4H PRN PRN Reason: agitation Last Admin: 11/09/23 10:25 Dose: 100 mg Trazodone HCl (Trazodone Hcl 50 Mg Tablet) 50 mg PO BEDTIME MRX1 PRN PRN Reason: Insomnia Last Admin: 11/03/23 19:45 Dose: 50 mg Trazodone HCl (Trazodone Hcl 25 Mg Halftab) 25 mg PO BEDTIME [facility] Last Admin: 11/09/23 00:47 Dose: Not Given Trazodone HCl (Trazodone Hcl 50 Mg Tablet) 50 mg PO DAILY [facility] Last Admin: 11/09/23 08:42 Dose: 50 mg Allergies Allergies Allergy/AdvReac Type Severity Reaction Status Date / Time amantadine AdvReac Unknown Verified 09/29/23 17:57 Assessment & Plan Assessment & Plan (1) Traumatic brain injury: Qualifiers: Loss of consciousness presence/duration: unknown LOC status Status: Acute Code(s): S06.9XAA - Unspecified intracranial injury with loss of consciousness status unknown, initial encounter Plan 63-year-old female with TBI, dementia, disorganized who presents for aggressive behavior. Hospital course: 10/12 Patient disruptive last night, again today, disorganized and thinks she is back at her intermediate, asking for her cigarettes over and over, talking to herself. Patient yelling in the [place], ran into staff with wheelchair though maybe not on purpose; patient lowered herself to the floor. Zyprexa p.r.n. not that helpful. Wheel And Axle Inspector ordered Ativan 1 mg which did calm her down. On approach she remained disorganized, wanting her cigarettes but was overall calm. Staff reports patient eating and sleeping well. -continue current regimen for now 10/13 Patient remains disorganized, aggressive, yelling; p.r.n. Zyprexa still not helpful. Scheduled Clonazepam not helpful. Give another dose of Ativan which again was calming. PLAN: Will hold Zyprexa p.r.n. since has not proved helpful for calming agitation, despite getting up to 40 mg yesterday. Will instead make Ativan 1 mg t.i.d. p.r.n. available for agitation If Ativan proves helpful, will consider doing away with Zyprexa p.r.n. (and may be scheduled bedtime dose) and see if Tegretol or Depakote would work for aggression. Will likely defer this to primary team however 10/19/23: regarding medications, we will schedule olanzapine in the daytime rather than p.r.n.. Maintain nighttime olanzapine. Will utilize Seroquel as needed. Noted schedule Klonopin and as needed Ativan 10/20: no changes\ 10/26/23: no changes 10/27: Schedule seroqule morning and lunchtime Plan 1. Keep weight Zyprexa standing. Continue with Ativan and Seroquel p.r.n. that has worked fairly well as a p.r.n.. 3. Start working on discharge plan. 11/09: Continue current treatment plan. Reason for continued inpatient stay Substantial Risk for: inability to function and rapid decompensation Time Spent With Patient Time: Total time managing care of this patient today ____ minutes.
[2023-11-09 17:33] VITALS: BP 95/53
[2023-11-09 18:00] VITALS: BP 112/59; PULSE 58; RESP 16; TEMP 36.4; O2SAT 97
[2023-11-09] MEDS: OLANZapine 10 MG TABLET 20 MG PO (20:55)
[2023-11-09] MEDS: traZODone HCL 25 MG HALFTAB PO (20:55)
[2023-11-09] MEDS: Latanoprost 0.005 % Ophth Sol 2.5 ML DROPS 1 DROP EYE-BOTH (21:00)
[2023-11-10 07:26] VITALS: BP 141/70; PULSE 63; RESP 18; TEMP 36.2; O2SAT 97
[2023-11-10] MEDS: metFORMIN HCl 500 MG TABLET PO (08:18)
[2023-11-10] MEDS: Escitalopram Oxalate 5 MG TABLET PO (08:18)
[2023-11-10] MEDS: OLANZapine ODT 10 MG TAB.RAPDIS TRANSLINGU ×2 (08:18→14:31)
[2023-11-10] MEDS: Atorvastatin Calcium 80 MG TABLET PO (08:18)
[2023-11-10] MEDS: Famotidine 20 MG TABLET PO ×2 (08:18→21:16)
[2023-11-10] MEDS: Nicotine 21 MG PATCH.TD24 TRANSDERMA (08:18)
[2023-11-10] MEDS: Aspirin 81 MG TAB.CHEW PO (08:18)
[2023-11-10] MEDS: hydrOXYzine HCL 25 MG TABLET PO (08:18)
[2023-11-10] MEDS: Gabapentin 300 MG CAPSULE 900 MG PO ×3 (08:18→21:16)
[2023-11-10] MEDS: LORazepam 1 MG TABLET PO (08:19)
[2023-11-10] MEDS: QUEtiapine Fumarate 50 MG TABLET PO ×2 (08:19→14:32)
[2023-11-10] MEDS: Docusate Sodium 100 MG CAPSULE PO ×2 (08:19→21:17)
[2023-11-10] MEDS: traZODone HCL 50 MG TABLET PO (08:19)
[2023-11-10] MEDS: Acetaminophen 325 MG TABLET 650 MG PO ×3 (08:19→21:16)
[2023-11-10] MEDS: oxyBUTYnin chloride ER 5 MG TAB.ER.24 10 MG PO (08:19)
[2023-11-10] MEDS: lamoTRIgine 100 MG TABLET 200 MG PO ×2 (08:20→21:16)
[2023-11-10 11:31] VITALS: BP 95/52
[2023-11-10] MEDS: Midodrine HCl 5 MG TABLET PO ×2 (12:14→17:23)
[2023-11-10 17:17] VITALS: BP 95/57
[2023-11-10 18:00] VITALS: BP 124/59; PULSE 70; RESP 16; TEMP 36.4; O2SAT 97
--- NOTE | 2023-11-10 19:29 | P.PNPSI_ITS ---
Subjective Subjective Date of Service: 11/10/23 Reason For Visit: agitation Interim History: The nursing staff reported patient has been doing well. No behavioral outbursts. Mood is calm. No agitation. She is happy she is able to use a straw to imitate smoking. At this moment the patient is much better waiting for placement. Review of Systems Review of Systems nothing acute Yes Unobtainable due to mental status Mental Status Exam Mental Status Exam Narrative: In day area eating breakfast. Singing and pleasant today. Alert. Unable to formally test orientation etc. . No evidence of SI or HI. Is paranoid and frustrated. Insight and judgment Patient Appearance: Appropriate Patient Orientation: Person Level of Consciousness: Awake and Appropriate Patient Behavior: Guarded and Passive Mood Description: Withdrawn Affect Description: Constricted Patient Cognition Impaired: Yes Ability to Follow Directions: Fair Speech Pattern: Impoverished Diagnostics Vital Signs (24Hr): Vital Signs - 24 hr 11/10/23 07:26 11/10/23 11:31 11/10/23 17:17 Temperature 97.2 F Pulse Rate 63 Respiratory Rate 18 Blood Pressure 141/70 H 95/52 L 95/57 L Pulse Oximetry 97 Oxygen Delivery Method Room Air BMI result Body Mass Index 23.0 Labs 11/04/23 08:44 Imaging Radiology Impressions: ITS Impressions Head CT 10/18/23 16:48 IMPRESSION: 1. No acute intracranial hemorrhage or edematous infarct. 2. 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 3. Right temporal approach ventriculostomy catheter with tip terminating in the right lateral ventricle body. No hydrocephalus. Medications Medications Current Medications Acetaminophen (Acetaminophen 325 Mg Tablet) 650 mg PO TID [facility] Last Admin: 11/10/23 14:31 Dose: 650 mg Al Hydroxide/Mg Hydroxide (Magnesium Hydrox/Alum Hydrox 30 Ml Oral.Susp) 30 ml PO Q6H PRN PRN Reason: Heartburn/Nausea Aspirin (Aspirin 81 Mg Tab.Chew) 81 mg PO DAILY [facility] Last Admin: 11/10/23 08:18 Dose: 81 mg Atorvastatin Calcium (Atorvastatin Calcium 80 Mg Tablet) 80 mg PO DAILY [facility] Last Admin: 11/10/23 08:18 Dose: 80 mg Docusate Sodium (Docusate Sodium 100 Mg Capsule) 100 mg PO BID [facility] Last Admin: 11/10/23 08:19 Dose: 100 mg Escitalopram Oxalate (Escitalopram Oxalate 5 Mg Tablet) 5 mg PO DAILY [facility] Last Admin: 11/10/23 08:18 Dose: 5 mg Famotidine (Famotidine 20 Mg Tablet) 20 mg PO BID [facility] Last Admin: 11/10/23 08:18 Dose: 20 mg Gabapentin (Gabapentin 300 Mg Capsule) 900 mg PO TID [facility] Last Admin: 11/10/23 14:31 Dose: 900 mg Hydroxyzine HCl (Hydroxyzine Hcl 25 Mg Tablet) 25 mg PO Q6H PRN PRN Reason: Anxiety Last Admin: 11/10/23 08:18 Dose: 25 mg Ibuprofen (Ibuprofen 400 Mg Tablet) 400 mg PO Q6H PRN PRN Reason: Mild Pain (Scale Score 1-4) Last Admin: 11/09/23 12:19 Dose: 400 mg Lamotrigine (Lamotrigine 100 Mg Tablet) 200 mg PO BID [facility] Last Admin: 11/10/23 08:20 Dose: 200 mg Latanoprost (Latanoprost 0.005 % Ophth Pati 2.5 Ml Drops) 1 drop EYE-BOTH BEDTIME [facility] Last Admin: 11/09/23 21:00 Dose: 1 drop Lorazepam (Lorazepam 1 Mg Tablet) 1 mg PO Q4H PRN PRN Reason: anxiety/restlessness Last Admin: 11/10/23 08:19 Dose: 1 mg Magnesium Hydroxide (Milk Of Magnesia 30 Ml Oral.Susp) 30 ml PO DAILY PRN PRN Reason: Constipation Last Admin: 10/29/23 10:19 Dose: 30 ml Metformin HCl (Metformin Hcl 500 Mg Tablet) 500 mg PO DAILY [facility] Last Admin: 11/10/23 08:18 Dose: 500 mg Midodrine (Midodrine Hcl 5 Mg Tablet) 5 mg PO TIDWM [facility] Last Admin: 11/10/23 17:23 Dose: 5 mg Nicotine (Nicotine 21 Mg Patch.Td24) 21 mg TRANSDERMA DAILY [facility] Last Admin: 11/10/23 08:18 Dose: 21 mg Olanzapine (Olanzapine 10 Mg Tablet) 20 mg PO BEDTIME [facility] Last Admin: 11/09/23 20:55 Dose: 20 mg Olanzapine (Olanzapine Odt 10 Mg Tab.Rapdis) 10 mg TRANSLINGU BID@0900,1400 [facility] Last Admin: 11/10/23 14:31 Dose: 10 mg Oxybutynin Chloride (Oxybutynin Chloride Er 5 Mg Tab.Er.24) 10 mg PO DAILY [facility] Last Admin: 11/10/23 08:19 Dose: 10 mg Quetiapine Fumarate (Quetiapine Fumarate 50 Mg Tablet) 50 mg PO BID@0900,1400 [facility] Last Admin: 11/10/23 14:32 Dose: 50 mg Quetiapine Fumarate (Quetiapine Fumarate 100 Mg Tablet) 100 mg PO Q4H PRN PRN Reason: agitation Last Admin: 11/09/23 10:25 Dose: 100 mg Trazodone HCl (Trazodone Hcl 50 Mg Tablet) 50 mg PO BEDTIME MRX1 PRN PRN Reason: Insomnia Last Admin: 11/03/23 19:45 Dose: 50 mg Trazodone HCl (Trazodone Hcl 25 Mg Halftab) 25 mg PO BEDTIME [facility] Last Admin: 11/09/23 20:55 Dose: 25 mg Trazodone HCl (Trazodone Hcl 50 Mg Tablet) 50 mg PO DAILY [facility] Last Admin: 11/10/23 08:19 Dose: 50 mg Allergies Allergies Allergy/AdvReac Type Severity Reaction Status Date / Time amantadine AdvReac Unknown Verified 09/29/23 17:57 Assessment & Plan Assessment & Plan (1) Traumatic brain injury: Qualifiers: Loss of consciousness presence/duration: unknown LOC status Status: Acute Code(s): S06.9XAA - Unspecified intracranial injury with loss of consciousness status unknown, initial encounter Plan 63-year-old female with TBI, dementia, disorganized who presents for aggressive behavior. Hospital course: 10/12 Patient disruptive last night, again today, disorganized and thinks she is back at her [facility], asking for her cigarettes over and over, talking to herself. Patient yelling in the [place], ran into staff with wheelchair though maybe not on purpose; patient lowered herself to the floor. Zyprexa p.r.n. not that helpful. Borderer ordered Ativan 1 mg which did calm her down. On approach she remained disorganized, wanting her cigarettes but was overall calm. Staff reports patient eating and sleeping well. -continue current regimen for now 10/13 Patient remains disorganized, aggressive, yelling; p.r.n. Zyprexa still not helpful. Scheduled Clonazepam not helpful. Give another dose of Ativan which again was calming. PLAN: Will hold Zyprexa p.r.n. since has not proved helpful for calming agitation, despite getting up to 40 mg yesterday. Will instead make Ativan 1 mg t.i.d. p.r.n. available for agitation If Ativan proves helpful, will consider doing away with Zyprexa p.r.n. (and may be scheduled bedtime dose) and see if Tegretol or Depakote would work for aggression. Will likely defer this to primary team however 10/19/23: regarding medications, we will schedule olanzapine in the daytime rather than p.r.n.. Maintain nighttime olanzapine. Will utilize Seroquel as needed. Noted schedule Klonopin and as needed Ativan 10/20: no changes\ 10/26/23: no changes 10/27: Schedule seroqule morning and lunchtime Plan 1. Keep weight Zyprexa standing. Continue with Ativan and Seroquel p.r.n. that has worked fairly well as a p.r.n.. 3. Start working on discharge plan. 11/09: Continue current treatment plan. 11/10: Continue current treatment plan. Reason for continued inpatient stay Substantial Risk for: inability to function and rapid decompensation Time Spent With Patient Time: Total time managing care of this patient today ____ minutes.
[2023-11-10] MEDS: traZODone HCL 25 MG HALFTAB PO (21:16)
[2023-11-10] MEDS: OLANZapine 10 MG TABLET 20 MG PO (21:16)
[2023-11-10] MEDS: Latanoprost 0.005 % Ophth Sol 2.5 ML DROPS 1 DROP EYE-BOTH (21:19)
[2023-11-11] MEDS: LORazepam 1 MG TABLET PO ×2 (04:20→22:31)
[2023-11-11 07:45] VITALS: BP 130/73; PULSE 106; RESP 18; TEMP 38.1; O2SAT 96
[2023-11-11] MEDS: Nicotine 21 MG PATCH.TD24 TRANSDERMA (08:39)
[2023-11-11] MEDS: Gabapentin 300 MG CAPSULE 900 MG PO ×3 (08:41→22:30)
[2023-11-11] MEDS: oxyBUTYnin chloride ER 5 MG TAB.ER.24 10 MG PO (08:42)
[2023-11-11] MEDS: Escitalopram Oxalate 5 MG TABLET PO (08:42)
[2023-11-11] MEDS: Acetaminophen 325 MG TABLET 650 MG PO ×3 (08:43→22:29)
[2023-11-11] MEDS: QUEtiapine Fumarate 50 MG TABLET PO ×2 (08:43→14:17)
[2023-11-11] MEDS: Docusate Sodium 100 MG CAPSULE PO (08:43)
[2023-11-11] MEDS: OLANZapine ODT 10 MG TAB.RAPDIS TRANSLINGU ×2 (08:44→14:17)
[2023-11-11] MEDS: traZODone HCL 50 MG TABLET PO (08:44)
[2023-11-11] MEDS: Atorvastatin Calcium 80 MG TABLET PO (08:45)
[2023-11-11] MEDS: lamoTRIgine 100 MG TABLET 200 MG PO ×2 (08:45→22:28)
[2023-11-11] MEDS: Aspirin 81 MG TAB.CHEW PO (08:45)
[2023-11-11] MEDS: Famotidine 20 MG TABLET PO ×2 (08:46→22:31)
[2023-11-11] MEDS: metFORMIN HCl 500 MG TABLET PO (08:46)
[2023-11-11 08:59] LABS: Estimated Glomerular Filt Rate > 60
--- NOTE | 2023-11-11 10:11 | PC.NURSE ---
T 100.5 and P [address] Aguilera today. New orders obtained and clean catch urine 80cc cloudy yellow obtained today at 0945 and sent to lab. Patient denies urinary symptoms and cough.
[2023-11-11 10:32] LABS: MANUAL DIFF FLAG NO
[2023-11-11 10:33] LABS: Appearance Urine Turbid; Color Urine Yellow; Glucose Urine UA Negative (Negative); Leukocyte Esterase Urine Negative (Negative); Nitrite Urine Negative (Negative); PH 8.5 (5.0-9.0); Specific Gravity - Urine 1.025 (1.005-1.025); Urine Blood Negative (Negative); Urine Ketones Negative (Negative); Urine Protein Trace mg/dL (Neg-Trace)
[2023-11-11 10:35] LABS: Basophils Percent Auto 0.5 % (0-2); Eosinophils Absolute Auto 0.1 X10*3/uL (0.0-0.4); Eosinophils Percent Auto 1.8 % (0-4); Hematocrit 37.2 % (37.0-47.0); Imm Gran Abs Auto 0.02 X10*3/uL (0.00-0.03); Imm Gran Pct Auto 0.4 % (0.0-0.4); Lymphocytes Absolute Auto 0.3 X10*3/uL (1.2-4.9); Lymphocytes Percent Auto 5.3 % (20-40); Mean Corpuscular HGB Conc 32.3 g/dl (31.0-35.0); Mean Corpuscular Hemoglobin 27.9 pg (27.0-33.0); Mean Corpuscular Volume 86.5 fL (80.0-98.0); Mean Platelet Volume 10.1 fL (9.4-12.3); Monocytes Absolute Auto 0.4 X10*3/uL (0.1-1.2); Monocytes Percent Auto 7.2 % (2-11); Neutrophils Absolute Auto 4.8 x10*3/uL (2.0-8.3); Neutrophils Percent Auto 84.8 % (45-73); Platelet Count 288 X10*3/uL (160-400); Red Cell Distribution Width 16.4 % (11.0-16.0); White Blood Count 5.7 X10*3/uL (4.8-10.8)
[2023-11-11 10:39] LABS: Bacteria Urine None Seen (None Seen); Hyaline Casts Urine 0-2 /LPF (0-2); Squamous Epithelial Cell Urine 0-2 /HPF (0-2); WBC Urine 0-5 /HPF (0-5)
[2023-11-11 11:37] VITALS: BP 80/50; PULSE 91
[2023-11-11] MEDS: Midodrine HCl 5 MG TABLET PO ×2 (11:40→16:51)
--- NOTE | 2023-11-11 12:15 | HO.PSYCHPN ---
Subjective Subjective Date of Service: 11/11/23 Reason For Visit: agitation Subjective Notes: Zepeda Order and Conditional Voluntary Healthcare Proxy: Yes Guardianship: Yes Interim History: The nursing staff reported the patient had been compliant with treatment, the staff has noticed that she is not yelling or self dialogue in anymore and she is eating well. She slept 6 hours. The social professionals reported that most likely she could be discharged this week. On interview the patient denies new symptoms, waiting for placement. Mental Status Exam Mental Status Exam Patient Appearance: Appropriate Patient Orientation: Person Level of Consciousness: Awake Patient Behavior: Guarded and Passive Mood Description: Withdrawn Affect Description: Constricted Patient Cognition Impaired: Yes Ability to Follow Directions: Good Speech Pattern: Clear Hallucinations: None Delusions: Not Present Thought Process: Distracted and Slowed Thinking Thought Content: positive for [place] and positive for Poverty of Content Judgement: Poor Diagnostics Vital Signs (24Hr): Vital Signs - 24 hr 11/10/23 17:17 11/10/23 18:00 11/11/23 07:45 Temperature 97.6 F 100.5 F H Pulse Rate 70 106 H Respiratory Rate 16 18 Blood Pressure 95/57 L 124/59 L 130/73 Pulse Oximetry 97 96 Oxygen Delivery Method Room Air Room Air 11/11/23 11:37 Temperature Pulse Rate 91 Respiratory Rate Blood Pressure 80/50 L Pulse Oximetry Oxygen Delivery Method BMI result Body Mass Index 23.0 Labs 11/11/23 08:19 11/11/23 08:19 Labs: Laboratory Results - last 48 hr 11/11/23 11/11/23 08:19 09:45 WBC 5.7 RBC 4.30 Hgb 12.0 Hct 37.2 MCV 86.5 MCH 27.9 MCHC 32.3 RDW 16.4 H Plt Count 288 MPV 10.1 Immature Gran % (Auto) 0.4 Neut % (Auto) 84.8 H Lymph % (Auto) 5.3 L [place] % (Auto) 7.2 Eos % (Auto) 1.8 Baso % (Auto) 0.5 Lymph # (Auto) 0.3 L [place] # (Auto) 0.4 Eos # (Auto) 0.1 Baso # (Auto) 0.0 Abs Immat Gran (auto) 0.02 Absolute Neuts (auto) 4.8 Absolute Nucleated RBC 0.000 Nucleated RBC % (auto) 0.0 Hold Purple Top SEE NOTE Creatinine 0.60 Estim Creat Clear Calc 91.0 Estimated GFR > 60 Urine Color Yellow Urine Appearance Turbid Urine pH 8.5 Ur Specific [place] 1.025 Urine Protein Trace Urine Glucose (UA) Negative Urine Ketones Negative Urine Blood Negative Urine Nitrite Negative Ur Leukocyte Esterase Negative Urine RBC 3-5 H Urine WBC 0-5 Ur Squamous Epith Cells 0-2 Urine Bacteria None Seen Hyaline Casts 0-2 Imaging Radiology Impressions: ITS Impressions Head CT 10/18/23 16:48 IMPRESSION: 1. No acute intracranial hemorrhage or edematous infarct. 2. 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 3. Right temporal approach ventriculostomy catheter with tip terminating in the right lateral ventricle body. No hydrocephalus. Medications Medications Current Medications Acetaminophen (Acetaminophen 325 Mg Tablet) 650 mg PO TID [facility] Last Admin: 11/11/23 08:43 Dose: 650 mg Al Hydroxide/Mg Hydroxide (Magnesium Hydrox/Alum Hydrox 30 Ml Oral.Susp) 30 ml PO Q6H PRN PRN Reason: Heartburn/Nausea Aspirin (Aspirin 81 Mg Tab.Chew) 81 mg PO DAILY [facility] Last Admin: 11/11/23 08:45 Dose: 81 mg Atorvastatin Calcium (Atorvastatin Calcium 80 Mg Tablet) 80 mg PO DAILY [facility] Last Admin: 11/11/23 08:45 Dose: 80 mg Docusate Sodium (Docusate Sodium 100 Mg Capsule) 100 mg PO BID [facility] Last Admin: 11/11/23 08:43 Dose: 100 mg Escitalopram Oxalate (Escitalopram Oxalate 5 Mg Tablet) 5 mg PO DAILY [facility] Last Admin: 11/11/23 08:42 Dose: 5 mg Famotidine (Famotidine 20 Mg Tablet) 20 mg PO BID [facility] Last Admin: 11/11/23 08:46 Dose: 20 mg Gabapentin (Gabapentin 300 Mg Capsule) 900 mg PO TID [facility] Last Admin: 11/11/23 08:41 Dose: 900 mg Hydroxyzine HCl (Hydroxyzine Hcl 25 Mg Tablet) 25 mg PO Q6H PRN PRN Reason: Anxiety Last Admin: 11/10/23 08:18 Dose: 25 mg Ibuprofen (Ibuprofen 400 Mg Tablet) 400 mg PO Q6H PRN PRN Reason: Mild Pain (Scale Score 1-4) Last Admin: 11/09/23 12:19 Dose: 400 mg Lamotrigine (Lamotrigine 100 Mg Tablet) 200 mg PO BID [facility] Last Admin: 11/11/23 08:45 Dose: 200 mg Latanoprost (Latanoprost 0.005 % Ophth [place] 2.5 Ml Drops) 1 drop EYE-BOTH BEDTIME [facility] Last Admin: 11/10/23 21:19 Dose: 1 drop Lorazepam (Lorazepam 1 Mg Tablet) 1 mg PO Q4H PRN PRN Reason: anxiety/restlessness Last Admin: 11/11/23 04:20 Dose: 1 mg Magnesium Hydroxide (Milk Of Magnesia 30 Ml Oral.Susp) 30 ml PO DAILY PRN PRN Reason: Constipation Last Admin: 10/29/23 10:19 Dose: 30 ml Metformin HCl (Metformin Hcl 500 Mg Tablet) 500 mg PO DAILY [facility] Last Admin: 11/11/23 08:46 Dose: 500 mg Midodrine (Midodrine Hcl 5 Mg Tablet) 5 mg PO TIDWM [facility] Last Admin: 11/11/23 11:40 Dose: 5 mg Nicotine (Nicotine 21 Mg Patch.Td24) 21 mg TRANSDERMA DAILY [facility] Last Admin: 11/11/23 08:39 Dose: 21 mg Olanzapine (Olanzapine 10 Mg Tablet) 20 mg PO BEDTIME [facility] Last Admin: 11/10/23 21:16 Dose: 20 mg Olanzapine (Olanzapine Odt 10 Mg Tab.Rapdis) 10 mg TRANSLINGU BID@0900,1400 [facility] Last Admin: 11/11/23 08:44 Dose: 10 mg Oxybutynin Chloride (Oxybutynin Chloride Er 5 Mg Tab.Er.24) 10 mg PO DAILY [facility] Last Admin: 11/11/23 08:42 Dose: 10 mg Quetiapine Fumarate (Quetiapine Fumarate 50 Mg Tablet) 50 mg PO BID@0900,1400 [facility] Last Admin: 11/11/23 08:43 Dose: 50 mg Quetiapine Fumarate (Quetiapine Fumarate 100 Mg Tablet) 100 mg PO Q4H PRN PRN Reason: agitation Last Admin: 11/09/23 10:25 Dose: 100 mg Trazodone HCl (Trazodone Hcl 50 Mg Tablet) 50 mg PO BEDTIME MRX1 PRN PRN Reason: Insomnia Last Admin: 11/03/23 19:45 Dose: 50 mg Trazodone HCl (Trazodone Hcl 25 Mg Halftab) 25 mg PO BEDTIME [facility] Last Admin: 11/10/23 21:16 Dose: 25 mg Trazodone HCl (Trazodone Hcl 50 Mg Tablet) 50 mg PO DAILY [facility] Last Admin: 11/11/23 08:44 Dose: 50 mg Allergies Allergies Allergy/AdvReac Type Severity Reaction Status Date / Time amantadine AdvReac Unknown Verified 09/29/23 17:57 Assessment & Plan Assessment & Plan (1) Traumatic brain injury: Qualifiers: Loss of consciousness presence/duration: unknown LOC status Status: Acute Code(s): S06.9XAA - Unspecified intracranial injury with loss of consciousness status unknown, initial encounter Plan 63-year-old female with TBI, dementia, disorganized who presents for aggressive behavior. Hospital course: 10/12 Patient disruptive last night, again today, disorganized and thinks she is back [facility], asking for her cigarettes over and over, talking to herself. Patient yelling in the [place], ran into staff with wheelchair though maybe not on purpose; patient lowered herself to the floor. Zyprexa p.r.n. not that helpful. Observatory Director ordered Ativan 1 mg which did calm her down. On approach she remained disorganized, wanting her cigarettes but was overall calm. Staff reports patient eating and sleeping well. -continue current regimen for now 10/13 Patient remains disorganized, aggressive, yelling; p.r.n. Zyprexa still not helpful. Scheduled Clonazepam not helpful. Give another dose of Ativan which again was calming. PLAN: Will hold Zyprexa p.r.n. since has not proved helpful for calming agitation, despite getting up to 40 mg yesterday. Will instead make Ativan 1 mg t.i.d. p.r.n. available for agitation If Ativan proves helpful, will consider doing away with Zyprexa p.r.n. (and may be scheduled bedtime dose) and see if Tegretol or Depakote would work for aggression. Will likely defer this to primary team however 10/19/23: regarding medications, we will schedule olanzapine in the daytime rather than p.r.n.. Maintain nighttime olanzapine. Will utilize Seroquel as needed. Noted schedule Klonopin and as needed Ativan 10/20: no changes\ 10/26/23: no changes 12/3: Schedule seroqule morning and lunchtime Plan 1. Keep weight Zyprexa standing. 2. Continue with Ativan and Seroquel p.r.n. that has worked fairly well as a p.r.n.. 3. Start working on discharge plan. Reason for continued inpatient stay Substantial Risk for: inability to function, rapid decompensation and med/psych decompensation Time Spent With Patient Time: Total time managing care of this patient today __20__ minutes.
[2023-11-11 14:15] VITALS: TEMP 36.2
--- NOTE | 2023-11-11 15:10 | PC.NURSE ---
1415 T97.1. U/A unremarkable. Lung sounds diminished but clear bilaterally. Covid 19 swab collected per order at 1507. Patient tolerated procedure very well.
[2023-11-11 15:24] LABS: COVID-19 Test Positive (Negative); IDNOW Serial# BCCEAD1C
--- NOTE | 2023-11-11 15:52 | PC.NURSE ---
Patient positive for Covid 19 A. supervisor speech notified. Mask applied to patient.
[2023-11-11 16:46] VITALS: BP 98/54
--- NOTE | 2023-11-11 17:59 | PC.NURSE ---
Patient's room changed to 178, private room per psychiatric nursing aide. Covid precautions maintained.
[2023-11-11 18:00] VITALS: BP 120/63; PULSE 60; RESP 18; TEMP 36.2; O2SAT 97
[2023-11-11] MEDS: traZODone HCL 25 MG HALFTAB PO (22:29)
[2023-11-11] MEDS: OLANZapine 10 MG TABLET 20 MG PO (22:30)
[2023-11-11] MEDS: QUEtiapine Fumarate 100 MG TABLET PO (22:30)
[2023-11-11] MEDS: Latanoprost 0.005 % Ophth Sol 2.5 ML DROPS 1 DROP EYE-BOTH (22:36)
[2023-11-12] MEDS: hydrOXYzine HCL 25 MG TABLET PO ×2 (00:03→22:23)
[2023-11-12] MEDS: LORazepam 1 MG TABLET PO ×3 (05:02→22:22)
[2023-11-12] MEDS: QUEtiapine Fumarate 100 MG TABLET PO ×3 (05:02→22:23)
--- NOTE | 2023-11-12 09:50 | HO.PSYCHPN ---
Subjective Subjective Date of Service: 11/12/23 Reason For Visit: agitation Subjective Notes: Conditional Voluntary Interim History: Pt in her room after testing positive for covid. Pt denies difficulty breathing, no SOB. No use of accessory muscles. reviewed VS- 120/63, HR 60 afebrile, o2sat 97 on RA. Pt denies any concerns but reports feeling tired and wanting to rest. She slept 8hrs last night. Isolation due to covid. Medication Compliance: Yes Review of Systems Review of Systems nothing acute Yes Unobtainable due to mental status Mental Status Exam Mental Status Exam Patient Appearance: Appropriate Patient Orientation: Person Level of Consciousness: Awake Patient Behavior: Guarded and Passive Mood Description: Withdrawn Affect Description: Constricted Patient Cognition Impaired: Yes Ability to Follow Directions: Good Speech Pattern: Clear Diagnostics Vital Signs (24Hr): Vital Signs - 24 hr 11/11/23 11:37 11/11/23 14:15 11/11/23 16:46 Temperature 97.1 F Pulse Rate 91 Respiratory Rate Blood Pressure 80/50 L 98/54 L Pulse Oximetry Oxygen Delivery Method 11/11/23 18:00 Temperature 97.1 F Pulse Rate 60 Respiratory Rate 18 Blood Pressure 120/63 Pulse Oximetry 97 Oxygen Delivery Method Room Air BMI result Body Mass Index 23.0 Labs 11/11/23 08:19 11/11/23 08:19 Labs: Laboratory Results - last 48 hr 11/11/23 11/11/23 11/11/23 08:19 09:45 15:07 WBC 5.7 RBC 4.30 Hgb 12.0 Hct 37.2 MCV 86.5 MCH 27.9 MCHC 32.3 RDW 16.4 H Plt Count 288 MPV 10.1 Immature Gran % (Auto) 0.4 Neut % (Auto) 84.8 H Lymph % (Auto) 5.3 L [place] % (Auto) 7.2 Eos % (Auto) 1.8 Baso % (Auto) 0.5 Lymph # (Auto) 0.3 L [place] # (Auto) 0.4 Eos # (Auto) 0.1 Baso # (Auto) 0.0 Abs Immat Gran (auto) 0.02 Absolute Neuts (auto) 4.8 Absolute Nucleated RBC 0.000 Nucleated RBC % (auto) 0.0 Hold Purple Top SEE NOTE Creatinine 0.60 Estim Creat Clear Calc 91.0 Estimated GFR > 60 Urine Color Yellow Urine Appearance Turbid Urine pH 8.5 Ur Specific [place] 1.025 Urine Protein Trace Urine Glucose (UA) Negative Urine Ketones Negative Urine Blood Negative Urine Nitrite Negative Ur Leukocyte Esterase Negative Urine RBC 3-5 H Urine WBC 0-5 Ur Squamous Epith Cells 0-2 Urine Bacteria None Seen Hyaline Casts 0-2 COVID-19 ([facility]OSI) Positive A COVID-19 Clin Com See Note Imaging Radiology Impressions: ITS Impressions Head CT 10/18/23 16:48 IMPRESSION: 1. No acute intracranial hemorrhage or edematous infarct. 2. 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 3. Right temporal approach ventriculostomy catheter with tip terminating in the right lateral ventricle body. No hydrocephalus. Medications Medications Current Medications Acetaminophen (Acetaminophen 325 Mg Tablet) 650 mg PO TID [facility] Last Admin: 11/11/23 22:29 Dose: 650 mg Al Hydroxide/Mg Hydroxide (Magnesium Hydrox/Alum Hydrox 30 Ml Oral.Susp) 30 ml PO Q6H PRN PRN Reason: Heartburn/Nausea Aspirin (Aspirin 81 Mg Tab.Chew) 81 mg PO DAILY [facility] Last Admin: 11/11/23 08:45 Dose: 81 mg Atorvastatin Calcium (Atorvastatin Calcium 80 Mg Tablet) 80 mg PO DAILY [facility] Last Admin: 11/11/23 08:45 Dose: 80 mg Docusate Sodium (Docusate Sodium 100 Mg Capsule) 100 mg PO BID [facility] Last Admin: 11/11/23 22:30 Dose: Not Given Escitalopram Oxalate (Escitalopram Oxalate 5 Mg Tablet) 5 mg PO DAILY [facility] Last Admin: 11/11/23 08:42 Dose: 5 mg Famotidine (Famotidine 20 Mg Tablet) 20 mg PO BID [facility] Last Admin: 11/11/23 22:31 Dose: 20 mg Gabapentin (Gabapentin 300 Mg Capsule) 900 mg PO TID [facility] Last Admin: 11/11/23 22:30 Dose: 900 mg Hydroxyzine HCl (Hydroxyzine Hcl 25 Mg Tablet) 25 mg PO Q6H PRN PRN Reason: Anxiety Last Admin: 11/12/23 00:03 Dose: 25 mg Ibuprofen (Ibuprofen 400 Mg Tablet) 400 mg PO Q6H PRN PRN Reason: Mild Pain (Scale Score 1-4) Last Admin: 11/09/23 12:19 Dose: 400 mg Lamotrigine (Lamotrigine 100 Mg Tablet) 200 mg PO BID [facility] Last Admin: 11/11/23 22:28 Dose: 200 mg Latanoprost (Latanoprost 0.005 % Ophth [place] 2.5 Ml Drops) 1 drop EYE-BOTH BEDTIME [facility] Last Admin: 11/11/23 22:36 Dose: 1 drop Lorazepam (Lorazepam 1 Mg Tablet) 1 mg PO Q4H PRN PRN Reason: anxiety/restlessness Last Admin: 11/12/23 05:02 Dose: 1 mg Magnesium Hydroxide (Milk Of Magnesia 30 Ml Oral.Susp) 30 ml PO DAILY PRN PRN Reason: Constipation Last Admin: 10/29/23 10:19 Dose: 30 ml Metformin HCl (Metformin Hcl 500 Mg Tablet) 500 mg PO DAILY [facility] Last Admin: 11/11/23 08:46 Dose: 500 mg Midodrine (Midodrine Hcl 5 Mg Tablet) 5 mg PO TIDWM [facility] Last Admin: 11/11/23 16:51 Dose: 5 mg Nicotine (Nicotine 21 Mg Patch.Td24) 21 mg TRANSDERMA DAILY [facility] Last Admin: 11/11/23 08:39 Dose: 21 mg Olanzapine (Olanzapine 10 Mg Tablet) 20 mg PO BEDTIME [facility] Last Admin: 11/11/23 22:30 Dose: 20 mg Olanzapine (Olanzapine Odt 10 Mg Tab.Rapdis) 10 mg TRANSLINGU BID@0900,1400 [facility] Last Admin: 11/11/23 14:17 Dose: 10 mg Oxybutynin Chloride (Oxybutynin Chloride Er 5 Mg Tab.Er.24) 10 mg PO DAILY [facility] Last Admin: 11/11/23 08:42 Dose: 10 mg Quetiapine Fumarate (Quetiapine Fumarate 50 Mg Tablet) 50 mg PO BID@0900,1400 [facility] Last Admin: 11/11/23 14:17 Dose: 50 mg Quetiapine Fumarate (Quetiapine Fumarate 100 Mg Tablet) 100 mg PO Q4H PRN PRN Reason: agitation Last Admin: 11/12/23 05:02 Dose: 100 mg Trazodone HCl (Trazodone Hcl 50 Mg Tablet) 50 mg PO BEDTIME MRX1 PRN PRN Reason: Insomnia Last Admin: 11/03/23 19:45 Dose: 50 mg Trazodone HCl (Trazodone Hcl 25 Mg Halftab) 25 mg PO BEDTIME [facility] Last Admin: 11/11/23 22:29 Dose: 25 mg Trazodone HCl (Trazodone Hcl 50 Mg Tablet) 50 mg PO DAILY [facility] Last Admin: 11/11/23 08:44 Dose: 50 mg Allergies Allergies Allergy/AdvReac Type Severity Reaction Status Date / Time amantadine AdvReac Unknown Verified 09/29/23 17:57 Assessment & Plan Assessment & Plan (1) Traumatic brain injury: Qualifiers: Loss of consciousness presence/duration: unknown LOC status Status: Acute Code(s): S06.9XAA - Unspecified intracranial injury with loss of consciousness status unknown, initial encounter Plan 63-year-old female with TBI, dementia, disorganized who presents for aggressive behavior. Hospital course: 10/12 Patient disruptive last night, again today, disorganized and thinks she is back at her long-term, asking for her cigarettes over and over, talking to herself. [place], ran into staff with wheelchair though maybe not on purpose; patient lowered herself to the floor. Zyprexa p.r.n. not that helpful. Veneer Drier Tailer ordered Ativan 1 mg which did calm her down. On approach she remained disorganized, wanting her cigarettes but was overall calm. Staff reports patient eating and sleeping well. -continue current regimen for now 10/13 Patient remains disorganized, aggressive, yelling; p.r.n. Zyprexa still not helpful. Scheduled Clonazepam not helpful. Give another dose of Ativan which again was calming. PLAN: Will hold Zyprexa p.r.n. since has not proved helpful for calming agitation, despite getting up to 40 mg yesterday. Will instead make Ativan 1 mg t.i.d. p.r.n. available for agitation If Ativan proves helpful, will consider doing away with Zyprexa p.r.n. (and may be scheduled bedtime dose) and see if Tegretol or Depakote would work for aggression. Will likely defer this to primary team however 10/19/23: regarding medications, we will schedule olanzapine in the daytime rather than p.r.n.. Maintain nighttime olanzapine. Will utilize Seroquel as needed. Noted schedule Klonopin and as needed Ativan 10/20: no changes\ 10/26/23: no changes 12/3: Schedule seroqule morning and lunchtime 11/12 pt tested positive for covid on 11/11- currently asymptomatic, no cough, no SOB, afebrile. She does report feeling tired and is in bed. continue monitor respiratory status. Reason for continued inpatient stay Substantial Risk for: inability to function Time Spent With Patient Time: Total time managing care of this patient today ____ minutes.
[2023-11-12 09:55] VITALS: BP 160/75; PULSE 58; RESP 16; TEMP 36.1; O2SAT 95
[2023-11-12] MEDS: Gabapentin 300 MG CAPSULE 900 MG PO ×3 (10:04→22:21)
[2023-11-12] MEDS: Acetaminophen 325 MG TABLET 650 MG PO ×3 (10:04→22:24)
[2023-11-12 10:05] VITALS: BP 140/65; PULSE 88; RESP 18; TEMP 36.6; O2SAT 95
[2023-11-12] MEDS: lamoTRIgine 100 MG TABLET 200 MG PO ×2 (10:05→22:25)
[2023-11-12] MEDS: Escitalopram Oxalate 5 MG TABLET PO (10:05)
[2023-11-12] MEDS: QUEtiapine Fumarate 50 MG TABLET PO ×2 (10:05→15:07)
[2023-11-12] MEDS: metFORMIN HCl 500 MG TABLET PO (10:06)
[2023-11-12] MEDS: Atorvastatin Calcium 80 MG TABLET PO (10:07)
[2023-11-12] MEDS: traZODone HCL 50 MG TABLET PO ×2 (10:07→23:54)
[2023-11-12] MEDS: Aspirin 81 MG TAB.CHEW PO (10:08)
[2023-11-12] MEDS: Famotidine 20 MG TABLET PO ×2 (10:08→22:24)
[2023-11-12] MEDS: oxyBUTYnin chloride ER 5 MG TAB.ER.24 10 MG PO (10:08)
[2023-11-12] MEDS: OLANZapine ODT 10 MG TAB.RAPDIS TRANSLINGU ×2 (10:09→15:07)
[2023-11-12] MEDS: Nicotine 21 MG PATCH.TD24 TRANSDERMA (10:09)
[2023-11-12 15:03] VITALS: BP 107/55; PULSE 74; RESP 15; TEMP 36.6; O2SAT 92
[2023-11-12 18:00] VITALS: BP 107/62; PULSE 78; RESP 15; TEMP 36.4; O2SAT 94
[2023-11-12] MEDS: Midodrine HCl 5 MG TABLET PO (18:18)
[2023-11-12] MEDS: OLANZapine 10 MG TABLET 20 MG PO (22:22)
[2023-11-12] MEDS: traZODone HCL 25 MG HALFTAB PO (22:23)
[2023-11-13] MEDS: hydrOXYzine HCL 25 MG TABLET PO (05:33)
[2023-11-13] MEDS: LORazepam 1 MG TABLET PO (05:34)
[2023-11-13] MEDS: Gabapentin 300 MG CAPSULE 900 MG PO ×2 (08:35→14:07)
[2023-11-13] MEDS: traZODone HCL 50 MG TABLET PO (08:35)
[2023-11-13] MEDS: metFORMIN HCl 500 MG TABLET PO (08:35)
[2023-11-13] MEDS: QUEtiapine Fumarate 50 MG TABLET PO ×2 (08:35→14:07)
[2023-11-13] MEDS: Acetaminophen 325 MG TABLET 650 MG PO ×2 (08:35→14:08)
[2023-11-13] MEDS: OLANZapine ODT 10 MG TAB.RAPDIS TRANSLINGU ×2 (08:35→14:07)
[2023-11-13] MEDS: Famotidine 20 MG TABLET PO (08:35)
[2023-11-13] MEDS: Escitalopram Oxalate 5 MG TABLET PO (08:35)
[2023-11-13] MEDS: oxyBUTYnin chloride ER 5 MG TAB.ER.24 10 MG PO (08:36)
[2023-11-13] MEDS: lamoTRIgine 100 MG TABLET 200 MG PO (08:36)
[2023-11-13] MEDS: Midodrine HCl 5 MG TABLET PO ×3 (08:37→16:37)
[2023-11-13] MEDS: Atorvastatin Calcium 80 MG TABLET PO (08:37)
[2023-11-13] MEDS: Aspirin 81 MG TAB.CHEW PO (08:37)
[2023-11-13 08:45] VITALS: BP 144/63; PULSE 78; RESP 18; TEMP 37.2; O2SAT 97
--- NOTE | 2023-11-13 12:47 | HO.PSYCHPN ---
Subjective Subjective Date of Service: 11/13/23 Reason For Visit: agitation Subjective Notes: Zepeda Order and Conditional Voluntary Interim History: The nursing staff reported the patient had been pleasant, cooperative, she had been demanding as usual her cigarettes. Currently she is on isolation due to COVID 19 protocol her On interview the patient denies new symptoms, we will have today a family meeting with her long term for discharge planning. Mental Status Exam Mental Status Exam Patient Appearance: Appropriate Patient Orientation: Person and Situation Level of Consciousness: Awake and Appropriate Patient Behavior: Guarded and Passive Mood Description: Withdrawn Affect Description: Constricted Patient Cognition Impaired: Yes Ability to Follow Directions: Good Speech Pattern: Clear Hallucinations: None Delusions: Ideas of Reference Thought Process: Distracted Thought Content: positive for [place] and positive for Poverty of Content Judgement: Fair Diagnostics Vital Signs (24Hr): Vital Signs - 24 hr 11/12/23 15:03 11/12/23 18:00 11/13/23 08:45 Temperature 97.9 F 97.5 F 98.9 F Pulse Rate 74 78 78 Respiratory Rate 15 15 18 Blood Pressure 107/55 L 107/62 144/63 H Pulse Oximetry 92 94 97 Oxygen Delivery Method Room Air Room Air Room Air BMI result Body Mass Index 23.0 Labs 11/11/23 08:19 11/11/23 08:19 Labs: Laboratory Results - last 48 hr 11/11/23 15:07 COVID-19 (JOSI) Positive A COVID-19 Clin Com See Note Imaging Radiology Impressions: ITS Impressions Head CT 10/18/23 16:48 IMPRESSION: 1. No acute intracranial hemorrhage or edematous infarct. 2. 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 3. Right temporal approach ventriculostomy catheter with tip terminating in the right lateral ventricle body. No hydrocephalus. Medications Medications Current Medications Acetaminophen (Acetaminophen 325 Mg Tablet) 650 mg PO TID [facility] Last Admin: 11/13/23 08:35 Dose: 650 mg Al Hydroxide/Mg Hydroxide (Magnesium Hydrox/Alum Hydrox 30 Ml Oral.Susp) 30 ml PO Q6H PRN PRN Reason: Heartburn/Nausea Aspirin (Aspirin 81 Mg Tab.Chew) 81 mg PO DAILY [facility] Last Admin: 11/13/23 08:37 Dose: 81 mg Atorvastatin Calcium (Atorvastatin Calcium 80 Mg Tablet) 80 mg PO DAILY [facility] Last Admin: 11/13/23 08:37 Dose: 80 mg Docusate Sodium (Docusate Sodium 100 Mg Capsule) 100 mg PO BID [facility] Last Admin: 11/13/23 08:37 Dose: Not Given Escitalopram Oxalate (Escitalopram Oxalate 5 Mg Tablet) 5 mg PO DAILY [facility] Last Admin: 11/13/23 08:35 Dose: 5 mg Famotidine (Famotidine 20 Mg Tablet) 20 mg PO BID [facility] Last Admin: 11/13/23 08:35 Dose: 20 mg Gabapentin (Gabapentin 300 Mg Capsule) 900 mg PO TID [facility] Last Admin: 11/13/23 08:35 Dose: 900 mg Guaifenesin/Dextromethorphan (Guaifenesin Dm 600/30 1 Tab Tab.Er.12h) 1 tab PO BID PRN PRN Reason: congestion/cough Hydroxyzine HCl (Hydroxyzine Hcl 25 Mg Tablet) 25 mg PO Q6H PRN PRN Reason: Anxiety Last Admin: 11/13/23 05:33 Dose: 25 mg Ibuprofen (Ibuprofen 400 Mg Tablet) 400 mg PO Q6H PRN PRN Reason: Mild Pain (Scale Score 1-4) Last Admin: 11/09/23 12:19 Dose: 400 mg Lamotrigine (Lamotrigine 100 Mg Tablet) 200 mg PO BID [facility] Last Admin: 11/13/23 08:36 Dose: 200 mg Latanoprost (Latanoprost 0.005 % Ophth Pati 2.5 Ml Drops) 1 drop EYE-BOTH BEDTIME [facility] Last Admin: 11/12/23 22:34 Dose: Not Given Lorazepam (Lorazepam 1 Mg Tablet) 1 mg PO Q4H PRN PRN Reason: anxiety/restlessness Last Admin: 11/13/23 05:34 Dose: 1 mg Magnesium Hydroxide (Milk Of Magnesia 30 Ml Oral.Susp) 30 ml PO DAILY PRN PRN Reason: Constipation Last Admin: 10/29/23 10:19 Dose: 30 ml Metformin HCl (Metformin Hcl 500 Mg Tablet) 500 mg PO DAILY [facility] Last Admin: 11/13/23 08:35 Dose: 500 mg Midodrine (Midodrine Hcl 5 Mg Tablet) 5 mg PO TIDWM [facility] Last Admin: 11/13/23 11:43 Dose: 5 mg Nicotine (Nicotine 21 Mg Patch.Td24) 21 mg TRANSDERMA DAILY [facility] Last Admin: 11/13/23 08:38 Dose: Not Given Olanzapine (Olanzapine 10 Mg Tablet) 20 mg PO BEDTIME [facility] Last Admin: 11/12/23 22:22 Dose: 20 mg Olanzapine (Olanzapine Odt 10 Mg Tab.Rapdis) 10 mg TRANSLINGU BID@0900,1400 [facility] Last Admin: 11/13/23 08:35 Dose: 10 mg Oxybutynin Chloride (Oxybutynin Chloride Er 5 Mg Tab.Er.24) 10 mg PO DAILY [facility] Last Admin: 11/13/23 08:36 Dose: 10 mg Quetiapine Fumarate (Quetiapine Fumarate 50 Mg Tablet) 50 mg PO BID@0900,1400 [facility] Last Admin: 11/13/23 08:35 Dose: 50 mg Quetiapine Fumarate (Quetiapine Fumarate 100 Mg Tablet) 100 mg PO Q4H PRN PRN Reason: agitation Last Admin: 11/12/23 22:23 Dose: 100 mg Trazodone HCl (Trazodone Hcl 50 Mg Tablet) 50 mg PO BEDTIME MRX1 PRN PRN Reason: Insomnia Last Admin: 11/12/23 23:54 Dose: 50 mg Trazodone HCl (Trazodone Hcl 25 Mg Halftab) 25 mg PO BEDTIME [facility] Last Admin: 11/12/23 22:23 Dose: 25 mg Trazodone HCl (Trazodone Hcl 50 Mg Tablet) 50 mg PO DAILY [facility] Last Admin: 11/13/23 08:35 Dose: 50 mg Allergies Allergies Allergy/AdvReac Type Severity Reaction Status Date / Time amantadine AdvReac Unknown Verified 09/29/23 17:57 Assessment & Plan Assessment & Plan (1) Traumatic brain injury: Qualifiers: Loss of consciousness presence/duration: unknown LOC status Status: Acute Code(s): S06.9XAA - Unspecified intracranial injury with loss of consciousness status unknown, initial encounter Plan 63-year-old female with TBI, dementia, disorganized who presents for aggressive behavior. Hospital course: 10/12 Patient disruptive last night, again today, disorganized and thinks she is back at her long term, asking for her cigarettes over and over, talking to herself. Patient yelling in the [place], ran into staff with wheelchair though maybe not on purpose; patient lowered herself to the floor. Zyprexa p.r.n. not that helpful. Field Tax Auditor ordered Ativan 1 mg which did calm her down. On approach she remained disorganized, wanting her cigarettes but was overall calm. Staff reports patient eating and sleeping well. -continue current regimen for now 10/13 Patient remains disorganized, aggressive, yelling; p.r.n. Zyprexa still not helpful. Scheduled Clonazepam not helpful. Give another dose of Ativan which again was calming. PLAN: Will hold Zyprexa p.r.n. since has not proved helpful for calming agitation, despite getting up to 40 mg yesterday. Will instead make Ativan 1 mg t.i.d. p.r.n. available for agitation If Ativan proves helpful, will consider doing away with Zyprexa p.r.n. (and may be scheduled bedtime dose) and see if Tegretol or Depakote would work for aggression. Will likely defer this to primary team however 10/19/23: regarding medications, we will schedule olanzapine in the daytime rather than p.r.n.. Maintain nighttime olanzapine. Will utilize Seroquel as needed. Noted schedule Klonopin and as needed Ativan 10/20: no changes\ 10/26/23: no changes 10/27: Schedule seroqule morning and lunchtime 11/12 pt tested positive for covid on 11/11- currently asymptomatic, no cough, no SOB, afebrile. She does report feeling tired and is in bed. continue monitor respiratory status. Currently the patient is at baseline, she tested positive to COVID but she does not have any symptoms. We are going to have a family meeting today with the long term for discharge planning Reason for continued inpatient stay Substantial Risk for: inability to function, rapid decompensation and med/psych decompensation Time Spent With Patient Time: Total time managing care of this patient today _20___ minutes.
[2023-11-13 13:00] VITALS: BP 110/66; PULSE 75; RESP 18; TEMP 36.5; O2SAT 97
[2023-11-13 19:40] VITALS: BP 98/51; PULSE 61; RESP 18; TEMP 36.6; O2SAT 94
[2023-11-14] MEDS: hydrOXYzine HCL 25 MG TABLET PO (00:34)
[2023-11-14] MEDS: QUEtiapine Fumarate 100 MG TABLET PO ×2 (00:34→04:25)
[2023-11-14] MEDS: LORazepam 1 MG TABLET PO ×3 (00:34→10:56)
[2023-11-14] MEDS: Midodrine HCl 5 MG TABLET PO ×2 (08:54→11:42)
[2023-11-14] MEDS: oxyBUTYnin chloride ER 5 MG TAB.ER.24 10 MG PO (08:54)
[2023-11-14] MEDS: Gabapentin 300 MG CAPSULE 900 MG PO ×3 (08:54→21:23)
[2023-11-14] MEDS: Escitalopram Oxalate 5 MG TABLET PO (08:54)
[2023-11-14] MEDS: metFORMIN HCl 500 MG TABLET PO (08:55)
[2023-11-14] MEDS: Docusate Sodium 100 MG CAPSULE PO ×2 (08:55→21:24)
[2023-11-14] MEDS: traZODone HCL 50 MG TABLET PO (08:55)
[2023-11-14] MEDS: Atorvastatin Calcium 80 MG TABLET PO (08:55)
[2023-11-14] MEDS: lamoTRIgine 100 MG TABLET 200 MG PO ×2 (08:55→21:24)
[2023-11-14] MEDS: Famotidine 20 MG TABLET PO ×2 (08:55→21:24)
[2023-11-14] MEDS: Acetaminophen 325 MG TABLET 650 MG PO ×3 (08:55→21:24)
[2023-11-14] MEDS: OLANZapine ODT 10 MG TAB.RAPDIS TRANSLINGU ×2 (08:55→13:11)
[2023-11-14] MEDS: QUEtiapine Fumarate 50 MG TABLET PO ×2 (08:55→13:11)
[2023-11-14] MEDS: Aspirin 81 MG TAB.CHEW PO (08:56)
[2023-11-14 09:00] VITALS: BP 102/64; PULSE 82; RESP 18; TEMP 36.1; O2SAT 96
[2023-11-14 10:43] LABS: COVID-19 Test Positive (Negative); IDNOW Serial# BCCEAD1C
[2023-11-14] MEDS: Nicotine 21 MG PATCH.TD24 TRANSDERMA (10:56)
[2023-11-14 11:39] VITALS: BP 109/58
--- NOTE | 2023-11-14 15:28 | HO.PSYCHPN ---
Subjective Subjective Date of Service: 11/14/23 Reason For Visit: agitation Subjective Notes: Conditional Voluntary Interim History: The nursing staff reported the patient has not been compliant stating her room, she is up on the hallway without wearing a mask and we need to encourage her about safety. The patient does not believe that she has COVID since she is feeling very well. On interview the patient denies new symptoms, we are going to discharge her on November 20. Mental Status Exam Mental Status Exam Patient Appearance: Appropriate Patient Orientation: Person Level of Consciousness: Awake Patient Behavior: Guarded and Passive Mood Description: Withdrawn Affect Description: Constricted Patient Cognition Impaired: Yes Ability to Follow Directions: Good Speech Pattern: Clear Hallucinations: None Delusions: Not Present Thought Process: Distracted and Evasive Thought Content: positive for [place] and positive for Poverty of Content Judgement: Poor Diagnostics Vital Signs (24Hr): Vital Signs - 24 hr 11/13/23 19:40 11/14/23 09:00 11/14/23 11:39 Temperature 97.8 F 97.0 F Pulse Rate 61 82 Respiratory Rate 18 18 Blood Pressure 98/51 L 102/64 109/58 L Pulse Oximetry 94 96 Oxygen Delivery Method Room Air Room Air BMI result Body Mass Index 23.0 Labs 11/11/23 08:19 11/11/23 08:19 Labs: Laboratory Results - last 48 hr 11/14/23 10:05 COVID-19 (JOSI) Positive A COVID-19 Clin Com See Note Imaging Radiology Impressions: ITS Impressions Head CT 10/18/23 16:48 IMPRESSION: 1. No acute intracranial hemorrhage or edematous infarct. 2. 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 3. Right temporal approach ventriculostomy catheter with tip terminating in the right lateral ventricle body. No hydrocephalus. Medications Medications Current Medications Acetaminophen (Acetaminophen 325 Mg Tablet) 650 mg PO TID [facility] Last Admin: 11/14/23 14:46 Dose: 650 mg Al Hydroxide/Mg Hydroxide (Magnesium Hydrox/Alum Hydrox 30 Ml Oral.Susp) 30 ml PO Q6H PRN PRN Reason: Heartburn/Nausea Aspirin (Aspirin 81 Mg Tab.Chew) 81 mg PO DAILY [facility] Last Admin: 11/14/23 08:56 Dose: 81 mg Atorvastatin Calcium (Atorvastatin Calcium 80 Mg Tablet) 80 mg PO DAILY [facility] Last Admin: 11/14/23 08:55 Dose: 80 mg Docusate Sodium (Docusate Sodium 100 Mg Capsule) 100 mg PO BID [facility] Last Admin: 11/14/23 08:55 Dose: 100 mg Escitalopram Oxalate (Escitalopram Oxalate 5 Mg Tablet) 5 mg PO DAILY [facility] Last Admin: 11/14/23 08:54 Dose: 5 mg Famotidine (Famotidine 20 Mg Tablet) 20 mg PO BID [facility] Last Admin: 11/14/23 08:55 Dose: 20 mg Gabapentin (Gabapentin 300 Mg Capsule) 900 mg PO TID [facility] Last Admin: 11/14/23 14:47 Dose: 900 mg Guaifenesin/Dextromethorphan (Guaifenesin Dm 600/30 1 Tab Tab.Er.12h) 1 tab PO BID PRN PRN Reason: congestion/cough Hydroxyzine HCl (Hydroxyzine Hcl 25 Mg Tablet) 25 mg PO Q6H PRN PRN Reason: Anxiety Last Admin: 11/14/23 00:34 Dose: 25 mg Ibuprofen (Ibuprofen 400 Mg Tablet) 400 mg PO Q6H PRN PRN Reason: Mild Pain (Scale Score 1-4) Last Admin: 11/09/23 12:19 Dose: 400 mg Lamotrigine (Lamotrigine 100 Mg Tablet) 200 mg PO BID [facility] Last Admin: 11/14/23 08:55 Dose: 200 mg Latanoprost (Latanoprost 0.005 % Ophth Pati 2.5 Ml Drops) 1 drop EYE-BOTH BEDTIME [facility] Last Admin: 11/13/23 22:22 Dose: Not Given Lorazepam (Lorazepam 1 Mg Tablet) 1 mg PO Q4H PRN PRN Reason: anxiety/restlessness Last Admin: 11/14/23 10:56 Dose: 1 mg Magnesium Hydroxide (Milk Of Magnesia 30 Ml Oral.Susp) 30 ml PO DAILY PRN PRN Reason: Constipation Last Admin: 10/29/23 10:19 Dose: 30 ml Metformin HCl (Metformin Hcl 500 Mg Tablet) 500 mg PO DAILY [facility] Last Admin: 11/14/23 08:55 Dose: 500 mg Midodrine (Midodrine Hcl 5 Mg Tablet) 5 mg PO TIDWM [facility] Last Admin: 11/14/23 11:42 Dose: 5 mg Nicotine (Nicotine 21 Mg Patch.Td24) 21 mg TRANSDERMA DAILY [facility] Last Admin: 11/14/23 10:56 Dose: 21 mg Olanzapine (Olanzapine 10 Mg Tablet) 20 mg PO BEDTIME [facility] Last Admin: 11/13/23 22:22 Dose: Not Given Olanzapine (Olanzapine Odt 10 Mg Tab.Rapdis) 10 mg TRANSLINGU BID@0900,1400 [facility] Last Admin: 11/14/23 13:11 Dose: 10 mg Oxybutynin Chloride (Oxybutynin Chloride Er 5 Mg Tab.Er.24) 10 mg PO DAILY [facility] Last Admin: 11/14/23 08:54 Dose: 10 mg Quetiapine Fumarate (Quetiapine Fumarate 50 Mg Tablet) 50 mg PO BID@0900,1400 [facility] Last Admin: 11/14/23 13:11 Dose: 50 mg Quetiapine Fumarate (Quetiapine Fumarate 100 Mg Tablet) 100 mg PO Q4H PRN PRN Reason: agitation Last Admin: 11/14/23 04:25 Dose: 100 mg Trazodone HCl (Trazodone Hcl 50 Mg Tablet) 50 mg PO BEDTIME MRX1 PRN PRN Reason: Insomnia Last Admin: 11/12/23 23:54 Dose: 50 mg Trazodone HCl (Trazodone Hcl 25 Mg Halftab) 25 mg PO BEDTIME [facility] Last Admin: 11/13/23 22:22 Dose: Not Given Trazodone HCl (Trazodone Hcl 50 Mg Tablet) 50 mg PO DAILY [facility] Last Admin: 11/14/23 08:55 Dose: 50 mg Allergies Allergies Allergy/AdvReac Type Severity Reaction Status Date / Time amantadine AdvReac Unknown Verified 09/29/23 17:57 Assessment & Plan Assessment & Plan (1) Traumatic brain injury: Qualifiers: Loss of consciousness presence/duration: unknown LOC status Status: Acute Code(s): S06.9XAA - Unspecified intracranial injury with loss of consciousness status unknown, initial encounter Plan 63-year-old female with TBI, dementia, disorganized who presents for aggressive behavior. Hospital course: 10/12 Patient disruptive last night, again today, disorganized and thinks she is back at her senior care, asking for her cigarettes over and over, talking to herself. Patient yelling in the [place], ran into staff with wheelchair though maybe not on purpose; patient lowered herself to the floor. Zyprexa p.r.n. not that helpful. Sole Dyer ordered Ativan 1 mg which did calm her down. On approach she remained disorganized, wanting her cigarettes but was overall calm. Staff reports patient eating and sleeping well. -continue current regimen for now 10/13 Patient remains disorganized, aggressive, yelling; p.r.n. Zyprexa still not helpful. Scheduled Clonazepam not helpful. Give another dose of Ativan which again was calming. PLAN: Will hold Zyprexa p.r.n. since has not proved helpful for calming agitation, despite getting up to 40 mg yesterday. Will instead make Ativan 1 mg t.i.d. p.r.n. available for agitation If Ativan proves helpful, will consider doing away with Zyprexa p.r.n. (and may be scheduled bedtime dose) and see if Tegretol or Depakote would work for aggression. Will likely defer this to primary team however 10/19/23: regarding medications, we will schedule olanzapine in the daytime rather than p.r.n.. Maintain nighttime olanzapine. Will utilize Seroquel as needed. Noted schedule Klonopin and as needed Ativan 10/20: no changes\ 10/26/23: no changes 10/27: Schedule seroqule morning and lunchtime 11/12 pt tested positive for covid on 11/11- currently asymptomatic, no cough, no SOB, afebrile. She does report feeling tired and is in bed. continue monitor respiratory status. Currently the patient is at baseline, she tested positive to COVID but she does not have any symptoms. We are going to have a family meeting today with the senior care for discharge planning plan 1. Continue same treatment. 2. Waiting for placement Reason for continued inpatient stay Substantial Risk for: inability to function, rapid decompensation and med/psych decompensation Time Spent With Patient Time: Total time managing care of this patient today __20__ minutes.
[2023-11-14 17:32] VITALS: BP 126/61; PULSE 74; RESP 18; O2SAT 95
[2023-11-14 20:15] VITALS: BP 139/63; PULSE 88; RESP 18; TEMP 36; O2SAT 96
[2023-11-14] MEDS: traZODone HCL 25 MG HALFTAB PO (21:24)
[2023-11-14] MEDS: OLANZapine 10 MG TABLET 20 MG PO (21:24)
[2023-11-15 08:15] VITALS: BP 118/70; PULSE 76; RESP 18; TEMP 36.8; O2SAT 98
[2023-11-15] MEDS: Acetaminophen 325 MG TABLET 650 MG PO ×2 (11:26→16:39)
[2023-11-15] MEDS: Docusate Sodium 100 MG CAPSULE PO (11:26)
[2023-11-15] MEDS: Gabapentin 300 MG CAPSULE 900 MG PO ×2 (11:26→16:40)
[2023-11-15] MEDS: QUEtiapine Fumarate 50 MG TABLET PO ×2 (11:26→12:56)
[2023-11-15] MEDS: oxyBUTYnin chloride ER 5 MG TAB.ER.24 10 MG PO (11:27)
[2023-11-15] MEDS: Escitalopram Oxalate 5 MG TABLET PO (11:27)
[2023-11-15] MEDS: traZODone HCL 50 MG TABLET PO (11:27)
[2023-11-15] MEDS: lamoTRIgine 100 MG TABLET 200 MG PO (11:27)
[2023-11-15] MEDS: Atorvastatin Calcium 80 MG TABLET PO (11:28)
[2023-11-15] MEDS: Famotidine 20 MG TABLET PO (11:28)
[2023-11-15] MEDS: Midodrine HCl 5 MG TABLET PO ×2 (11:28→12:56)
[2023-11-15] MEDS: OLANZapine ODT 10 MG TAB.RAPDIS TRANSLINGU ×2 (11:28→12:56)
[2023-11-15] MEDS: metFORMIN HCl 500 MG TABLET PO (11:28)
[2023-11-15] MEDS: Aspirin 81 MG TAB.CHEW PO (11:29)
[2023-11-15] MEDS: Nicotine 21 MG PATCH.TD24 TRANSDERMA (11:29)
[2023-11-15 13:00] VITALS: BP 110/61; PULSE 66; RESP 18; TEMP 36.6; O2SAT 96
[2023-11-15 18:00] VITALS: RESP 16
--- NOTE | 2023-11-15 23:18 | P.PNPSI_ITS ---
Subjective Subjective Date of Service: 11/15/23 Reason For Visit: agitation Subjective Notes: Conditional Voluntary Interim History: Pt continues to present mostly asymptomatic. NO SOB, afebrile. O2sat>95. VS stable. Pt with some difficulty staying in her room. No aggression towards self or others. takes medications as prescribed. Review of Systems Review of Systems nothing acute Yes Unobtainable due to mental status Mental Status Exam Mental Status Exam Patient Appearance: Appropriate Patient Orientation: Person Level of Consciousness: Awake Patient Behavior: Guarded and Passive Mood Description: Withdrawn Affect Description: Constricted Patient Cognition Impaired: Yes Ability to Follow Directions: Good Speech Pattern: Clear Diagnostics Vital Signs (24Hr): Vital Signs - 24 hr 11/15/23 08:15 11/15/23 13:00 11/15/23 18:00 Temperature 98.2 F 97.9 F Pulse Rate 76 66 Respiratory Rate 18 18 16 Blood Pressure 118/70 110/61 Pulse Oximetry 98 96 Oxygen Delivery Method Room Air Room Air BMI result Body Mass Index 23.0 Labs 11/11/23 08:19 11/11/23 08:19 Labs: Laboratory Results - last 48 hr 11/14/23 10:05 COVID-19 (JOSI) Positive A COVID-19 Clin Com See Note Imaging Radiology Impressions: ITS Impressions Head CT 10/18/23 16:48 IMPRESSION: 1. No acute intracranial hemorrhage or edematous infarct. 2. 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 3. Right temporal approach ventriculostomy catheter with tip terminating in the right lateral ventricle body. No hydrocephalus. Medications Medications Current Medications Acetaminophen (Acetaminophen 325 Mg Tablet) 650 mg PO TID [facility] Last Admin: 11/15/23 22:42 Dose: Not Given Al Hydroxide/Mg Hydroxide (Magnesium Hydrox/Alum Hydrox 30 Ml Oral.Susp) 30 ml PO Q6H PRN PRN Reason: Heartburn/Nausea Aspirin (Aspirin 81 Mg Tab.Chew) 81 mg PO DAILY [facility] Last Admin: 11/15/23 11:29 Dose: 81 mg Atorvastatin Calcium (Atorvastatin Calcium 80 Mg Tablet) 80 mg PO DAILY [facility] Last Admin: 11/15/23 11:28 Dose: 80 mg Docusate Sodium (Docusate Sodium 100 Mg Capsule) 100 mg PO BID [facility] Last Admin: 11/15/23 22:43 Dose: Not Given Escitalopram Oxalate (Escitalopram Oxalate 5 Mg Tablet) 5 mg PO DAILY [facility] Last Admin: 11/15/23 11:27 Dose: 5 mg Famotidine (Famotidine 20 Mg Tablet) 20 mg PO BID [facility] Last Admin: 11/15/23 22:43 Dose: Not Given Gabapentin (Gabapentin 300 Mg Capsule) 900 mg PO TID [facility] Last Admin: 11/15/23 22:43 Dose: Not Given Guaifenesin/Dextromethorphan (Guaifenesin Dm 600/30 1 Tab Tab.Er.12h) 1 tab PO BID PRN PRN Reason: congestion/cough Hydroxyzine HCl (Hydroxyzine Hcl 25 Mg Tablet) 25 mg PO Q6H PRN PRN Reason: Anxiety Last Admin: 11/14/23 00:34 Dose: 25 mg Ibuprofen (Ibuprofen 400 Mg Tablet) 400 mg PO Q6H PRN PRN Reason: Mild Pain (Scale Score 1-4) Last Admin: 11/09/23 12:19 Dose: 400 mg Lamotrigine (Lamotrigine 100 Mg Tablet) 200 mg PO BID [facility] Last Admin: 11/15/23 22:43 Dose: Not Given Latanoprost (Latanoprost 0.005 % Ophth Pati 2.5 Ml Drops) 1 drop EYE-BOTH BEDTIME [facility] Last Admin: 11/15/23 22:44 Dose: Not Given Lorazepam (Lorazepam 1 Mg Tablet) 1 mg PO Q4H PRN PRN Reason: anxiety/restlessness Magnesium Hydroxide (Milk Of Magnesia 30 Ml Oral.Susp) 30 ml PO DAILY PRN PRN Reason: Constipation Last Admin: 10/29/23 10:19 Dose: 30 ml Metformin HCl (Metformin Hcl 500 Mg Tablet) 500 mg PO DAILY [facility] Last Admin: 11/15/23 11:28 Dose: 500 mg Midodrine (Midodrine Hcl 5 Mg Tablet) 5 mg PO TIDWM [facility] Last Admin: 11/15/23 16:52 Dose: Not Given Nicotine (Nicotine 21 Mg Patch.Td24) 21 mg TRANSDERMA DAILY [facility] Last Admin: 11/15/23 11:29 Dose: 21 mg Olanzapine (Olanzapine 10 Mg Tablet) 20 mg PO BEDTIME [facility] Last Admin: 11/15/23 22:44 Dose: Not Given Olanzapine (Olanzapine Odt 10 Mg Tab.Rapdis) 10 mg TRANSLINGU BID@0900,1400 [facility] Last Admin: 11/15/23 12:56 Dose: 10 mg Oxybutynin Chloride (Oxybutynin Chloride Er 5 Mg Tab.Er.24) 10 mg PO DAILY [facility] Last Admin: 11/15/23 11:27 Dose: 10 mg Quetiapine Fumarate (Quetiapine Fumarate 50 Mg Tablet) 50 mg PO BID@0900,1400 [facility] Last Admin: 11/15/23 12:56 Dose: 50 mg Quetiapine Fumarate (Quetiapine Fumarate 100 Mg Tablet) 100 mg PO Q4H PRN PRN Reason: agitation Last Admin: 11/14/23 04:25 Dose: 100 mg Trazodone HCl (Trazodone Hcl 50 Mg Tablet) 50 mg PO BEDTIME MRX1 PRN PRN Reason: Insomnia Last Admin: 11/12/23 23:54 Dose: 50 mg Trazodone HCl (Trazodone Hcl 25 Mg Halftab) 25 mg PO BEDTIME [facility] Last Admin: 11/15/23 22:44 Dose: Not Given Trazodone HCl (Trazodone Hcl 50 Mg Tablet) 50 mg PO DAILY [facility] Last Admin: 11/15/23 11:27 Dose: 50 mg Allergies Allergies Allergy/AdvReac Type Severity Reaction Status Date / Time amantadine AdvReac Unknown Verified 09/29/23 17:57 Assessment & Plan Assessment & Plan (1) Traumatic brain injury: Qualifiers: Loss of consciousness presence/duration: unknown LOC status Status: Acute Code(s): S06.9XAA - Unspecified intracranial injury with loss of consciousness status unknown, initial encounter Plan 63-year-old female with TBI, dementia, disorganized who presents for aggressive behavior. Hospital course: 10/12 Patient disruptive last night, again today, disorganized and thinks she is back at her detention, asking for her cigarettes over and over, talking to herself. Patient yelling in the [place], ran into staff with wheelchair though maybe not on purpose; patient lowered herself to the floor. Zyprexa p.r.n. not that helpful. Credit And Collections Representative ordered Ativan 1 mg which did calm her down. On approach she remained disorganized, wanting her cigarettes but was overall calm. Staff reports patient eating and sleeping well. -continue current regimen for now 10/13 Patient remains disorganized, aggressive, yelling; p.r.n. Zyprexa still not helpful. Scheduled Clonazepam not helpful. Give another dose of Ativan which again was calming. PLAN: Will hold Zyprexa p.r.n. since has not proved helpful for calming agitation, despite getting up to 40 mg yesterday. Will instead make Ativan 1 mg t.i.d. p.r.n. available for agitation If Ativan proves helpful, will consider doing away with Zyprexa p.r.n. (and may be scheduled bedtime dose) and see if Tegretol or Depakote would work for aggression. Will likely defer this to primary team however 10/19/23: regarding medications, we will schedule olanzapine in the daytime rather than p.r.n.. Maintain nighttime olanzapine. Will utilize Seroquel as needed. Noted schedule Klonopin and as needed Ativan 10/20: no changes\ 10/26/23: no changes 10/27: Schedule seroqule morning and lunchtime 11/12 pt tested positive for covid on 11/11- currently asymptomatic, no cough, no SOB, afebrile. She does report feeling tired and is in bed. continue monitor respiratory status. Currently the patient is at baseline, she tested positive to COVID but she does not have any symptoms. We are going to have a family meeting today with the detention for discharge planning 11/15 continue tx. plan 1. Continue same treatment. 2. Waiting for placement Reason for continued inpatient stay Substantial Risk for: inability to function Time Spent With Patient Time: Total time managing care of this patient today ____ minutes.
[2023-11-16 09:47] VITALS: BP 119/63; PULSE 73; RESP 17; TEMP 36.6; O2SAT 96
[2023-11-16] MEDS: Famotidine 20 MG TABLET PO ×2 (09:52→21:30)
[2023-11-16] MEDS: Acetaminophen 325 MG TABLET 650 MG PO ×3 (09:52→21:29)
[2023-11-16] MEDS: oxyBUTYnin chloride ER 5 MG TAB.ER.24 10 MG PO (09:53)
[2023-11-16] MEDS: Escitalopram Oxalate 5 MG TABLET PO (09:53)
[2023-11-16] MEDS: lamoTRIgine 100 MG TABLET 200 MG PO ×2 (09:55→21:29)
[2023-11-16] MEDS: metFORMIN HCl 500 MG TABLET PO (09:55)
[2023-11-16] MEDS: Midodrine HCl 5 MG TABLET PO ×3 (09:55→16:47)
[2023-11-16] MEDS: Gabapentin 300 MG CAPSULE 900 MG PO ×3 (09:55→21:29)
[2023-11-16] MEDS: Docusate Sodium 100 MG CAPSULE PO (09:55)
[2023-11-16] MEDS: traZODone HCL 50 MG TABLET PO (09:55)
[2023-11-16] MEDS: QUEtiapine Fumarate 50 MG TABLET PO ×2 (09:55→16:04)
[2023-11-16] MEDS: Aspirin 81 MG TAB.CHEW PO (09:55)
[2023-11-16] MEDS: OLANZapine ODT 10 MG TAB.RAPDIS TRANSLINGU ×2 (09:55→16:04)
[2023-11-16] MEDS: Atorvastatin Calcium 80 MG TABLET PO (09:55)
[2023-11-16 12:19] VITALS: BP 88/43; PULSE 62
[2023-11-16 16:46] VITALS: BP 104/57; PULSE 65
[2023-11-16 18:00] VITALS: BP 107/54; PULSE 61; RESP 16; TEMP 36.1; O2SAT 96
[2023-11-16] MEDS: OLANZapine 10 MG TABLET 20 MG PO (21:30)
[2023-11-16] MEDS: traZODone HCL 25 MG HALFTAB PO (21:30)
[2023-11-16] MEDS: Latanoprost 0.005 % Ophth Sol 2.5 ML DROPS 1 DROP EYE-BOTH (21:33)
[2023-11-17] MEDS: LORazepam 1 MG TABLET PO (00:38)
[2023-11-17] MEDS: hydrOXYzine HCL 25 MG TABLET PO (00:39)
[2023-11-17] MEDS: QUEtiapine Fumarate 100 MG TABLET PO (00:39)
[2023-11-17] MEDS: Ibuprofen 400 MG TABLET PO (00:40)
[2023-11-17] MEDS: traZODone HCL 50 MG TABLET PO ×2 (02:14→08:39)
[2023-11-17 08:06] VITALS: BP 135/97; PULSE 77; RESP 17; TEMP 36.5; O2SAT 96
[2023-11-17] MEDS: metFORMIN HCl 500 MG TABLET PO (08:37)
[2023-11-17] MEDS: Escitalopram Oxalate 5 MG TABLET PO (08:38)
[2023-11-17] MEDS: QUEtiapine Fumarate 50 MG TABLET PO ×2 (08:38→14:17)
[2023-11-17] MEDS: Docusate Sodium 100 MG CAPSULE PO ×2 (08:38→21:21)
[2023-11-17] MEDS: oxyBUTYnin chloride ER 5 MG TAB.ER.24 10 MG PO (08:38)
[2023-11-17] MEDS: Gabapentin 300 MG CAPSULE 900 MG PO ×3 (08:38→21:21)
[2023-11-17] MEDS: OLANZapine ODT 10 MG TAB.RAPDIS TRANSLINGU ×2 (08:39→14:17)
[2023-11-17] MEDS: Atorvastatin Calcium 80 MG TABLET PO (08:39)
[2023-11-17] MEDS: Aspirin 81 MG TAB.CHEW PO (08:39)
[2023-11-17] MEDS: lamoTRIgine 100 MG TABLET 200 MG PO ×2 (08:39→21:16)
[2023-11-17] MEDS: Acetaminophen 325 MG TABLET 650 MG PO ×3 (08:39→21:15)
[2023-11-17] MEDS: Famotidine 20 MG TABLET PO ×2 (08:39→21:21)
[2023-11-17 11:55] VITALS: BP 130/58; PULSE 68; RESP 17; TEMP 36.1; O2SAT 98
[2023-11-17] MEDS: Latanoprost 0.005 % Ophth Sol 2.5 ML DROPS 1 DROP EYE-BOTH (21:21)
[2023-11-17] MEDS: OLANZapine 10 MG TABLET 20 MG PO (21:21)
[2023-11-17] MEDS: traZODone HCL 25 MG HALFTAB PO (21:22)
--- NOTE | 2023-11-17 22:15 | HO.PSYCHPN ---
Subjective Subjective Date of Service: 11/17/23 Reason For Visit: agitation Interim History: Patient has had COVID somewhat lethargic not overly agitated was compliant with isolation Mental Status Exam Mental Status Exam Narrative: Patient casually dressed somewhat lethargic somewhat irritable and dysphoric Not grossly delusional periods of confusion agitation Diagnostics Vital Signs (24Hr): Vital Signs - 24 hr 11/17/23 08:06 11/17/23 11:55 Temperature 97.7 F 97 F Pulse Rate 77 68 Respiratory Rate 17 17 Blood Pressure 135/97 H 130/58 L Pulse Oximetry 96 98 Oxygen Delivery Method Room Air Room Air BMI result Body Mass Index 23.0 Labs 11/11/23 08:19 11/18/23 07:26 Imaging Radiology Impressions: ITS Impressions Head CT 10/18/23 16:48 IMPRESSION: 1. No acute intracranial hemorrhage or edematous infarct. 2. 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 3. Right temporal approach ventriculostomy catheter with tip terminating in the right lateral ventricle body. No hydrocephalus. Medications Medications Current Medications Acetaminophen (Acetaminophen 325 Mg Tablet) 650 mg PO TID [facility] Last Admin: 11/17/23 21:15 Dose: 650 mg Al Hydroxide/Mg Hydroxide (Magnesium Hydrox/Alum Hydrox 30 Ml Oral.Susp) 30 ml PO Q6H PRN PRN Reason: Heartburn/Nausea Aspirin (Aspirin 81 Mg Tab.Chew) 81 mg PO DAILY [facility] Last Admin: 11/17/23 08:39 Dose: 81 mg Atorvastatin Calcium (Atorvastatin Calcium 80 Mg Tablet) 80 mg PO DAILY [facility] Last Admin: 11/17/23 08:39 Dose: 80 mg Docusate Sodium (Docusate Sodium 100 Mg Capsule) 100 mg PO BID [facility] Last Admin: 11/17/23 21:21 Dose: 100 mg Escitalopram Oxalate (Escitalopram Oxalate 5 Mg Tablet) 5 mg PO DAILY [facility] Last Admin: 11/17/23 08:38 Dose: 5 mg Famotidine (Famotidine 20 Mg Tablet) 20 mg PO BID [facility] Last Admin: 11/17/23 21:21 Dose: 20 mg Gabapentin (Gabapentin 300 Mg Capsule) 900 mg PO TID [facility] Last Admin: 11/17/23 21:21 Dose: 900 mg Guaifenesin/Dextromethorphan (Guaifenesin Dm 600/30 1 Tab Tab.Er.12h) 1 tab PO BID PRN PRN Reason: congestion/cough Hydroxyzine HCl (Hydroxyzine Hcl 25 Mg Tablet) 25 mg PO Q6H PRN PRN Reason: Anxiety Last Admin: 11/17/23 00:39 Dose: 25 mg Ibuprofen (Ibuprofen 400 Mg Tablet) 400 mg PO Q6H PRN PRN Reason: Mild Pain (Scale Score 1-4) Last Admin: 11/17/23 00:40 Dose: 400 mg Lamotrigine (Lamotrigine 100 Mg Tablet) 200 mg PO BID [facility] Last Admin: 11/17/23 21:16 Dose: 200 mg Latanoprost (Latanoprost 0.005 % Ophth Pati 2.5 Ml Drops) 1 drop EYE-BOTH BEDTIME [facility] Last Admin: 11/17/23 21:21 Dose: 1 drop Lorazepam (Lorazepam 1 Mg Tablet) 1 mg PO Q4H PRN PRN Reason: anxiety/restlessness Last Admin: 11/17/23 00:38 Dose: 1 mg Magnesium Hydroxide (Milk Of Magnesia 30 Ml Oral.Susp) 30 ml PO DAILY PRN PRN Reason: Constipation Last Admin: 10/29/23 10:19 Dose: 30 ml Metformin HCl (Metformin Hcl 500 Mg Tablet) 500 mg PO DAILY [facility] Last Admin: 11/17/23 08:37 Dose: 500 mg Midodrine (Midodrine Hcl 5 Mg Tablet) 5 mg PO TIDWM [facility] Last Admin: 11/17/23 17:40 Dose: Not Given Nicotine (Nicotine 21 Mg Patch.Td24) 21 mg TRANSDERMA DAILY [facility] Last Admin: 11/17/23 08:47 Dose: Not Given Olanzapine (Olanzapine 10 Mg Tablet) 20 mg PO BEDTIME [facility] Last Admin: 11/17/23 21:21 Dose: 20 mg Olanzapine (Olanzapine Odt 10 Mg Tab.Rapdis) 10 mg TRANSLINGU BID@0900,1400 [facility] Last Admin: 11/17/23 14:17 Dose: 10 mg Oxybutynin Chloride (Oxybutynin Chloride Er 5 Mg Tab.Er.24) 10 mg PO DAILY [facility] Last Admin: 11/17/23 08:38 Dose: 10 mg Quetiapine Fumarate (Quetiapine Fumarate 50 Mg Tablet) 50 mg PO BID@0900,1400 [facility] Last Admin: 11/17/23 14:17 Dose: 50 mg Quetiapine Fumarate (Quetiapine Fumarate 100 Mg Tablet) 100 mg PO Q4H PRN PRN Reason: agitation Last Admin: 11/17/23 00:39 Dose: 100 mg Trazodone HCl (Trazodone Hcl 50 Mg Tablet) 50 mg PO BEDTIME MRX1 PRN PRN Reason: Insomnia Last Admin: 11/17/23 02:14 Dose: 50 mg Trazodone HCl (Trazodone Hcl 25 Mg Halftab) 25 mg PO BEDTIME [facility] Last Admin: 11/17/23 21:22 Dose: 25 mg Trazodone HCl (Trazodone Hcl 50 Mg Tablet) 50 mg PO DAILY [facility] Last Admin: 11/17/23 08:39 Dose: 50 mg Allergies Allergies Allergy/AdvReac Type Severity Reaction Status Date / Time amantadine AdvReac Unknown Verified 09/29/23 17:57 Assessment & Plan Assessment & Plan (1) Traumatic brain injury: Qualifiers: Loss of consciousness presence/duration: unknown LOC status Status: Acute Code(s): S06.9XAA - Unspecified intracranial injury with loss of consciousness status unknown, initial encounter Plan 63-year-old female with TBI, dementia, disorganized who presents for aggressive behavior. Hospital course: 10/12 Patient disruptive last night, again today, disorganized and thinks she is back at her retirement, asking for her cigarettes over and over, talking to herself. Patient yelling in the [place], ran into staff with wheelchair though maybe not on purpose; patient lowered herself to the floor. Zyprexa p.r.n. not that helpful. Violin Restorer ordered Ativan 1 mg which did calm her down. On approach she remained disorganized, wanting her cigarettes but was overall calm. Staff reports patient eating and sleeping well. -continue current regimen for now 10/13 Patient remains disorganized, aggressive, yelling; p.r.n. Zyprexa still not helpful. Scheduled Clonazepam not helpful. Give another dose of Ativan which again was calming. PLAN: Will hold Zyprexa p.r.n. since has not proved helpful for calming agitation, despite getting up to 40 mg yesterday. Will instead make Ativan 1 mg t.i.d. p.r.n. available for agitation If Ativan proves helpful, will consider doing away with Zyprexa p.r.n. (and may be scheduled bedtime dose) and see if Tegretol or Depakote would work for aggression. Will likely defer this to primary team however 10/19/23: regarding medications, we will schedule olanzapine in the daytime rather than p.r.n.. Maintain nighttime olanzapine. Will utilize Seroquel as needed. Noted schedule Klonopin and as needed Ativan 10/20: no changes\ 10/26/23: no changes 10/27: Schedule seroqule morning and lunchtime 11/12 pt tested positive for covid on 11/11- currently asymptomatic, no cough, no SOB, afebrile. She does report feeling tired and is in bed. continue monitor respiratory status. Currently the patient is at baseline, she tested positive to COVID but she does not have any symptoms. We are going to have a family meeting today with the retirement for discharge planning 11/15 continue tx. plan 1. Continue same treatment. 2. Waiting for placement 11/17/2023 Patient on isolation is COVID positive O2 sats generally have been okay continue olanzapine Lamictal gabapentin hold if overly lethargic Reason for continued inpatient stay Substantial Risk for: inability to function and rapid decompensation Time Spent With Patient Time: Total time managing care of this patient today ____ minutes.
[2023-11-18 07:57] LABS: Creatinine Clr Calc Pharmacy 95.8; Estimated Glomerular Filt Rate > 60
[2023-11-18 08:40] VITALS: BP 108/54; PULSE 66; RESP 17; TEMP 36.6; O2SAT 96
[2023-11-18] MEDS: Gabapentin 300 MG CAPSULE 900 MG PO ×3 (09:21→19:57)
[2023-11-18] MEDS: metFORMIN HCl 500 MG TABLET PO (09:22)
[2023-11-18] MEDS: Acetaminophen 325 MG TABLET 650 MG PO ×3 (09:22→19:57)
[2023-11-18] MEDS: Escitalopram Oxalate 5 MG TABLET PO (09:22)
[2023-11-18] MEDS: Atorvastatin Calcium 80 MG TABLET PO (09:22)
[2023-11-18] MEDS: Midodrine HCl 5 MG TABLET PO ×2 (09:22→12:31)
[2023-11-18] MEDS: lamoTRIgine 100 MG TABLET 200 MG PO ×2 (09:22→19:58)
[2023-11-18] MEDS: Famotidine 20 MG TABLET PO ×2 (09:22→20:00)
[2023-11-18] MEDS: oxyBUTYnin chloride ER 5 MG TAB.ER.24 10 MG PO (09:22)
[2023-11-18] MEDS: Aspirin 81 MG TAB.CHEW PO (09:22)
[2023-11-18] MEDS: traZODone HCL 50 MG TABLET PO ×2 (09:23→20:00)
[2023-11-18] MEDS: QUEtiapine Fumarate 50 MG TABLET PO ×2 (09:23→13:04)
[2023-11-18] MEDS: OLANZapine ODT 10 MG TAB.RAPDIS TRANSLINGU ×2 (09:23→13:04)
[2023-11-18] MEDS: Docusate Sodium 100 MG CAPSULE PO ×2 (09:23→20:00)
[2023-11-18] MEDS: Nicotine 21 MG PATCH.TD24 TRANSDERMA (09:30)
[2023-11-18 12:27] VITALS: BP 110/57; PULSE 70; RESP 17; TEMP 36.2; O2SAT 96
--- NOTE | 2023-11-18 15:07 | HO.PSYCHPN ---
Subjective Subjective Date of Service: 11/18/23 Reason For Visit: agitation Interim History: Patient less lethargic has been out of her room doing somewhat better case reviewed with treatment team Mental Status Exam Mental Status Exam Patient Appearance: Appropriate Patient Orientation: Person Level of Consciousness: Awake Patient Behavior: Guarded and Passive Mood Description: Withdrawn Affect Description: Constricted Patient Cognition Impaired: Yes Ability to Follow Directions: Good Speech Pattern: Clear Hallucinations: None Delusions: Not Present Thought Process: Distracted and Evasive Thought Content: positive for [place] and positive for Poverty of Content Judgement: Poor Diagnostics Vital Signs (24Hr): Vital Signs - 24 hr 11/18/23 08:40 11/18/23 12:27 Temperature 97.8 F 97.2 F Pulse Rate 66 70 Respiratory Rate 17 17 Blood Pressure 108/54 L 110/57 L Pulse Oximetry 96 96 Oxygen Delivery Method Room Air Room Air BMI result Body Mass Index 23.0 Labs 11/11/23 08:19 11/18/23 07:26 Labs: Laboratory Results - last 48 hr 11/18/23 07:26 Creatinine 0.57 Estim Creat Clear Calc 95.8 Estimated GFR > 60 Imaging Radiology Impressions: ITS Impressions Head CT 10/18/23 16:48 IMPRESSION: 1. No acute intracranial hemorrhage or edematous infarct. 2. 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 3. Right temporal approach ventriculostomy catheter with tip terminating in the right lateral ventricle body. No hydrocephalus. Medications Medications Current Medications Acetaminophen (Acetaminophen 325 Mg Tablet) 650 mg PO TID [facility] Last Admin: 11/18/23 09:22 Dose: 650 mg Al Hydroxide/Mg Hydroxide (Magnesium Hydrox/Alum Hydrox 30 Ml Oral.Susp) 30 ml PO Q6H PRN PRN Reason: Heartburn/Nausea Aspirin (Aspirin 81 Mg Tab.Chew) 81 mg PO DAILY [facility] Last Admin: 11/18/23 09:22 Dose: 81 mg Atorvastatin Calcium (Atorvastatin Calcium 80 Mg Tablet) 80 mg PO DAILY [facility] Last Admin: 11/18/23 09:22 Dose: 80 mg Docusate Sodium (Docusate Sodium 100 Mg Capsule) 100 mg PO BID [facility] Last Admin: 11/18/23 09:23 Dose: 100 mg Escitalopram Oxalate (Escitalopram Oxalate 5 Mg Tablet) 5 mg PO DAILY [facility] Last Admin: 11/18/23 09:22 Dose: 5 mg Famotidine (Famotidine 20 Mg Tablet) 20 mg PO BID [facility] Last Admin: 11/18/23 09:22 Dose: 20 mg Gabapentin (Gabapentin 300 Mg Capsule) 900 mg PO TID [facility] Last Admin: 11/18/23 09:21 Dose: 900 mg Guaifenesin/Dextromethorphan (Guaifenesin Dm 600/30 1 Tab Tab.Er.12h) 1 tab PO BID PRN PRN Reason: congestion/cough Hydroxyzine HCl (Hydroxyzine Hcl 25 Mg Tablet) 25 mg PO Q6H PRN PRN Reason: Anxiety Last Admin: 11/17/23 00:39 Dose: 25 mg Ibuprofen (Ibuprofen 400 Mg Tablet) 400 mg PO Q6H PRN PRN Reason: Mild Pain (Scale Score 1-4) Last Admin: 11/17/23 00:40 Dose: 400 mg Lamotrigine (Lamotrigine 100 Mg Tablet) 200 mg PO BID [facility] Last Admin: 11/18/23 09:22 Dose: 200 mg Latanoprost (Latanoprost 0.005 % Ophth Pati 2.5 Ml Drops) 1 drop EYE-BOTH BEDTIME [facility] Last Admin: 11/17/23 21:21 Dose: 1 drop Lorazepam (Lorazepam 1 Mg Tablet) 1 mg PO Q4H PRN PRN Reason: anxiety/restlessness Last Admin: 11/17/23 00:38 Dose: 1 mg Magnesium Hydroxide (Milk Of Magnesia 30 Ml Oral.Susp) 30 ml PO DAILY PRN PRN Reason: Constipation Last Admin: 10/29/23 10:19 Dose: 30 ml Metformin HCl (Metformin Hcl 500 Mg Tablet) 500 mg PO DAILY [facility] Last Admin: 11/18/23 09:22 Dose: 500 mg Midodrine (Midodrine Hcl 5 Mg Tablet) 5 mg PO TIDWM [facility] Last Admin: 11/18/23 12:31 Dose: 5 mg Nicotine (Nicotine 21 Mg Patch.Td24) 21 mg TRANSDERMA DAILY [facility] Last Admin: 11/18/23 09:30 Dose: 21 mg Olanzapine (Olanzapine 10 Mg Tablet) 20 mg PO BEDTIME [facility] Last Admin: 11/17/23 21:21 Dose: 20 mg Olanzapine (Olanzapine Odt 10 Mg Tab.Rapdis) 10 mg TRANSLINGU BID@0900,1400 [facility] Last Admin: 12/25/23 13:04 Dose: 10 mg Oxybutynin Chloride (Oxybutynin Chloride Er 5 Mg Tab.Er.24) 10 mg PO DAILY [facility] Last Admin: 11/18/23 09:22 Dose: 10 mg Quetiapine Fumarate (Quetiapine Fumarate 50 Mg Tablet) 50 mg PO BID@0900,1400 [facility] Last Admin: 11/18/23 13:04 Dose: 50 mg Quetiapine Fumarate (Quetiapine Fumarate 100 Mg Tablet) 100 mg PO Q4H PRN PRN Reason: agitation Last Admin: 11/17/23 00:39 Dose: 100 mg Trazodone HCl (Trazodone Hcl 50 Mg Tablet) 50 mg PO BEDTIME MRX1 PRN PRN Reason: Insomnia Last Admin: 11/17/23 02:14 Dose: 50 mg Trazodone HCl (Trazodone Hcl 25 Mg Halftab) 25 mg PO BEDTIME [facility] Last Admin: 11/17/23 21:22 Dose: 25 mg Trazodone HCl (Trazodone Hcl 50 Mg Tablet) 50 mg PO DAILY [facility] Last Admin: 11/18/23 09:23 Dose: 50 mg Allergies Allergies Allergy/AdvReac Type Severity Reaction Status Date / Time amantadine AdvReac Unknown Verified 09/29/23 17:57 Assessment & Plan Assessment & Plan (1) Traumatic brain injury: Qualifiers: Loss of consciousness presence/duration: unknown LOC status Status: Acute Code(s): S06.9XAA - Unspecified intracranial injury with loss of consciousness status unknown, initial encounter Plan 63-year-old female with TBI, dementia, disorganized who presents for aggressive behavior. Hospital course: 10/12 Patient disruptive last night, again today, disorganized and thinks she is back at her assisted, asking for her cigarettes over and over, talking to herself. Patient yelling in the [place], ran into staff with wheelchair though maybe not on purpose; patient lowered herself to the floor. Zyprexa p.r.n. not that helpful. Color Printer Operator ordered Ativan 1 mg which did calm her down. On approach she remained disorganized, wanting her cigarettes but was overall calm. Staff reports patient eating and sleeping well. -continue current regimen for now 10/13 Patient remains disorganized, aggressive, yelling; p.r.n. Zyprexa still not helpful. Scheduled Clonazepam not helpful. Give another dose of Ativan which again was calming. PLAN: Will hold Zyprexa p.r.n. since has not proved helpful for calming agitation, despite getting up to 40 mg yesterday. Will instead make Ativan 1 mg t.i.d. p.r.n. available for agitation If Ativan proves helpful, will consider doing away with Zyprexa p.r.n. (and may be scheduled bedtime dose) and see if Tegretol or Depakote would work for aggression. Will likely defer this to primary team however 10/19/23: regarding medications, we will schedule olanzapine in the daytime rather than p.r.n.. Maintain nighttime olanzapine. Will utilize Seroquel as needed. Noted schedule Klonopin and as needed Ativan 10/20: no changes\ 10/26/23: no changes 10/27: Schedule seroqule morning and lunchtime 11/12 pt tested positive for covid on 11/11- currently asymptomatic, no cough, no SOB, afebrile. She does report feeling tired and is in bed. continue monitor respiratory status. Currently the patient is at baseline, she tested positive to COVID but she does not have any symptoms. We are going to have a family meeting today with the assisted for discharge planning 11/15 continue tx. plan 1. Continue same treatment. 2. Waiting for placement 11/18/2023 Continue plan of care improved from COVID less labile less lethargic discharge planning Reason for continued inpatient stay Substantial Risk for: inability to function and rapid decompensation Time Spent With Patient Time: Total time managing care of this patient today ____ minutes.
[2023-11-18 16:55] VITALS: BP 144/60; PULSE 82
[2023-11-18] MEDS: QUEtiapine Fumarate 100 MG TABLET PO ×2 (17:32→21:36)
[2023-11-18] MEDS: LORazepam 1 MG TABLET PO ×2 (17:32→21:37)
--- NOTE | 2023-11-18 17:53 | PC.NURSE ---
Patient has two small open areas on her left wetzel and left forearm from banging into her wheelchair, that she continues to pick at. The open area on her wetzel was cleaned, ointment and a tegaderm applied to prevent patient from picking at it. Ointment and a bandaid was also applied to open area on her left forearm to keep clean and unexposed.
[2023-11-18 18:00] VITALS: BP 127/58; PULSE 70; RESP 16; TEMP 36.8; O2SAT 96
[2023-11-18] MEDS: OLANZapine 10 MG TABLET 20 MG PO (19:59)
[2023-11-18] MEDS: traZODone HCL 25 MG HALFTAB PO (20:01)
[2023-11-18] MEDS: hydrOXYzine HCL 25 MG TABLET PO (20:01)
[2023-11-18] MEDS: Latanoprost 0.005 % Ophth Sol 2.5 ML DROPS 1 DROP EYE-BOTH (22:51)
[2023-11-19] MEDS: QUEtiapine Fumarate 100 MG TABLET PO (01:11)
[2023-11-19] MEDS: LORazepam 1 MG TABLET PO ×2 (01:12→18:21)
[2023-11-19 08:00] VITALS: BP 113/66; PULSE 69; RESP 18; TEMP 36.3; O2SAT 95
[2023-11-19] MEDS: lamoTRIgine 100 MG TABLET 200 MG PO (08:35)
[2023-11-19] MEDS: Midodrine HCl 5 MG TABLET PO (08:35)
[2023-11-19] MEDS: metFORMIN HCl 500 MG TABLET PO (08:35)
[2023-11-19] MEDS: Gabapentin 300 MG CAPSULE 900 MG PO ×2 (08:35→14:23)
[2023-11-19] MEDS: Docusate Sodium 100 MG CAPSULE PO (08:35)
[2023-11-19] MEDS: Famotidine 20 MG TABLET PO (08:35)
[2023-11-19] MEDS: Atorvastatin Calcium 80 MG TABLET PO (08:35)
[2023-11-19] MEDS: Escitalopram Oxalate 5 MG TABLET PO (08:36)
[2023-11-19] MEDS: traZODone HCL 50 MG TABLET PO (08:36)
[2023-11-19] MEDS: oxyBUTYnin chloride ER 5 MG TAB.ER.24 10 MG PO (08:36)
[2023-11-19] MEDS: QUEtiapine Fumarate 50 MG TABLET PO ×2 (08:36→14:22)
[2023-11-19] MEDS: OLANZapine ODT 10 MG TAB.RAPDIS TRANSLINGU ×2 (08:36→14:22)
[2023-11-19] MEDS: Acetaminophen 325 MG TABLET 650 MG PO ×2 (08:37→14:23)
[2023-11-19] MEDS: Aspirin 81 MG TAB.CHEW PO (08:42)
--- NOTE | 2023-11-19 09:32 | P.PNPSI_ITS ---
Subjective Subjective Date of Service: 11/19/23 Reason For Visit: agitation Subjective Notes: Conditional Voluntary Interim History: Pt with some difficulty sleeping last night. She is calm and pleasant this morning. She denies SI/HI. No behavioral concerns. VS stable. Diagnostics Vital Signs (24Hr): Vital Signs - 24 hr 11/18/23 12:27 11/18/23 16:55 11/18/23 18:00 Temperature 97.2 F 98.3 F Pulse Rate 70 82 70 Respiratory Rate 17 16 Blood Pressure 110/57 L 144/60 H 127/58 L Pulse Oximetry 96 96 Oxygen Delivery Method Room Air Room Air BMI result Body Mass Index 23.0 Labs 11/11/23 08:19 11/18/23 07:26 Labs: Laboratory Results - last 48 hr 11/18/23 07:26 Creatinine 0.57 Estim Creat Clear Calc 95.8 Estimated GFR > 60 Imaging Radiology Impressions: ITS Impressions Head CT 10/18/23 16:48 IMPRESSION: 1. No acute intracranial hemorrhage or edematous infarct. 2. 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 3. Right temporal approach ventriculostomy catheter with tip terminating in the right lateral ventricle body. No hydrocephalus. Medications Medications Current Medications Acetaminophen (Acetaminophen 325 Mg Tablet) 650 mg PO TID [facility] Last Admin: 11/19/23 08:37 Dose: 650 mg Al Hydroxide/Mg Hydroxide (Magnesium Hydrox/Alum Hydrox 30 Ml Oral.Susp) 30 ml PO Q6H PRN PRN Reason: Heartburn/Nausea Aspirin (Aspirin 81 Mg Tab.Chew) 81 mg PO DAILY [facility] Last Admin: 11/19/23 08:42 Dose: 81 mg Atorvastatin Calcium (Atorvastatin Calcium 80 Mg Tablet) 80 mg PO DAILY [facility] Last Admin: 11/19/23 08:35 Dose: 80 mg Docusate Sodium (Docusate Sodium 100 Mg Capsule) 100 mg PO BID [facility] Last Admin: 11/19/23 08:35 Dose: 100 mg Escitalopram Oxalate (Escitalopram Oxalate 5 Mg Tablet) 5 mg PO DAILY [facility] Last Admin: 11/19/23 08:36 Dose: 5 mg Famotidine (Famotidine 20 Mg Tablet) 20 mg PO BID [facility] Last Admin: 11/19/23 08:35 Dose: 20 mg Gabapentin (Gabapentin 300 Mg Capsule) 900 mg PO TID [facility] Last Admin: 11/19/23 08:35 Dose: 900 mg Guaifenesin/Dextromethorphan (Guaifenesin Dm 600/30 1 Tab Tab.Er.12h) 1 tab PO BID PRN PRN Reason: congestion/cough Hydroxyzine HCl (Hydroxyzine Hcl 25 Mg Tablet) 25 mg PO Q6H PRN PRN Reason: Anxiety Last Admin: 11/18/23 20:01 Dose: 25 mg Ibuprofen (Ibuprofen 400 Mg Tablet) 400 mg PO Q6H PRN PRN Reason: Mild Pain (Scale Score 1-4) Last Admin: 11/17/23 00:40 Dose: 400 mg Lamotrigine (Lamotrigine 100 Mg Tablet) 200 mg PO BID [facility] Last Admin: 11/19/23 08:35 Dose: 200 mg Latanoprost (Latanoprost 0.005 % Ophth Pati 2.5 Ml Drops) 1 drop EYE-BOTH BEDTIME [facility] Last Admin: 11/18/23 22:51 Dose: 1 drop Lorazepam (Lorazepam 1 Mg Tablet) 1 mg PO Q4H PRN PRN Reason: anxiety/restlessness Last Admin: 11/19/23 01:12 Dose: 1 mg Magnesium Hydroxide (Milk Of Magnesia 30 Ml Oral.Susp) 30 ml PO DAILY PRN PRN Reason: Constipation Last Admin: 10/29/23 10:19 Dose: 30 ml Metformin HCl (Metformin Hcl 500 Mg Tablet) 500 mg PO DAILY [facility] Last Admin: 11/19/23 08:35 Dose: 500 mg Midodrine (Midodrine Hcl 5 Mg Tablet) 5 mg PO TIDWM [facility] Last Admin: 11/19/23 08:35 Dose: 5 mg Nicotine (Nicotine 21 Mg Patch.Td24) 21 mg TRANSDERMA DAILY [facility] Last Admin: 11/19/23 08:43 Dose: Not Given Olanzapine (Olanzapine 10 Mg Tablet) 20 mg PO BEDTIME [facility] Last Admin: 11/18/23 19:59 Dose: 20 mg Olanzapine (Olanzapine Odt 10 Mg Tab.Rapdis) 10 mg TRANSLINGU BID@0900,1400 [facility] Last Admin: 11/19/23 08:36 Dose: 10 mg Oxybutynin Chloride (Oxybutynin Chloride Er 5 Mg Tab.Er.24) 10 mg PO DAILY [facility] Last Admin: 11/19/23 08:36 Dose: 10 mg Quetiapine Fumarate (Quetiapine Fumarate 50 Mg Tablet) 50 mg PO BID@0900,1400 [facility] Last Admin: 11/19/23 08:36 Dose: 50 mg Quetiapine Fumarate (Quetiapine Fumarate 100 Mg Tablet) 100 mg PO Q4H PRN PRN Reason: agitation Last Admin: 11/19/23 01:11 Dose: 100 mg Trazodone HCl (Trazodone Hcl 50 Mg Tablet) 50 mg PO BEDTIME MRX1 PRN PRN Reason: Insomnia Last Admin: 11/18/23 20:00 Dose: 50 mg Trazodone HCl (Trazodone Hcl 25 Mg Halftab) 25 mg PO BEDTIME [facility] Last Admin: 11/18/23 20:01 Dose: 25 mg Trazodone HCl (Trazodone Hcl 50 Mg Tablet) 50 mg PO DAILY [facility] Last Admin: 11/19/23 08:36 Dose: 50 mg Allergies Allergies Allergy/AdvReac Type Severity Reaction Status Date / Time amantadine AdvReac Unknown Verified 09/29/23 17:57 Assessment & Plan Assessment & Plan (1) Traumatic brain injury: Qualifiers: Loss of consciousness presence/duration: unknown LOC status Status: Acute Code(s): S06.9XAA - Unspecified intracranial injury with loss of consciousness status unknown, initial encounter Plan 63-year-old female with TBI, dementia, disorganized who presents for aggressive behavior. Hospital course: 10/12 Patient disruptive last night, again today, disorganized and thinks she is back at her [facility], asking for her cigarettes over and over, talking to herself. Patient yelling [place] the [place], ran into staff with wheelchair though maybe not on purpose; patient lowered herself to the floor. Zyprexa p.r.n. not that helpful. Warehouse Administrator ordered Ativan 1 mg which did calm her down. On approach she remained disorganized, wanting her cigarettes but was overall calm. Staff reports patient eating and sleeping well. -continue current regimen for now 10/13 Patient remains disorganized, aggressive, yelling; p.r.n. Zyprexa still not helpful. Scheduled Clonazepam not helpful. Give another dose of Ativan which again was calming. PLAN: Will hold Zyprexa p.r.n. since has not proved helpful for calming agitation, despite getting up to 40 mg yesterday. Will instead make Ativan 1 mg t.i.d. p.r.n. available for agitation If Ativan proves helpful, will consider doing away with Zyprexa p.r.n. (and may be scheduled bedtime dose) and see if Tegretol or Depakote would work for aggression. Will likely defer this to primary team however 10/19/23: regarding medications, we will schedule olanzapine in the daytime rather than p.r.n.. Maintain nighttime olanzapine. Will utilize Seroquel as needed. Noted schedule Klonopin and as needed Ativan 10/20: no changes\ 10/26/23: no changes 10/27: Schedule seroqule morning and lunchtime 11/12 pt tested positive for covid on 11/11- currently asymptomatic, no cough, no SOB, afebrile. She does report feeling tired and is in bed. continue monitor respiratory status. Currently the patient is at baseline, she tested positive to COVID but she does not have any symptoms. We are going to have a [facility] meeting [facility] with the [facility] for discharge planning 11/15 continue tx. 11/19 continue tx. plan for dc tomorrow. plan 1. Continue same treatment. 2. Waiting for placement Reason for continued inpatient stay Substantial Risk for: inability to function Time Spent With Patient Time: Total time managing care of this patient today ____ minutes.
--- NOTE | 2023-11-19 10:46 | HO.PSYCHPN ---
Subjective Subjective Date of Service: 11/18/23 Reason For Visit: agitation Subjective Notes: Conditional Voluntary Interim History: pt has been calm not overly agitated Mental Status Exam Mental Status Exam Patient Appearance: Appropriate Patient Orientation: Person Level of Consciousness: Awake Patient Behavior: Guarded and Passive Mood Description: Withdrawn Affect Description: Constricted Patient Cognition Impaired: Yes Ability to Follow Directions: Good Speech Pattern: Clear Hallucinations: None Delusions: Not Present Thought Process: Distracted and Evasive Thought Content: positive for [place] and positive for Poverty of Content Judgement: Fair Diagnostics Vital Signs (24Hr): Vital Signs - 24 hr 11/18/23 12:27 11/18/23 16:55 11/18/23 18:00 Temperature 97.2 F 98.3 F Pulse Rate 70 82 70 Respiratory Rate 17 16 Blood Pressure 110/57 L 144/60 H 127/58 L Pulse Oximetry 96 96 Oxygen Delivery Method Room Air Room Air BMI result Body Mass Index 23.0 Labs 11/11/23 08:19 11/18/23 07:26 Labs: Laboratory Results - last 48 hr 11/18/23 07:26 Creatinine 0.57 Estim Creat Clear Calc 95.8 Estimated GFR > 60 Imaging Radiology Impressions: ITS Impressions Head CT 10/18/23 16:48 IMPRESSION: 1. No acute intracranial hemorrhage or edematous infarct. 2. 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 3. Right temporal approach ventriculostomy catheter with tip terminating in the right lateral ventricle body. No hydrocephalus. Medications Medications Current Medications Acetaminophen (Acetaminophen 325 Mg Tablet) 650 mg PO TID [facility] Last Admin: 11/19/23 08:37 Dose: 650 mg Al Hydroxide/Mg Hydroxide (Magnesium Hydrox/Alum Hydrox 30 Ml Oral.Susp) 30 ml PO Q6H PRN PRN Reason: Heartburn/Nausea Aspirin (Aspirin 81 Mg Tab.Chew) 81 mg PO DAILY [facility] Last Admin: 11/19/23 08:42 Dose: 81 mg Atorvastatin Calcium (Atorvastatin Calcium 80 Mg Tablet) 80 mg PO DAILY [facility] Last Admin: 11/19/23 08:35 Dose: 80 mg Docusate Sodium (Docusate Sodium 100 Mg Capsule) 100 mg PO BID [facility] Last Admin: 11/19/23 08:35 Dose: 100 mg Escitalopram Oxalate (Escitalopram Oxalate 5 Mg Tablet) 5 mg PO DAILY [facility] Last Admin: 11/19/23 08:36 Dose: 5 mg Famotidine (Famotidine 20 Mg Tablet) 20 mg PO BID [facility] Last Admin: 11/19/23 08:35 Dose: 20 mg Gabapentin (Gabapentin 300 Mg Capsule) 900 mg PO TID [facility] Last Admin: 11/19/23 08:35 Dose: 900 mg Guaifenesin/Dextromethorphan (Guaifenesin Dm 600/30 1 Tab Tab.Er.12h) 1 tab PO BID PRN PRN Reason: congestion/cough Hydroxyzine HCl (Hydroxyzine Hcl 25 Mg Tablet) 25 mg PO Q6H PRN PRN Reason: Anxiety Last Admin: 11/18/23 20:01 Dose: 25 mg Ibuprofen (Ibuprofen 400 Mg Tablet) 400 mg PO Q6H PRN PRN Reason: Mild Pain (Scale Score 1-4) Last Admin: 11/17/23 00:40 Dose: 400 mg Lamotrigine (Lamotrigine 100 Mg Tablet) 200 mg PO BID [facility] Last Admin: 11/19/23 08:35 Dose: 200 mg Latanoprost (Latanoprost 0.005 % Ophth Pati 2.5 Ml Drops) 1 drop EYE-BOTH BEDTIME [facility] Last Admin: 11/18/23 22:51 Dose: 1 drop Lorazepam (Lorazepam 1 Mg Tablet) 1 mg PO Q4H PRN PRN Reason: anxiety/restlessness Last Admin: 11/19/23 01:12 Dose: 1 mg Magnesium Hydroxide (Milk Of Magnesia 30 Ml Oral.Susp) 30 ml PO DAILY PRN PRN Reason: Constipation Last Admin: 10/29/23 10:19 Dose: 30 ml Metformin HCl (Metformin Hcl 500 Mg Tablet) 500 mg PO DAILY [facility] Last Admin: 11/19/23 08:35 Dose: 500 mg Midodrine (Midodrine Hcl 5 Mg Tablet) 5 mg PO TIDWM [facility] Last Admin: 11/19/23 08:35 Dose: 5 mg Nicotine (Nicotine 21 Mg Patch.Td24) 21 mg TRANSDERMA DAILY [facility] Last Admin: 11/19/23 08:43 Dose: Not Given Olanzapine (Olanzapine 10 Mg Tablet) 20 mg PO BEDTIME [facility] Last Admin: 11/18/23 19:59 Dose: 20 mg Olanzapine (Olanzapine Odt 10 Mg Tab.Rapdis) 10 mg TRANSLINGU BID@0900,1400 [facility] Last Admin: 11/19/23 08:36 Dose: 10 mg Oxybutynin Chloride (Oxybutynin Chloride Er 5 Mg Tab.Er.24) 10 mg PO DAILY [facility] Last Admin: 11/19/23 08:36 Dose: 10 mg Quetiapine Fumarate (Quetiapine Fumarate 50 Mg Tablet) 50 mg PO BID@0900,1400 [facility] Last Admin: 11/19/23 08:36 Dose: 50 mg Quetiapine Fumarate (Quetiapine Fumarate 100 Mg Tablet) 100 mg PO Q4H PRN PRN Reason: agitation Last Admin: 11/19/23 01:11 Dose: 100 mg Trazodone HCl (Trazodone Hcl 50 Mg Tablet) 50 mg PO BEDTIME MRX1 PRN PRN Reason: Insomnia Last Admin: 11/18/23 20:00 Dose: 50 mg Trazodone HCl (Trazodone Hcl 25 Mg Halftab) 25 mg PO BEDTIME [facility] Last Admin: 11/18/23 20:01 Dose: 25 mg Trazodone HCl (Trazodone Hcl 50 Mg Tablet) 50 mg PO DAILY [facility] Last Admin: 11/19/23 08:36 Dose: 50 mg Allergies Allergies Allergy/AdvReac Type Severity Reaction Status Date / Time amantadine AdvReac Unknown Verified 09/29/23 17:57 Assessment & Plan Assessment & Plan (1) Traumatic brain injury: Qualifiers: Loss of consciousness presence/duration: unknown LOC status Status: Acute Code(s): S06.9XAA - Unspecified intracranial injury with loss of consciousness status unknown, initial encounter Plan 63-year-old female with TBI, dementia, disorganized who presents for aggressive behavior. Hospital course: 10/12 Patient disruptive last night, again today, disorganized and thinks she is back at her longterm, asking for her cigarettes over and over, talking to herself. Patient yelling in the [place], ran into staff with wheelchair though maybe not on purpose; patient lowered herself to the floor. Zyprexa p.r.n. not that helpful. Supply Chain Business Analyst ordered Ativan 1 mg which did calm her down. On approach she remained disorganized, wanting her cigarettes but was overall calm. Staff reports patient eating and sleeping well. -continue current regimen for now 10/13 Patient remains disorganized, aggressive, yelling; p.r.n. Zyprexa still not helpful. Scheduled Clonazepam not helpful. Give another dose of Ativan which again was calming. PLAN: Will hold Zyprexa p.r.n. since has not proved helpful for calming agitation, despite getting up to 40 mg yesterday. Will instead make Ativan 1 mg t.i.d. p.r.n. available for agitation If Ativan proves helpful, will consider doing away with Zyprexa p.r.n. (and may be scheduled bedtime dose) and see if Tegretol or Depakote would work for aggression. Will likely defer this to primary team however 10/19/23: regarding medications, we will schedule olanzapine in the daytime rather than p.r.n.. Maintain nighttime olanzapine. Will utilize Seroquel as needed. Noted schedule Klonopin and as needed Ativan 10/20: no changes\ 10/26/23: no changes 10/27: Schedule seroqule morning and lunchtime 11/12 pt tested positive for covid on 11/11- currently asymptomatic, no cough, no SOB, afebrile. She does report feeling tired and is in bed. continue monitor respiratory status. Currently the patient is at baseline, she tested positive to COVID but she does not have any symptoms. We are going to have a family meeting today with the longterm for discharge planning 11/15 continue tx. 11/19 continue tx. plan for dc tomorrow. 11/18/23 Continue plan of care Reason for continued inpatient stay Substantial Risk for: inability to function and rapid decompensation Time Spent With Patient Time: Total time managing care of this patient today ____ minutes.
[2023-11-19 12:00] VITALS: BP 121/61; PULSE 67
[2023-11-19] MEDS: hydrOXYzine HCL 25 MG TABLET PO (16:10)
[2023-11-19 17:00] VITALS: BP 132/65; PULSE 69; RESP 18; TEMP 36.1; O2SAT 98
[2023-11-19 18:00] VITALS: BP 134/63; PULSE 78; RESP 16; TEMP 36.4; O2SAT 94
[2023-11-20] MEDS: QUEtiapine Fumarate 100 MG TABLET PO (01:17)
[2023-11-20] MEDS: hydrOXYzine HCL 25 MG TABLET PO (01:17)
[2023-11-20] MEDS: LORazepam 1 MG TABLET PO (01:17)
[2023-11-20 09:00] VITALS: BP 105/53; PULSE 53; RESP 18; TEMP 36.1; O2SAT 95
[2023-11-20] MEDS: metFORMIN HCl 500 MG TABLET PO (11:54)
[2023-11-20] MEDS: lamoTRIgine 100 MG TABLET 200 MG PO ×2 (11:54→21:09)
[2023-11-20] MEDS: Midodrine HCl 5 MG TABLET PO ×2 (11:54→17:29)
[2023-11-20] MEDS: Famotidine 20 MG TABLET PO ×2 (11:54→21:09)
[2023-11-20] MEDS: Docusate Sodium 100 MG CAPSULE PO ×2 (11:54→21:10)
[2023-11-20] MEDS: Escitalopram Oxalate 5 MG TABLET PO (11:55)
[2023-11-20] MEDS: traZODone HCL 50 MG TABLET PO (11:55)
[2023-11-20] MEDS: OLANZapine ODT 10 MG TAB.RAPDIS TRANSLINGU ×2 (11:55→15:15)
[2023-11-20] MEDS: QUEtiapine Fumarate 50 MG TABLET PO ×2 (11:55→15:14)
[2023-11-20] MEDS: Acetaminophen 325 MG TABLET 650 MG PO ×3 (11:55→21:10)
[2023-11-20] MEDS: Atorvastatin Calcium 80 MG TABLET PO (11:55)
[2023-11-20] MEDS: oxyBUTYnin chloride ER 5 MG TAB.ER.24 10 MG PO (11:56)
[2023-11-20] MEDS: Gabapentin 300 MG CAPSULE 900 MG PO ×3 (11:57→21:09)
[2023-11-20] MEDS: Aspirin 81 MG TAB.CHEW PO (11:57)
[2023-11-20 12:18] VITALS: BP 136/61; PULSE 63; RESP 18; TEMP 36.4; O2SAT 95
[2023-11-20 15:24] LABS: COVID-19 Test Positive (Negative); IDNOW Serial# 08D9AD1C
--- NOTE | 2023-11-20 16:12 | HO.PSYCHPN ---
Subjective Subjective Date of Service: 11/20/23 Reason For Visit: agitation Subjective Notes: Conditional Voluntary Interim History: The nursing staff reported the patient had been compliant with treatment, easily redirectable. The occupational therapist reported that she does well she is since his redirectable. On interview the patient denies new symptoms. The forensic social worker reported that she will be [facility]. Mental Status Exam Mental Status Exam Patient Appearance: Well Grooomed and Appropriate Patient Orientation: Person and Situation Level of Consciousness: Awake and Appropriate Patient Behavior: Guarded and Passive Mood Description: Withdrawn Affect Description: Constricted Patient Cognition Impaired: Yes Ability to Follow Directions: Good Speech Pattern: Impoverished and Spontaneous Speech Hallucinations: None Delusions: Not Present Thought Process: Distracted and Slowed Thinking Thought Content: positive for [place] and positive for Poverty of Content Judgement: Poor Diagnostics Vital Signs (24Hr): Vital Signs - 24 hr 11/19/23 17:00 11/19/23 18:00 11/20/23 09:00 Temperature 96.9 F 97.6 F 97.0 F Pulse Rate 69 78 53 Respiratory Rate 18 16 18 Blood Pressure 132/65 134/63 105/53 L Pulse Oximetry 98 94 95 Oxygen Delivery Method Room Air Room Air 11/20/23 12:18 Temperature 97.5 F Pulse Rate 63 Respiratory Rate 18 Blood Pressure 136/61 Pulse Oximetry 95 Oxygen Delivery Method Room Air BMI result Body Mass Index 23.0 Labs 11/11/23 08:19 11/18/23 07:26 Labs: Laboratory Results - last 48 hr 11/20/23 15:00 COVID-19 ([facility]) Positive A COVID-19 Clin Com See Note Imaging Radiology Impressions: ITS Impressions Head CT 10/18/23 16:48 IMPRESSION: 1. No acute intracranial hemorrhage or edematous infarct. 2. 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 3. Right temporal approach ventriculostomy catheter with tip terminating in the right lateral ventricle body. No hydrocephalus. Medications Medications Current Medications Acetaminophen (Acetaminophen 325 Mg Tablet) 650 mg PO TID [facility] Last Admin: 11/20/23 15:15 Dose: 650 mg Al Hydroxide/Mg Hydroxide (Magnesium Hydrox/Alum Hydrox 30 Ml Oral.Susp) 30 ml PO Q6H PRN PRN Reason: Heartburn/Nausea Aspirin (Aspirin 81 Mg Tab.Chew) 81 mg PO DAILY [facility] Last Admin: 11/20/23 11:57 Dose: 81 mg Atorvastatin Calcium (Atorvastatin Calcium 80 Mg Tablet) 80 mg PO DAILY [facility] Last Admin: 11/20/23 11:55 Dose: 80 mg Docusate Sodium (Docusate Sodium 100 Mg Capsule) 100 mg PO BID [facility] Last Admin: 11/20/23 11:54 Dose: 100 mg Escitalopram Oxalate (Escitalopram Oxalate 5 Mg Tablet) 5 mg PO DAILY [facility] Last Admin: 11/20/23 11:55 Dose: 5 mg Famotidine (Famotidine 20 Mg Tablet) 20 mg PO BID [facility] Last Admin: 11/20/23 11:54 Dose: 20 mg Gabapentin (Gabapentin 300 Mg Capsule) 900 mg PO TID [facility] Last Admin: 11/20/23 15:15 Dose: 900 mg Guaifenesin/Dextromethorphan (Guaifenesin Dm 600/30 1 Tab Tab.Er.12h) 1 tab PO BID PRN PRN Reason: congestion/cough Hydroxyzine HCl (Hydroxyzine Hcl 25 Mg Tablet) 25 mg PO Q6H PRN PRN Reason: Anxiety Last Admin: 11/20/23 01:17 Dose: 25 mg Ibuprofen (Ibuprofen 400 Mg Tablet) 400 mg PO Q6H PRN PRN Reason: Mild Pain (Scale Score 1-4) Last Admin: 11/17/23 00:40 Dose: 400 mg Lamotrigine (Lamotrigine 100 Mg Tablet) 200 mg PO BID [facility] Last Admin: 11/20/23 11:54 Dose: 200 mg Latanoprost (Latanoprost 0.005 % Ophth Pati 2.5 Ml Drops) 1 drop EYE-BOTH BEDTIME [facility] Last Admin: 11/19/23 21:08 Dose: Not Given Lorazepam (Lorazepam 1 Mg Tablet) 1 mg PO Q4H PRN PRN Reason: anxiety/restlessness Last Admin: 11/20/23 01:17 Dose: 1 mg Magnesium Hydroxide (Milk Of Magnesia 30 Ml Oral.Susp) 30 ml PO DAILY PRN PRN Reason: Constipation Last Admin: 10/29/23 10:19 Dose: 30 ml Metformin HCl (Metformin Hcl 500 Mg Tablet) 500 mg PO DAILY [facility] Last Admin: 11/20/23 11:54 Dose: 500 mg Midodrine (Midodrine Hcl 5 Mg Tablet) 5 mg PO TIDWM [facility] Last Admin: 11/20/23 12:20 Dose: Not Given Nicotine (Nicotine 21 Mg Patch.Td24) 21 mg TRANSDERMA DAILY [facility] Last Admin: 11/20/23 12:01 Dose: Not Given Olanzapine (Olanzapine 10 Mg Tablet) 20 mg PO BEDTIME [facility] Last Admin: 11/19/23 21:08 Dose: Not Given Olanzapine (Olanzapine Odt 10 Mg Tab.Rapdis) 10 mg TRANSLINGU BID@0900,1400 [facility] Last Admin: 11/20/23 15:15 Dose: 10 mg Oxybutynin Chloride (Oxybutynin Chloride Er 5 Mg Tab.Er.24) 10 mg PO DAILY [facility] Last Admin: 11/20/23 11:56 Dose: 10 mg Quetiapine Fumarate (Quetiapine Fumarate 50 Mg Tablet) 50 mg PO BID@0900,1400 [facility] Last Admin: 11/20/23 15:14 Dose: 50 mg Quetiapine Fumarate (Quetiapine Fumarate 100 Mg Tablet) 100 mg PO Q4H PRN PRN Reason: agitation Last Admin: 11/20/23 01:17 Dose: 100 mg Trazodone HCl (Trazodone Hcl 50 Mg Tablet) 50 mg PO BEDTIME MRX1 PRN PRN Reason: Insomnia Last Admin: 11/18/23 20:00 Dose: 50 mg Trazodone HCl (Trazodone Hcl 25 Mg Halftab) 25 mg PO BEDTIME [facility] Last Admin: 11/19/23 21:08 Dose: Not Given Trazodone HCl (Trazodone Hcl 50 Mg Tablet) 50 mg PO DAILY [facility] Last Admin: 11/20/23 11:55 Dose: 50 mg Allergies Allergies Allergy/AdvReac Type Severity Reaction Status Date / Time amantadine AdvReac Unknown Verified 09/29/23 17:57 Assessment & Plan Assessment & Plan (1) Traumatic brain injury: Qualifiers: Loss of consciousness presence/duration: unknown LOC status Status: Acute Code(s): S06.9XAA - Unspecified intracranial injury with loss of consciousness status unknown, initial encounter Plan 63-year-old female with TBI, dementia, disorganized who presents for aggressive behavior. Plan 1. Continue with to antipsychotics. 2. Continue with p.r.n. Ativan and Seroquel that has worked very well for her. 3. Discharge [facility] to [facility] Reason for continued inpatient stay Substantial Risk for: inability to function, rapid decompensation and med/psych decompensation Time Spent With Patient Time: Total time managing care of this patient today _20___ minutes.
[2023-11-20 17:15] VITALS: BP 88/42; PULSE 56
[2023-11-20 19:31] VITALS: BP 100/51; PULSE 56; RESP 18; TEMP 35.7; O2SAT 98
[2023-11-20] MEDS: OLANZapine 10 MG TABLET 20 MG PO (21:09)
[2023-11-20] MEDS: traZODone HCL 25 MG HALFTAB PO (21:09)
[2023-11-20] MEDS: Latanoprost 0.005 % Ophth Sol 2.5 ML DROPS 1 DROP EYE-BOTH (21:10)
[2023-11-21 07:00] VITALS: BMI 22.5
[2023-11-21] MEDS: metFORMIN HCl 500 MG TABLET PO (08:08)
[2023-11-21] MEDS: Docusate Sodium 100 MG CAPSULE PO ×2 (08:09→20:29)
[2023-11-21] MEDS: Gabapentin 300 MG CAPSULE 900 MG PO ×3 (08:09→20:29)
[2023-11-21] MEDS: Acetaminophen 325 MG TABLET 650 MG PO ×2 (08:10→20:29)
[2023-11-21] MEDS: Aspirin 81 MG TAB.CHEW PO (08:10)
[2023-11-21] MEDS: Escitalopram Oxalate 5 MG TABLET PO (08:10)
[2023-11-21] MEDS: oxyBUTYnin chloride ER 5 MG TAB.ER.24 10 MG PO (08:11)
[2023-11-21] MEDS: traZODone HCL 50 MG TABLET PO (08:11)
[2023-11-21] MEDS: Atorvastatin Calcium 80 MG TABLET PO (08:11)
[2023-11-21] MEDS: QUEtiapine Fumarate 50 MG TABLET PO ×2 (08:11→14:02)
--- NOTE | 2023-11-21 08:11 | P.DS_ITS ---
DS: Providers Provider Date of Service: 11/21/23 Date of admission: 09/29/23 17:10 Date of discharge: 11/21/23 Primary care physician: Unknown Physician Consults: 09/29/23 17:42 Consult to Hospitalist Routine Comment: Consulting Provider: Hospitalist Reason For Exam: direct admission Attending physician on discharge: Zia Zarco DS: Diagnosis Discharge Diagnosis (1) Psychosis: Status: Acute (2) Traumatic brain injury: Status: Acute (3) Diabetes: Status: Acute (4) HLD (hyperlipidemia): Status: Acute DS: Medications Discharge Medications Home Medications: Home Medications Medication Instructions Recorded Confirmed aspirin 81 mg tablet 81 mg PO DAILY 09/29/23 09/29/23 atorvastatin 80 mg tablet 80 mg PO DAILY 09/29/23 09/29/23 citalopram 20 mg tablet 20 mg PO DAILY 09/29/23 09/29/23 docusate sodium 100 mg capsule 100 mg PO BID 09/29/23 09/29/23 (Colace) famotidine 20 mg tablet 20 mg PO BID 09/29/23 09/29/23 gabapentin 600 mg tablet 600 mg PO TID 09/29/23 09/29/23 ibuprofen 400 mg tablet 400 mg PO Q6H PRN Mild Pain (Scale 09/29/23 09/29/23 Score 1-4) lamotrigine 200 mg tablet 200 mg PO BID 09/29/23 09/29/23 (Lamictal) latanoprost 0.005 % eye drops 1 drp ophthalmic (eye) DAILY 09/29/23 09/29/23 metformin 500 mg tablet 500 mg PO DAILY 09/29/23 09/29/23 oxybutynin chloride 10 mg 10 mg PO DAILY 09/29/23 09/29/23 tablet,extended release 24 hr trazodone 50 mg tablet 25 mg PO BEDTIME 09/29/23 09/29/23 trazodone 50 mg tablet 50 mg PO DAILY 09/29/23 09/29/23 varenicline 0.5 mg tablet 0.5 mg PO BID 09/29/23 09/29/23 Previous Rx's Medication Instructions Recorded acetaminophen 325 mg tablet 650 mg (2 x 325 mg) PO TID #240 11/19/23 tabs aspirin 81 mg chewable tablet 81 mg PO DAILY #30 tabs 11/19/23 atorvastatin 80 mg tablet 80 mg PO DAILY #30 tabs 11/19/23 clonazepam 0.5 mg tablet 0.5 mg PO TID #90 tabs 11/19/23 docusate sodium 100 mg capsule 100 mg PO BID #60 caps 11/19/23 escitalopram oxalate 5 mg tablet 5 mg PO DAILY #30 tabs 11/19/23 famotidine 20 mg tablet 20 mg PO BID #60 tabs 11/19/23 gabapentin 300 mg capsule 900 mg (3 x 300 mg) PO TID #240 11/19/23 caps lamotrigine 100 mg tablet 200 mg (2 x 100 mg) PO BID #120 11/19/23 tabs latanoprost 0.005 % eye drops 1 drp ophthalmic (eye) BEDTIME 11/19/23 #2.5 mL metformin 500 mg tablet 500 mg PO DAILY #30 tabs 11/19/23 midodrine 5 mg tablet 5 mg PO TIDWM #90 tabs 11/19/23 nicotine 21 mg/24 hr daily 21 mg transdermal DAILY #30 ea 11/19/23 transdermal patch olanzapine 10 mg disintegrating 10 mg translingual BID@0900,1400 11/19/23 tablet #60 tabs olanzapine 10 mg tablet 20 mg (2 x 10 mg) PO BEDTIME #30 11/19/23 tabs oxybutynin chloride 5 mg 10 mg (2 x 5 mg) PO DAILY #60 tabs 11/19/23 tablet,extended release 24 hr quetiapine 100 mg tablet 100 mg PO TID PRN agitation #90 11/19/23 tabs quetiapine 50 mg tablet 50 mg PO BID@0900,1400 #60 tabs 11/19/23 trazodone 50 mg tablet 50 mg PO BEDTIME PRN Insomnia #30 11/19/23 tabs trazodone 50 mg tablet 50 mg PO DAILY #30 tabs 11/19/23 Mental Status Exam Mental Status Exam Patient Appearance: Appropriate (On wheelchair) Patient Orientation: Person Level of Consciousness: Awake Patient Behavior: Guarded and Passive Mood Description: Withdrawn Affect Description: Constricted Patient Cognition Impaired: Yes Ability to Follow Directions: Good Speech Pattern: Impoverished Hallucinations: None Delusions: Not Present Thought Process: Distracted and Slowed Thinking Thought Content: positive for [place], positive for Poverty of Content and positive for Thought Blocking Judgement: Poor Data Data Completed and Pending Completed studies during hospitalization [Text1]: 11/14/23 11/18/23 11/20/23 10:05 07:26 15:00 Creatinine 0.57 Estim Creat Clear Calc 95.8 Estimated GFR > 60 COVID-19 ([facility]) Positive A Positive A COVID-19 Clin Com See Note See Note Imaging Diagnostic Imaging Impressions Head CT 10/18/23 16:48 IMPRESSION: 1. No acute intracranial hemorrhage or edematous infarct. 2. 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 3. Right temporal approach ventriculostomy catheter with tip terminating in the right lateral ventricle body. No hydrocephalus. DS: Summary Hospital Course Hospital Course: The patient is a 63-year-old female, resident of the nursing home, with chronic cognitive impairment, bipolar disorder and other medical comorbidities referred from the nursing home to the emergency room due to exacerbation of psychosis. Apparently the patient had being having visual hallucinations and paranoia. Also, she was grossly disorganized with sporadic episodes of agitation. The patient was assessed by crisis and transferring to this facility for psychiatric stabilization. Please see the [facility], admission note for further details. On intake, we review her medications and the patient did not have a therapeutic dose of antipsychotics. We discussed at length with her guardian, staff of her nursing home and other parties regarding the need of use of antipsychotics. We started the legal process of getting a community order for treatment over objection for antipsychotics. We start the titration of Zyprexa with limited improvement. We added p.r.n. Ativan and Seroquel with good improvement. The patient was seen that she was not responding more to internal stimuli, there was no evidence of visual hallucinations or disorganized behavior. Unfortunately, the patient needed to antipsychotics with the addition of p.r.n. Ativan to control her symptoms. While she was in the unit, she was assessed by the occupational therapist and the patient is wheelchair bounded. Her cognition was very poor and apparently she had been suffering of pervasive developmental disorder all her life. Also, the patient is a heavy smoker and she usually gets agitated whenever she wants to smoke. We found out that by giving her straws she comes herself and mimic th e behavior of smoking. The patient improved, there were no echo more episodes of agitation and since she was at her baseline she was discharged back to her nursing home. Time spent discussing smoking cessation with patient: 3 to 10 minutes Status at Discharge Cognitive/behavioral status at discharge: Impaired at baseline Functional status at discharge: wheelchair bound Overall status at discharge: patient is back to baseline Time Spent with Patient Time attestation: Total time managing care of this patient today __30__ minutes. Time spent: Less than 30 minutes Discharge Plan Discharge Anticipated Discharge Date/Time: 11/21/23 10:00 Patient Disposition: Xfer Other Discharge Diagnosis: Psychosis Traumatic brain injury Pervasive developmental disorder Referrals: Physician,Unknown J [Primary Care Provider] - 1 Week Discharge Medications: New atorvastatin 80 mg Tablet 80 mg PO DAILY Qty: 30 0RF acetaminophen 325 mg Tablet 650 mg PO TID Qty: 240 0RF gabapentin 300 mg Capsule 900 mg PO TID Qty: 240 0RF aspirin 81 mg Tablet,Chewable 81 mg PO DAILY Qty: 30 0RF lamotrigine 100 mg Tablet 200 mg PO BID Qty: 120 0RF escitalopram oxalate 5 mg Tablet 5 mg PO DAILY Qty: 30 0RF latanoprost 0.005 % Drops 1 drp ophthalmic (eye) BEDTIME Qty: 2.5 0RF metformin 500 mg Tablet 500 mg PO DAILY Qty: 30 0RF famotidine 20 mg Tablet 20 mg PO BID Qty: 60 0RF docusate sodium 100 mg Capsule 100 mg PO BID Qty: 60 0RF trazodone 50 mg Tablet 50 mg PO BEDTIME PRN (Reason: Insomnia) Qty: 30 0RF trazodone 50 mg Tablet 50 mg PO DAILY Qty: 30 0RF midodrine 5 mg Tablet 5 mg PO TIDWM Qty: 90 0RF olanzapine 10 mg Tablet 20 mg PO BEDTIME Qty: 30 0RF quetiapine 100 mg Tablet 100 mg PO TID PRN (Reason: agitation) Qty: 90 0RF nicotine 21 mg/24 hr Patch 24 Hour 21 mg transdermal DAILY Qty: 30 0RF olanzapine 10 mg Tablet,Disintegrating 10 mg translingual BID@0900,1400 Qty: 60 0RF oxybutynin chloride 5 mg Tablet Extended Release 24hr 10 mg PO DAILY Qty: 60 0RF quetiapine 50 mg Tablet 50 mg PO BID@0900,1400 Qty: 60 0RF Continued clonazepam 0.5 mg Tablet 0.5 mg PO TID Qty: 90 0RF Discontinued latanoprost 0.005 % Drops 1 drp OPHTHALMIC (EYE) DAILY metformin 500 mg Tablet 500 mg PO DAILY atorvastatin 80 mg Tablet 80 mg PO DAILY gabapentin 600 mg Tablet 600 mg PO TID lamotrigine [Lamictal] 200 mg Tablet 200 mg PO BID trazodone 50 mg Tablet 50 mg PO DAILY trazodone 50 mg Tablet 25 mg PO BEDTIME oxybutynin chloride [Ditropan XL] 10 mg Tablet Extended Release 24hr 10 mg PO DAILY citalopram 20 mg Tablet 20 mg PO DAILY famotidine 20 mg Tablet 20 mg PO BID ibuprofen 400 mg Tablet 400 mg PO Q6H PRN (Reason: Mild Pain (Scale Score 1-4)) docusate sodium [Colace] 100 mg Capsule 100 mg PO BID aspirin 81 mg Tablet 81 mg PO DAILY varenicline [Chantix] 0.5 mg Tablet 0.5 mg PO BID Rx Instructions: administer on days 4, 5, 6, and 7 of therapy Discharge Orders: Discharge Order (Routine); Ordered 11/21/23 Ordered By: Zia Zarco Diet: Advance to usual diet Activity on Discharge: As tolerated Stand Alone Forms: Patient Portal Discharge page Care Plan Goals: Care plan goals achieved in this admission Health Concerns: Continue treatment with regular providers Plan of Treatment: Continue psychiatric treatment by outpatient providers Assessment: The patient is a 63-year-old female with several medical comorbidities admitted for psychosis, traumatic brain injury and developmental disorder, initially psychotic that improve with antipsychotics. At this moment at baseline ready to go back to her nursing home. No safety concerns.
[2023-11-21] MEDS: Famotidine 20 MG TABLET PO ×2 (08:12→20:29)
[2023-11-21] MEDS: OLANZapine ODT 10 MG TAB.RAPDIS TRANSLINGU ×2 (08:12→14:01)
[2023-11-21] MEDS: lamoTRIgine 100 MG TABLET 200 MG PO ×2 (08:12→20:29)
[2023-11-21 08:14] VITALS: BP 135/60; PULSE 65; RESP 16; TEMP 36.4; O2SAT 96
[2023-11-21 12:09] VITALS: BP 117/52; PULSE 54; RESP 18; O2SAT 95
[2023-11-21] MEDS: Midodrine HCl 5 MG TABLET PO ×2 (12:12→17:52)
[2023-11-21 17:52] VITALS: BP 111/71; PULSE 71
[2023-11-21 19:30] VITALS: BP 124/62; PULSE 73; RESP 16; TEMP 36.6; O2SAT 97
[2023-11-21] MEDS: traZODone HCL 25 MG HALFTAB PO (20:30)
[2023-11-21] MEDS: OLANZapine 10 MG TABLET 20 MG PO (20:30)
[2023-11-21] MEDS: Latanoprost 0.005 % Ophth Sol 2.5 ML DROPS 1 DROP EYE-BOTH (21:10)
[2023-11-22] MEDS: Escitalopram Oxalate 5 MG TABLET PO (08:35)
[2023-11-22] MEDS: Acetaminophen 325 MG TABLET 650 MG PO ×2 (08:35→14:05)
[2023-11-22] MEDS: QUEtiapine Fumarate 50 MG TABLET PO ×2 (08:35→14:05)
[2023-11-22] MEDS: Gabapentin 300 MG CAPSULE 900 MG PO ×2 (08:35→14:04)
[2023-11-22] MEDS: Atorvastatin Calcium 80 MG TABLET PO (08:36)
[2023-11-22] MEDS: Aspirin 81 MG TAB.CHEW PO (08:36)
[2023-11-22] MEDS: Famotidine 20 MG TABLET PO (08:36)
[2023-11-22] MEDS: Docusate Sodium 100 MG CAPSULE PO (08:36)
[2023-11-22] MEDS: traZODone HCL 50 MG TABLET PO (08:36)
[2023-11-22] MEDS: oxyBUTYnin chloride ER 5 MG TAB.ER.24 10 MG PO (08:36)
[2023-11-22] MEDS: Midodrine HCl 5 MG TABLET PO ×2 (08:36→11:42)
[2023-11-22] MEDS: metFORMIN HCl 500 MG TABLET PO (08:36)
[2023-11-22] MEDS: OLANZapine ODT 10 MG TAB.RAPDIS TRANSLINGU ×2 (08:36→14:04)
[2023-11-22] MEDS: lamoTRIgine 100 MG TABLET 200 MG PO (08:37)
[2023-11-22 12:30] VITALS: BP 113/60; PULSE 58; RESP 18; TEMP 36.8; O2SAT 98
== END 2023-11-22 14:30 | disposition other institution (70) | DRG 885 ==
PROVIDERS: Social Worker; Admitting Provider Psychiatry & Neurology Psychiatry; Visit Provider Psychiatry & Neurology Psychiatry
DX: F29 Unspecified psychosis not due to a substance or known physiological condition (principal); U07.1 COVID-19; F03.90 Unspecified dementia, unspecified severity, without behavioral disturbance, psychotic disturbance, mood disturbance, and anxiety; F84.9 Pervasive developmental disorder, unspecified; E78.5 Hyperlipidemia, unspecified; F17.210 Nicotine dependence, cigarettes, uncomplicated; E11.9 Type 2 diabetes mellitus without complications; Z71.6 Tobacco abuse counseling; Z87.820 Personal history of traumatic brain injury; Z99.3 Dependence on wheelchair; Z79.82 Long term (current) use of aspirin; Z79.84 Long term (current) use of oral hypoglycemic drugs; Z79.899 Other long term (current) drug therapy
CPT/HCPCS: 36415; 70450; 80053; 80061; 81001; 82565; 85025; 87635; 97161; J2250; J2704; J3010

== ENCOUNTER → 2023-09-29 17:10 | Outpatient (BNV) | payer MEDICARE, MEDICAID, SELFPAY | PROVIDERS: Admitting Provider Psychiatry & Neurology Psychiatry; Visit Provider Psychiatry & Neurology Psychiatry | DX: F03.90 Unspecified dementia, unspecified severity, without behavioral disturbance, psychotic disturbance, mood disturbance, and anxiety (principal); S06.9XAD Unspecified intracranial injury with loss of consciousness status unknown, subsequent encounter; E11.9 Type 2 diabetes mellitus without complications; E78.5 Hyperlipidemia, unspecified | CPT/HCPCS: 90792; 99231; 99232; 99238 ==

== ENCOUNTER → 2023-09-29 17:10 | Outpatient (BNV) | payer MEDICARE, MEDICAID, SELFPAY | PROVIDERS: Admitting Provider Psychiatry & Neurology Psychiatry; Visit Provider Internal Medicine | DX: Z02.2 Encounter for examination for admission to residential institution (principal) | CPT/HCPCS: 99429; 99499 ==

== ENCOUNTER → 2023-09-29 17:10 | Outpatient (BNV) | payer MEDICARE, MEDICAID, SELFPAY | PROVIDERS: Admitting Provider Psychiatry & Neurology Psychiatry; Visit Provider Psychiatry & Neurology Psychiatry | DX: F03.90 Unspecified dementia, unspecified severity, without behavioral disturbance, psychotic disturbance, mood disturbance, and anxiety (principal); S06.9XAD Unspecified intracranial injury with loss of consciousness status unknown, subsequent encounter | CPT/HCPCS: 99231 ==